=== PATIENT | male | born 1995 | race African-American/Black ===

== ENCOUNTER 2016-11-14 16:36 | Emergency (ER) | payer MEDICAID, OTHER ==
[~2016-11-14] VITALS: Ht 182.9 cm; Wt 129.6 kg
[~2016-11-14 16:36] MED LIST: OLAN5TAB2 PO
[2016-11-14 18:39] VITALS: BP 144/82
== END 2016-11-14 18:55 | disposition other institution (70) ==
LOC: EMS 16:38
DX: S00.33XA Contusion of nose, initial encounter (principal); F20.9 Schizophrenia, unspecified; F12.10 Cannabis abuse, uncomplicated; Z79.899 Other long term (current) drug therapy; X58.XXXA Exposure to other specified factors, initial encounter; Y93.89 Activity, other specified; Y99.8 Other external cause status; Y92.89 Other specified places as the place of occurrence of the external cause
CPT/HCPCS: 99283

== ENCOUNTER 2016-11-29 20:46 | Emergency (ER) | payer OTHER ==
[~2016-11-29] VITALS: Ht 182.9 cm; Wt 109.1 kg
[~2016-11-29 20:46] MED LIST changes: +OLAN10TA3 PO; -OLAN5TAB2 PO
[2016-11-29 21:16] LABS: BASOPHILS # (AUTO) 0.07 K/uL (0.00-0.20); BASOPHILS % (AUTO) 0.7 % (0.0-2.0); EOSINOPHILS # (AUTO) 0.12 K/uL (0.00-0.70); EOSINOPHILS % (AUTO) 1.16 % (1.0-6.0); HEMATOCRIT 41.3 % (41-53); HEMOGLOBIN 13.6 g/dL (13.5-17.5); LYMPHOCYTES % (AUTO) 19.8 % (22.0-44.0); MEAN CORPUSCULAR HEMOGLOBIN 27.5 pg (26.0-34.0); MEAN CORPUSCULAR HGB CONC 32.9 G/dL (31.0-37.0); MEAN CORPUSCULAR VOLUME 84 fL (80-100); MONOCYTES # (AUTO) 0.7 K/uL (0.1-1.0); MONOCYTES % (AUTO) 6.8 % (2.0-9.0); NEUTROPHILS # (AUTO) 7.1 K/uL (1.8-7.7); NEUTROPHILS % (AUTO) 71.6 % (40.0-70.0); PLATELET COUNT (AUTO) 189 K/uL (150-450); RED BLOOD CELL COUNT(AUTO) 4.94 MIL/uL (4.50-5.90); RED CELL DISTRIBUTION WIDTH 12.8 % (11.5-14.5); WHITE BLOOD COUNT (AUTO) 9.9 K/uL (4.5-11.0)
[2016-11-29 21:20] LABS: ANION GAP 12 mmol/L (8-16); CALCIUM, TOTAL 9.1 mg/dL (8.8-10.5); CARBON DIOXIDE 26 mmol/L (22-29); CHLORIDE 98 mmol/L (98-107); CREATININE 1.27 mg/dL (0.60-1.30); GLOMERULAR FILTR. RATE CALC > 60 mL/min (>60); POTASSIUM 3.5 mmol/L (3.5-5.1); SODIUM SERUM 136 mmol/L (136-145); UREA NITROGEN, BLOOD 11 mg/dL (7-18)
[2016-11-29 21:26] LABS: ALANINE AMINOTRANSFERASE 133 U/L (12-78); ALBUMIN 4.3 g/dL (3.4-5.0); ASPARTATE AMINOTRANSFERASE 55 U/L (15-37); BILIRUBIN,TOTAL 0.6 mg/dL (0.1-1.0); TOTAL PROTEIN, SERUM 8.5 g/dL (6.4-8.2)
[2016-11-29] MEDS ORDERED: LORazepam 2 MG TABLET PO ONE (22:30)
[2016-11-29] MEDS ORDERED: DiphenhydrAMINE HCL 25 MG CAPSULE PO ONE (22:30)
[2016-11-29] MEDS ORDERED: OLANZapine 5 MG TABLET PO ONE (22:30)
[2016-11-29] MEDS ORDERED: DiphenhydrAMINE HCL 50 MG/ML VIAL IM ONE (22:45)
[2016-11-29] MEDS ORDERED: HALOPERIDOL LACTATE 5 MG/ML VIAL IM ONE (22:45)
[2016-11-29] MEDS ORDERED: LORazepam 2 MG/ML VIAL IM ONE (22:45)
[2016-11-29 23:47] VITALS: BP 138/80
== END 2016-11-29 23:49 | disposition home or self-care (01) ==
LOC: EEVIPCON 20:57 → EMS 20:57
DX: F25.9 Schizoaffective disorder, unspecified (principal); F12.90 Cannabis use, unspecified, uncomplicated
CPT/HCPCS: 36415; 80053; 85025; 96372; 99285; G0480; J1200; J1630; J2060

== ENCOUNTER 2016-11-30 22:47 | Inpatient (IN) | payer MEDICAID, OTHER ==
[~2016-11-30] VITALS: Ht 182.9 cm; Wt 132.4 kg
[2016-11-30] MEDS ORDERED: HALOPERIDOL 5 MG TABLET PO PRN (23:15)
[2016-11-30 23:44] VITALS: BP 127/76
[2016-12-01 00:01] VITALS: BP 143/83
[2016-12-01 08:10] VITALS: BP 138/85
[2016-12-01] MEDS ORDERED: IBUPROFEN 400 MG TABLET PO PRN (08:15)
[2016-12-01] MEDS ORDERED: ACETAMINOPHEN 325 MG TABLET PO PRN (08:15)
[2016-12-01] MEDS: OLANZapine 10 MG TABLET PO SCH ×2 (10:10→20:38)
[2016-12-01] MEDS: LORazepam 2 MG TABLET PO PRN ×2 (10:10→16:50)
[2016-12-01] MEDS: NICOTINE 14 MG/24 HOUR PATCH TD SCH (11:45)
[2016-12-01 16:00] VITALS: BP 130/77
[2016-12-01] MEDS ORDERED: OLANZapine 10 MG TABLET PO SCH (21:00)
[2016-12-01] MEDS: ZOLPIDEM TARTRATE 10 MG TABLET PO PRN (21:10)
[2016-12-02] MEDS: OLANZapine 10 MG TABLET PO SCH ×2 (09:33→20:17)
[2016-12-02] MEDS: LORazepam 2 MG TABLET PO PRN ×2 (09:33→20:17)
[2016-12-02] MEDS: NICOTINE 14 MG/24 HOUR PATCH TD SCH (09:34)
[2016-12-02 16:50] VITALS: BP 135/78
[2016-12-02] MEDS: ZOLPIDEM TARTRATE 10 MG TABLET PO PRN (20:53)
[2016-12-03 08:30] VITALS: BP 136/82
[2016-12-03] MEDS: OLANZapine 10 MG TABLET PO SCH ×2 (09:18→20:09)
[2016-12-03] MEDS: NICOTINE 14 MG/24 HOUR PATCH TD SCH (09:19)
[2016-12-03 16:45] VITALS: BP 145/92
[2016-12-03] MEDS: LORazepam 2 MG TABLET PO PRN (19:50)
[2016-12-03] MEDS: ZOLPIDEM TARTRATE 10 MG TABLET PO PRN (20:37)
[2016-12-04] MEDS: OLANZapine 10 MG TABLET PO SCH ×2 (09:00→21:29)
[2016-12-04] MEDS: NICOTINE 14 MG/24 HOUR PATCH TD SCH (09:00)
[2016-12-04] MEDS: LORazepam 2 MG TABLET PO PRN (17:32)
[2016-12-04] MEDS: ZOLPIDEM TARTRATE 10 MG TABLET PO PRN (21:29)
[2016-12-05 07:12] VITALS: BP 133/69
[2016-12-05 08:10] LABS: BASOPHILS # (AUTO) 0.03 K/uL (0.00-0.20); BASOPHILS % (AUTO) 0.3 % (0.0-2.0); EOSINOPHILS # (AUTO) 0.24 K/uL (0.00-0.70); EOSINOPHILS % (AUTO) 2.66 % (1.0-6.0); HEMATOCRIT 41.3 % (41-53); HEMOGLOBIN 13.3 g/dL (13.5-17.5); LYMPHOCYTES # (AUTO) 2.3 K/uL (1.0-4.8); MEAN CORPUSCULAR HEMOGLOBIN 27.4 pg (26.0-34.0); MEAN CORPUSCULAR HGB CONC 32.3 G/dL (31.0-37.0); MEAN CORPUSCULAR VOLUME 85 fL (80-100); MONOCYTES # (AUTO) 0.6 K/uL (0.1-1.0); MONOCYTES % (AUTO) 6.2 % (2.0-9.0); NEUTROPHILS # (AUTO) 5.8 K/uL (1.8-7.7); NEUTROPHILS % (AUTO) 64.8 % (40.0-70.0); PLATELET COUNT (AUTO) 169 K/uL (150-450); RED BLOOD CELL COUNT(AUTO) 4.86 MIL/uL (4.50-5.90); RED CELL DISTRIBUTION WIDTH 13.1 % (11.5-14.5); WHITE BLOOD COUNT (AUTO) 8.9 K/uL (4.5-11.0)
[2016-12-05 08:39] LABS: ALANINE AMINOTRANSFERASE 139 U/L (12-78); ALBUMIN 3.4 g/dL (3.4-5.0); ANION GAP 7 mmol/L (8-16); ASPARTATE AMINOTRANSFERASE 41 U/L (15-37); BILIRUBIN,TOTAL 0.3 mg/dL (0.1-1.0); CALCIUM, TOTAL 8.7 mg/dL (8.8-10.5); CARBON DIOXIDE 27 mmol/L (22-29); CHLORIDE 105 mmol/L (98-107); CHOL/HDL RATIO 4.8 (4.2-7.3); CREATININE 1.02 mg/dL (0.60-1.30); GLOMERULAR FILTR. RATE CALC > 60 mL/min (>60); POTASSIUM 3.9 mmol/L (3.5-5.1); SODIUM SERUM 139 mmol/L (136-145); THYROID STIMULATING HORMONE 1.93 uIU/mL (0.36-3.74); TOTAL PROTEIN, SERUM 7.1 g/dL (6.4-8.2); UREA NITROGEN, BLOOD 8 mg/dL (7-18)
[2016-12-05 08:45] LABS: HEMOGLOBIN A1C 4.8 % (4.5-6.2)
[2016-12-05] MEDS: NICOTINE 14 MG/24 HOUR PATCH TD SCH (09:00)
[2016-12-05] MEDS: OLANZapine 10 MG TABLET PO SCH ×2 (09:00→21:32)
[2016-12-05 16:00] VITALS: BP 113/70
[2016-12-06] MEDS: OLANZapine 10 MG TABLET PO SCH ×2 (09:00→20:05)
[2016-12-06] MEDS: NICOTINE 14 MG/24 HOUR PATCH TD SCH (09:17)
[2016-12-06] MEDS ORDERED: LORazepam 2 MG/ML VIAL IM ONE (16:45)
[2016-12-06] MEDS ORDERED: DiphenhydrAMINE HCL 50 MG/ML VIAL IM ONE (16:45)
[2016-12-06] MEDS ORDERED: HALOPERIDOL LACTATE 5 MG/ML VIAL IM ONE (16:45)
[2016-12-06] MEDS: ZOLPIDEM TARTRATE 10 MG TABLET PO PRN (20:24)
[2016-12-06] MEDS: LORazepam 2 MG TABLET PO PRN (20:24)
[2016-12-07 06:10] VITALS: BP 130/75
[2016-12-07] MEDS: NICOTINE 14 MG/24 HOUR PATCH TD SCH (09:00)
[2016-12-07] MEDS: LORazepam 2 MG TABLET PO PRN (20:29)
[2016-12-07] MEDS: OLANZapine 10 MG TABLET PO SCH (20:29)
[2016-12-07] MEDS: ZOLPIDEM TARTRATE 10 MG TABLET PO PRN (20:29)
[2016-12-08 04:36] VITALS: BP 116/64
[2016-12-08] MEDS: NICOTINE 14 MG/24 HOUR PATCH TD SCH (08:55)
[2016-12-08] MEDS: LORazepam 2 MG TABLET PO PRN (12:06)
[2016-12-08] MEDS: OLANZapine 10 MG TABLET PO SCH (20:08)
[2016-12-08] MEDS: ZOLPIDEM TARTRATE 10 MG TABLET PO PRN (20:08)
[2016-12-09] MEDS: NICOTINE 14 MG/24 HOUR PATCH TD SCH (09:00)
[2016-12-09] MEDS: LORazepam 2 MG TABLET PO PRN (16:55)
[2016-12-09] MEDS: OLANZapine 10 MG TABLET PO SCH (21:07)
[2016-12-10 08:43] VITALS: BP 117/85
[2016-12-10] MEDS: NICOTINE 14 MG/24 HOUR PATCH TD SCH (09:00)
[2016-12-10] MEDS: LORazepam 2 MG TABLET PO PRN (17:54)
[2016-12-10] MEDS: OLANZapine 10 MG TABLET PO SCH (20:11)
[2016-12-10] MEDS: ZOLPIDEM TARTRATE 10 MG TABLET PO PRN (20:48)
[2016-12-11 08:28] VITALS: BP 117/81
[2016-12-11] MEDS: NICOTINE 14 MG/24 HOUR PATCH TD SCH (09:00)
[2016-12-11] MEDS: OLANZapine 10 MG TABLET PO SCH (20:36)
[2016-12-12 08:42] VITALS: BP 121/76
[2016-12-12] MEDS: NICOTINE 14 MG/24 HOUR PATCH TD SCH (09:00)
[2016-12-12] MEDS: OLANZapine 10 MG TABLET PO SCH (20:22)
[2016-12-13] MEDS: NICOTINE 14 MG/24 HOUR PATCH TD SCH (08:37)
[2016-12-13] MEDS ORDERED: OLAN10TA3 PO (15:39)
[2016-12-13] MEDS: OLANZapine 10 MG TABLET PO SCH (21:24)
[2016-12-14] MEDS: NICOTINE 14 MG/24 HOUR PATCH TD SCH (08:39)
[2016-12-14 08:47] VITALS: BP 109/62
== END 2016-12-14 14:02 | disposition home or self-care (01) | DRG 750 ==
LOC: B3A 23:13 → EDSTATUS 23:20
DX: F20.0 Paranoid schizophrenia (principal); R45.851 Suicidal ideations; Z91.14 Patient's other noncompliance with medication regimen; F12.90 Cannabis use, unspecified, uncomplicated
CPT/HCPCS: 83036; 84439; 84443; 87081; J1200; J1630; J2060

== ENCOUNTER 2017-07-06 21:19 | Inpatient (IN) | payer MEDICAID ==
[~2017-07-06] VITALS: Ht 182.9 cm; Wt 108.4 kg
[2017-07-06 21:23] VITALS: BP 137/75
[2017-07-06] MEDS ORDERED: HALOPERIDOL 5 MG TABLET PO PRN (21:45)
[2017-07-06] MEDS ORDERED: HALO5 PO (21:58)
[2017-07-06] MEDS ORDERED: INFLUENZA VIRUS VACCINE QVS 2017-18 (3YR+)/PF 60 MCG/0.5 ML SYRINGE IM ONE (23:15)
[2017-07-06 23:42] VITALS: BP 128/74
[2017-07-06] MEDS: LORazepam 2 MG TABLET PO PRN (23:42)
[2017-07-06] MEDS: ZOLPIDEM TARTRATE 10 MG TABLET PO PRN (23:42)
[2017-07-07 05:46] VITALS: BP 125/80
[2017-07-07 08:16] VITALS: BP 116/68
[2017-07-07] MEDS: OLANZapine 10 MG TABLET PO SCH (13:14)
[2017-07-07 16:14] VITALS: BP 123/62
[2017-07-07] MEDS: LORazepam 2 MG TABLET PO PRN (16:40)
[2017-07-07] MEDS ORDERED: ACETAMINOPHEN 325 MG TABLET PO PRN (20:45)
[2017-07-07] MEDS ORDERED: IBUPROFEN 400 MG TABLET PO PRN (20:45)
[2017-07-07] MEDS: ZOLPIDEM TARTRATE 10 MG TABLET PO PRN (20:56)
[2017-07-07] MEDS: TraZODone HCL 50 MG TABLET PO SCH (20:56)
[2017-07-07] MEDS ORDERED: OLANZapine 10 MG TABLET PO SCH (21:00)
[2017-07-08 03:57] VITALS: BP 107/62
[2017-07-08 03:58] LABS: GLUCOMETER DEV NAME(LOC) BV3N5; GLUCOSE,POINT OF CARE 109 MG/DL (70-110)
[2017-07-08 08:30] VITALS: BP 112/78
[2017-07-08 08:47] LABS: BASOPHILS % (AUTO) 0.4 % (0.0-2.0); EOSINOPHILS % (AUTO) 1.3 % (1.0-6.0); HEMATOCRIT 41.4 % (41-53); HEMOGLOBIN 13.5 g/dL (13.5-17.5); LYMPHOCYTES # (AUTO) 1.6 K/uL (1.0-4.8); LYMPHOCYTES % (AUTO) 16.8 % (22.0-44.0); MEAN CORPUSCULAR HEMOGLOBIN 27.2 pg (26.0-34.0); MEAN CORPUSCULAR HGB CONC 32.7 G/dL (31.0-37.0); MEAN CORPUSCULAR VOLUME 83 fL (80-100); MONOCYTES # (AUTO) 0.6 K/uL (0.1-1.0); MONOCYTES % (AUTO) 6.2 % (2.0-9.0); NEUTROPHILS # (AUTO) 7.1 K/uL (1.8-7.7); NEUTROPHILS % (AUTO) 75.3 % (40.0-70.0); PLATELET COUNT (AUTO) 187 K/uL (150-450); RED BLOOD CELL COUNT(AUTO) 4.98 MIL/uL (4.50-5.90); RED CELL DISTRIBUTION WIDTH 13.3 % (11.5-14.5)
[2017-07-08 08:57] LABS: HEMOGLOBIN A1C 4.9 % (4.5-6.2)
[2017-07-08] MEDS: OLANZapine 10 MG TABLET PO SCH ×4 (09:00→20:13)
[2017-07-08 09:22] LABS: ALANINE AMINOTRANSFERASE 50 U/L (12-78); ALBUMIN 3.5 g/dL (3.4-5.0); ALKALINE PHOSPHATASE 76 U/L (46-116); ANION GAP 8 mmol/L (8-16); ASPARTATE AMINOTRANSFERASE 18 U/L (15-37); BILIRUBIN,TOTAL 0.3 mg/dL (0.1-1.0); CALCIUM, TOTAL 9.3 mg/dL (8.8-10.5); CARBON DIOXIDE 28 mmol/L (22-29); CHLORIDE 105 mmol/L (98-107); CHOL/HDL RATIO 5.4 (4.2-7.3); CHOLESTEROL 194 mg/dL (131-200); CREATININE 0.91 mg/dL (0.60-1.30); GLOMERULAR FILTR. RATE CALC > 60 mL/min (>60); GLUCOSE,RANDOM 79 mg/dL (70-110); HDL CHOLESTEROL 36 mg/dL (40-60); LDL CHOL (CALC.) 113 mg/dL (0-130); POTASSIUM 4.1 mmol/L (3.5-5.1); SODIUM SERUM 141 mmol/L (136-145); THYROID STIMULATING HORMONE 1.33 uIU/mL (0.36-3.74); TOTAL PROTEIN, SERUM 7.7 g/dL (6.4-8.2); TRIGLYCERIDES 223 mg/dL (15-150); UREA NITROGEN, BLOOD 13 mg/dL (7-18)
[2017-07-08 16:03] VITALS: BP 106/62
[2017-07-08] MEDS: TraZODone HCL 50 MG TABLET PO SCH (20:12)
[2017-07-08] MEDS: ZOLPIDEM TARTRATE 10 MG TABLET PO PRN (20:13)
[2017-07-09 00:24] VITALS: BP 138/90
[2017-07-09 08:09] VITALS: BP 119/64
[2017-07-09] MEDS: OLANZapine 10 MG TABLET PO SCH ×2 (08:42→20:33)
[2017-07-09 16:01] VITALS: BP 137/73
[2017-07-09] MEDS: LORazepam 2 MG TABLET PO PRN (16:48)
[2017-07-09] MEDS: TraZODone HCL 50 MG TABLET PO SCH (20:33)
[2017-07-09] MEDS: ZOLPIDEM TARTRATE 10 MG TABLET PO PRN (20:33)
[2017-07-10 05:35] VITALS: BP 126/78
[2017-07-10 08:02] VITALS: BP 133/76
[2017-07-10] MEDS: OLANZapine 10 MG TABLET PO SCH ×2 (08:31→20:34)
[2017-07-10] MEDS: LORazepam 2 MG TABLET PO PRN ×2 (12:47→16:57)
[2017-07-10 16:00] VITALS: BP 127/69
[2017-07-10] MEDS: TraZODone HCL 50 MG TABLET PO SCH (20:34)
[2017-07-10] MEDS: ZOLPIDEM TARTRATE 10 MG TABLET PO PRN (20:34)
[2017-07-11 02:26] VITALS: BP 122/81
[2017-07-11 08:25] VITALS: BP 130/61
[2017-07-11] MEDS: OLANZapine 10 MG TABLET PO SCH (08:27)
[2017-07-11 16:00] VITALS: BP 120/71
[2017-07-11] MEDS ORDERED: OLAN10TA3 PO (16:44)
[2017-07-11] MEDS ORDERED: TRAZ-144 PO (16:44)
== END 2017-07-11 17:45 | disposition home or self-care (01) | DRG 750 ==
LOC: B3A 22:12 → EDSTATUS 22:30
PROVIDERS: ADMIT Psychiatry & Neurology Child & Adolescent Psychiatry; ATTEND Psychiatry & Neurology Child & Adolescent Psychiatry
PROC: 3E0234Z Introduction of Serum, Toxoid and Vaccine into Muscle, Percutaneous Approach (ICD-10-PCS; principal; 2017-07-07)
DX: F20.0 Paranoid schizophrenia (principal); E78.5 Hyperlipidemia, unspecified; D64.9 Anemia, unspecified; F41.9 Anxiety disorder, unspecified; F19.10 Other psychoactive substance abuse, uncomplicated; Z23 Encounter for immunization
CPT/HCPCS: 82962; 83036; 84439; 84443; 87081; 90471; 99285

== ENCOUNTER 2017-07-12 15:49 | Inpatient (IN) | payer MEDICAID ==
[~2017-07-12] VITALS: Ht 182.9 cm; Wt 114.9 kg
[~2017-07-12 15:49] MED LIST changes: +TRAZ-144 PO
[2017-07-12] MEDS ORDERED: LORazepam 1 MG TABLET PO ONE (17:30)
[2017-07-12 17:45] LABS: BASOPHILS % (AUTO) 0.6 % (0.0-2.0); HEMATOCRIT 42.1 % (41-53); HEMOGLOBIN 13.9 g/dL (13.5-17.5); LYMPHOCYTES % (AUTO) 18.3 % (22.0-44.0); MEAN CORPUSCULAR HEMOGLOBIN 27.6 pg (26.0-34.0); MEAN CORPUSCULAR VOLUME 84 fL (80-100); MONOCYTES # (AUTO) 0.7 K/uL (0.1-1.0); MONOCYTES % (AUTO) 6.6 % (2.0-9.0); NEUTROPHILS # (AUTO) 8.2 K/uL (1.8-7.7); NEUTROPHILS % (AUTO) 73.5 % (40.0-70.0); PLATELET COUNT (AUTO) 187 K/uL (150-450); RED BLOOD CELL COUNT(AUTO) 5.03 MIL/uL (4.50-5.90); RED CELL DISTRIBUTION WIDTH 13.2 % (11.5-14.5)
[2017-07-12 17:47] LABS: ANION GAP 10 mmol/L (8-16); CALCIUM, TOTAL 9.3 mg/dL (8.8-10.5); CARBON DIOXIDE 29 mmol/L (22-29); CHLORIDE 103 mmol/L (98-107); CREATININE 1.14 mg/dL (0.60-1.30); GLOMERULAR FILTR. RATE CALC > 60 mL/min (>60); GLUCOSE,RANDOM 100 mg/dL (70-110); POTASSIUM 4.6 mmol/L (3.5-5.1); SODIUM SERUM 142 mmol/L (136-145); UREA NITROGEN, BLOOD 12 mg/dL (7-18)
[2017-07-12 17:50] LABS: AMPHET/METH SCREEN,URINE NEGATIVE (NEGATIVE); BARBITURATE SCREEN, URINE NEGATIVE (NEGATIVE); BENZODIAZEPINES SCREEN,URINE NEGATIVE (NEGATIVE); CANNABINOID SCREEN,URINE NEGATIVE (NEGATIVE); COCAINE SCREEN,URINE NEGATIVE (NEGATIVE); METHADONE SCREEN, URINE NEGATIVE (NEGATIVE); OPIATE SCREEN,URINE NEGATIVE (NEGATIVE)
[2017-07-12 17:51] LABS: ALANINE AMINOTRANSFERASE 69 U/L (12-78); ALBUMIN 3.7 g/dL (3.4-5.0); ALKALINE PHOSPHATASE 79 U/L (46-116); ASPARTATE AMINOTRANSFERASE 23 U/L (15-37); BILIRUBIN,TOTAL 0.3 mg/dL (0.1-1.0); TOTAL PROTEIN, SERUM 8.3 g/dL (6.4-8.2)
[2017-07-12 17:58] LABS: PHENCYCLIDINE SCREEN,URINE NEGATIVE (NEGATIVE)
[2017-07-12] MEDS ORDERED: ACETAMINOPHEN 325 MG TABLET PO ONE (18:00)
[2017-07-12] MEDS: HALOPERIDOL 5 MG TABLET PO PRN (18:04)
[2017-07-12 19:13] VITALS: BP 145/83
[2017-07-12] MEDS ORDERED: ACETAMINOPHEN 325 MG TABLET PO PRN (20:30)
[2017-07-12] MEDS ORDERED: IBUPROFEN 400 MG TABLET PO PRN (20:30)
[2017-07-12] MEDS: ZOLPIDEM TARTRATE 10 MG TABLET PO PRN (22:50)
[2017-07-13] MEDS ORDERED: LORazepam 2 MG/ML VIAL ONE (07:42)
[2017-07-13] MEDS ORDERED: DiphenhydrAMINE HCL 50 MG/ML VIAL ONE (07:43)
[2017-07-13] MEDS ORDERED: HALOPERIDOL LACTATE 5 MG/ML VIAL ONE (07:43)
[2017-07-13] MEDS ORDERED: LORazepam 2 MG/ML VIAL IM ONE ×2 (07:45→19:00)
[2017-07-13] MEDS ORDERED: DiphenhydrAMINE HCL 50 MG/ML VIAL IM ONE ×2 (07:45→19:00)
[2017-07-13] MEDS ORDERED: HALOPERIDOL LACTATE 5 MG/ML VIAL IM ONE ×2 (07:45→19:00)
[2017-07-13] MEDS: HALOPERIDOL 5 MG TABLET PO PRN ×2 (07:51→18:46)
[2017-07-13] MEDS: LORazepam 2 MG TABLET PO PRN ×2 (07:51→18:45)
[2017-07-13 09:00] VITALS: BP 119/64
[2017-07-13 17:09] VITALS: BP 145/109
[2017-07-13] MEDS: DIVALPROEX SODIUM 500 MG DR TABLET PO SCH (20:36)
[2017-07-13] MEDS: TraZODone HCL 50 MG TABLET PO SCH (20:37)
[2017-07-13] MEDS: OLANZapine 10 MG TABLET PO SCH (20:37)
[2017-07-14 08:17] VITALS: BP 131/76
[2017-07-14] MEDS: DIVALPROEX SODIUM 500 MG DR TABLET PO SCH ×4 (09:00→21:00)
[2017-07-14] MEDS: OLANZapine 10 MG TABLET PO SCH ×2 (09:58→21:53)
[2017-07-14] MEDS: AmLODIPine BESYLATE 5 MG TABLET PO SCH (09:58)
[2017-07-14] MEDS: HALOPERIDOL 5 MG TABLET PO PRN (12:22)
[2017-07-14] MEDS: LORazepam 2 MG TABLET PO PRN (12:22)
[2017-07-14 16:18] VITALS: BP 146/95
[2017-07-14] MEDS: TraZODone HCL 50 MG TABLET PO SCH (21:53)
[2017-07-15 07:22] LABS: BASOPHILS % (AUTO) 0.5 % (0.0-2.0); EOSINOPHILS % (AUTO) 3.1 % (1.0-6.0); HEMATOCRIT 40.2 % (41-53); HEMOGLOBIN 13.1 g/dL (13.5-17.5); LYMPHOCYTES # (AUTO) 2.1 K/uL (1.0-4.8); MEAN CORPUSCULAR HGB CONC 32.6 G/dL (31.0-37.0); MEAN CORPUSCULAR VOLUME 83 fL (80-100); MONOCYTES # (AUTO) 0.5 K/uL (0.1-1.0); MONOCYTES % (AUTO) 5.6 % (2.0-9.0); NEUTROPHILS # (AUTO) 5.3 K/uL (1.8-7.7); NEUTROPHILS % (AUTO) 64.8 % (40.0-70.0); PLATELET COUNT (AUTO) 161 K/uL (150-450); RED BLOOD CELL COUNT(AUTO) 4.86 MIL/uL (4.50-5.90); RED CELL DISTRIBUTION WIDTH 13.4 % (11.5-14.5)
[2017-07-15] MEDS ORDERED: LORazepam 2 MG/ML VIAL ONE (07:34)
[2017-07-15] MEDS ORDERED: DiphenhydrAMINE HCL 50 MG/ML VIAL ONE (07:34)
[2017-07-15] MEDS ORDERED: HALOPERIDOL LACTATE 5 MG/ML VIAL ONE (07:34)
[2017-07-15] MEDS ORDERED: LORazepam 2 MG/ML VIAL IM ONE (07:40)
[2017-07-15] MEDS ORDERED: DiphenhydrAMINE HCL 50 MG/ML VIAL IM ONE (07:40)
[2017-07-15] MEDS ORDERED: HALOPERIDOL LACTATE 5 MG/ML VIAL IM ONE (07:40)
[2017-07-15 08:32] LABS: ALANINE AMINOTRANSFERASE 59 U/L (12-78); ALBUMIN 3.4 g/dL (3.4-5.0); ALKALINE PHOSPHATASE 68 U/L (46-116); ANION GAP 6 mmol/L (8-16); ASPARTATE AMINOTRANSFERASE 30 U/L (15-37); BILIRUBIN,TOTAL 0.4 mg/dL (0.1-1.0); CALCIUM, TOTAL 9.2 mg/dL (8.8-10.5); CARBON DIOXIDE 31 mmol/L (22-29); CHLORIDE 102 mmol/L (98-107); CREATININE 0.86 mg/dL (0.60-1.30); GLOMERULAR FILTR. RATE CALC > 60 mL/min (>60); GLUCOSE,RANDOM 99 mg/dL (70-110); POTASSIUM 4.2 mmol/L (3.5-5.1); SODIUM SERUM 139 mmol/L (136-145); THYROID STIMULATING HORMONE 1.82 uIU/mL (0.36-3.74); TOTAL PROTEIN, SERUM 7.5 g/dL (6.4-8.2); UREA NITROGEN, BLOOD 10 mg/dL (7-18)
[2017-07-15] MEDS: DIVALPROEX SODIUM 500 MG DR TABLET PO SCH ×2 (09:00→20:09)
[2017-07-15] MEDS: LORazepam 2 MG TABLET PO PRN ×2 (10:12→20:14)
[2017-07-15] MEDS: HALOPERIDOL 5 MG TABLET PO PRN (10:12)
[2017-07-15] MEDS: AmLODIPine BESYLATE 5 MG TABLET PO SCH (10:12)
[2017-07-15] MEDS: OLANZapine 10 MG TABLET PO SCH (10:12)
[2017-07-15] MEDS: OLANZapine 7.5 MG TABLET PO SCH (20:15)
[2017-07-15] MEDS: TraZODone HCL 50 MG TABLET PO SCH (20:16)
[2017-07-16] MEDS: AmLODIPine BESYLATE 5 MG TABLET PO SCH (08:44)
[2017-07-16] MEDS: OLANZapine 7.5 MG TABLET PO SCH ×2 (08:45→21:12)
[2017-07-16] MEDS: LORazepam 2 MG TABLET PO PRN (08:45)
[2017-07-16] MEDS: HALOPERIDOL 5 MG TABLET PO PRN (08:45)
[2017-07-16] MEDS: DIVALPROEX SODIUM 500 MG DR TABLET PO SCH ×2 (08:46→21:00)
[2017-07-16 10:33] VITALS: BP 145/95
[2017-07-16 16:13] VITALS: BP 141/96
[2017-07-16] MEDS: TraZODone HCL 50 MG TABLET PO SCH (21:12)
[2017-07-17] MEDS: DIVALPROEX SODIUM 500 MG DR TABLET PO SCH ×3 (09:00→20:03)
[2017-07-17] MEDS: AmLODIPine BESYLATE 5 MG TABLET PO SCH (09:08)
[2017-07-17] MEDS: OLANZapine 7.5 MG TABLET PO SCH ×2 (09:08→20:02)
[2017-07-17] MEDS: TraZODone HCL 50 MG TABLET PO SCH (20:02)
[2017-07-17] MEDS: ZOLPIDEM TARTRATE 10 MG TABLET PO PRN (20:26)
[2017-07-17 20:40] VITALS: BP 142/98
[2017-07-18] MEDS: DIVALPROEX SODIUM 500 MG DR TABLET PO SCH ×2 (09:00→20:03)
[2017-07-18] MEDS: OLANZapine 7.5 MG TABLET PO SCH ×2 (09:27→20:04)
[2017-07-18] MEDS: AmLODIPine BESYLATE 5 MG TABLET PO SCH (09:27)
[2017-07-18 12:36] VITALS: BP 133/74
[2017-07-18 16:00] VITALS: BP 137/89
[2017-07-18] MEDS: TraZODone HCL 50 MG TABLET PO SCH (20:04)
[2017-07-19] MEDS: ZOLPIDEM TARTRATE 10 MG TABLET PO PRN (02:37)
[2017-07-19] MEDS: HALOPERIDOL 5 MG TABLET PO PRN ×2 (02:37→09:54)
[2017-07-19 02:51] VITALS: BP 131/91
[2017-07-19] MEDS: DIVALPROEX SODIUM 500 MG DR TABLET PO SCH ×2 (09:00→20:34)
[2017-07-19] MEDS: OLANZapine 7.5 MG TABLET PO SCH ×2 (09:54→20:34)
[2017-07-19] MEDS: AmLODIPine BESYLATE 5 MG TABLET PO SCH (09:54)
[2017-07-19] MEDS: LORazepam 2 MG TABLET PO PRN ×2 (09:54→17:44)
[2017-07-19 12:19] VITALS: BP 124/72
[2017-07-19 16:00] VITALS: BP 139/78
[2017-07-19] MEDS: TraZODone HCL 50 MG TABLET PO SCH (20:34)
[2017-07-20] MEDS: DIVALPROEX SODIUM 500 MG DR TABLET PO SCH ×2 (09:00→21:00)
[2017-07-20] MEDS: OLANZapine 7.5 MG TABLET PO SCH ×2 (09:19→21:50)
[2017-07-20] MEDS: AmLODIPine BESYLATE 5 MG TABLET PO SCH (09:19)
[2017-07-20] MEDS: LORazepam 2 MG TABLET PO PRN ×2 (09:19→20:03)
[2017-07-20 12:22] VITALS: BP 130/86
[2017-07-20 16:30] VITALS: BP 138/94
[2017-07-20] MEDS: TraZODone HCL 50 MG TABLET PO SCH (21:50)
[2017-07-21] MEDS: DIVALPROEX SODIUM 500 MG DR TABLET PO SCH ×2 (09:00→20:47)
[2017-07-21] MEDS: OLANZapine 7.5 MG TABLET PO SCH ×2 (09:49→20:46)
[2017-07-21] MEDS: AmLODIPine BESYLATE 5 MG TABLET PO SCH (09:50)
[2017-07-21 20:25] VITALS: BP 108/66
[2017-07-21] MEDS: TraZODone HCL 50 MG TABLET PO SCH (20:46)
[2017-07-21] MEDS: ZOLPIDEM TARTRATE 10 MG TABLET PO PRN (20:46)
[2017-07-22 00:30] VITALS: BP 134/94
[2017-07-22] MEDS: AmLODIPine BESYLATE 5 MG TABLET PO SCH (08:06)
[2017-07-22] MEDS: DIVALPROEX SODIUM 500 MG DR TABLET PO SCH ×2 (08:07→20:39)
[2017-07-22] MEDS: HALOPERIDOL 5 MG TABLET PO PRN (08:07)
[2017-07-22] MEDS: OLANZapine 7.5 MG TABLET PO SCH ×2 (08:07→20:39)
[2017-07-22] MEDS: LORazepam 2 MG TABLET PO PRN ×2 (08:07→16:51)
[2017-07-22 16:30] VITALS: BP 140/96
[2017-07-22] MEDS: TraZODone HCL 50 MG TABLET PO SCH (20:39)
[2017-07-22] MEDS: ZOLPIDEM TARTRATE 10 MG TABLET PO PRN (21:11)
[2017-07-23 08:30] VITALS: BP 123/81
[2017-07-23] MEDS: DIVALPROEX SODIUM 500 MG DR TABLET PO SCH (08:58)
[2017-07-23] MEDS: AmLODIPine BESYLATE 5 MG TABLET PO SCH (08:58)
[2017-07-23] MEDS: OLANZapine 7.5 MG TABLET PO SCH ×2 (08:59→20:15)
[2017-07-23] MEDS ORDERED: OLAN7.5T2 PO (11:22)
[2017-07-23] MEDS ORDERED: AMLO-511 PO (11:24)
[2017-07-23 16:52] VITALS: BP 124/75
[2017-07-23] MEDS: TraZODone HCL 50 MG TABLET PO SCH (20:15)
[2017-07-23] MEDS: ZOLPIDEM TARTRATE 10 MG TABLET PO PRN (20:43)
[2017-07-24] MEDS: OLANZapine 7.5 MG TABLET PO SCH (09:30)
[2017-07-24] MEDS: AmLODIPine BESYLATE 5 MG TABLET PO SCH (09:30)
[2017-07-24] MEDS: LORazepam 2 MG TABLET PO PRN (10:48)
[2017-07-24 11:31] VITALS: BP 127/95
[2017-07-24] MEDS ORDERED: OLANZAPINE PAMOATE 405 MG/2.7 ML VIAL IM SCH (13:00)
[2017-07-24 16:00] VITALS: BP 113/67
[2017-07-24] MEDS: TraZODone HCL 50 MG TABLET PO SCH (21:30)
[2017-07-25] MEDS: OLANZapine 7.5 MG TABLET PO SCH (09:00)
[2017-07-25] MEDS: AmLODIPine BESYLATE 5 MG TABLET PO SCH ×2 (09:00→09:59)
[2017-07-25 09:57] VITALS: BP 154/95
[2017-07-25 17:18] VITALS: BP 134/86
[2017-07-25] MEDS: TraZODone HCL 50 MG TABLET PO SCH (20:50)
[2017-07-26] MEDS: AmLODIPine BESYLATE 5 MG TABLET PO SCH (08:40)
[2017-07-26] MEDS: OLANZapine 7.5 MG TABLET PO SCH (08:40)
[2017-07-26 09:08] VITALS: BP 133/72
[2017-07-26] MEDS ORDERED: OLAN405V IM (09:33)
== END 2017-07-26 10:15 | disposition home or self-care (01) | DRG 750 ==
LOC: EMS 15:51 → 3EC 17:48
PROVIDERS: ADMIT Psychiatry & Neurology Child & Adolescent Psychiatry; ATTEND Psychiatry & Neurology Child & Adolescent Psychiatry
DX: F20.0 Paranoid schizophrenia (principal); F29 Unspecified psychosis not due to a substance or known physiological condition; I10 Essential (primary) hypertension; G47.00 Insomnia, unspecified; D72.829 Elevated white blood cell count, unspecified; Z79.899 Other long term (current) drug therapy
CPT/HCPCS: 84439; 84443; 87081; 99285; G0480; J1200; J1630; J2060; J2358

== ENCOUNTER 2017-07-27 18:00 | Inpatient (IN) | payer MEDICAID ==
[~2017-07-27] VITALS: Ht 182.9 cm; Wt 111.2 kg
[~2017-07-27 18:00] MED LIST changes: +AMLO-511 PO; -OLAN10TA3 PO; +OLAN405V IM; +OLAN7.5T2 PO
[2017-07-27] MEDS ORDERED: ACETAMINOPHEN 325 MG TABLET PO PRN (20:30)
[2017-07-27] MEDS ORDERED: MAGNESIUM HYDROXIDE SUSPENSION 30 ML UDCUP PO PRN (20:30)
[2017-07-27] MEDS ORDERED: HALOPERIDOL 5 MG TABLET PO PRN (20:30)
[2017-07-27] MEDS ORDERED: MAG HYDROX/AL HYDROX/SIMETH ES 30 ML SUSPENSION UDCUP PO PRN (20:30)
[2017-07-27] MEDS ORDERED: ZOLPIDEM TARTRATE 10 MG TABLET PO PRN (20:30)
[2017-07-27] MEDS ORDERED: LORazepam 2 MG/ML VIAL IM ONE (21:45)
[2017-07-27] MEDS ORDERED: HALOPERIDOL LACTATE 5 MG/ML VIAL IM ONE (21:45)
[2017-07-27] MEDS ORDERED: DiphenhydrAMINE HCL 50 MG/ML VIAL IM ONE (21:45)
[2017-07-28 01:18] VITALS: BP 119/80
[2017-07-28] MEDS ORDERED: -PHARMACY VACCINE NOTE- MISC ONE (02:30)
[2017-07-28 08:21] VITALS: BP 124/82
[2017-07-28] MEDS ORDERED: IBUPROFEN 400 MG TABLET PO PRN (14:15)
[2017-07-28] MEDS ORDERED: ACETAMINOPHEN 325 MG TABLET PO PRN (14:15)
[2017-07-28] MEDS ORDERED: DiphenhydrAMINE HCL 50 MG/ML VIAL IM ONE (16:00)
[2017-07-28] MEDS ORDERED: HALOPERIDOL LACTATE 5 MG/ML VIAL IM ONE (16:00)
[2017-07-28] MEDS ORDERED: LORazepam 2 MG/ML VIAL IM ONE (16:00)
[2017-07-29 08:15] VITALS: BP 137/71
[2017-07-29] MEDS: AmLODIPine BESYLATE 5 MG TABLET PO SCH ×2 (08:47→08:52)
[2017-07-29] MEDS: DIVALPROEX SODIUM 500 MG DR TABLET PO SCH (18:15)
[2017-07-29] MEDS: OLANZapine 7.5 MG TABLET PO SCH (18:15)
[2017-07-29] MEDS: TraZODone HCL 50 MG TABLET PO SCH (20:21)
[2017-07-29] MEDS ORDERED: LORazepam 2 MG/ML VIAL ONE (22:02)
[2017-07-29] MEDS ORDERED: HALOPERIDOL LACTATE 5 MG/ML VIAL ONE (22:03)
[2017-07-29] MEDS ORDERED: DiphenhydrAMINE HCL 50 MG/ML VIAL ONE (22:03)
[2017-07-29] MEDS ORDERED: HALOPERIDOL LACTATE 5 MG/ML VIAL IM ONE (22:15)
[2017-07-29] MEDS ORDERED: LORazepam 2 MG/ML VIAL IM ONE (22:15)
[2017-07-29] MEDS ORDERED: DiphenhydrAMINE HCL 50 MG/ML VIAL IM ONE (22:15)
[2017-07-30] MEDS: DIVALPROEX SODIUM 500 MG DR TABLET PO SCH ×2 (08:43→17:00)
[2017-07-30] MEDS: AmLODIPine BESYLATE 5 MG TABLET PO SCH (08:43)
[2017-07-30] MEDS: OLANZapine 7.5 MG TABLET PO SCH ×2 (08:43→17:00)
[2017-07-30] MEDS ORDERED: DiphenhydrAMINE HCL 50 MG/ML VIAL IM ONE ×2 (09:30→17:30)
[2017-07-30] MEDS ORDERED: HALOPERIDOL LACTATE 5 MG/ML VIAL IM ONE ×2 (09:30→17:30)
[2017-07-30] MEDS ORDERED: LORazepam 2 MG/ML VIAL IM ONE ×2 (09:30→17:30)
[2017-07-30] MEDS: TraZODone HCL 50 MG TABLET PO SCH (20:57)
[2017-07-31] MEDS: OLANZapine 7.5 MG TABLET PO SCH ×2 (09:00→16:49)
[2017-07-31] MEDS: DIVALPROEX SODIUM 500 MG DR TABLET PO SCH ×2 (09:00→16:43)
[2017-07-31] MEDS: AmLODIPine BESYLATE 5 MG TABLET PO SCH (09:00)
[2017-07-31] MEDS ORDERED: DiphenhydrAMINE HCL 50 MG/ML VIAL IM ONE ×2 (09:15→17:30)
[2017-07-31] MEDS ORDERED: HALOPERIDOL LACTATE 5 MG/ML VIAL IM ONE (09:15)
[2017-07-31] MEDS ORDERED: LORazepam 2 MG/ML VIAL IM ONE ×2 (09:15→17:30)
[2017-07-31] MEDS ORDERED: HALOPERIDOL LACTATE 5 MG/ML VIAL ONE (09:17)
[2017-07-31] MEDS ORDERED: LORazepam 2 MG/ML VIAL ONE (09:17)
[2017-07-31] MEDS ORDERED: DiphenhydrAMINE HCL 50 MG/ML VIAL ONE (09:17)
[2017-07-31] MEDS: LORazepam 2 MG TABLET PO PRN (16:49)
[2017-07-31] MEDS: TraZODone HCL 50 MG TABLET PO SCH (21:00)
[2017-08-01] MEDS: DIVALPROEX SODIUM 500 MG DR TABLET PO SCH ×3 (08:23→17:00)
[2017-08-01] MEDS: LORazepam 2 MG TABLET PO PRN (08:23)
[2017-08-01] MEDS: AmLODIPine BESYLATE 5 MG TABLET PO SCH ×2 (08:23→09:00)
[2017-08-01] MEDS: OLANZapine 7.5 MG TABLET PO SCH ×3 (08:23→17:00)
[2017-08-01] MEDS: TraZODone HCL 50 MG TABLET PO SCH (20:39)
[2017-08-02] MEDS: OLANZapine 7.5 MG TABLET PO SCH ×2 (09:00→17:00)
[2017-08-02] MEDS: DIVALPROEX SODIUM 500 MG DR TABLET PO SCH ×2 (09:00→17:00)
[2017-08-02] MEDS: AmLODIPine BESYLATE 5 MG TABLET PO SCH (09:00)
[2017-08-02] MEDS: TraZODone HCL 50 MG TABLET PO SCH (21:00)
[2017-08-03] MEDS: DIVALPROEX SODIUM 500 MG DR TABLET PO SCH ×2 (09:00→16:52)
[2017-08-03] MEDS: AmLODIPine BESYLATE 5 MG TABLET PO SCH (09:00)
[2017-08-03] MEDS: OLANZapine 7.5 MG TABLET PO SCH ×2 (09:00→16:52)
[2017-08-03] MEDS: TraZODone HCL 50 MG TABLET PO SCH (20:48)
[2017-08-04] MEDS: DIVALPROEX SODIUM 500 MG DR TABLET PO SCH ×2 (09:00→17:00)
[2017-08-04] MEDS: AmLODIPine BESYLATE 5 MG TABLET PO SCH (09:00)
[2017-08-04] MEDS: OLANZapine 7.5 MG TABLET PO SCH ×2 (09:00→17:00)
[2017-08-04] MEDS: TraZODone HCL 50 MG TABLET PO SCH (21:00)
[2017-08-05] MEDS: OLANZapine 7.5 MG TABLET PO SCH ×2 (09:49→16:44)
[2017-08-05] MEDS: DIVALPROEX SODIUM 500 MG DR TABLET PO SCH ×2 (09:49→16:45)
[2017-08-05] MEDS: AmLODIPine BESYLATE 5 MG TABLET PO SCH (09:49)
[2017-08-05] MEDS: TraZODone HCL 50 MG TABLET PO SCH (21:00)
[2017-08-06] MEDS: OLANZapine 7.5 MG TABLET PO SCH ×2 (09:00→17:00)
[2017-08-06] MEDS: DIVALPROEX SODIUM 500 MG DR TABLET PO SCH ×2 (09:00→17:00)
[2017-08-06] MEDS: AmLODIPine BESYLATE 5 MG TABLET PO SCH (09:00)
[2017-08-06] MEDS: TraZODone HCL 50 MG TABLET PO SCH (20:39)
[2017-08-07] MEDS: OLANZapine 7.5 MG TABLET PO SCH ×2 (08:58→16:49)
[2017-08-07] MEDS: DIVALPROEX SODIUM 500 MG DR TABLET PO SCH ×2 (08:58→16:49)
[2017-08-07] MEDS: AmLODIPine BESYLATE 5 MG TABLET PO SCH (08:58)
[2017-08-07] MEDS: TraZODone HCL 50 MG TABLET PO SCH (20:49)
[2017-08-08] MEDS: OLANZapine 7.5 MG TABLET PO SCH ×2 (08:54→17:00)
[2017-08-08] MEDS: AmLODIPine BESYLATE 5 MG TABLET PO SCH (08:54)
[2017-08-08] MEDS: DIVALPROEX SODIUM 500 MG DR TABLET PO SCH ×2 (08:54→17:00)
[2017-08-08 18:00] VITALS: BP 157/73
[2017-08-08 18:35] VITALS: BP 156/96
[2017-08-08] MEDS: TraZODone HCL 50 MG TABLET PO SCH (21:00)
[2017-08-09 07:16] VITALS: BP 139/89
[2017-08-09 07:37] LABS: GLUCOMETER DEV NAME(LOC) BV3N5; GLUCOSE,POINT OF CARE 90 MG/DL (70-110)
[2017-08-09] MEDS ORDERED: HALO5 PO (08:25)
[2017-08-09] MEDS ORDERED: DIVA500T35 PO (08:25)
== END 2017-08-09 10:49 | disposition short-term general hospital (02) | DRG 750 ==
LOC: EEVIPCON 18:05 → EMS 18:05 → B3A 21:30
PROVIDERS: ADMIT Psychiatry & Neurology Psychiatry; ATTEND Psychiatry & Neurology Child & Adolescent Psychiatry
DX: F20.0 Paranoid schizophrenia (principal); Z78.1 Physical restraint status; I10 Essential (primary) hypertension; E86.0 Dehydration; F12.90 Cannabis use, unspecified, uncomplicated; F19.20 Other psychoactive substance dependence, uncomplicated; Z91.14 Patient's other noncompliance with medication regimen; Z91.19 Patient's noncompliance with other medical treatment and regimen; Z79.899 Other long term (current) drug therapy
CPT/HCPCS: 82962; 87081; 96372; 99285; J1200; J1630; J2060; J3230

== ENCOUNTER 2017-08-08 18:57 | Emergency (ER) | payer MEDICAID ==
[~2017-08-08] VITALS: Ht 188 cm; Wt 100.0 kg
[2017-08-08] MEDS ORDERED: SODIUM CHLORIDE 0.9% 1,000 ML IV ONE (19:15)
[2017-08-08] MEDS ORDERED: DiphenhydrAMINE HCL 50 MG/ML VIAL IVP ONE (19:15)
[2017-08-08] MEDS ORDERED: LORazepam 2 MG/ML VIAL IVP ONE (19:15)
[2017-08-08 19:39] LABS: BASOPHILS % (AUTO) 0.8 % (0.0-2.0); EOSINOPHILS % (AUTO) 1.1 % (1.0-6.0); HEMATOCRIT 47.1 % (41-53); HEMOGLOBIN 15.7 g/dL (13.5-17.5); LYMPHOCYTES # (AUTO) 2.7 K/uL (1.0-4.8); LYMPHOCYTES % (AUTO) 20.6 % (22.0-44.0); MEAN CORPUSCULAR HEMOGLOBIN 27.5 pg (26.0-34.0); MEAN CORPUSCULAR HGB CONC 33.3 G/dL (31.0-37.0); MEAN CORPUSCULAR VOLUME 83 fL (80-100); MONOCYTES % (AUTO) 7.6 % (2.0-9.0); NEUTROPHILS # (AUTO) 9.1 K/uL (1.8-7.7); NEUTROPHILS % (AUTO) 69.9 % (40.0-70.0); PLATELET COUNT (AUTO) 219 K/uL (150-450); RED BLOOD CELL COUNT(AUTO) 5.71 MIL/uL (4.50-5.90); RED CELL DISTRIBUTION WIDTH 13.4 % (11.5-14.5)
[2017-08-08 19:51] LABS: ANION GAP 16 mmol/L (8-16); CARBON DIOXIDE 26 mmol/L (22-29); CHLORIDE 100 mmol/L (98-107); CREATININE 0.93 mg/dL (0.60-1.30); GLOMERULAR FILTR. RATE CALC > 60 mL/min (>60); GLUCOSE,RANDOM 93 mg/dL (70-110); POTASSIUM 4.3 mmol/L (3.5-5.1); SODIUM SERUM 142 mmol/L (136-145); UREA NITROGEN, BLOOD 13 mg/dL (7-18)
[2017-08-08 19:58] LABS: AMMONIA < 10 umol/L (11-32); TROPONIN I < 0.02 ng/mL (0.00-0.05)
[2017-08-08 19:59] LABS: LACTIC ACID 1.4 mmol/L (0.4-2.0)
[2017-08-08 20:01] LABS: INR 1.1 (0.9-1.1); PROTHROMBIN TIME 11.2 SEC (9.4-11.6)
[2017-08-08 20:12] LABS: APPEARANCE,URINE CLEAR (CLEAR); GLUCOSE, URINE (UA) NEGATIVE (NEGATIVE); KETONES,URINE 40 mg/dL (NEGATIVE); LEUKOCYTE ESTERASE ,URINE NEGATIVE (NEGATIVE); NITRATE,URINE NEGATIVE (NEGATIVE); OCCULT BLOOD,URINE TRACE (NEGATIVE); PH,URINE 5.5 (5.0-8.0); PROTEIN,URINE SEE CONFIRM (NEGATIVE)
[2017-08-08 20:12] LABS: ALANINE AMINOTRANSFERASE 37 U/L (12-78); ALBUMIN 4.3 g/dL (3.4-5.0); ALKALINE PHOSPHATASE 75 U/L (46-116); ASPARTATE AMINOTRANSFERASE 33 U/L (15-37); BILIRUBIN,TOTAL 0.7 mg/dL (0.1-1.0); CREATINE KINASE, TOTAL 935 U/L (39-308); TOTAL PROTEIN, SERUM 9.4 g/dL (6.4-8.2)
[2017-08-08 20:17] LABS: BILIRUBIN,URINE PRELIM. POSITIVE (NEGATIVE)
[2017-08-08 20:28] LABS: AMPHET/METH SCREEN,URINE NEGATIVE (NEGATIVE); BARBITURATE SCREEN, URINE NEGATIVE (NEGATIVE); BENZODIAZEPINES SCREEN,URINE NEGATIVE (NEGATIVE); CANNABINOID SCREEN,URINE NEGATIVE (NEGATIVE); COCAINE SCREEN,URINE NEGATIVE (NEGATIVE); METHADONE SCREEN, URINE NEGATIVE (NEGATIVE); OPIATE SCREEN,URINE NEGATIVE (NEGATIVE)
[2017-08-08 20:29] LABS: PHENCYCLIDINE SCREEN,URINE NEGATIVE (NEGATIVE)
[2017-08-08 20:32] LABS: BACTERIA,URINE Rare /HPF (None Seen); SQUAMOUS EPITHELIAL CELL,UR Few /LPF (None Seen); SULFOSALICYLIC ACID,URINE 3+ (Negative)
[2017-08-08 21:46] VITALS: BP 122/79
[2017-08-09] MEDS ORDERED: HALO5 PO (08:25)
[2017-08-09] MEDS ORDERED: DIVA500T35 PO (08:25)
== END 2017-08-08 22:54 | disposition home or self-care (01) ==
LOC: EMS 19:42
DX: E86.0 Dehydration (principal); F20.2 Catatonic schizophrenia; R00.0 Tachycardia, unspecified; Z02.89 Encounter for other administrative examinations; Z91.19 Patient's noncompliance with other medical treatment and regimen
CPT/HCPCS: 36415; 51702; 70450; 71045; 80053; 80307; 81001; 82140; 82550; 82553; 82962; 83605; 84484; 85025; 85610; 85730; 87040; 93005; 96361; 96374; 96375; 99285; J1200; J2060; J7030

== ENCOUNTER 2017-08-09 08:16 | Inpatient (IN) | payer MEDICAID ==
[~2017-08-09] VITALS: Ht 190.5 cm; Wt 104.5 kg
[2017-08-09] MEDS ORDERED: DIVA500T35 PO (08:25)
[2017-08-09] MEDS ORDERED: HALO5 PO (08:25)
[2017-08-09] MEDS ORDERED: HALOPERIDOL LACTATE 5 MG/ML VIAL IM ONE (08:30)
[2017-08-09] MEDS ORDERED: LORazepam 2 MG/ML VIAL IM ONE (08:30)
[2017-08-09] MEDS ORDERED: ONDANSETRON HCL 4 MG/2 ML VIAL IVP PRN ×2 (09:30→10:45)
[2017-08-09] MEDS ORDERED: ACETAMINOPHEN 325 MG TABLET PO PRN ×2 (09:30→10:45)
[2017-08-09] MEDS ORDERED: SODIUM CHLORIDE 0.9% 1,000 ML IV ONE ×2 (09:30→11:00)
[2017-08-09] MEDS ORDERED: ZOLPIDEM TARTRATE 5 MG TABLET PO PRN (10:45)
[2017-08-09] MEDS ORDERED: BISACODYL 10 MG RECTAL RECTAL SUPPOSITORY PR PRN (10:45)
[2017-08-09] MEDS ORDERED: HYDROCODONE/ACETAMINOPHEN 5-325 MG TABLET PO PRN (10:45)
[2017-08-09] MEDS ORDERED: MORPHINE SULFATE 2 MG/ML SYRINGE IVP PRN (10:45)
[2017-08-09] MEDS ORDERED: LORazepam 2 MG/ML VIAL IVP PRN (10:45)
[2017-08-09] MEDS ORDERED: MAGNESIUM HYDROXIDE SUSPENSION 30 ML UDCUP PO PRN (10:45)
[2017-08-09 12:29] VITALS: BP 159/76
[2017-08-09] MEDS ORDERED: -PHARMACY VACCINE NOTE- MISC ONE (14:15)
[2017-08-09] MEDS: HEPARIN SODIUM,PORCINE 5,000 UNITS/ML VIAL SQ SCH (16:29)
[2017-08-09 19:41] VITALS: BP 162/57
[2017-08-09] MEDS: TraZODone HCL 50 MG TABLET PO SCH ×2 (21:00→21:36)
[2017-08-09] MEDS: DIVALPROEX SODIUM 500 MG DR TABLET PO SCH ×2 (21:00→21:36)
[2017-08-09] MEDS: DOCUSATE SODIUM 100 MG CAPSULE PO SCH ×2 (21:00→21:36)
[2017-08-10 00:07] VITALS: BP 142/86
[2017-08-10 05:22] VITALS: BP 147/89
[2017-08-10 06:12] LABS: BASOPHILS % (AUTO) 0.8 % (0.0-2.0); EOSINOPHILS % (AUTO) 1.6 % (1.0-6.0); HEMATOCRIT 43.2 % (41-53); HEMOGLOBIN 14.5 g/dL (13.5-17.5); LYMPHOCYTES # (AUTO) 2.7 K/uL (1.0-4.8); LYMPHOCYTES % (AUTO) 27.1 % (22.0-44.0); MEAN CORPUSCULAR HEMOGLOBIN 27.5 pg (26.0-34.0); MEAN CORPUSCULAR HGB CONC 33.5 G/dL (31.0-37.0); MEAN CORPUSCULAR VOLUME 82 fL (80-100); MONOCYTES # (AUTO) 0.8 K/uL (0.1-1.0); NEUTROPHILS # (AUTO) 6.3 K/uL (1.8-7.7); NEUTROPHILS % (AUTO) 62.5 % (40.0-70.0); PLATELET COUNT (AUTO) 218 K/uL (150-450); RED BLOOD CELL COUNT(AUTO) 5.25 MIL/uL (4.50-5.90); RED CELL DISTRIBUTION WIDTH 13.1 % (11.5-14.5)
[2017-08-10 06:46] LABS: ALANINE AMINOTRANSFERASE 37 U/L (12-78); ALBUMIN 3.9 g/dL (3.4-5.0); ALKALINE PHOSPHATASE 67 U/L (46-116); ANION GAP 11 mmol/L (8-16); ASPARTATE AMINOTRANSFERASE 29 U/L (15-37); BILIRUBIN,TOTAL 0.6 mg/dL (0.1-1.0); CALCIUM, TOTAL 9.6 mg/dL (8.8-10.5); CARBON DIOXIDE 28 mmol/L (22-29); CHLORIDE 104 mmol/L (98-107); GLOMERULAR FILTR. RATE CALC > 60 mL/min (>60); GLUCOSE,RANDOM 95 mg/dL (70-110); POTASSIUM 4.1 mmol/L (3.5-5.1); SODIUM SERUM 143 mmol/L (136-145); TOTAL PROTEIN, SERUM 8.4 g/dL (6.4-8.2); UREA NITROGEN, BLOOD 11 mg/dL (7-18); VALPROIC ACID 4 mcg/mL (50-100)
[2017-08-10 07:23] VITALS: BP 156/92
[2017-08-10] MEDS: HEPARIN SODIUM,PORCINE 5,000 UNITS/ML VIAL SQ SCH ×2 (08:00)
[2017-08-10] MEDS: DOCUSATE SODIUM 100 MG CAPSULE PO SCH (09:00)
[2017-08-10] MEDS ORDERED: HALOPERIDOL 5 MG TABLET PO SCH (09:00)
[2017-08-10] MEDS ORDERED: AmLODIPine BESYLATE 5 MG TABLET PO SCH (09:00)
[2017-08-10] MEDS ORDERED: PANTOPRAZOLE SODIUM 40 MG DR TABLET PO SCH (09:00)
[2017-08-10] MEDS ORDERED: OLANZapine 7.5 MG TABLET PO SCH ×2 (09:00)
[2017-08-10] MEDS: DIVALPROEX SODIUM 500 MG DR TABLET PO SCH (09:00)
[2017-08-10] MEDS ORDERED: LORazepam 2 MG/ML VIAL IM ONE (12:30)
[2017-08-10] MEDS ORDERED: HALOPERIDOL LACTATE 5 MG/ML VIAL IM ONE (12:30)
[2017-08-10] MEDS ORDERED: DiphenhydrAMINE HCL 50 MG/ML VIAL IM ONE (12:30)
[2017-09-06] MEDS ORDERED: OLANZAPINE PAMOATE IM SCH (09:00)
== END 2017-08-10 13:05 | DRG 52 ==
LOC: EMS 08:17 → 5S 11:19
PROVIDERS: ADMIT Internal Medicine; ATTEND Internal Medicine
DX: G93.41 Metabolic encephalopathy (principal); R56.9 Unspecified convulsions; F20.2 Catatonic schizophrenia; I10 Essential (primary) hypertension; F20.0 Paranoid schizophrenia; E86.0 Dehydration; F99 Mental disorder, not otherwise specified; F12.90 Cannabis use, unspecified, uncomplicated; Z79.899 Other long term (current) drug therapy; Z91.19 Patient's noncompliance with other medical treatment and regimen
CPT/HCPCS: 82948; 95816; 96360; 96372; 99285; J1200; J1630; J1644; J2060; J7030

== ENCOUNTER 2017-08-10 13:15 | Inpatient (IN) | payer MEDICAID ==
[~2017-08-10] VITALS: Ht 190.5 cm; Wt 138.3 kg
[~2017-08-10 13:15] MED LIST changes: +DIVA-78 PO; +HALO5TAB2 PO; -TRAZ-144 PO; +TRAZ-219 PO
[2017-08-10] MEDS: OLANZapine 7.5 MG TABLET PO SCH (18:00)
[2017-08-10] MEDS: DIVALPROEX SODIUM 500 MG DR TABLET PO SCH (18:00)
[2017-08-10] MEDS: TraZODone HCL 50 MG TABLET PO SCH (20:35)
[2017-08-11] MEDS ORDERED: -PHARMACY VACCINE NOTE- MISC ONE (07:30)
[2017-08-11] MEDS ORDERED: PNEUMOCOCCAL VACCINE POLYVALENT 0.5 ML VIAL [PPSV23] IM ONE (07:30)
[2017-08-11] MEDS: DIVALPROEX SODIUM 500 MG DR TABLET PO SCH ×3 (09:00→17:00)
[2017-08-11] MEDS: OLANZapine 7.5 MG TABLET PO SCH ×3 (09:00→17:42)
[2017-08-11] MEDS: HALOPERIDOL LACTATE 5 MG/ML VIAL IM PRN (13:56)
[2017-08-11] MEDS ORDERED: HALOPERIDOL LACTATE 5 MG/ML VIAL IM ONE (14:00)
[2017-08-11] MEDS ORDERED: DiphenhydrAMINE HCL 50 MG/ML VIAL IM ONE (14:00)
[2017-08-11] MEDS ORDERED: LORazepam 2 MG/ML VIAL IM ONE (14:00)
[2017-08-11] MEDS: TraZODone HCL 50 MG TABLET PO SCH (20:13)
[2017-08-12] MEDS: DIVALPROEX SODIUM 500 MG DR TABLET PO SCH ×2 (09:00→17:00)
[2017-08-12] MEDS: LORazepam 2 MG TABLET PO PRN (13:25)
[2017-08-12] MEDS: OLANZapine 7.5 MG TABLET PO SCH ×2 (13:25→19:37)
[2017-08-12] MEDS: TraZODone HCL 50 MG TABLET PO SCH (20:17)
[2017-08-13] MEDS: DIVALPROEX SODIUM 500 MG DR TABLET PO SCH ×2 (09:00→19:10)
[2017-08-13] MEDS: OLANZapine 7.5 MG TABLET PO SCH (13:35)
[2017-08-13] MEDS: OLANZapine 5 MG RAPDIS TABLET PO SCH (19:15)
[2017-08-13] MEDS: HALOPERIDOL LACTATE 5 MG/ML VIAL IM PRN (19:27)
[2017-08-13] MEDS: TraZODone HCL 50 MG TABLET PO SCH (20:37)
[2017-08-14] MEDS: OLANZapine 5 MG RAPDIS TABLET PO SCH ×2 (09:00→16:58)
[2017-08-14] MEDS: DIVALPROEX SODIUM 500 MG DR TABLET PO SCH ×2 (09:00→16:58)
[2017-08-14] MEDS: TraZODone HCL 50 MG TABLET PO SCH (20:30)
[2017-08-15] MEDS: DIVALPROEX SODIUM 500 MG DR TABLET PO SCH ×2 (09:00→16:39)
[2017-08-15] MEDS: OLANZapine 5 MG RAPDIS TABLET PO SCH ×2 (09:00→16:42)
[2017-08-15] MEDS: TraZODone HCL 50 MG TABLET PO SCH (20:24)
[2017-08-16] MEDS: OLANZapine 5 MG RAPDIS TABLET PO SCH ×2 (09:00→17:32)
[2017-08-16] MEDS: DIVALPROEX SODIUM 500 MG DR TABLET PO SCH ×2 (09:00→17:00)
[2017-08-16] MEDS: TraZODone HCL 50 MG TABLET PO SCH (21:00)
[2017-08-17] MEDS: DIVALPROEX SODIUM 500 MG DR TABLET PO SCH ×2 (09:00→17:00)
[2017-08-17] MEDS: OLANZapine 5 MG RAPDIS TABLET PO SCH ×2 (09:00→17:00)
[2017-08-17] MEDS: HALOPERIDOL LACTATE 5 MG/ML VIAL IM PRN (10:50)
[2017-08-17] MEDS ORDERED: LORazepam 2 MG/ML VIAL ONE (16:54)
[2017-08-17] MEDS ORDERED: DiphenhydrAMINE HCL 50 MG/ML VIAL ONE (16:55)
[2017-08-17] MEDS ORDERED: HALOPERIDOL LACTATE 5 MG/ML VIAL IM ONE (17:00)
[2017-08-17] MEDS ORDERED: LORazepam 2 MG/ML VIAL IM ONE (17:00)
[2017-08-17] MEDS ORDERED: DiphenhydrAMINE HCL 50 MG/ML VIAL IM ONE (17:00)
[2017-08-17] MEDS: TraZODone HCL 50 MG TABLET PO SCH (21:00)
[2017-08-18] MEDS: DIVALPROEX SODIUM 500 MG DR TABLET PO SCH ×2 (09:00→17:00)
[2017-08-18] MEDS: OLANZapine 5 MG RAPDIS TABLET PO SCH ×2 (10:59→17:00)
[2017-08-18] MEDS: HALOPERIDOL LACTATE 5 MG/ML VIAL IM PRN (18:50)
[2017-08-18] MEDS: TraZODone HCL 50 MG TABLET PO SCH (21:00)
[2017-08-19] MEDS: DIVALPROEX SODIUM 500 MG DR TABLET PO SCH ×2 (09:00→17:00)
[2017-08-19] MEDS: OLANZapine 5 MG RAPDIS TABLET PO SCH ×2 (09:00→17:00)
[2017-08-19] MEDS: HALOPERIDOL LACTATE 5 MG/ML VIAL IM PRN ×2 (13:40→18:24)
[2017-08-19] MEDS: TraZODone HCL 50 MG TABLET PO SCH (21:00)
[2017-08-20] MEDS: OLANZapine 5 MG RAPDIS TABLET PO SCH ×2 (09:00→17:52)
[2017-08-20] MEDS: DIVALPROEX SODIUM 500 MG DR TABLET PO SCH ×2 (09:00→17:00)
[2017-08-20] MEDS: TraZODone HCL 50 MG TABLET PO SCH (21:00)
[2017-08-21] MEDS: DIVALPROEX SODIUM 500 MG DR TABLET PO SCH ×3 (09:00→17:00)
[2017-08-21] MEDS: OLANZapine 5 MG RAPDIS TABLET PO SCH ×2 (09:45→17:04)
[2017-08-21] MEDS: TraZODone HCL 50 MG TABLET PO SCH (20:46)
[2017-08-22] MEDS: OLANZapine 5 MG RAPDIS TABLET PO SCH ×2 (09:06→17:47)
[2017-08-22] MEDS: DIVALPROEX SODIUM 500 MG DR TABLET PO SCH ×2 (09:08→17:47)
[2017-08-22] MEDS: TraZODone HCL 50 MG TABLET PO SCH (20:21)
[2017-08-23] MEDS: DIVALPROEX SODIUM 500 MG DR TABLET PO SCH ×2 (09:00→17:00)
[2017-08-23] MEDS: OLANZapine 5 MG RAPDIS TABLET PO SCH ×2 (12:25→17:33)
[2017-08-23] MEDS: TraZODone HCL 50 MG TABLET PO SCH (20:35)
[2017-08-24] MEDS: LORazepam 2 MG TABLET PO PRN (06:18)
[2017-08-24] MEDS: DIVALPROEX SODIUM 500 MG DR TABLET PO SCH ×2 (09:00→16:19)
[2017-08-24] MEDS: OLANZapine 5 MG RAPDIS TABLET PO SCH ×3 (11:49→18:35)
[2017-08-24] MEDS: HALOPERIDOL LACTATE 5 MG/ML VIAL IM PRN (18:23)
[2017-08-24] MEDS: TraZODone HCL 50 MG TABLET PO SCH (20:18)
[2017-08-25] MEDS: ZOLPIDEM TARTRATE 10 MG TABLET PO PRN (00:13)
[2017-08-25] MEDS: LORazepam 2 MG TABLET PO PRN ×2 (00:13→09:23)
[2017-08-25] MEDS: DIVALPROEX SODIUM 500 MG DR TABLET PO SCH ×2 (09:00→17:00)
[2017-08-25] MEDS: OLANZapine 5 MG RAPDIS TABLET PO SCH ×2 (09:23→17:37)
[2017-08-25] MEDS: HALOPERIDOL 5 MG TABLET PO PRN (09:23)
[2017-08-25 09:37] VITALS: BP 133/88
[2017-08-25] MEDS: TraZODone HCL 50 MG TABLET PO SCH (20:24)
[2017-08-26] MEDS: OLANZapine 5 MG RAPDIS TABLET PO SCH ×2 (08:03→18:04)
[2017-08-26] MEDS: DIVALPROEX SODIUM 500 MG DR TABLET PO SCH ×2 (09:00→17:00)
[2017-08-26] MEDS: TraZODone HCL 50 MG TABLET PO SCH (20:51)
[2017-08-27] MEDS: OLANZapine 5 MG RAPDIS TABLET PO SCH ×2 (08:06→17:00)
[2017-08-27] MEDS: DIVALPROEX SODIUM 500 MG DR TABLET PO SCH ×2 (09:00→17:00)
[2017-08-27] MEDS: TraZODone HCL 50 MG TABLET PO SCH (20:52)
[2017-08-28] MEDS: DIVALPROEX SODIUM 500 MG DR TABLET PO SCH ×2 (09:00→16:10)
[2017-08-28] MEDS: OLANZapine 5 MG RAPDIS TABLET PO SCH ×2 (09:13→16:11)
[2017-08-28] MEDS: TraZODone HCL 50 MG TABLET PO SCH (20:11)
[2017-08-29] MEDS: OLANZapine 5 MG RAPDIS TABLET PO SCH ×2 (08:34→17:44)
[2017-08-29] MEDS: DIVALPROEX SODIUM 500 MG DR TABLET PO SCH ×2 (09:00→17:00)
[2017-08-29] MEDS: TraZODone HCL 50 MG TABLET PO SCH (20:50)
[2017-08-30] MEDS: OLANZapine 5 MG RAPDIS TABLET PO SCH ×2 (08:53→17:34)
[2017-08-30] MEDS: DIVALPROEX SODIUM 500 MG DR TABLET PO SCH ×2 (09:00→17:00)
[2017-08-30] MEDS: TraZODone HCL 50 MG TABLET PO SCH ×2 (21:00→21:37)
[2017-08-31] MEDS: OLANZapine 5 MG RAPDIS TABLET PO SCH ×2 (08:08→18:16)
[2017-08-31] MEDS: DIVALPROEX SODIUM 500 MG DR TABLET PO SCH ×2 (09:00→17:00)
[2017-08-31] MEDS: TraZODone HCL 50 MG TABLET PO SCH (20:38)
[2017-09-01] MEDS: OLANZapine 5 MG RAPDIS TABLET PO SCH ×2 (08:12→17:02)
[2017-09-01] MEDS: DIVALPROEX SODIUM 500 MG DR TABLET PO SCH ×2 (09:00→17:00)
[2017-09-01] MEDS: TraZODone HCL 50 MG TABLET PO SCH (21:11)
[2017-09-02] MEDS: OLANZapine 5 MG RAPDIS TABLET PO SCH ×2 (07:45→16:19)
[2017-09-02] MEDS: DIVALPROEX SODIUM 500 MG DR TABLET PO SCH ×2 (09:00→16:19)
[2017-09-02] MEDS: TraZODone HCL 50 MG TABLET PO SCH (21:29)
[2017-09-03] MEDS: OLANZapine 5 MG RAPDIS TABLET PO SCH ×2 (08:23→17:04)
[2017-09-03] MEDS: DIVALPROEX SODIUM 500 MG DR TABLET PO SCH ×2 (08:23→17:00)
[2017-09-03] MEDS: TraZODone HCL 50 MG TABLET PO SCH (21:00)
[2017-09-04 00:37] VITALS: BP 135/83
[2017-09-04] MEDS: DIVALPROEX SODIUM 500 MG DR TABLET PO SCH ×2 (09:00→17:00)
[2017-09-04] MEDS: OLANZapine 5 MG RAPDIS TABLET PO SCH ×2 (09:17→17:11)
[2017-09-04] MEDS: TraZODone HCL 50 MG TABLET PO SCH (20:37)
[2017-09-05] MEDS: OLANZapine 5 MG RAPDIS TABLET PO SCH ×2 (08:18→17:35)
[2017-09-05 08:35] VITALS: BP 132/91
[2017-09-05] MEDS: DIVALPROEX SODIUM 500 MG DR TABLET PO SCH ×2 (09:00→17:00)
[2017-09-05] MEDS: TraZODone HCL 50 MG TABLET PO SCH (21:00)
[2017-09-06] MEDS: OLANZapine 5 MG RAPDIS TABLET PO SCH ×2 (08:11→18:06)
[2017-09-06] MEDS: DIVALPROEX SODIUM 500 MG DR TABLET PO SCH ×2 (09:00→17:00)
[2017-09-06] MEDS: TraZODone HCL 50 MG TABLET PO SCH (20:09)
[2017-09-07] MEDS: DIVALPROEX SODIUM 500 MG DR TABLET PO SCH ×2 (08:40→17:00)
[2017-09-07] MEDS: OLANZapine 5 MG RAPDIS TABLET PO SCH ×2 (08:40→17:17)
[2017-09-07 18:07] VITALS: BP 147/95
[2017-09-07] MEDS: TraZODone HCL 50 MG TABLET PO SCH ×2 (20:38→21:03)
[2017-09-08] MEDS: DIVALPROEX SODIUM 500 MG DR TABLET PO SCH ×2 (09:00→17:00)
[2017-09-08] MEDS: OLANZapine 5 MG RAPDIS TABLET PO SCH ×2 (09:00→17:37)
[2017-09-08] MEDS: TraZODone HCL 50 MG TABLET PO SCH (21:00)
[2017-09-09 00:05] VITALS: BP 142/91
[2017-09-09] MEDS: LORazepam 2 MG TABLET PO PRN (00:09)
[2017-09-09] MEDS: OLANZapine 5 MG RAPDIS TABLET PO SCH ×2 (08:25→17:25)
[2017-09-09] MEDS: DIVALPROEX SODIUM 500 MG DR TABLET PO SCH ×3 (09:00→17:24)
[2017-09-09 17:47] VITALS: BP 140/95
[2017-09-09] MEDS: TraZODone HCL 50 MG TABLET PO SCH (20:03)
[2017-09-10 02:00] VITALS: BP 108/93
[2017-09-10] MEDS: LORazepam 2 MG TABLET PO PRN (02:00)
[2017-09-10] MEDS: OLANZapine 5 MG RAPDIS TABLET PO SCH ×2 (08:00→16:54)
[2017-09-10 08:39] VITALS: BP 144/86
[2017-09-10] MEDS: DIVALPROEX SODIUM 500 MG DR TABLET PO SCH ×2 (09:00→16:53)
[2017-09-10] MEDS: TraZODone HCL 50 MG TABLET PO SCH ×2 (20:31→22:37)
[2017-09-11] MEDS: OLANZapine 5 MG RAPDIS TABLET PO SCH ×2 (08:57→17:12)
[2017-09-11] MEDS: DIVALPROEX SODIUM 500 MG DR TABLET PO SCH ×2 (08:58→17:00)
[2017-09-11] MEDS: TraZODone HCL 50 MG TABLET PO SCH ×2 (21:00→21:16)
[2017-09-12 08:21] VITALS: BP 126/93
[2017-09-12] MEDS: DIVALPROEX SODIUM 500 MG DR TABLET PO SCH ×2 (08:52→16:15)
[2017-09-12] MEDS: OLANZapine 5 MG RAPDIS TABLET PO SCH ×2 (08:56→16:16)
[2017-09-12] MEDS: TraZODone HCL 50 MG TABLET PO SCH (20:20)
[2017-09-13] MEDS: ZOLPIDEM TARTRATE 10 MG TABLET PO PRN (02:08)
[2017-09-13] MEDS: LORazepam 2 MG TABLET PO PRN (03:11)
[2017-09-13 08:22] VITALS: BP 147/99
[2017-09-13] MEDS: DIVALPROEX SODIUM 500 MG DR TABLET PO SCH ×2 (08:46→17:00)
[2017-09-13] MEDS: OLANZapine 5 MG RAPDIS TABLET PO SCH ×2 (08:47→16:39)
[2017-09-13 10:33] LABS: BASOPHILS % (AUTO) 0.8 % (0.0-2.0); EOSINOPHILS % (AUTO) 2.8 % (1.0-6.0); HEMATOCRIT 42.2 % (41-53); HEMOGLOBIN 14.1 g/dL (13.5-17.5); LYMPHOCYTES % (AUTO) 26.6 % (22.0-44.0); MEAN CORPUSCULAR HEMOGLOBIN 28.1 pg (26.0-34.0); MEAN CORPUSCULAR HGB CONC 33.5 G/dL (31.0-37.0); MEAN CORPUSCULAR VOLUME 84 fL (80-100); MONOCYTES # (AUTO) 0.6 K/uL (0.1-1.0); MONOCYTES % (AUTO) 8.8 % (2.0-9.0); NEUTROPHILS # (AUTO) 4.5 K/uL (1.8-7.7); PLATELET COUNT (AUTO) 189 K/uL (150-450); RED BLOOD CELL COUNT(AUTO) 5.03 MIL/uL (4.50-5.90)
[2017-09-13 10:46] LABS: ALANINE AMINOTRANSFERASE 96 U/L (12-78); ALBUMIN 4.1 g/dL (3.4-5.0); ALKALINE PHOSPHATASE 57 U/L (46-116); ANION GAP 9 mmol/L (8-16); ASPARTATE AMINOTRANSFERASE 31 U/L (15-37); BILIRUBIN,TOTAL 0.4 mg/dL (0.1-1.0); CALCIUM, TOTAL 9.1 mg/dL (8.8-10.5); CARBON DIOXIDE 28 mmol/L (22-29); CHLORIDE 100 mmol/L (98-107); CREATININE 0.97 mg/dL (0.60-1.30); GLOMERULAR FILTR. RATE CALC > 60 mL/min (>60); GLUCOSE,RANDOM 96 mg/dL (70-110); POTASSIUM 3.5 mmol/L (3.5-5.1); SODIUM SERUM 137 mmol/L (136-145); TOTAL PROTEIN, SERUM 8.2 g/dL (6.4-8.2); UREA NITROGEN, BLOOD 12 mg/dL (7-18)
[2017-09-13 11:48] LABS: APPEARANCE,URINE CLEAR (CLEAR); BILIRUBIN,URINE NEGATIVE (NEGATIVE); GLUCOSE, URINE (UA) NEGATIVE (NEGATIVE); KETONES,URINE NEGATIVE (NEGATIVE); LEUKOCYTE ESTERASE ,URINE NEGATIVE (NEGATIVE); NITRATE,URINE NEGATIVE (NEGATIVE); OCCULT BLOOD,URINE NEGATIVE (NEGATIVE); PH,URINE 5.5 (5.0-8.0); PROTEIN,URINE NEGATIVE (NEGATIVE); UROBILINOGEN,URINE 0.2 mg/dL (<=1.0)
[2017-09-13] MEDS: AmLODIPine BESYLATE 5 MG TABLET PO SCH (11:59)
[2017-09-13] MEDS: TraZODone HCL 50 MG TABLET PO SCH (20:25)
[2017-09-14] MEDS: DIVALPROEX SODIUM 500 MG DR TABLET PO SCH ×2 (07:54→17:00)
[2017-09-14] MEDS: OLANZapine 5 MG RAPDIS TABLET PO SCH ×2 (07:54→18:16)
[2017-09-14] MEDS: AmLODIPine BESYLATE 5 MG TABLET PO SCH (07:55)
[2017-09-14] MEDS: LORazepam 2 MG TABLET PO PRN (10:17)
[2017-09-14] MEDS: TraZODone HCL 50 MG TABLET PO SCH (21:07)
[2017-09-15] MEDS: OLANZapine 5 MG RAPDIS TABLET PO SCH ×2 (08:45→17:30)
[2017-09-15 08:56] VITALS: BP 105/59
[2017-09-15] MEDS: DIVALPROEX SODIUM 500 MG DR TABLET PO SCH ×2 (09:00→17:00)
[2017-09-15] MEDS: AmLODIPine BESYLATE 5 MG TABLET PO SCH (09:00)
[2017-09-15 18:00] VITALS: BP 121/74
[2017-09-15] MEDS: TraZODone HCL 50 MG TABLET PO SCH ×2 (21:00→21:39)
[2017-09-16] MEDS: ZOLPIDEM TARTRATE 10 MG TABLET PO PRN (03:04)
[2017-09-16] MEDS: LORazepam 2 MG TABLET PO PRN (03:04)
[2017-09-16] MEDS ORDERED: HALOPERIDOL LACTATE 5 MG/ML VIAL ONE (03:15)
[2017-09-16] MEDS ORDERED: LORazepam 2 MG/ML VIAL ONE (03:16)
[2017-09-16] MEDS ORDERED: DiphenhydrAMINE HCL 50 MG/ML VIAL ONE (03:16)
[2017-09-16] MEDS ORDERED: HALOPERIDOL LACTATE 5 MG/ML VIAL IM ONE (03:30)
[2017-09-16] MEDS ORDERED: DiphenhydrAMINE HCL 50 MG/ML VIAL IM ONE (03:30)
[2017-09-16] MEDS: DIVALPROEX SODIUM 500 MG DR TABLET PO SCH ×2 (09:00→17:00)
[2017-09-16] MEDS: AmLODIPine BESYLATE 5 MG TABLET PO SCH (09:00)
[2017-09-16] MEDS: OLANZapine 5 MG RAPDIS TABLET PO SCH ×2 (11:49→17:42)
[2017-09-16] MEDS: SULFAMETHOX/TRIMETH DS 800-160 MG/TABLET PO SCH (17:42)
[2017-09-16] MEDS: TraZODone HCL 50 MG TABLET PO SCH (21:00)
[2017-09-17] MEDS: AmLODIPine BESYLATE 5 MG TABLET PO SCH (09:00)
[2017-09-17] MEDS: DIVALPROEX SODIUM 500 MG DR TABLET PO SCH ×2 (09:00→17:00)
[2017-09-17] MEDS ORDERED: OLANZapine 5 MG RAPDIS TABLET PO SCH (09:00)
[2017-09-17] MEDS: SULFAMETHOX/TRIMETH DS 800-160 MG/TABLET PO SCH ×2 (10:47→17:51)
[2017-09-17 12:00] VITALS: BP 137/98
[2017-09-17] MEDS: ARIPiprazole 5 MG TABLET PO SCH (17:00)
[2017-09-17] MEDS: RisperiDONE 2 MG TABLET PO SCH (17:00)
[2017-09-17] MEDS: TraZODone HCL 50 MG TABLET PO SCH (21:00)
[2017-09-18] MEDS: ARIPiprazole 5 MG TABLET PO SCH ×2 (09:00→17:00)
[2017-09-18] MEDS: DIVALPROEX SODIUM 500 MG DR TABLET PO SCH ×2 (09:00→17:00)
[2017-09-18] MEDS: SULFAMETHOX/TRIMETH DS 800-160 MG/TABLET PO SCH ×2 (12:54→18:12)
[2017-09-18] MEDS: AmLODIPine BESYLATE 5 MG TABLET PO SCH (12:58)
[2017-09-18] MEDS: RisperiDONE 2 MG TABLET PO SCH ×2 (12:59→18:12)
[2017-09-18 13:28] VITALS: BP 152/94
[2017-09-18] MEDS: TraZODone HCL 50 MG TABLET PO SCH (21:00)
[2017-09-19] MEDS: ARIPiprazole 5 MG TABLET PO SCH ×3 (09:00→19:09)
[2017-09-19] MEDS: RisperiDONE 2 MG TABLET PO SCH ×4 (09:00→20:05)
[2017-09-19] MEDS: AmLODIPine BESYLATE 5 MG TABLET PO SCH (09:00)
[2017-09-19] MEDS: DIVALPROEX SODIUM 500 MG DR TABLET PO SCH ×3 (09:00→19:09)
[2017-09-19] MEDS: SULFAMETHOX/TRIMETH DS 800-160 MG/TABLET PO SCH ×2 (09:11→17:00)
[2017-09-19] MEDS ORDERED: HALOPERIDOL LACTATE 5 MG/ML VIAL ONE (11:19)
[2017-09-19] MEDS ORDERED: DiphenhydrAMINE HCL 50 MG/ML VIAL ONE (11:19)
[2017-09-19] MEDS ORDERED: LORazepam 2 MG/ML VIAL ONE (11:19)
[2017-09-19] MEDS ORDERED: LORazepam 2 MG/ML VIAL IM ONE (11:30)
[2017-09-19] MEDS ORDERED: DiphenhydrAMINE HCL 50 MG/ML VIAL IM ONE (11:30)
[2017-09-19] MEDS ORDERED: HALOPERIDOL LACTATE 5 MG/ML VIAL IM ONE (11:30)
[2017-09-19] MEDS: TraZODone HCL 50 MG TABLET PO SCH (20:02)
[2017-09-20] MEDS: ARIPiprazole 5 MG TABLET PO SCH ×2 (09:00→17:00)
[2017-09-20] MEDS: AmLODIPine BESYLATE 5 MG TABLET PO SCH (09:00)
[2017-09-20] MEDS: SULFAMETHOX/TRIMETH DS 800-160 MG/TABLET PO SCH ×2 (09:00→17:00)
[2017-09-20] MEDS: DIVALPROEX SODIUM 500 MG DR TABLET PO SCH ×2 (09:00→17:00)
[2017-09-20] MEDS: RisperiDONE 2 MG TABLET PO SCH (11:39)
[2017-09-20] MEDS: TraZODone HCL 50 MG TABLET PO SCH (21:00)
[2017-09-21] MEDS: SULFAMETHOX/TRIMETH DS 800-160 MG/TABLET PO SCH ×2 (09:00→17:00)
[2017-09-21] MEDS: RisperiDONE 2 MG TABLET PO SCH ×2 (09:00→17:00)
[2017-09-21] MEDS: ARIPiprazole 5 MG TABLET PO SCH ×2 (09:00→17:00)
[2017-09-21] MEDS: AmLODIPine BESYLATE 5 MG TABLET PO SCH (09:00)
[2017-09-21] MEDS: DIVALPROEX SODIUM 500 MG DR TABLET PO SCH ×2 (09:00→17:00)
[2017-09-21] MEDS ORDERED: LORazepam 2 MG/ML VIAL IM ONE (09:15)
[2017-09-21] MEDS ORDERED: DiphenhydrAMINE HCL 50 MG/ML VIAL IM ONE (09:15)
[2017-09-21] MEDS ORDERED: HALOPERIDOL LACTATE 5 MG/ML VIAL IM ONE (09:15)
[2017-09-21] MEDS: TraZODone HCL 50 MG TABLET PO SCH (21:00)
[2017-09-21] MEDS: MAG HYDROX/AL HYDROX/SIMETH ES 30 ML SUSPENSION UDCUP PO PRN (22:54)
[2017-09-21] MEDS: LORazepam 2 MG TABLET PO PRN (23:52)
[2017-09-21] MEDS: ZOLPIDEM TARTRATE 10 MG TABLET PO PRN (23:52)
[2017-09-22] MEDS: LORazepam 2 MG TABLET PO PRN (07:24)
[2017-09-22] MEDS: SULFAMETHOX/TRIMETH DS 800-160 MG/TABLET PO SCH ×2 (07:24→16:51)
[2017-09-22] MEDS: DIVALPROEX SODIUM 500 MG DR TABLET PO SCH ×2 (09:00→16:50)
[2017-09-22] MEDS: AmLODIPine BESYLATE 5 MG TABLET PO SCH (09:00)
[2017-09-22] MEDS: QUEtiapine FUMARATE 100 MG TABLET PO SCH ×2 (09:00→16:50)
[2017-09-22] MEDS: ARIPiprazole 5 MG TABLET PO SCH ×2 (09:00→16:51)
[2017-09-22] MEDS: RisperiDONE 2 MG TABLET PO SCH ×2 (09:00→16:50)
[2017-09-22] MEDS: TraZODone HCL 50 MG TABLET PO SCH (21:00)
[2017-09-23] MEDS: ARIPiprazole 5 MG TABLET PO SCH ×2 (09:00→17:00)
[2017-09-23] MEDS: SULFAMETHOX/TRIMETH DS 800-160 MG/TABLET PO SCH ×3 (09:00→17:00)
[2017-09-23] MEDS: AmLODIPine BESYLATE 5 MG TABLET PO SCH (09:00)
[2017-09-23] MEDS: DIVALPROEX SODIUM 500 MG DR TABLET PO SCH ×2 (09:00→17:00)
[2017-09-23] MEDS: RisperiDONE 2 MG TABLET PO SCH ×2 (09:00→17:00)
[2017-09-23] MEDS: QUEtiapine FUMARATE 100 MG TABLET PO SCH ×3 (09:00→17:00)
[2017-09-23] MEDS: LORazepam 2 MG TABLET PO PRN (09:21)
[2017-09-23] MEDS ORDERED: LORazepam 2 MG/ML VIAL IM ONE (20:00)
[2017-09-23] MEDS ORDERED: DiphenhydrAMINE HCL 50 MG/ML VIAL IM ONE (20:00)
[2017-09-23] MEDS ORDERED: HALOPERIDOL LACTATE 5 MG/ML VIAL IM ONE (20:00)
[2017-09-23] MEDS: TraZODone HCL 50 MG TABLET PO SCH (20:02)
[2017-09-24] MEDS: SULFAMETHOX/TRIMETH DS 800-160 MG/TABLET PO SCH ×2 (07:46→16:53)
[2017-09-24] MEDS: AmLODIPine BESYLATE 5 MG TABLET PO SCH (09:00)
[2017-09-24] MEDS: DIVALPROEX SODIUM 500 MG DR TABLET PO SCH ×2 (09:00→16:53)
[2017-09-24] MEDS ORDERED: LORazepam 2 MG/ML VIAL ONE (12:41)
[2017-09-24] MEDS ORDERED: DiphenhydrAMINE HCL 50 MG/ML VIAL ONE (12:42)
[2017-09-24] MEDS ORDERED: HALOPERIDOL LACTATE 5 MG/ML VIAL ONE (12:42)
[2017-09-24] MEDS ORDERED: DiphenhydrAMINE HCL 50 MG/ML VIAL IM ONE ×2 (12:45→23:45)
[2017-09-24] MEDS ORDERED: HALOPERIDOL LACTATE 5 MG/ML VIAL IM ONE ×2 (12:45→23:45)
[2017-09-24] MEDS ORDERED: LORazepam 2 MG/ML VIAL IM ONE ×2 (12:45→23:45)
[2017-09-24] MEDS: QUEtiapine FUMARATE 100 MG TABLET PO SCH (16:53)
[2017-09-24] MEDS: ARIPiprazole 10 MG TABLET PO SCH (16:53)
[2017-09-24] MEDS: TraZODone HCL 50 MG TABLET PO SCH (21:00)
[2017-09-25] MEDS: SULFAMETHOX/TRIMETH DS 800-160 MG/TABLET PO SCH ×2 (08:52→18:01)
[2017-09-25] MEDS: ARIPiprazole 10 MG TABLET PO SCH ×2 (09:00→17:00)
[2017-09-25] MEDS: QUEtiapine FUMARATE 100 MG TABLET PO SCH ×2 (09:00→17:00)
[2017-09-25] MEDS: DIVALPROEX SODIUM 500 MG DR TABLET PO SCH ×2 (09:00→17:00)
[2017-09-25] MEDS: AmLODIPine BESYLATE 5 MG TABLET PO SCH (09:00)
[2017-09-25] MEDS: TraZODone HCL 50 MG TABLET PO SCH (20:50)
[2017-09-26] MEDS: DIVALPROEX SODIUM 500 MG DR TABLET PO SCH ×2 (08:19→17:00)
[2017-09-26] MEDS: AmLODIPine BESYLATE 5 MG TABLET PO SCH (08:19)
[2017-09-26] MEDS: ARIPiprazole 10 MG TABLET PO SCH ×2 (08:19→17:00)
[2017-09-26] MEDS: QUEtiapine FUMARATE 100 MG TABLET PO SCH ×2 (08:19→17:00)
[2017-09-26] MEDS: SULFAMETHOX/TRIMETH DS 800-160 MG/TABLET PO SCH ×2 (08:20→14:03)
[2017-09-26] MEDS: TraZODone HCL 50 MG TABLET PO SCH (21:00)
[2017-09-27] MEDS: AmLODIPine BESYLATE 5 MG TABLET PO SCH (08:42)
[2017-09-27] MEDS: ARIPiprazole 10 MG TABLET PO SCH ×2 (08:42→16:38)
[2017-09-27] MEDS: DIVALPROEX SODIUM 500 MG DR TABLET PO SCH ×2 (08:42→16:38)
[2017-09-27] MEDS: QUEtiapine FUMARATE 100 MG TABLET PO SCH ×2 (08:43→16:38)
[2017-09-27] MEDS: LORazepam 2 MG TABLET PO PRN (16:17)
[2017-09-27] MEDS: MAG HYDROX/AL HYDROX/SIMETH ES 30 ML SUSPENSION UDCUP PO PRN (16:33)
[2017-09-27] MEDS: TraZODone HCL 50 MG TABLET PO SCH (20:42)
[2017-09-28] MEDS: ARIPiprazole 10 MG TABLET PO SCH ×2 (08:03→17:25)
[2017-09-28] MEDS: QUEtiapine FUMARATE 100 MG TABLET PO SCH ×2 (08:03→17:25)
[2017-09-28] MEDS: AmLODIPine BESYLATE 5 MG TABLET PO SCH (08:03)
[2017-09-28] MEDS: DIVALPROEX SODIUM 500 MG DR TABLET PO SCH ×2 (09:00→17:00)
[2017-09-28] MEDS ORDERED: LORazepam 2 MG/ML VIAL IM ONE (09:30)
[2017-09-28] MEDS ORDERED: HALOPERIDOL LACTATE 5 MG/ML VIAL IM ONE (09:30)
[2017-09-28] MEDS ORDERED: DiphenhydrAMINE HCL 50 MG/ML VIAL IM ONE (09:30)
[2017-09-28] MEDS: TraZODone HCL 50 MG TABLET PO SCH (21:00)
[2017-09-29] MEDS: AmLODIPine BESYLATE 5 MG TABLET PO SCH (08:06)
[2017-09-29] MEDS: QUEtiapine FUMARATE 100 MG TABLET PO SCH ×2 (08:06→16:08)
[2017-09-29] MEDS: ARIPiprazole 10 MG TABLET PO SCH ×2 (08:06→16:08)
[2017-09-29] MEDS: DIVALPROEX SODIUM 500 MG DR TABLET PO SCH ×2 (09:00→16:08)
[2017-09-29] MEDS ORDERED: LORazepam 2 MG/ML VIAL IM ONE (17:45)
[2017-09-29] MEDS ORDERED: DiphenhydrAMINE HCL 50 MG/ML VIAL IM ONE (17:45)
[2017-09-29] MEDS ORDERED: HALOPERIDOL LACTATE 5 MG/ML VIAL IM ONE (17:45)
[2017-09-29 18:25] VITALS: BP 136/85
[2017-09-29] MEDS: TraZODone HCL 50 MG TABLET PO SCH ×2 (20:26→21:00)
[2017-09-30] MEDS: QUEtiapine FUMARATE 100 MG TABLET PO SCH ×2 (08:18→16:42)
[2017-09-30] MEDS: ARIPiprazole 10 MG TABLET PO SCH ×2 (08:18→16:42)
[2017-09-30] MEDS: DIVALPROEX SODIUM 500 MG DR TABLET PO SCH ×2 (08:19→16:42)
[2017-09-30] MEDS: AmLODIPine BESYLATE 5 MG TABLET PO SCH ×2 (08:19→13:25)
[2017-09-30 18:04] VITALS: BP 144/88
[2017-09-30] MEDS: TraZODone HCL 50 MG TABLET PO SCH (21:00)
[2017-10-01 08:14] VITALS: BP 134/90
[2017-10-01] MEDS: DIVALPROEX SODIUM 500 MG DR TABLET PO SCH ×3 (09:00→16:46)
[2017-10-01] MEDS: AmLODIPine BESYLATE 5 MG TABLET PO SCH (09:25)
[2017-10-01] MEDS: QUEtiapine FUMARATE 100 MG TABLET PO SCH ×2 (09:25→16:46)
[2017-10-01] MEDS: ARIPiprazole 10 MG TABLET PO SCH ×2 (09:26→16:46)
[2017-10-01] MEDS: TraZODone HCL 50 MG TABLET PO SCH (20:35)
[2017-10-02] MEDS: ARIPiprazole 10 MG TABLET PO SCH ×2 (08:39→16:45)
[2017-10-02] MEDS: DIVALPROEX SODIUM 500 MG DR TABLET PO SCH ×2 (08:39→16:46)
[2017-10-02] MEDS: QUEtiapine FUMARATE 100 MG TABLET PO SCH ×2 (08:45→16:46)
[2017-10-02] MEDS: AmLODIPine BESYLATE 5 MG TABLET PO SCH (08:56)
[2017-10-02] MEDS: MAG HYDROX/AL HYDROX/SIMETH ES 30 ML SUSPENSION UDCUP PO PRN (15:15)
[2017-10-02] MEDS: TraZODone HCL 50 MG TABLET PO SCH (20:47)
[2017-10-03] MEDS ORDERED: LORazepam 2 MG/ML VIAL IM ONE (08:00)
[2017-10-03] MEDS ORDERED: DiphenhydrAMINE HCL 50 MG/ML VIAL IM ONE (08:00)
[2017-10-03] MEDS ORDERED: HALOPERIDOL LACTATE 5 MG/ML VIAL IM ONE (08:00)
[2017-10-03] MEDS: AmLODIPine BESYLATE 5 MG TABLET PO SCH (09:00)
[2017-10-03] MEDS: LITHIUM CARBONATE 450 MG ER TABLET PO SCH (09:42)
[2017-10-03] MEDS: QUEtiapine FUMARATE 300 MG TABLET PO SCH ×2 (09:42→17:35)
[2017-10-03] MEDS: ARIPiprazole 15 MG TABLET PO SCH ×2 (09:42→17:36)
[2017-10-03] MEDS: TraZODone HCL 50 MG TABLET PO SCH (20:27)
[2017-10-04] MEDS ORDERED: LORazepam 2 MG/ML VIAL ONE (07:21)
[2017-10-04] MEDS ORDERED: DiphenhydrAMINE HCL 50 MG/ML VIAL ONE (07:22)
[2017-10-04] MEDS ORDERED: DiphenhydrAMINE HCL 50 MG/ML VIAL IM ONE (07:30)
[2017-10-04] MEDS ORDERED: HALOPERIDOL LACTATE 5 MG/ML VIAL IM ONE (07:30)
[2017-10-04] MEDS ORDERED: LORazepam 2 MG/ML VIAL IM ONE (07:30)
[2017-10-04] MEDS: ARIPiprazole 15 MG TABLET PO SCH ×2 (11:31→17:47)
[2017-10-04] MEDS: LITHIUM CARBONATE 450 MG ER TABLET PO SCH (11:33)
[2017-10-04] MEDS: AmLODIPine BESYLATE 5 MG TABLET PO SCH (11:33)
[2017-10-04] MEDS: QUEtiapine FUMARATE 300 MG TABLET PO SCH ×2 (11:33→17:46)
[2017-10-04] MEDS: TraZODone HCL 50 MG TABLET PO SCH (20:58)
[2017-10-05] MEDS: LITHIUM CARBONATE 450 MG ER TABLET PO SCH (07:48)
[2017-10-05] MEDS: AmLODIPine BESYLATE 5 MG TABLET PO SCH (07:48)
[2017-10-05] MEDS: QUEtiapine FUMARATE 300 MG TABLET PO SCH ×2 (07:48→17:45)
[2017-10-05] MEDS: ARIPiprazole 15 MG TABLET PO SCH ×2 (07:48→17:45)
[2017-10-05] MEDS ORDERED: LORazepam 2 MG/ML VIAL ONE (08:13)
[2017-10-05] MEDS ORDERED: DiphenhydrAMINE HCL 50 MG/ML VIAL ONE (08:14)
[2017-10-05] MEDS ORDERED: LORazepam 2 MG/ML VIAL IM ONE (08:15)
[2017-10-05] MEDS ORDERED: DiphenhydrAMINE HCL 50 MG/ML VIAL IM ONE (08:15)
[2017-10-05] MEDS: HALOPERIDOL 5 MG TABLET PO PRN (08:18)
[2017-10-05] MEDS: LORazepam 2 MG TABLET PO PRN (08:18)
[2017-10-05 16:00] VITALS: BP 142/80
[2017-10-05] MEDS: TraZODone HCL 50 MG TABLET PO SCH (20:33)
[2017-10-06] MEDS: LITHIUM CARBONATE 450 MG ER TABLET PO SCH (08:24)
[2017-10-06] MEDS: QUEtiapine FUMARATE 300 MG TABLET PO SCH ×2 (08:24→18:05)
[2017-10-06] MEDS: ARIPiprazole 15 MG TABLET PO SCH ×2 (08:24→18:05)
[2017-10-06] MEDS: AmLODIPine BESYLATE 5 MG TABLET PO SCH (08:24)
[2017-10-06] MEDS: LORazepam 2 MG TABLET PO PRN (08:30)
[2017-10-06] MEDS: HALOPERIDOL 5 MG TABLET PO PRN (08:30)
[2017-10-06] MEDS ORDERED: DiphenhydrAMINE HCL 50 MG/ML VIAL IM ONE (18:45)
[2017-10-06] MEDS ORDERED: LORazepam 2 MG/ML VIAL IM ONE (18:45)
[2017-10-06] MEDS ORDERED: HALOPERIDOL LACTATE 5 MG/ML VIAL IM ONE (18:45)
[2017-10-06] MEDS: TraZODone HCL 50 MG TABLET PO SCH (20:20)
[2017-10-07] MEDS: QUEtiapine FUMARATE 300 MG TABLET PO SCH ×2 (07:25→16:17)
[2017-10-07] MEDS: ARIPiprazole 15 MG TABLET PO SCH ×2 (07:26→16:17)
[2017-10-07] MEDS: AmLODIPine BESYLATE 5 MG TABLET PO SCH ×2 (07:26→09:47)
[2017-10-07] MEDS: LITHIUM CARBONATE 450 MG ER TABLET PO SCH (07:26)
[2017-10-07 09:45] VITALS: BP 144/79
[2017-10-07] MEDS ORDERED: HALOPERIDOL LACTATE 5 MG/ML VIAL IM ONE (13:45)
[2017-10-07] MEDS ORDERED: LORazepam 2 MG/ML VIAL IM ONE (13:45)
[2017-10-07] MEDS ORDERED: DiphenhydrAMINE HCL 50 MG/ML VIAL IM ONE (13:45)
[2017-10-07] MEDS: HALOPERIDOL 5 MG TABLET PO PRN (13:50)
[2017-10-07] MEDS: LORazepam 2 MG TABLET PO PRN (13:50)
[2017-10-07] MEDS: TraZODone HCL 50 MG TABLET PO SCH (21:00)
[2017-10-08] MEDS: LORazepam 2 MG TABLET PO PRN (04:00)
[2017-10-08] MEDS: HALOPERIDOL 5 MG TABLET PO PRN (04:00)
[2017-10-08 08:00] VITALS: BP 142/96
[2017-10-08] MEDS ORDERED: HALOPERIDOL LACTATE 5 MG/ML VIAL IM ONE (08:15)
[2017-10-08] MEDS ORDERED: DiphenhydrAMINE HCL 50 MG/ML VIAL IM ONE (08:15)
[2017-10-08] MEDS ORDERED: LORazepam 2 MG/ML VIAL IM ONE (08:15)
[2017-10-08] MEDS ORDERED: DiphenhydrAMINE HCL 50 MG/ML VIAL ONE (08:21)
[2017-10-08] MEDS ORDERED: LORazepam 2 MG/ML VIAL ONE (08:21)
[2017-10-08 08:31] VITALS: BP 142/96
[2017-10-08] MEDS: ARIPiprazole 15 MG TABLET PO SCH ×2 (08:49→17:59)
[2017-10-08] MEDS: QUEtiapine FUMARATE 300 MG TABLET PO SCH ×2 (08:49→17:59)
[2017-10-08] MEDS: AmLODIPine BESYLATE 5 MG TABLET PO SCH (08:50)
[2017-10-08] MEDS: LITHIUM CARBONATE 450 MG ER TABLET PO SCH (08:50)
[2017-10-08] MEDS: HALOPERIDOL LACTATE 5 MG/ML VIAL IM PRN (18:00)
[2017-10-08] MEDS: TraZODone HCL 50 MG TABLET PO SCH (21:00)
[2017-10-09] MEDS: AmLODIPine BESYLATE 5 MG TABLET PO SCH (09:00)
[2017-10-09] MEDS: LITHIUM CARBONATE 450 MG ER TABLET PO SCH (09:00)
[2017-10-09] MEDS: ARIPiprazole 15 MG TABLET PO SCH ×2 (09:13→17:00)
[2017-10-09] MEDS: QUEtiapine FUMARATE 300 MG TABLET PO SCH ×2 (09:13→17:00)
[2017-10-09] MEDS ORDERED: DiphenhydrAMINE HCL 50 MG/ML VIAL ONE (14:41)
[2017-10-09] MEDS ORDERED: DiphenhydrAMINE HCL 50 MG/ML VIAL IM ONE (14:45)
[2017-10-09] MEDS: HALOPERIDOL LACTATE 5 MG/ML VIAL IM PRN (18:30)
[2017-10-09] MEDS: TraZODone HCL 50 MG TABLET PO SCH (21:00)
[2017-10-10] MEDS: AmLODIPine BESYLATE 5 MG TABLET PO SCH (09:00)
[2017-10-10] MEDS: QUEtiapine FUMARATE 300 MG TABLET PO SCH ×2 (09:00→16:42)
[2017-10-10] MEDS: ARIPiprazole 15 MG TABLET PO SCH ×2 (09:00→16:42)
[2017-10-10] MEDS: LITHIUM CARBONATE 450 MG ER TABLET PO SCH (09:00)
[2017-10-10] MEDS ORDERED: DiphenhydrAMINE HCL 50 MG/ML VIAL ONE (09:27)
[2017-10-10] MEDS ORDERED: DiphenhydrAMINE HCL 50 MG/ML VIAL IM ONE (09:30)
[2017-10-10] MEDS: TraZODone HCL 50 MG TABLET PO SCH (21:00)
[2017-10-11] MEDS: AmLODIPine BESYLATE 5 MG TABLET PO SCH (09:00)
[2017-10-11] MEDS: QUEtiapine FUMARATE 300 MG TABLET PO SCH ×2 (09:00→16:48)
[2017-10-11] MEDS: LITHIUM CARBONATE 450 MG ER TABLET PO SCH (09:00)
[2017-10-11] MEDS: ARIPiprazole 15 MG TABLET PO SCH ×2 (09:00→16:49)
[2017-10-11] MEDS ORDERED: DiphenhydrAMINE HCL 50 MG/ML VIAL ONE (09:28)
[2017-10-11] MEDS ORDERED: DiphenhydrAMINE HCL 50 MG/ML VIAL IM ONE (09:30)
[2017-10-11] MEDS: TraZODone HCL 50 MG TABLET PO SCH (20:33)
[2017-10-12] MEDS: QUEtiapine FUMARATE 300 MG TABLET PO SCH ×2 (09:00→17:30)
[2017-10-12] MEDS: AmLODIPine BESYLATE 5 MG TABLET PO SCH (09:00)
[2017-10-12] MEDS: ARIPiprazole 15 MG TABLET PO SCH ×3 (09:00→17:30)
[2017-10-12] MEDS: LITHIUM CARBONATE 450 MG ER TABLET PO SCH (09:00)
[2017-10-12] MEDS: TraZODone HCL 50 MG TABLET PO SCH (20:17)
[2017-10-13] MEDS: QUEtiapine FUMARATE 300 MG TABLET PO SCH ×2 (09:00→18:00)
[2017-10-13] MEDS: ARIPiprazole 15 MG TABLET PO SCH ×2 (09:00→18:00)
[2017-10-13] MEDS: LITHIUM CARBONATE 450 MG ER TABLET PO SCH (09:00)
[2017-10-13] MEDS: AmLODIPine BESYLATE 5 MG TABLET PO SCH (09:00)
[2017-10-13] MEDS ORDERED: DiphenhydrAMINE HCL 50 MG/ML VIAL IM ONE ×2 (09:15→23:45)
[2017-10-13] MEDS: HALOPERIDOL LACTATE 5 MG/ML VIAL IM PRN (09:39)
[2017-10-13] MEDS: TraZODone HCL 50 MG TABLET PO SCH (21:00)
[2017-10-13] MEDS ORDERED: LORazepam 2 MG/ML VIAL ONE (23:32)
[2017-10-13] MEDS ORDERED: DiphenhydrAMINE HCL 50 MG/ML VIAL ONE (23:33)
[2017-10-13] MEDS ORDERED: HALOPERIDOL LACTATE 5 MG/ML VIAL IM ONE (23:45)
[2017-10-13] MEDS ORDERED: LORazepam 2 MG/ML VIAL IM ONE (23:45)
[2017-10-14] MEDS: AmLODIPine BESYLATE 5 MG TABLET PO SCH (09:00)
[2017-10-14] MEDS: ARIPiprazole 15 MG TABLET PO SCH ×2 (09:00→17:58)
[2017-10-14] MEDS: LITHIUM CARBONATE 450 MG ER TABLET PO SCH (09:00)
[2017-10-14] MEDS: QUEtiapine FUMARATE 300 MG TABLET PO SCH ×2 (09:00→17:58)
[2017-10-14] MEDS ORDERED: DiphenhydrAMINE HCL 50 MG/ML VIAL IM ONE (09:30)
[2017-10-14] MEDS: HALOPERIDOL LACTATE 5 MG/ML VIAL IM PRN (10:00)
[2017-10-14] MEDS: TraZODone HCL 50 MG TABLET PO SCH (20:52)
[2017-10-15] MEDS ORDERED: DiphenhydrAMINE HCL 50 MG/ML VIAL IM ONE (08:20)
[2017-10-15] MEDS: QUEtiapine FUMARATE 300 MG TABLET PO SCH ×2 (09:00→17:00)
[2017-10-15] MEDS: LITHIUM CARBONATE 450 MG ER TABLET PO SCH (09:00)
[2017-10-15] MEDS: ARIPiprazole 15 MG TABLET PO SCH (09:00)
[2017-10-15] MEDS: AmLODIPine BESYLATE 5 MG TABLET PO SCH (09:00)
[2017-10-15] MEDS: OLANZapine 10 MG RAPDIS TABLET PO SCH (17:00)
[2017-10-15] MEDS: HALOPERIDOL LACTATE 5 MG/ML VIAL IM PRN (18:34)
[2017-10-15] MEDS: TraZODone HCL 50 MG TABLET PO SCH (21:00)
[2017-10-16] MEDS: OLANZapine 10 MG RAPDIS TABLET PO SCH ×2 (07:44→16:10)
[2017-10-16] MEDS: QUEtiapine FUMARATE 300 MG TABLET PO SCH ×2 (07:44→16:10)
[2017-10-16] MEDS: LITHIUM CITRATE SOLUTION 8 MEQ/5 ML [8 MEQ = 300 MG] UDCUP PO SCH (07:54)
[2017-10-16] MEDS: AmLODIPine BESYLATE 5 MG TABLET PO SCH (07:54)
[2017-10-16] MEDS ORDERED: HALOPERIDOL LACTATE 5 MG/ML VIAL IM PRN (14:30)
[2017-10-16] MEDS: TraZODone HCL 50 MG TABLET PO SCH (21:00)
[2017-10-17] MEDS: AmLODIPine BESYLATE 5 MG TABLET PO SCH (07:49)
[2017-10-17] MEDS: LITHIUM CITRATE SOLUTION 8 MEQ/5 ML [8 MEQ = 300 MG] UDCUP PO SCH (07:49)
[2017-10-17] MEDS: QUEtiapine FUMARATE 300 MG TABLET PO SCH ×2 (07:50→16:27)
[2017-10-17] MEDS: OLANZapine 10 MG RAPDIS TABLET PO SCH ×2 (07:50→16:27)
[2017-10-17] MEDS: TraZODone HCL 50 MG TABLET PO SCH (20:52)
[2017-10-18] MEDS: OLANZapine 10 MG RAPDIS TABLET PO SCH ×2 (08:14→17:55)
[2017-10-18] MEDS: QUEtiapine FUMARATE 300 MG TABLET PO SCH ×2 (08:14→17:55)
[2017-10-18] MEDS: AmLODIPine BESYLATE 5 MG TABLET PO SCH (08:20)
[2017-10-18] MEDS: LITHIUM CITRATE SOLUTION 8 MEQ/5 ML [8 MEQ = 300 MG] UDCUP PO SCH (08:20)
[2017-10-18] MEDS: TraZODone HCL 50 MG TABLET PO SCH (21:00)
[2017-10-19] MEDS: OLANZapine 10 MG RAPDIS TABLET PO SCH ×2 (07:33→16:16)
[2017-10-19] MEDS: QUEtiapine FUMARATE 300 MG TABLET PO SCH ×2 (07:33→16:16)
[2017-10-19] MEDS: AmLODIPine BESYLATE 5 MG TABLET PO SCH (09:00)
[2017-10-19] MEDS: LITHIUM CITRATE SOLUTION 8 MEQ/5 ML [8 MEQ = 300 MG] UDCUP PO SCH (09:00)
[2017-10-19] MEDS: TraZODone HCL 50 MG TABLET PO SCH (20:57)
[2017-10-20] MEDS: OLANZapine 10 MG RAPDIS TABLET PO SCH ×2 (08:11→17:40)
[2017-10-20] MEDS: QUEtiapine FUMARATE 300 MG TABLET PO SCH ×2 (08:12→17:40)
[2017-10-20] MEDS: LITHIUM CITRATE SOLUTION 8 MEQ/5 ML [8 MEQ = 300 MG] UDCUP PO SCH (08:12)
[2017-10-20] MEDS: AmLODIPine BESYLATE 5 MG TABLET PO SCH (08:12)
[2017-10-20] MEDS: TraZODone HCL 50 MG TABLET PO SCH (20:00)
[2017-10-21] MEDS: LITHIUM CITRATE SOLUTION 8 MEQ/5 ML [8 MEQ = 300 MG] UDCUP PO SCH (08:08)
[2017-10-21] MEDS: OLANZapine 10 MG RAPDIS TABLET PO SCH ×2 (08:08→17:46)
[2017-10-21] MEDS: QUEtiapine FUMARATE 300 MG TABLET PO SCH ×2 (08:08→17:46)
[2017-10-21] MEDS: AmLODIPine BESYLATE 5 MG TABLET PO SCH (08:09)
[2017-10-21] MEDS ORDERED: ChlorproMAZINE HCL 100 MG TABLET PO ONE (15:00)
[2017-10-21] MEDS: TraZODone HCL 50 MG TABLET PO SCH (20:05)
[2017-10-22] MEDS: QUEtiapine FUMARATE 300 MG TABLET PO SCH ×2 (08:09→17:16)
[2017-10-22] MEDS: OLANZapine 10 MG RAPDIS TABLET PO SCH ×2 (08:09→17:16)
[2017-10-22] MEDS: AmLODIPine BESYLATE 5 MG TABLET PO SCH (09:00)
[2017-10-23] MEDS: QUEtiapine FUMARATE 300 MG TABLET PO SCH ×2 (08:14→17:36)
[2017-10-23] MEDS: OLANZapine 10 MG RAPDIS TABLET PO SCH ×2 (08:15→17:37)
[2017-10-23 08:23] VITALS: BP 125/88
[2017-10-23] MEDS: AmLODIPine BESYLATE 5 MG TABLET PO SCH (09:00)
[2017-10-24] MEDS: OLANZapine 10 MG RAPDIS TABLET PO SCH ×2 (08:02→17:55)
[2017-10-24] MEDS: QUEtiapine FUMARATE 300 MG TABLET PO SCH ×2 (08:02→17:55)
[2017-10-24] MEDS: AmLODIPine BESYLATE 5 MG TABLET PO SCH (08:02)
[2017-10-24] MEDS ORDERED: DiphenhydrAMINE HCL 50 MG/ML VIAL ONE (09:43)
[2017-10-24] MEDS ORDERED: LORazepam 2 MG/ML VIAL ONE (09:43)
[2017-10-24] MEDS ORDERED: DiphenhydrAMINE HCL 50 MG/ML VIAL IM ONE (09:45)
[2017-10-24] MEDS ORDERED: HALOPERIDOL LACTATE 5 MG/ML VIAL IM ONE (09:45)
[2017-10-24] MEDS ORDERED: LORazepam 2 MG/ML VIAL IM ONE (09:45)
[2017-10-25] MEDS: QUEtiapine FUMARATE 300 MG TABLET PO SCH ×2 (09:58→17:33)
[2017-10-25] MEDS: OLANZapine 10 MG RAPDIS TABLET PO SCH ×2 (09:58→17:33)
[2017-10-25 10:00] VITALS: BP 141/96
[2017-10-25] MEDS: AmLODIPine BESYLATE 5 MG TABLET PO SCH (10:04)
[2017-10-25] MEDS ORDERED: LORazepam 2 MG/ML VIAL IM ONE (10:15)
[2017-10-25] MEDS ORDERED: HALOPERIDOL LACTATE 5 MG/ML VIAL IM ONE (10:15)
[2017-10-25] MEDS ORDERED: DiphenhydrAMINE HCL 50 MG/ML VIAL IM ONE (10:15)
[2017-10-25 11:42] VITALS: BP 147/86
[2017-10-26] MEDS: OLANZapine 10 MG RAPDIS TABLET PO SCH ×2 (07:53→17:53)
[2017-10-26] MEDS: QUEtiapine FUMARATE 300 MG TABLET PO SCH ×2 (07:54→17:53)
[2017-10-26] MEDS: AmLODIPine BESYLATE 5 MG TABLET PO SCH (07:56)
[2017-10-27] MEDS: AmLODIPine BESYLATE 5 MG TABLET PO SCH (09:00)
[2017-10-27] MEDS: QUEtiapine FUMARATE 300 MG TABLET PO SCH ×2 (11:31→17:35)
[2017-10-27] MEDS: OLANZapine 10 MG RAPDIS TABLET PO SCH ×2 (11:31→17:35)
[2017-10-27] MEDS: MAG HYDROX/AL HYDROX/SIMETH ES 30 ML SUSPENSION UDCUP PO PRN (19:48)
[2017-10-28] MEDS: AmLODIPine BESYLATE 5 MG TABLET PO SCH (09:00)
[2017-10-28] MEDS: QUEtiapine FUMARATE 300 MG TABLET PO SCH ×2 (10:14→17:40)
[2017-10-28] MEDS: OLANZapine 10 MG RAPDIS TABLET PO SCH ×2 (10:15→17:40)
[2017-10-29] MEDS: QUEtiapine FUMARATE 300 MG TABLET PO SCH ×2 (07:37→16:45)
[2017-10-29] MEDS: OLANZapine 10 MG RAPDIS TABLET PO SCH ×2 (07:37→16:45)
[2017-10-29] MEDS: AmLODIPine BESYLATE 5 MG TABLET PO SCH (07:39)
[2017-10-29 08:00] VITALS: BP 135/73
[2017-10-29 16:00] VITALS: BP 134/74
[2017-10-30] MEDS: OLANZapine 10 MG RAPDIS TABLET PO SCH ×2 (07:38→18:32)
[2017-10-30] MEDS: QUEtiapine FUMARATE 300 MG TABLET PO SCH ×2 (07:38→18:32)
[2017-10-30] MEDS: AmLODIPine BESYLATE 5 MG TABLET PO SCH (07:38)
[2017-10-30 08:00] VITALS: BP 120/81
[2017-10-30 11:50] VITALS: BP 126/72
[2017-10-30 16:00] VITALS: BP 147/84
[2017-10-31] MEDS: QUEtiapine FUMARATE 300 MG TABLET PO SCH ×2 (09:23→17:42)
[2017-10-31] MEDS: AmLODIPine BESYLATE 5 MG TABLET PO SCH (09:23)
[2017-10-31 09:24] VITALS: BP 121/83
[2017-10-31] MEDS: OLANZapine 10 MG RAPDIS TABLET PO SCH ×2 (09:24→17:42)
[2017-10-31 19:42] VITALS: BP 124/72
[2017-11-01 08:44] VITALS: BP 128/68
[2017-11-01] MEDS: QUEtiapine FUMARATE 300 MG TABLET PO SCH ×2 (09:07→16:59)
[2017-11-01] MEDS: AmLODIPine BESYLATE 5 MG TABLET PO SCH (09:07)
[2017-11-01] MEDS: OLANZapine 10 MG RAPDIS TABLET PO SCH ×2 (09:08→16:59)
[2017-11-01] MEDS: LORazepam 2 MG TABLET PO PRN (21:26)
[2017-11-01] MEDS: ZOLPIDEM TARTRATE 10 MG TABLET PO PRN (21:26)
[2017-11-01 22:05] VITALS: BP 114/84
[2017-11-02] MEDS: OLANZapine 10 MG RAPDIS TABLET PO SCH ×2 (08:10→16:43)
[2017-11-02] MEDS: QUEtiapine FUMARATE 300 MG TABLET PO SCH ×2 (08:10→16:43)
[2017-11-02] MEDS: AmLODIPine BESYLATE 5 MG TABLET PO SCH (08:10)
[2017-11-02 16:39] VITALS: BP 156/99
[2017-11-03] MEDS: QUEtiapine FUMARATE 300 MG TABLET PO SCH ×2 (07:39→18:00)
[2017-11-03] MEDS: AmLODIPine BESYLATE 5 MG TABLET PO SCH (07:39)
[2017-11-03] MEDS: OLANZapine 10 MG RAPDIS TABLET PO SCH ×2 (07:39→18:00)
[2017-11-04] MEDS: QUEtiapine FUMARATE 300 MG TABLET PO SCH ×2 (08:59→17:59)
[2017-11-04] MEDS: OLANZapine 10 MG RAPDIS TABLET PO SCH ×2 (08:59→17:59)
[2017-11-04] MEDS: AmLODIPine BESYLATE 5 MG TABLET PO SCH (09:00)
[2017-11-05] MEDS: QUEtiapine FUMARATE 300 MG TABLET PO SCH ×2 (08:18→16:19)
[2017-11-05] MEDS: OLANZapine 10 MG RAPDIS TABLET PO SCH ×2 (08:18→16:18)
[2017-11-05] MEDS: AmLODIPine BESYLATE 5 MG TABLET PO SCH (08:18)
[2017-11-05 08:21] VITALS: BP 146/72
[2017-11-05 21:42] VITALS: BP 124/67
[2017-11-06] MEDS: QUEtiapine FUMARATE 300 MG TABLET PO SCH ×2 (08:13→18:02)
[2017-11-06] MEDS: OLANZapine 10 MG RAPDIS TABLET PO SCH ×2 (08:14→18:02)
[2017-11-06] MEDS: AmLODIPine BESYLATE 5 MG TABLET PO SCH (08:14)
[2017-11-07] MEDS: OLANZapine 10 MG RAPDIS TABLET PO SCH ×2 (08:01→17:55)
[2017-11-07] MEDS: AmLODIPine BESYLATE 5 MG TABLET PO SCH (08:02)
[2017-11-07] MEDS: QUEtiapine FUMARATE 300 MG TABLET PO SCH ×2 (08:02→17:54)
[2017-11-08] MEDS: LORazepam 2 MG TABLET PO PRN (05:26)
[2017-11-08] MEDS: QUEtiapine FUMARATE 300 MG TABLET PO SCH ×2 (08:07→16:40)
[2017-11-08] MEDS: AmLODIPine BESYLATE 5 MG TABLET PO SCH (08:07)
[2017-11-08] MEDS: OLANZapine 10 MG RAPDIS TABLET PO SCH ×2 (08:08→16:40)
[2017-11-08] MEDS: ZOLPIDEM TARTRATE 10 MG TABLET PO PRN (21:57)
[2017-11-09] MEDS: QUEtiapine FUMARATE 300 MG TABLET PO SCH ×2 (08:17→19:01)
[2017-11-09] MEDS: OLANZapine 10 MG RAPDIS TABLET PO SCH ×2 (08:17→19:01)
[2017-11-09] MEDS: AmLODIPine BESYLATE 5 MG TABLET PO SCH (08:17)
[2017-11-09 16:00] VITALS: BP 132/96
[2017-11-10] MEDS: AmLODIPine BESYLATE 5 MG TABLET PO SCH (08:17)
[2017-11-10] MEDS: QUEtiapine FUMARATE 300 MG TABLET PO SCH ×2 (08:17→16:19)
[2017-11-10] MEDS: OLANZapine 10 MG RAPDIS TABLET PO SCH ×2 (08:18→16:19)
[2017-11-10] MEDS: MAG HYDROX/AL HYDROX/SIMETH ES 30 ML SUSPENSION UDCUP PO PRN (08:22)
[2017-11-10 21:37] VITALS: BP 136/73
[2017-11-11] MEDS: QUEtiapine FUMARATE 300 MG TABLET PO SCH ×2 (08:12→16:32)
[2017-11-11] MEDS: AmLODIPine BESYLATE 5 MG TABLET PO SCH (08:13)
[2017-11-11] MEDS: OLANZapine 10 MG RAPDIS TABLET PO SCH ×2 (08:14→16:32)
[2017-11-11 18:30] VITALS: BP 140/86
[2017-11-12 08:52] VITALS: BP 159/84
[2017-11-12] MEDS: QUEtiapine FUMARATE 300 MG TABLET PO SCH ×2 (08:55→17:47)
[2017-11-12] MEDS: OLANZapine 10 MG RAPDIS TABLET PO SCH ×2 (08:55→17:47)
[2017-11-12] MEDS: AmLODIPine BESYLATE 5 MG TABLET PO SCH (08:59)
[2017-11-12 16:19] VITALS: BP 148/97
[2017-11-13 09:15] VITALS: BP 164/86
[2017-11-13] MEDS: OLANZapine 10 MG RAPDIS TABLET PO SCH ×2 (09:20→18:04)
[2017-11-13] MEDS: AmLODIPine BESYLATE 5 MG TABLET PO SCH (09:20)
[2017-11-13] MEDS: QUEtiapine FUMARATE 300 MG TABLET PO SCH ×2 (09:20→18:04)
[2017-11-13 10:30] VITALS: BP 144/78
[2017-11-13] MEDS: ZOLPIDEM TARTRATE 10 MG TABLET PO PRN (21:35)
[2017-11-14] MEDS: OLANZapine 10 MG RAPDIS TABLET PO SCH ×2 (09:14→18:16)
[2017-11-14] MEDS: AmLODIPine BESYLATE 5 MG TABLET PO SCH (09:14)
[2017-11-14] MEDS: QUEtiapine FUMARATE 300 MG TABLET PO SCH ×2 (09:14→18:16)
[2017-11-14 11:22] VITALS: BP 132/77
[2017-11-15] MEDS: OLANZapine 10 MG RAPDIS TABLET PO SCH ×2 (08:02→16:24)
[2017-11-15] MEDS: QUEtiapine FUMARATE 300 MG TABLET PO SCH ×2 (08:02→16:25)
[2017-11-15] MEDS: AmLODIPine BESYLATE 5 MG TABLET PO SCH (08:02)
[2017-11-15 08:05] VITALS: BP 118/80
[2017-11-16] MEDS: MAG HYDROX/AL HYDROX/SIMETH ES 30 ML SUSPENSION UDCUP PO PRN ×2 (07:09→21:44)
[2017-11-16] MEDS: AmLODIPine BESYLATE 5 MG TABLET PO SCH (08:22)
[2017-11-16] MEDS: OLANZapine 10 MG RAPDIS TABLET PO SCH ×2 (08:23→16:00)
[2017-11-16] MEDS: QUEtiapine FUMARATE 300 MG TABLET PO SCH ×2 (08:23→15:59)
[2017-11-16] MEDS: ZOLPIDEM TARTRATE 10 MG TABLET PO PRN (20:03)
[2017-11-16] MEDS: LORazepam 2 MG TABLET PO PRN (21:28)
[2017-11-17] MEDS: TraZODone HCL 50 MG TABLET PO PRN (00:36)
[2017-11-17] MEDS: AmLODIPine BESYLATE 5 MG TABLET PO SCH (08:52)
[2017-11-17] MEDS: QUEtiapine FUMARATE 300 MG TABLET PO SCH ×2 (08:52→17:15)
[2017-11-17] MEDS: OLANZapine 10 MG RAPDIS TABLET PO SCH ×2 (08:52→17:15)
[2017-11-18 09:00] VITALS: BP 122/68
[2017-11-18] MEDS: AmLODIPine BESYLATE 5 MG TABLET PO SCH (09:05)
[2017-11-18] MEDS: OLANZapine 10 MG RAPDIS TABLET PO SCH ×2 (09:05→16:54)
[2017-11-18] MEDS: QUEtiapine FUMARATE 300 MG TABLET PO SCH ×2 (09:05→16:54)
[2017-11-18 16:00] VITALS: BP 153/87
[2017-11-19 08:00] VITALS: BP 134/93
[2017-11-19] MEDS: QUEtiapine FUMARATE 300 MG TABLET PO SCH ×2 (08:06→17:10)
[2017-11-19] MEDS: OLANZapine 10 MG RAPDIS TABLET PO SCH ×2 (08:06→17:10)
[2017-11-19] MEDS: AmLODIPine BESYLATE 5 MG TABLET PO SCH (08:06)
[2017-11-20] MEDS: AmLODIPine BESYLATE 5 MG TABLET PO SCH (10:53)
[2017-11-20] MEDS: OLANZapine 10 MG RAPDIS TABLET PO SCH ×2 (10:53→18:10)
[2017-11-20] MEDS: QUEtiapine FUMARATE 300 MG TABLET PO SCH ×2 (10:53→18:10)
[2017-11-21] MEDS: QUEtiapine FUMARATE 300 MG TABLET PO SCH ×2 (08:14→17:22)
[2017-11-21] MEDS: OLANZapine 10 MG RAPDIS TABLET PO SCH ×2 (08:14→17:22)
[2017-11-21] MEDS: AmLODIPine BESYLATE 5 MG TABLET PO SCH (08:14)
[2017-11-21] MEDS: ZOLPIDEM TARTRATE 10 MG TABLET PO PRN (21:15)
[2017-11-22] MEDS: OLANZapine 10 MG RAPDIS TABLET PO SCH ×2 (08:16→17:44)
[2017-11-22] MEDS: AmLODIPine BESYLATE 5 MG TABLET PO SCH (08:16)
[2017-11-22] MEDS: QUEtiapine FUMARATE 300 MG TABLET PO SCH ×2 (08:16→17:44)
[2017-11-22 08:30] VITALS: BP 145/79
[2017-11-22 16:18] VITALS: BP 142/88
[2017-11-23] MEDS: QUEtiapine FUMARATE 300 MG TABLET PO SCH ×2 (11:22→17:37)
[2017-11-23] MEDS: OLANZapine 10 MG RAPDIS TABLET PO SCH ×2 (11:22→17:37)
[2017-11-23] MEDS: AmLODIPine BESYLATE 5 MG TABLET PO SCH (11:22)
[2017-11-23] MEDS: ZOLPIDEM TARTRATE 10 MG TABLET PO PRN (20:25)
[2017-11-23] MEDS: LORazepam 2 MG TABLET PO PRN (23:28)
[2017-11-24] MEDS: OLANZapine 10 MG RAPDIS TABLET PO SCH ×2 (09:13→16:34)
[2017-11-24] MEDS: AmLODIPine BESYLATE 5 MG TABLET PO SCH (09:13)
[2017-11-24] MEDS: QUEtiapine FUMARATE 300 MG TABLET PO SCH ×2 (09:13→16:34)
[2017-11-24] MEDS: SULFAMETHOX/TRIMETH DS 800-160 MG/TABLET PO SCH ×2 (09:13→16:34)
[2017-11-24] MEDS: CEPHALEXIN MONOHYDRATE 500 MG CAPSULE PO SCH ×4 (09:14→20:34)
[2017-11-25 08:00] VITALS: BP 152/93
[2017-11-25] MEDS: SULFAMETHOX/TRIMETH DS 800-160 MG/TABLET PO SCH ×2 (08:05→17:55)
[2017-11-25] MEDS: OLANZapine 10 MG RAPDIS TABLET PO SCH ×2 (08:05→17:55)
[2017-11-25] MEDS: CEPHALEXIN MONOHYDRATE 500 MG CAPSULE PO SCH ×4 (08:05→20:29)
[2017-11-25] MEDS: AmLODIPine BESYLATE 5 MG TABLET PO SCH (08:06)
[2017-11-25] MEDS: QUEtiapine FUMARATE 300 MG TABLET PO SCH ×2 (08:07→17:56)
[2017-11-25 10:00] LABS: BASOPHILS % (AUTO) 0.5 % (0.0-2.0); EOSINOPHILS % (AUTO) 3.1 % (1.0-6.0); HEMATOCRIT 40.5 % (41-53); HEMOGLOBIN 13.5 g/dL (13.5-17.5); LYMPHOCYTES # (AUTO) 1.2 K/uL (1.0-4.8); LYMPHOCYTES % (AUTO) 29.4 % (22.0-44.0); MEAN CORPUSCULAR HEMOGLOBIN 27.9 pg (26.0-34.0); MEAN CORPUSCULAR HGB CONC 33.5 G/dL (31.0-37.0); MEAN CORPUSCULAR VOLUME 84 fL (80-100); MONOCYTES # (AUTO) 0.3 K/uL (0.1-1.0); NEUTROPHILS # (AUTO) 2.5 K/uL (1.8-7.7); PLATELET COUNT (AUTO) 178 K/uL (150-450); RED BLOOD CELL COUNT(AUTO) 4.85 MIL/uL (4.50-5.90)
[2017-11-25 10:15] LABS: ALANINE AMINOTRANSFERASE 57 U/L (12-78); ALBUMIN 3.6 g/dL (3.4-5.0); ALKALINE PHOSPHATASE 62 U/L (46-116); ANION GAP 4 mmol/L (8-16); ASPARTATE AMINOTRANSFERASE 28 U/L (15-37); BILIRUBIN,TOTAL 0.3 mg/dL (0.1-1.0); CALCIUM, TOTAL 8.7 mg/dL (8.8-10.5); CARBON DIOXIDE 30 mmol/L (22-29); CHLORIDE 102 mmol/L (98-107); CREATININE 1.16 mg/dL (0.60-1.30); GLOMERULAR FILTR. RATE CALC > 60 mL/min (>60); GLUCOSE,RANDOM 81 mg/dL (70-110); POTASSIUM 3.8 mmol/L (3.5-5.1); SODIUM SERUM 136 mmol/L (136-145); TOTAL PROTEIN, SERUM 7.7 g/dL (6.4-8.2); UREA NITROGEN, BLOOD 12 mg/dL (7-18)
[2017-11-25] MEDS: LORazepam 2 MG TABLET PO PRN ×2 (15:53→20:06)
[2017-11-25 17:06] VITALS: BP 154/87
[2017-11-25] MEDS: MAG HYDROX/AL HYDROX/SIMETH ES 30 ML SUSPENSION UDCUP PO PRN (18:20)
[2017-11-25] MEDS: ZOLPIDEM TARTRATE 10 MG TABLET PO PRN (20:29)
[2017-11-26] MEDS: OLANZapine 10 MG RAPDIS TABLET PO SCH ×2 (08:45→17:53)
[2017-11-26] MEDS: CEPHALEXIN MONOHYDRATE 500 MG CAPSULE PO SCH ×4 (08:45→20:24)
[2017-11-26] MEDS: SULFAMETHOX/TRIMETH DS 800-160 MG/TABLET PO SCH ×2 (08:45→17:51)
[2017-11-26] MEDS: AmLODIPine BESYLATE 5 MG TABLET PO SCH (08:45)
[2017-11-26] MEDS: QUEtiapine FUMARATE 300 MG TABLET PO SCH ×2 (08:45→17:51)
[2017-11-26 09:00] VITALS: BP 138/85
[2017-11-27] MEDS: CEPHALEXIN MONOHYDRATE 500 MG CAPSULE PO SCH ×4 (11:05→21:19)
[2017-11-27] MEDS: AmLODIPine BESYLATE 5 MG TABLET PO SCH (11:05)
[2017-11-27] MEDS: QUEtiapine FUMARATE 300 MG TABLET PO SCH ×2 (11:06→18:06)
[2017-11-27] MEDS: OLANZapine 10 MG RAPDIS TABLET PO SCH ×2 (11:06→18:07)
[2017-11-27] MEDS: SULFAMETHOX/TRIMETH DS 800-160 MG/TABLET PO SCH ×2 (11:07→18:06)
[2017-11-27] MEDS: LORazepam 2 MG TABLET PO PRN (21:26)
[2017-11-27] MEDS: ZOLPIDEM TARTRATE 10 MG TABLET PO PRN (21:26)
[2017-11-28] MEDS: AmLODIPine BESYLATE 5 MG TABLET PO SCH (09:35)
[2017-11-28] MEDS: CEPHALEXIN MONOHYDRATE 500 MG CAPSULE PO SCH ×5 (09:35→20:52)
[2017-11-28] MEDS: OLANZapine 10 MG RAPDIS TABLET PO SCH ×2 (09:35→17:52)
[2017-11-28] MEDS: QUEtiapine FUMARATE 300 MG TABLET PO SCH ×2 (09:35→17:51)
[2017-11-28] MEDS: SULFAMETHOX/TRIMETH DS 800-160 MG/TABLET PO SCH ×2 (09:35→17:51)
[2017-11-28 17:54] VITALS: BP 138/96
[2017-11-28] MEDS: ZOLPIDEM TARTRATE 10 MG TABLET PO PRN (20:52)
[2017-11-28] MEDS: LORazepam 2 MG TABLET PO PRN (20:52)
[2017-11-28] MEDS: MAG HYDROX/AL HYDROX/SIMETH ES 30 ML SUSPENSION UDCUP PO PRN (22:55)
[2017-11-29 09:00] VITALS: BP 112/70
[2017-11-29] MEDS: QUEtiapine FUMARATE 300 MG TABLET PO SCH ×2 (09:19→16:05)
[2017-11-29] MEDS: AmLODIPine BESYLATE 5 MG TABLET PO SCH (09:19)
[2017-11-29] MEDS: OLANZapine 10 MG RAPDIS TABLET PO SCH ×2 (09:19→16:06)
[2017-11-29] MEDS: SULFAMETHOX/TRIMETH DS 800-160 MG/TABLET PO SCH ×2 (09:19→16:05)
[2017-11-29] MEDS: CEPHALEXIN MONOHYDRATE 500 MG CAPSULE PO SCH ×4 (09:19→20:08)
[2017-11-30] MEDS: SULFAMETHOX/TRIMETH DS 800-160 MG/TABLET PO SCH ×2 (09:02→17:16)
[2017-11-30] MEDS: AmLODIPine BESYLATE 5 MG TABLET PO SCH (09:02)
[2017-11-30] MEDS: CEPHALEXIN MONOHYDRATE 500 MG CAPSULE PO SCH ×4 (09:02→21:27)
[2017-11-30] MEDS: QUEtiapine FUMARATE 300 MG TABLET PO SCH ×2 (09:02→17:15)
[2017-11-30] MEDS: OLANZapine 10 MG RAPDIS TABLET PO SCH ×2 (09:03→17:17)
[2017-11-30] MEDS: ZOLPIDEM TARTRATE 10 MG TABLET PO PRN (21:28)
[2017-11-30] MEDS: LORazepam 2 MG TABLET PO PRN (22:21)
[2017-12-01] MEDS: CEPHALEXIN MONOHYDRATE 500 MG CAPSULE PO SCH ×4 (08:38→21:36)
[2017-12-01] MEDS: OLANZapine 10 MG RAPDIS TABLET PO SCH ×2 (08:38→17:28)
[2017-12-01] MEDS: SULFAMETHOX/TRIMETH DS 800-160 MG/TABLET PO SCH ×2 (08:38→17:28)
[2017-12-01] MEDS: AmLODIPine BESYLATE 5 MG TABLET PO SCH (08:38)
[2017-12-01] MEDS: QUEtiapine FUMARATE 300 MG TABLET PO SCH ×2 (08:38→17:28)
[2017-12-01] MEDS: LORazepam 2 MG TABLET PO PRN (22:37)
[2017-12-02] MEDS: OLANZapine 10 MG RAPDIS TABLET PO SCH ×2 (08:06→17:43)
[2017-12-02] MEDS: AmLODIPine BESYLATE 5 MG TABLET PO SCH (08:06)
[2017-12-02] MEDS: CEPHALEXIN MONOHYDRATE 500 MG CAPSULE PO SCH ×4 (08:06→21:47)
[2017-12-02] MEDS: QUEtiapine FUMARATE 300 MG TABLET PO SCH ×2 (08:06→17:43)
[2017-12-02] MEDS: SULFAMETHOX/TRIMETH DS 800-160 MG/TABLET PO SCH ×2 (08:06→17:45)
[2017-12-02] MEDS: LORazepam 2 MG TABLET PO PRN ×3 (08:20→22:33)
[2017-12-02] MEDS: ZOLPIDEM TARTRATE 10 MG TABLET PO PRN (22:33)
[2017-12-03] MEDS: CEPHALEXIN MONOHYDRATE 500 MG CAPSULE PO SCH ×4 (08:21→20:53)
[2017-12-03] MEDS: SULFAMETHOX/TRIMETH DS 800-160 MG/TABLET PO SCH ×2 (08:21→16:03)
[2017-12-03] MEDS: OLANZapine 10 MG RAPDIS TABLET PO SCH ×2 (08:22→16:03)
[2017-12-03] MEDS: AmLODIPine BESYLATE 5 MG TABLET PO SCH (08:22)
[2017-12-03] MEDS: QUEtiapine FUMARATE 300 MG TABLET PO SCH ×2 (08:22→16:03)
[2017-12-03 10:00] VITALS: BP 145/89
[2017-12-03] MEDS ORDERED: RINGERS SOLUTION,LACTATED 1,000 ML IV ONE ×2 (11:00→12:56)
[2017-12-03 11:39] LABS: GLUCOMETER DEV NAME(LOC) SDS 5; GLUCOSE,POINT OF CARE 96 MG/DL (70-110)
[2017-12-03] MEDS ORDERED: LIDOCAINE 1% 20 ML VIAL *UNAVILABLE INJ ONE (12:20)
[2017-12-03] MEDS ORDERED: BUPIVACAINE HCL/PF 0.5% 10 ML VIAL INJ ONE (12:20)
[2017-12-03] MEDS: LORazepam 2 MG TABLET PO PRN ×2 (13:53→18:43)
[2017-12-03] MEDS: ACETAMINOPHEN/CODEINE 300-30 MG TABLET PO PRN ×2 (14:17→18:43)
[2017-12-03 18:43] VITALS: BP 141/77
[2017-12-03] MEDS: ZOLPIDEM TARTRATE 10 MG TABLET PO PRN (20:53)
[2017-12-04] MEDS ORDERED: FentaNYL CITRATE-PF 100 MCG/2 ML VIAL IVP ONE (05:18)
[2017-12-04] MEDS ORDERED: MIDAZOLAM HCL 2 MG/2 ML VIAL IVP ONE (05:18)
[2017-12-04] MEDS: OLANZapine 10 MG RAPDIS TABLET PO SCH ×2 (08:32→17:31)
[2017-12-04] MEDS: AmLODIPine BESYLATE 5 MG TABLET PO SCH (08:32)
[2017-12-04] MEDS: ACETAMINOPHEN/CODEINE 300-30 MG TABLET PO PRN (08:32)
[2017-12-04] MEDS: CEPHALEXIN MONOHYDRATE 500 MG CAPSULE PO SCH ×4 (08:33→20:50)
[2017-12-04] MEDS: SULFAMETHOX/TRIMETH DS 800-160 MG/TABLET PO SCH ×2 (08:33→17:31)
[2017-12-04] MEDS: QUEtiapine FUMARATE 300 MG TABLET PO SCH ×2 (08:33→17:31)
[2017-12-05] MEDS: SULFAMETHOX/TRIMETH DS 800-160 MG/TABLET PO SCH ×2 (07:46→16:58)
[2017-12-05] MEDS: QUEtiapine FUMARATE 300 MG TABLET PO SCH ×2 (07:46→16:58)
[2017-12-05] MEDS: CEPHALEXIN MONOHYDRATE 500 MG CAPSULE PO SCH ×4 (07:46→20:18)
[2017-12-05] MEDS: AmLODIPine BESYLATE 5 MG TABLET PO SCH (07:46)
[2017-12-05] MEDS: ACETAMINOPHEN/CODEINE 300-30 MG TABLET PO PRN ×2 (07:46→21:13)
[2017-12-05] MEDS: OLANZapine 10 MG RAPDIS TABLET PO SCH ×2 (07:46→16:58)
[2017-12-05 13:44] VITALS: BP 139/74
[2017-12-05 17:06] VITALS: BP 143/89
[2017-12-05 21:14] VITALS: BP 99/78
[2017-12-05] MEDS: ZOLPIDEM TARTRATE 10 MG TABLET PO PRN (22:39)
[2017-12-06] MEDS: ACETAMINOPHEN/CODEINE 300-30 MG TABLET PO PRN (08:12)
[2017-12-06] MEDS: SULFAMETHOX/TRIMETH DS 800-160 MG/TABLET PO SCH ×2 (08:13→17:55)
[2017-12-06] MEDS: QUEtiapine FUMARATE 300 MG TABLET PO SCH ×2 (08:13→17:55)
[2017-12-06] MEDS: AmLODIPine BESYLATE 5 MG TABLET PO SCH (08:13)
[2017-12-06] MEDS: CEPHALEXIN MONOHYDRATE 500 MG CAPSULE PO SCH ×4 (08:13→21:46)
[2017-12-06] MEDS: OLANZapine 10 MG RAPDIS TABLET PO SCH ×2 (08:13→17:55)
[2017-12-06 08:30] VITALS: BP 142/84
[2017-12-06] MEDS: ZOLPIDEM TARTRATE 10 MG TABLET PO PRN (21:46)
[2017-12-06] MEDS: LORazepam 2 MG TABLET PO PRN (21:46)
[2017-12-06] MEDS: TraZODone HCL 50 MG TABLET PO PRN (22:35)
[2017-12-07] MEDS: OLANZapine 10 MG RAPDIS TABLET PO SCH ×2 (10:17→17:00)
[2017-12-07] MEDS: QUEtiapine FUMARATE 300 MG TABLET PO SCH ×2 (10:17→17:00)
[2017-12-07] MEDS: CEPHALEXIN MONOHYDRATE 500 MG CAPSULE PO SCH ×4 (10:17→21:05)
[2017-12-07] MEDS: AmLODIPine BESYLATE 5 MG TABLET PO SCH (10:17)
[2017-12-07] MEDS: SULFAMETHOX/TRIMETH DS 800-160 MG/TABLET PO SCH ×2 (10:17→17:00)
[2017-12-07 19:21] VITALS: BP 138/88
[2017-12-07] MEDS: LORazepam 2 MG TABLET PO PRN ×2 (19:27→23:42)
[2017-12-07] MEDS: ACETAMINOPHEN/CODEINE 300-30 MG TABLET PO PRN (19:27)
[2017-12-07] MEDS: ZOLPIDEM TARTRATE 10 MG TABLET PO PRN (22:03)
[2017-12-07] MEDS: MAG HYDROX/AL HYDROX/SIMETH ES 30 ML SUSPENSION UDCUP PO PRN (23:33)
[2017-12-07] MEDS: TraZODone HCL 50 MG TABLET PO PRN (23:42)
[2017-12-08 02:12] VITALS: BP 117/74
[2017-12-08] MEDS: AmLODIPine BESYLATE 5 MG TABLET PO SCH (11:35)
[2017-12-08] MEDS: QUEtiapine FUMARATE 300 MG TABLET PO SCH ×2 (11:35→17:29)
[2017-12-08] MEDS: SULFAMETHOX/TRIMETH DS 800-160 MG/TABLET PO SCH ×2 (11:35→17:29)
[2017-12-08] MEDS: CEPHALEXIN MONOHYDRATE 500 MG CAPSULE PO SCH ×4 (11:35→20:16)
[2017-12-08] MEDS: OLANZapine 10 MG RAPDIS TABLET PO SCH ×2 (11:35→17:29)
[2017-12-08] MEDS: LORazepam 2 MG TABLET PO PRN (17:49)
[2017-12-08] MEDS: ZOLPIDEM TARTRATE 10 MG TABLET PO PRN (20:16)
[2017-12-08] MEDS: TraZODone HCL 50 MG TABLET PO PRN (21:02)
[2017-12-09] MEDS: AmLODIPine BESYLATE 5 MG TABLET PO SCH (08:02)
[2017-12-09] MEDS: QUEtiapine FUMARATE 300 MG TABLET PO SCH ×2 (08:02→16:12)
[2017-12-09] MEDS: SULFAMETHOX/TRIMETH DS 800-160 MG/TABLET PO SCH ×2 (08:02→16:12)
[2017-12-09] MEDS: CEPHALEXIN MONOHYDRATE 500 MG CAPSULE PO SCH ×4 (08:02→20:03)
[2017-12-09] MEDS: OLANZapine 10 MG RAPDIS TABLET PO SCH ×2 (08:03→16:13)
[2017-12-09 09:13] VITALS: BP 102/60
[2017-12-09] MEDS: ZOLPIDEM TARTRATE 10 MG TABLET PO PRN (21:33)
[2017-12-09] MEDS: LORazepam 2 MG TABLET PO PRN (21:33)
[2017-12-09] MEDS: TraZODone HCL 50 MG TABLET PO PRN (23:36)
[2017-12-10] MEDS: CEPHALEXIN MONOHYDRATE 500 MG CAPSULE PO SCH ×4 (07:31→20:18)
[2017-12-10] MEDS: OLANZapine 10 MG RAPDIS TABLET PO SCH ×2 (07:32→17:32)
[2017-12-10] MEDS: SULFAMETHOX/TRIMETH DS 800-160 MG/TABLET PO SCH ×2 (07:34→17:32)
[2017-12-10] MEDS: AmLODIPine BESYLATE 5 MG TABLET PO SCH (07:34)
[2017-12-10] MEDS: QUEtiapine FUMARATE 300 MG TABLET PO SCH ×2 (07:34→17:32)
[2017-12-10 09:51] VITALS: BP 110/70
[2017-12-10] MEDS: LORazepam 2 MG TABLET PO PRN ×2 (12:15→19:57)
[2017-12-10 19:55] VITALS: BP 148/81
[2017-12-10] MEDS: ZOLPIDEM TARTRATE 10 MG TABLET PO PRN (20:26)
[2017-12-11] MEDS: OLANZapine 10 MG RAPDIS TABLET PO SCH ×2 (07:13→16:39)
[2017-12-11] MEDS: AmLODIPine BESYLATE 5 MG TABLET PO SCH (07:14)
[2017-12-11] MEDS: CEPHALEXIN MONOHYDRATE 500 MG CAPSULE PO SCH (07:14)
[2017-12-11] MEDS: SULFAMETHOX/TRIMETH DS 800-160 MG/TABLET PO SCH (07:14)
[2017-12-11] MEDS: QUEtiapine FUMARATE 300 MG TABLET PO SCH ×2 (07:14→16:39)
[2017-12-11] MEDS: LORazepam 2 MG TABLET PO PRN ×2 (16:40→22:05)
[2017-12-11] MEDS: ZOLPIDEM TARTRATE 10 MG TABLET PO PRN (22:05)
[2017-12-11] MEDS: TraZODone HCL 50 MG TABLET PO PRN (23:15)
[2017-12-12] MEDS: OLANZapine 10 MG RAPDIS TABLET PO SCH ×2 (07:54→16:34)
[2017-12-12] MEDS: LORazepam 2 MG TABLET PO PRN ×2 (07:54→20:45)
[2017-12-12] MEDS: AmLODIPine BESYLATE 5 MG TABLET PO SCH (07:55)
[2017-12-12] MEDS: QUEtiapine FUMARATE 300 MG TABLET PO SCH ×2 (07:55→16:34)
[2017-12-12 09:17] VITALS: BP 110/79
[2017-12-12 18:30] VITALS: BP 134/99
[2017-12-12] MEDS: ZOLPIDEM TARTRATE 10 MG TABLET PO PRN (20:45)
[2017-12-12] MEDS: TraZODone HCL 50 MG TABLET PO PRN (22:23)
[2017-12-13] MEDS: LORazepam 2 MG TABLET PO PRN (01:13)
[2017-12-13] MEDS: QUEtiapine FUMARATE 300 MG TABLET PO SCH ×2 (09:42→17:02)
[2017-12-13] MEDS: AmLODIPine BESYLATE 5 MG TABLET PO SCH (09:42)
[2017-12-13] MEDS: OLANZapine 10 MG RAPDIS TABLET PO SCH ×2 (09:42→17:02)
[2017-12-13 20:03] VITALS: BP 148/86
[2017-12-14] MEDS: OLANZapine 10 MG RAPDIS TABLET PO SCH ×2 (08:56→17:10)
[2017-12-14] MEDS: QUEtiapine FUMARATE 300 MG TABLET PO SCH ×2 (08:56→17:10)
[2017-12-14] MEDS: AmLODIPine BESYLATE 5 MG TABLET PO SCH (08:56)
[2017-12-14 10:23] VITALS: BP 142/87
[2017-12-14 16:30] VITALS: BP 132/65
[2017-12-14] MEDS: LORazepam 2 MG TABLET PO PRN (21:33)
[2017-12-14] MEDS: ZOLPIDEM TARTRATE 10 MG TABLET PO PRN (21:33)
[2017-12-15 08:30] VITALS: BP 125/61
[2017-12-15] MEDS: QUEtiapine FUMARATE 300 MG TABLET PO SCH ×2 (09:01→16:33)
[2017-12-15] MEDS: OLANZapine 10 MG RAPDIS TABLET PO SCH ×2 (09:02→16:33)
[2017-12-15] MEDS: AmLODIPine BESYLATE 5 MG TABLET PO SCH (09:02)
[2017-12-15 16:00] VITALS: BP 128/68
[2017-12-15] MEDS: LORazepam 2 MG TABLET PO PRN (20:12)
[2017-12-15] MEDS: ZOLPIDEM TARTRATE 10 MG TABLET PO PRN (22:30)
[2017-12-16] MEDS: OLANZapine 10 MG RAPDIS TABLET PO SCH ×2 (09:11→16:37)
[2017-12-16] MEDS: QUEtiapine FUMARATE 300 MG TABLET PO SCH ×2 (09:11→16:37)
[2017-12-16] MEDS: AmLODIPine BESYLATE 5 MG TABLET PO SCH (09:11)
[2017-12-16 09:36] VITALS: BP 144/78
[2017-12-16 21:04] VITALS: BP 159/100
[2017-12-17] MEDS: OLANZapine 10 MG RAPDIS TABLET PO SCH ×2 (08:22→17:47)
[2017-12-17] MEDS: QUEtiapine FUMARATE 300 MG TABLET PO SCH ×2 (08:23→17:47)
[2017-12-17] MEDS: AmLODIPine BESYLATE 5 MG TABLET PO SCH (08:23)
[2017-12-17 13:09] VITALS: BP 112/67
[2017-12-17] MEDS: ZOLPIDEM TARTRATE 10 MG TABLET PO PRN (20:13)
[2017-12-17] MEDS: LORazepam 2 MG TABLET PO PRN (20:13)
[2017-12-17 21:15] VITALS: BP 151/91
[2017-12-18] MEDS: QUEtiapine FUMARATE 300 MG TABLET PO SCH ×2 (08:00→16:18)
[2017-12-18] MEDS: AmLODIPine BESYLATE 5 MG TABLET PO SCH (08:00)
[2017-12-18] MEDS: OLANZapine 10 MG RAPDIS TABLET PO SCH ×2 (08:00→16:18)
[2017-12-18 13:49] VITALS: BP 151/99
[2017-12-18] MEDS: LORazepam 2 MG TABLET PO PRN (19:55)
[2017-12-18] MEDS: ZOLPIDEM TARTRATE 10 MG TABLET PO PRN (20:26)
[2017-12-19] MEDS: QUEtiapine FUMARATE 300 MG TABLET PO SCH ×2 (08:08→16:35)
[2017-12-19] MEDS: AmLODIPine BESYLATE 5 MG TABLET PO SCH (08:08)
[2017-12-19] MEDS: OLANZapine 10 MG RAPDIS TABLET PO SCH ×2 (08:08→16:35)
[2017-12-19 10:27] VITALS: BP 156/78
[2017-12-19 17:46] VITALS: BP 161/92
[2017-12-19] MEDS: LORazepam 2 MG TABLET PO PRN (20:33)
[2017-12-19] MEDS: ZOLPIDEM TARTRATE 10 MG TABLET PO PRN (20:33)
[2017-12-20 04:45] VITALS: BP 154/76
[2017-12-20] MEDS: LORazepam 2 MG TABLET PO PRN ×3 (04:53→20:11)
[2017-12-20] MEDS: AmLODIPine BESYLATE 5 MG TABLET PO SCH (07:44)
[2017-12-20] MEDS: OLANZapine 10 MG RAPDIS TABLET PO SCH ×2 (07:45→17:20)
[2017-12-20] MEDS: QUEtiapine FUMARATE 300 MG TABLET PO SCH ×2 (07:45→17:20)
[2017-12-20 10:56] VITALS: BP 152/99
[2017-12-20] MEDS: ZOLPIDEM TARTRATE 10 MG TABLET PO PRN (20:11)
[2017-12-21] MEDS: QUEtiapine FUMARATE 300 MG TABLET PO SCH ×2 (09:04→16:10)
[2017-12-21] MEDS: AmLODIPine BESYLATE 5 MG TABLET PO SCH (09:04)
[2017-12-21] MEDS: OLANZapine 10 MG RAPDIS TABLET PO SCH ×2 (09:04→16:10)
[2017-12-21 16:29] VITALS: BP 150/86
[2017-12-22] MEDS: QUEtiapine FUMARATE 300 MG TABLET PO SCH ×2 (08:15→18:18)
[2017-12-22] MEDS: AmLODIPine BESYLATE 5 MG TABLET PO SCH (08:16)
[2017-12-22] MEDS: OLANZapine 10 MG RAPDIS TABLET PO SCH ×2 (08:17→18:16)
[2017-12-22 09:25] VITALS: BP 141/74
[2017-12-22 17:00] VITALS: BP 136/72
[2017-12-22] MEDS: LORazepam 2 MG TABLET PO PRN (20:04)
[2017-12-22] MEDS: ZOLPIDEM TARTRATE 10 MG TABLET PO PRN (20:04)
[2017-12-23] MEDS: OLANZapine 10 MG RAPDIS TABLET PO SCH ×2 (08:10→16:49)
[2017-12-23] MEDS: QUEtiapine FUMARATE 300 MG TABLET PO SCH ×2 (08:10→16:49)
[2017-12-23] MEDS: AmLODIPine BESYLATE 5 MG TABLET PO SCH (08:10)
[2017-12-23 08:53] VITALS: BP 137/97
[2017-12-23] MEDS: LORazepam 2 MG TABLET PO PRN ×2 (15:17→20:05)
[2017-12-23] MEDS: ZOLPIDEM TARTRATE 10 MG TABLET PO PRN (20:06)
[2017-12-23 21:53] VITALS: BP 126/81
[2017-12-24 02:00] VITALS: BP 136/83
[2017-12-24] MEDS: LORazepam 2 MG TABLET PO PRN (02:09)
[2017-12-24 03:30] VITALS: BP 150/102
[2017-12-24] MEDS: TraZODone HCL 50 MG TABLET PO PRN (03:39)
[2017-12-24 09:11] VITALS: BP 145/67
[2017-12-24] MEDS: AmLODIPine BESYLATE 5 MG TABLET PO SCH (09:13)
[2017-12-24] MEDS: QUEtiapine FUMARATE 300 MG TABLET PO SCH ×2 (09:13→16:30)
[2017-12-24] MEDS: OLANZapine 10 MG RAPDIS TABLET PO SCH ×2 (09:13→16:30)
[2017-12-24 22:00] VITALS: BP 136/78
[2017-12-25 08:05] VITALS: BP 121/73
[2017-12-25] MEDS: OLANZapine 10 MG RAPDIS TABLET PO SCH ×2 (09:50→17:20)
[2017-12-25] MEDS: AmLODIPine BESYLATE 5 MG TABLET PO SCH (09:50)
[2017-12-25] MEDS: QUEtiapine FUMARATE 300 MG TABLET PO SCH ×2 (09:50→17:20)
[2017-12-25] MEDS: LORazepam 2 MG TABLET PO PRN ×2 (18:05→22:07)
[2017-12-25] MEDS: ZOLPIDEM TARTRATE 10 MG TABLET PO PRN (22:06)
[2017-12-26 08:30] VITALS: BP 154/93
[2017-12-26] MEDS: QUEtiapine FUMARATE 300 MG TABLET PO SCH ×2 (08:35→17:30)
[2017-12-26] MEDS: AmLODIPine BESYLATE 5 MG TABLET PO SCH (08:35)
[2017-12-26] MEDS: OLANZapine 10 MG RAPDIS TABLET PO SCH ×2 (08:35→17:30)
[2017-12-26] MEDS: LORazepam 2 MG TABLET PO PRN (17:51)
[2017-12-27] MEDS: ZOLPIDEM TARTRATE 10 MG TABLET PO PRN (01:00)
[2017-12-27] MEDS: LORazepam 2 MG TABLET PO PRN ×3 (01:02→15:29)
[2017-12-27] MEDS: OLANZapine 10 MG RAPDIS TABLET PO SCH ×2 (08:01→16:13)
[2017-12-27] MEDS: QUEtiapine FUMARATE 300 MG TABLET PO SCH ×2 (08:01→16:13)
[2017-12-27] MEDS: AmLODIPine BESYLATE 5 MG TABLET PO SCH (08:01)
[2017-12-27 11:35] VITALS: BP 145/93
[2017-12-27 17:23] VITALS: BP 127/78
[2017-12-28 08:30] VITALS: BP 127/76
[2017-12-28] MEDS: QUEtiapine FUMARATE 300 MG TABLET PO SCH ×2 (10:11→16:34)
[2017-12-28] MEDS: AmLODIPine BESYLATE 5 MG TABLET PO SCH (10:11)
[2017-12-28] MEDS: OLANZapine 10 MG RAPDIS TABLET PO SCH ×2 (10:12→16:35)
[2017-12-28 16:00] VITALS: BP 159/97
[2017-12-28] MEDS: LORazepam 2 MG TABLET PO PRN ×2 (16:39→23:46)
[2017-12-28 23:46] VITALS: BP 142/87
[2017-12-28] MEDS: ZOLPIDEM TARTRATE 10 MG TABLET PO PRN (23:46)
[2017-12-29 08:30] VITALS: BP 150/96
[2017-12-29] MEDS: AmLODIPine BESYLATE 5 MG TABLET PO SCH (09:11)
[2017-12-29] MEDS: QUEtiapine FUMARATE 300 MG TABLET PO SCH ×2 (09:12→16:26)
[2017-12-29] MEDS: OLANZapine 10 MG RAPDIS TABLET PO SCH ×2 (09:13→16:26)
[2017-12-29] MEDS: LORazepam 2 MG TABLET PO PRN ×2 (12:11→21:49)
[2017-12-30] MEDS: QUEtiapine FUMARATE 300 MG TABLET PO SCH ×2 (08:47→16:28)
[2017-12-30] MEDS: AmLODIPine BESYLATE 5 MG TABLET PO SCH (08:47)
[2017-12-30] MEDS: OLANZapine 10 MG RAPDIS TABLET PO SCH ×2 (08:47→16:28)
[2017-12-30 14:04] VITALS: BP 134/84
[2017-12-30 16:30] VITALS: BP 136/92
[2017-12-30] MEDS: LORazepam 2 MG TABLET PO PRN (20:08)
[2017-12-30] MEDS: ZOLPIDEM TARTRATE 10 MG TABLET PO PRN (20:08)
[2017-12-31] MEDS: AmLODIPine BESYLATE 5 MG TABLET PO SCH (09:33)
[2017-12-31] MEDS: QUEtiapine FUMARATE 300 MG TABLET PO SCH ×2 (09:33→16:43)
[2017-12-31] MEDS: OLANZapine 10 MG RAPDIS TABLET PO SCH ×2 (09:33→16:43)
[2017-12-31] MEDS: LORazepam 2 MG TABLET PO PRN (20:19)
[2017-12-31] MEDS: ZOLPIDEM TARTRATE 10 MG TABLET PO PRN (20:19)
[2017-12-31 21:58] VITALS: BP 129/97
[2018-01-01] MEDS: QUEtiapine FUMARATE 300 MG TABLET PO SCH ×2 (08:52→16:37)
[2018-01-01] MEDS: OLANZapine 10 MG RAPDIS TABLET PO SCH ×2 (08:54→16:37)
[2018-01-01] MEDS: AmLODIPine BESYLATE 5 MG TABLET PO SCH (08:55)
[2018-01-01 09:05] VITALS: BP 135/78
[2018-01-01] MEDS: LORazepam 2 MG TABLET PO PRN (18:57)
[2018-01-01 19:34] VITALS: BP 109/53
[2018-01-02] MEDS: ZOLPIDEM TARTRATE 10 MG TABLET PO PRN ×2 (00:31→20:02)
[2018-01-02 00:32] VITALS: BP 145/84
[2018-01-02 09:08] VITALS: BP 149/84
[2018-01-02] MEDS: AmLODIPine BESYLATE 5 MG TABLET PO SCH (09:08)
[2018-01-02] MEDS: QUEtiapine FUMARATE 300 MG TABLET PO SCH ×2 (09:08→16:32)
[2018-01-02] MEDS: OLANZapine 10 MG RAPDIS TABLET PO SCH ×2 (09:08→16:34)
[2018-01-02 16:00] VITALS: BP 152/73
[2018-01-02] MEDS: LORazepam 2 MG TABLET PO PRN (18:08)
[2018-01-03] MEDS: QUEtiapine FUMARATE 300 MG TABLET PO SCH ×2 (08:44→16:20)
[2018-01-03] MEDS: OLANZapine 10 MG RAPDIS TABLET PO SCH ×2 (08:44→16:20)
[2018-01-03] MEDS: AmLODIPine BESYLATE 5 MG TABLET PO SCH (08:44)
[2018-01-03 09:08] VITALS: BP 147/91
[2018-01-03] MEDS: LORazepam 2 MG TABLET PO PRN ×2 (16:20→21:00)
[2018-01-03 18:53] VITALS: BP 137/85
[2018-01-03] MEDS: ZOLPIDEM TARTRATE 10 MG TABLET PO PRN (21:01)
[2018-01-04] MEDS: AmLODIPine BESYLATE 5 MG TABLET PO SCH (09:14)
[2018-01-04] MEDS: OLANZapine 10 MG RAPDIS TABLET PO SCH ×2 (09:14→17:33)
[2018-01-04] MEDS: QUEtiapine FUMARATE 300 MG TABLET PO SCH ×2 (09:14→17:32)
[2018-01-04 10:28] VITALS: BP 143/90
[2018-01-05] MEDS: OLANZapine 10 MG RAPDIS TABLET PO SCH ×2 (08:03→16:57)
[2018-01-05] MEDS: AmLODIPine BESYLATE 5 MG TABLET PO SCH (08:03)
[2018-01-05] MEDS: QUEtiapine FUMARATE 300 MG TABLET PO SCH ×2 (08:04→16:57)
[2018-01-05 09:25] VITALS: BP 138/74
[2018-01-05 19:46] VITALS: BP 124/74
[2018-01-05] MEDS: LORazepam 2 MG TABLET PO PRN (19:57)
[2018-01-05] MEDS: ZOLPIDEM TARTRATE 10 MG TABLET PO PRN (19:57)
[2018-01-06] MEDS: LORazepam 2 MG TABLET PO PRN ×4 (00:36→17:41)
[2018-01-06 00:37] VITALS: BP 121/80
[2018-01-06 08:05] VITALS: BP 149/71
[2018-01-06] MEDS: QUEtiapine FUMARATE 300 MG TABLET PO SCH ×2 (08:05→17:17)
[2018-01-06] MEDS: OLANZapine 10 MG RAPDIS TABLET PO SCH ×2 (08:06→17:17)
[2018-01-06] MEDS: AmLODIPine BESYLATE 5 MG TABLET PO SCH (08:06)
[2018-01-06 18:49] VITALS: BP 135/88
[2018-01-07] MEDS: OLANZapine 10 MG RAPDIS TABLET PO SCH ×2 (09:05→16:12)
[2018-01-07] MEDS: QUEtiapine FUMARATE 300 MG TABLET PO SCH ×2 (09:05→16:12)
[2018-01-07] MEDS: AmLODIPine BESYLATE 5 MG TABLET PO SCH (09:11)
[2018-01-07 09:47] VITALS: BP 134/78
[2018-01-07 19:41] VITALS: BP 154/88
[2018-01-07] MEDS: ZOLPIDEM TARTRATE 10 MG TABLET PO PRN (20:13)
[2018-01-07] MEDS: LORazepam 2 MG TABLET PO PRN (20:13)
[2018-01-08 08:49] VITALS: BP 136/81
[2018-01-08] MEDS: LORazepam 2 MG TABLET PO PRN ×2 (09:12→16:34)
[2018-01-08] MEDS: QUEtiapine FUMARATE 300 MG TABLET PO SCH ×2 (09:14→16:33)
[2018-01-08] MEDS: OLANZapine 10 MG RAPDIS TABLET PO SCH ×2 (09:14→16:33)
[2018-01-08] MEDS: AmLODIPine BESYLATE 5 MG TABLET PO SCH (09:15)
[2018-01-08 17:07] VITALS: BP 148/70
[2018-01-09] MEDS: ZOLPIDEM TARTRATE 10 MG TABLET PO PRN ×2 (00:11→21:16)
[2018-01-09] MEDS: LORazepam 2 MG TABLET PO PRN ×3 (06:54→21:16)
[2018-01-09 06:55] VITALS: BP 157/91
[2018-01-09 08:00] VITALS: BP 156/92
[2018-01-09] MEDS: QUEtiapine FUMARATE 300 MG TABLET PO SCH ×2 (08:00→16:10)
[2018-01-09] MEDS: AmLODIPine BESYLATE 5 MG TABLET PO SCH (08:00)
[2018-01-09] MEDS: OLANZapine 10 MG RAPDIS TABLET PO SCH ×2 (08:00→16:10)
[2018-01-09 16:30] VITALS: BP 142/88
[2018-01-10 08:00] VITALS: BP 130/78
[2018-01-10] MEDS: AmLODIPine BESYLATE 5 MG TABLET PO SCH (08:22)
[2018-01-10] MEDS: LORazepam 2 MG TABLET PO PRN (08:23)
[2018-01-10] MEDS: OLANZapine 10 MG RAPDIS TABLET PO SCH ×2 (08:23→16:48)
[2018-01-10] MEDS: QUEtiapine FUMARATE 300 MG TABLET PO SCH ×2 (08:23→16:48)
[2018-01-10 16:00] VITALS: BP 120/55
[2018-01-11] MEDS: ZOLPIDEM TARTRATE 10 MG TABLET PO PRN ×2 (01:45→20:31)
[2018-01-11] MEDS: MAG HYDROX/AL HYDROX/SIMETH ES 30 ML SUSPENSION UDCUP PO PRN (01:46)
[2018-01-11] MEDS: LORazepam 2 MG TABLET PO PRN ×2 (01:46→17:49)
[2018-01-11 01:52] VITALS: BP 126/77
[2018-01-11 08:05] VITALS: BP 153/92
[2018-01-11] MEDS: AmLODIPine BESYLATE 5 MG TABLET PO SCH (08:46)
[2018-01-11] MEDS: OLANZapine 10 MG RAPDIS TABLET PO SCH ×2 (08:46→16:27)
[2018-01-11] MEDS: QUEtiapine FUMARATE 300 MG TABLET PO SCH ×2 (08:46→16:26)
[2018-01-11 18:06] VITALS: BP 137/76
[2018-01-12] MEDS: AmLODIPine BESYLATE 5 MG TABLET PO SCH (09:00)
[2018-01-12] MEDS: OLANZapine 10 MG RAPDIS TABLET PO SCH ×2 (09:00→16:39)
[2018-01-12] MEDS: QUEtiapine FUMARATE 300 MG TABLET PO SCH ×2 (09:00→16:37)
[2018-01-12 09:55] VITALS: BP 141/79
[2018-01-12 19:38] VITALS: BP 119/72
[2018-01-12] MEDS: ZOLPIDEM TARTRATE 10 MG TABLET PO PRN (19:57)
[2018-01-12] MEDS: LORazepam 2 MG TABLET PO PRN (19:57)
[2018-01-13] MEDS: LORazepam 2 MG TABLET PO PRN ×3 (00:52→22:45)
[2018-01-13 01:00] VITALS: BP 121/68
[2018-01-13] MEDS: OLANZapine 10 MG RAPDIS TABLET PO SCH ×2 (08:31→17:09)
[2018-01-13] MEDS: AmLODIPine BESYLATE 5 MG TABLET PO SCH (08:31)
[2018-01-13] MEDS: QUEtiapine FUMARATE 300 MG TABLET PO SCH ×2 (08:31→17:09)
[2018-01-13] MEDS: MAG HYDROX/AL HYDROX/SIMETH ES 30 ML SUSPENSION UDCUP PO PRN (08:33)
[2018-01-13 10:05] VITALS: BP 121/76
[2018-01-13 18:34] VITALS: BP 120/70
[2018-01-14] MEDS: QUEtiapine FUMARATE 300 MG TABLET PO SCH ×2 (08:52→16:00)
[2018-01-14] MEDS: OLANZapine 10 MG RAPDIS TABLET PO SCH ×2 (08:52→16:00)
[2018-01-14] MEDS: AmLODIPine BESYLATE 5 MG TABLET PO SCH (08:52)
[2018-01-14 09:49] VITALS: BP 120/73
[2018-01-14] MEDS: LORazepam 2 MG TABLET PO PRN ×2 (15:58→20:42)
[2018-01-14 18:36] VITALS: BP 122/74
[2018-01-14] MEDS: ZOLPIDEM TARTRATE 10 MG TABLET PO PRN (20:43)
[2018-01-15] MEDS: LORazepam 2 MG TABLET PO PRN ×4 (00:45→20:46)
[2018-01-15 01:46] VITALS: BP 118/92
[2018-01-15 08:31] VITALS: BP 146/72
[2018-01-15] MEDS: OLANZapine 10 MG RAPDIS TABLET PO SCH ×2 (08:55→16:05)
[2018-01-15] MEDS: QUEtiapine FUMARATE 300 MG TABLET PO SCH ×2 (08:55→16:05)
[2018-01-15] MEDS: AmLODIPine BESYLATE 5 MG TABLET PO SCH (08:55)
[2018-01-15 19:25] VITALS: BP 132/82
[2018-01-15] MEDS: ZOLPIDEM TARTRATE 10 MG TABLET PO PRN (20:46)
[2018-01-15] MEDS: MAG HYDROX/AL HYDROX/SIMETH ES 30 ML SUSPENSION UDCUP PO PRN (21:11)
[2018-01-16] MEDS: AmLODIPine BESYLATE 5 MG TABLET PO SCH (08:56)
[2018-01-16] MEDS: OLANZapine 10 MG RAPDIS TABLET PO SCH ×2 (08:57→16:20)
[2018-01-16] MEDS: QUEtiapine FUMARATE 300 MG TABLET PO SCH ×2 (08:57→16:20)
[2018-01-16] MEDS: LORazepam 2 MG TABLET PO PRN ×2 (09:34→16:21)
[2018-01-16 09:37] VITALS: BP 139/84
[2018-01-17] MEDS: LORazepam 2 MG TABLET PO PRN ×3 (02:29→19:34)
[2018-01-17 02:30] VITALS: BP 117/86
[2018-01-17] MEDS: OLANZapine 10 MG RAPDIS TABLET PO SCH ×2 (08:12→16:19)
[2018-01-17] MEDS: AmLODIPine BESYLATE 5 MG TABLET PO SCH (08:12)
[2018-01-17] MEDS: QUEtiapine FUMARATE 300 MG TABLET PO SCH ×2 (08:12→16:19)
[2018-01-17 08:19] VITALS: BP 148/93
[2018-01-17 20:54] VITALS: BP 138/98
[2018-01-18 04:45] VITALS: BP 123/64
[2018-01-18] MEDS: LORazepam 2 MG TABLET PO PRN ×3 (04:45→23:40)
[2018-01-18 08:11] VITALS: BP 131/77
[2018-01-18] MEDS: AmLODIPine BESYLATE 5 MG TABLET PO SCH (09:39)
[2018-01-18] MEDS: QUEtiapine FUMARATE 300 MG TABLET PO SCH ×2 (09:39→16:51)
[2018-01-18] MEDS: OLANZapine 10 MG RAPDIS TABLET PO SCH ×2 (09:40→16:51)
[2018-01-18 23:40] VITALS: BP 125/86
[2018-01-18] MEDS: ZOLPIDEM TARTRATE 10 MG TABLET PO PRN (23:40)
[2018-01-19 08:19] VITALS: BP 136/78
[2018-01-19] MEDS: OLANZapine 10 MG RAPDIS TABLET PO SCH ×2 (10:23→17:00)
[2018-01-19] MEDS: AmLODIPine BESYLATE 5 MG TABLET PO SCH (10:23)
[2018-01-19] MEDS: QUEtiapine FUMARATE 300 MG TABLET PO SCH ×2 (10:24→17:00)
[2018-01-19] MEDS: LORazepam 2 MG TABLET PO PRN ×2 (17:03→23:50)
[2018-01-19 19:35] VITALS: BP 135/82
[2018-01-19] MEDS: ZOLPIDEM TARTRATE 10 MG TABLET PO PRN (20:07)
[2018-01-19] MEDS: TraZODone HCL 50 MG TABLET PO PRN (23:50)
[2018-01-20] MEDS: QUEtiapine FUMARATE 300 MG TABLET PO SCH ×2 (09:38→16:33)
[2018-01-20] MEDS: OLANZapine 10 MG RAPDIS TABLET PO SCH ×2 (09:38→16:32)
[2018-01-20] MEDS: AmLODIPine BESYLATE 5 MG TABLET PO SCH (09:38)
[2018-01-20 09:39] VITALS: BP 130/72
[2018-01-20 17:39] VITALS: BP 120/70
[2018-01-20] MEDS: LORazepam 2 MG TABLET PO PRN (17:47)
[2018-01-20] MEDS: ZOLPIDEM TARTRATE 10 MG TABLET PO PRN (21:17)
[2018-01-21 01:45] VITALS: BP 122/76
[2018-01-21] MEDS: TraZODone HCL 50 MG TABLET PO PRN (01:49)
[2018-01-21] MEDS: QUEtiapine FUMARATE 300 MG TABLET PO SCH ×2 (09:22→17:05)
[2018-01-21] MEDS: OLANZapine 10 MG RAPDIS TABLET PO SCH ×2 (09:22→17:05)
[2018-01-21] MEDS: AmLODIPine BESYLATE 5 MG TABLET PO SCH (09:22)
[2018-01-21 10:10] VITALS: BP 130/74
[2018-01-21] MEDS: MAG HYDROX/AL HYDROX/SIMETH ES 30 ML SUSPENSION UDCUP PO PRN (17:07)
[2018-01-21] MEDS: LORazepam 2 MG TABLET PO PRN (20:03)
[2018-01-21] MEDS: ZOLPIDEM TARTRATE 10 MG TABLET PO PRN (20:03)
[2018-01-21 20:55] VITALS: BP 112/59
[2018-01-22 02:13] VITALS: BP 116/73
[2018-01-22] MEDS: TraZODone HCL 50 MG TABLET PO PRN (02:13)
[2018-01-22 08:15] VITALS: BP 137/80
[2018-01-22] MEDS: QUEtiapine FUMARATE 300 MG TABLET PO SCH ×2 (08:22→17:03)
[2018-01-22] MEDS: OLANZapine 10 MG RAPDIS TABLET PO SCH ×2 (08:23→17:03)
[2018-01-22] MEDS: AmLODIPine BESYLATE 5 MG TABLET PO SCH (08:24)
[2018-01-22 17:17] VITALS: BP 151/84
[2018-01-22] MEDS: ZOLPIDEM TARTRATE 10 MG TABLET PO PRN (20:56)
[2018-01-22] MEDS: LORazepam 2 MG TABLET PO PRN (20:56)
[2018-01-23 00:10] VITALS: BP 143/80
[2018-01-23] MEDS: TraZODone HCL 50 MG TABLET PO PRN (00:11)
[2018-01-23 08:15] VITALS: BP 146/92
[2018-01-23] MEDS: OLANZapine 10 MG RAPDIS TABLET PO SCH ×2 (08:53→16:08)
[2018-01-23] MEDS: QUEtiapine FUMARATE 300 MG TABLET PO SCH ×2 (08:54→16:08)
[2018-01-23] MEDS: AmLODIPine BESYLATE 5 MG TABLET PO SCH (08:54)
[2018-01-23 16:30] VITALS: BP 138/86
[2018-01-23] MEDS: LORazepam 2 MG TABLET PO PRN (18:30)
[2018-01-23] MEDS: ZOLPIDEM TARTRATE 10 MG TABLET PO PRN (21:59)
[2018-01-24] MEDS: LORazepam 2 MG TABLET PO PRN ×3 (02:24→19:35)
[2018-01-24] MEDS: TraZODone HCL 50 MG TABLET PO PRN (02:24)
[2018-01-24 02:25] VITALS: BP 118/71
[2018-01-24 08:00] VITALS: BP 129/70
[2018-01-24] MEDS: QUEtiapine FUMARATE 300 MG TABLET PO SCH ×2 (09:11→16:25)
[2018-01-24] MEDS: AmLODIPine BESYLATE 5 MG TABLET PO SCH (09:11)
[2018-01-24] MEDS: OLANZapine 10 MG RAPDIS TABLET PO SCH ×2 (09:11→16:25)
[2018-01-24 17:12] VITALS: BP 144/87
[2018-01-24] MEDS: ZOLPIDEM TARTRATE 10 MG TABLET PO PRN (20:50)
[2018-01-25] MEDS: LORazepam 2 MG TABLET PO PRN ×3 (02:37→18:26)
[2018-01-25] MEDS: TraZODone HCL 50 MG TABLET PO PRN (02:37)
[2018-01-25 02:38] VITALS: BP 132/74
[2018-01-25] MEDS: MAG HYDROX/AL HYDROX/SIMETH ES 30 ML SUSPENSION UDCUP PO PRN ×2 (03:07→17:10)
[2018-01-25 08:00] VITALS: BP 130/79
[2018-01-25] MEDS: QUEtiapine FUMARATE 300 MG TABLET PO SCH ×2 (08:48→16:28)
[2018-01-25] MEDS: AmLODIPine BESYLATE 5 MG TABLET PO SCH (08:48)
[2018-01-25] MEDS: OLANZapine 10 MG RAPDIS TABLET PO SCH ×2 (08:48→16:29)
[2018-01-25 18:29] VITALS: BP 130/74
[2018-01-25 19:43] VITALS: BP 149/93
[2018-01-25] MEDS: ZOLPIDEM TARTRATE 10 MG TABLET PO PRN (19:43)
[2018-01-25] MEDS: ACETAMINOPHEN 325 MG TABLET PO PRN (19:43)
[2018-01-26 00:09] VITALS: BP 136/73
[2018-01-26] MEDS: TraZODone HCL 50 MG TABLET PO PRN (00:11)
[2018-01-26] MEDS: LORazepam 2 MG TABLET PO PRN ×2 (00:12→16:59)
[2018-01-26 08:00] VITALS: BP 138/92
[2018-01-26] MEDS: QUEtiapine FUMARATE 300 MG TABLET PO SCH ×2 (08:42→16:59)
[2018-01-26] MEDS: OLANZapine 10 MG RAPDIS TABLET PO SCH ×2 (08:46→16:59)
[2018-01-26] MEDS: AmLODIPine BESYLATE 5 MG TABLET PO SCH (08:46)
[2018-01-26 18:27] VITALS: BP 135/84
[2018-01-26] MEDS: ZOLPIDEM TARTRATE 10 MG TABLET PO PRN (21:02)
[2018-01-27] MEDS: TraZODone HCL 50 MG TABLET PO PRN (03:06)
[2018-01-27 03:10] VITALS: BP 147/80
[2018-01-27] MEDS: LORazepam 2 MG TABLET PO PRN ×2 (04:40→16:08)
[2018-01-27 05:50] VITALS: BP 145/87
[2018-01-27] MEDS: ACETAMINOPHEN 325 MG TABLET PO PRN (05:51)
[2018-01-27] MEDS: AmLODIPine BESYLATE 5 MG TABLET PO SCH (08:38)
[2018-01-27] MEDS: QUEtiapine FUMARATE 300 MG TABLET PO SCH ×2 (08:38→16:08)
[2018-01-27] MEDS: OLANZapine 10 MG RAPDIS TABLET PO SCH ×2 (08:38→16:08)
[2018-01-27 10:59] VITALS: BP 128/65
[2018-01-27 19:36] VITALS: BP 132/70
[2018-01-28 03:20] VITALS: BP 129/90
[2018-01-28] MEDS: TraZODone HCL 50 MG TABLET PO PRN (03:29)
[2018-01-28] MEDS: LORazepam 2 MG TABLET PO PRN ×2 (03:29→17:00)
[2018-01-28] MEDS: QUEtiapine FUMARATE 300 MG TABLET PO SCH ×2 (08:26→17:00)
[2018-01-28] MEDS: AmLODIPine BESYLATE 5 MG TABLET PO SCH (08:27)
[2018-01-28] MEDS: OLANZapine 10 MG RAPDIS TABLET PO SCH ×2 (08:27→17:01)
[2018-01-28 10:34] VITALS: BP 131/82
[2018-01-28 16:30] VITALS: BP 135/82
[2018-01-28] MEDS: ZOLPIDEM TARTRATE 10 MG TABLET PO PRN (21:04)
[2018-01-29 09:17] VITALS: BP 134/77
[2018-01-29] MEDS: QUEtiapine FUMARATE 300 MG TABLET PO SCH ×2 (09:57→16:12)
[2018-01-29] MEDS: AmLODIPine BESYLATE 5 MG TABLET PO SCH (09:57)
[2018-01-29] MEDS: OLANZapine 10 MG RAPDIS TABLET PO SCH ×2 (09:58→16:12)
[2018-01-29] MEDS: LORazepam 2 MG TABLET PO PRN ×2 (16:12→20:09)
[2018-01-29 17:14] VITALS: BP 132/78
[2018-01-29] MEDS: ZOLPIDEM TARTRATE 10 MG TABLET PO PRN (20:25)
[2018-01-30 02:00] VITALS: BP 135/75
[2018-01-30] MEDS: ACETAMINOPHEN 325 MG TABLET PO PRN ×2 (02:00→19:08)
[2018-01-30] MEDS: LORazepam 2 MG TABLET PO PRN ×2 (02:13→16:23)
[2018-01-30] MEDS: QUEtiapine FUMARATE 300 MG TABLET PO SCH ×2 (07:49→16:23)
[2018-01-30] MEDS: AmLODIPine BESYLATE 5 MG TABLET PO SCH (07:49)
[2018-01-30] MEDS: OLANZapine 10 MG RAPDIS TABLET PO SCH ×2 (07:49→16:25)
[2018-01-30 08:00] VITALS: BP 154/108
[2018-01-30 18:51] VITALS: BP 128/59
[2018-01-30 19:08] VITALS: BP 124/73
[2018-01-30] MEDS: ZOLPIDEM TARTRATE 10 MG TABLET PO PRN (20:03)
[2018-01-31 00:30] VITALS: BP 142/82
[2018-01-31] MEDS: ACETAMINOPHEN 325 MG TABLET PO PRN (00:49)
[2018-01-31 00:50] VITALS: BP 142/82
[2018-01-31] MEDS: LORazepam 2 MG TABLET PO PRN ×4 (00:51→21:22)
[2018-01-31] MEDS: AmLODIPine BESYLATE 5 MG TABLET PO SCH (08:16)
[2018-01-31] MEDS: QUEtiapine FUMARATE 300 MG TABLET PO SCH ×2 (08:16→16:31)
[2018-01-31] MEDS: OLANZapine 10 MG RAPDIS TABLET PO SCH ×2 (08:18→16:31)
[2018-01-31 10:25] VITALS: BP 142/74
[2018-01-31 17:09] VITALS: BP 139/84
[2018-01-31] MEDS: ZOLPIDEM TARTRATE 10 MG TABLET PO PRN (19:56)
[2018-02-01 08:05] VITALS: BP 138/76
[2018-02-01] MEDS: OLANZapine 10 MG RAPDIS TABLET PO SCH ×2 (08:51→17:14)
[2018-02-01] MEDS: AmLODIPine BESYLATE 5 MG TABLET PO SCH (08:51)
[2018-02-01] MEDS: QUEtiapine FUMARATE 300 MG TABLET PO SCH ×2 (08:52→17:12)
[2018-02-01] MEDS: LORazepam 2 MG TABLET PO PRN (09:24)
[2018-02-01 11:12] LABS: HEMOGLOBIN A1C 4.9 % (4.5-6.2)
[2018-02-01 11:18] LABS: ALANINE AMINOTRANSFERASE 108 U/L (12-78); ALBUMIN 3.9 g/dL (3.4-5.0); ALKALINE PHOSPHATASE 62 U/L (46-116); ANION GAP 11 mmol/L (8-16); ASPARTATE AMINOTRANSFERASE 57 U/L (15-37); BILIRUBIN,TOTAL 0.4 mg/dL (0.1-1.0); CALCIUM, TOTAL 9.1 mg/dL (8.8-10.5); CARBON DIOXIDE 25 mmol/L (22-29); CHLORIDE 101 mmol/L (98-107); CHOL/HDL RATIO 6.3 (4.2-7.3); CHOLESTEROL 209 mg/dL (131-200); CREATININE 0.92 mg/dL (0.60-1.30); GLOMERULAR FILTR. RATE CALC > 60 mL/min (>60); GLUCOSE,RANDOM 128 mg/dL (70-110); HDL CHOLESTEROL 33 mg/dL (40-60); POTASSIUM 3.9 mmol/L (3.5-5.1); SODIUM SERUM 137 mmol/L (136-145); TOTAL PROTEIN, SERUM 8.2 g/dL (6.4-8.2); TRIGLYCERIDES 536 mg/dL (15-150); UREA NITROGEN, BLOOD 10 mg/dL (7-18)
[2018-02-01] MEDS: ZOLPIDEM TARTRATE 10 MG TABLET PO PRN (20:41)
[2018-02-01 20:45] VITALS: BP 125/74
[2018-02-02 08:57] VITALS: BP 128/70
[2018-02-02] MEDS: AmLODIPine BESYLATE 5 MG TABLET PO SCH (09:21)
[2018-02-02] MEDS: OLANZapine 10 MG RAPDIS TABLET PO SCH ×2 (09:21→16:29)
[2018-02-02] MEDS: QUEtiapine FUMARATE 300 MG TABLET PO SCH ×2 (09:22→16:30)
[2018-02-02 19:21] VITALS: BP 122/74
[2018-02-02] MEDS: ZOLPIDEM TARTRATE 10 MG TABLET PO PRN (20:54)
[2018-02-03 03:17] VITALS: BP 125/73
[2018-02-03] MEDS: TraZODone HCL 50 MG TABLET PO PRN (03:18)
[2018-02-03 08:33] VITALS: BP 117/74
[2018-02-03] MEDS: QUEtiapine FUMARATE 300 MG TABLET PO SCH ×2 (08:38→16:30)
[2018-02-03] MEDS: OLANZapine 10 MG RAPDIS TABLET PO SCH ×2 (08:38→16:30)
[2018-02-03] MEDS: AmLODIPine BESYLATE 5 MG TABLET PO SCH (08:39)
[2018-02-03 17:05] VITALS: BP 123/68
[2018-02-03] MEDS: LORazepam 2 MG TABLET PO PRN (20:03)
[2018-02-03] MEDS: ZOLPIDEM TARTRATE 10 MG TABLET PO PRN (20:03)
[2018-02-04] MEDS: QUEtiapine FUMARATE 300 MG TABLET PO SCH ×2 (08:46→16:31)
[2018-02-04] MEDS: AmLODIPine BESYLATE 5 MG TABLET PO SCH (08:46)
[2018-02-04] MEDS: OLANZapine 10 MG RAPDIS TABLET PO SCH ×2 (08:46→16:32)
[2018-02-04 10:01] VITALS: BP 125/69
[2018-02-04] MEDS: LORazepam 2 MG TABLET PO PRN (13:43)
[2018-02-04 21:55] VITALS: BP 148/82
[2018-02-05 01:45] VITALS: BP 141/81
[2018-02-05] MEDS ORDERED: ZOLPIDEM TARTRATE 5 MG TABLET PO PRN (01:45)
[2018-02-05] MEDS: LORazepam 2 MG TABLET PO PRN ×3 (01:47→20:33)
[2018-02-05 08:12] VITALS: BP 149/84
[2018-02-05] MEDS: AmLODIPine BESYLATE 5 MG TABLET PO SCH (08:24)
[2018-02-05] MEDS: QUEtiapine FUMARATE 300 MG TABLET PO SCH ×2 (08:24→16:25)
[2018-02-05] MEDS: OLANZapine 10 MG RAPDIS TABLET PO SCH ×2 (08:24→16:25)
[2018-02-05 17:17] VITALS: BP 121/75
[2018-02-05] MEDS: ZOLPIDEM TARTRATE 10 MG TABLET PO PRN (20:33)
[2018-02-06 02:57] VITALS: BP 132/76
[2018-02-06] MEDS: LORazepam 2 MG TABLET PO PRN ×4 (02:57→21:17)
[2018-02-06] MEDS: OLANZapine 10 MG RAPDIS TABLET PO SCH ×2 (09:37→16:57)
[2018-02-06] MEDS: QUEtiapine FUMARATE 300 MG TABLET PO SCH ×2 (09:38→16:57)
[2018-02-06] MEDS: AmLODIPine BESYLATE 5 MG TABLET PO SCH (09:39)
[2018-02-06] MEDS: ZOLPIDEM TARTRATE 10 MG TABLET PO PRN (20:26)
[2018-02-06 20:50] VITALS: BP 146/79
[2018-02-07 04:08] VITALS: BP 152/87
[2018-02-07] MEDS: LORazepam 2 MG TABLET PO PRN ×3 (04:11→18:09)
[2018-02-07] MEDS: QUEtiapine FUMARATE 300 MG TABLET PO SCH ×2 (08:56→16:30)
[2018-02-07] MEDS: OLANZapine 10 MG RAPDIS TABLET PO SCH ×2 (08:56→16:30)
[2018-02-07] MEDS: AmLODIPine BESYLATE 5 MG TABLET PO SCH (08:56)
[2018-02-07 20:15] VITALS: BP 131/81
[2018-02-07] MEDS: ZOLPIDEM TARTRATE 10 MG TABLET PO PRN (20:23)
[2018-02-08] MEDS: QUEtiapine FUMARATE 300 MG TABLET PO SCH ×2 (08:29→17:03)
[2018-02-08] MEDS: AmLODIPine BESYLATE 5 MG TABLET PO SCH (08:31)
[2018-02-08] MEDS: OLANZapine 10 MG RAPDIS TABLET PO SCH ×2 (08:31→17:03)
[2018-02-08] MEDS: LORazepam 2 MG TABLET PO PRN ×2 (08:55→21:24)
[2018-02-08 11:18] VITALS: BP 145/78
[2018-02-08 16:30] VITALS: BP 136/78
[2018-02-08] MEDS: ZOLPIDEM TARTRATE 10 MG TABLET PO PRN (21:24)
[2018-02-09] MEDS: MAG HYDROX/AL HYDROX/SIMETH ES 30 ML SUSPENSION UDCUP PO PRN (00:55)
[2018-02-09 01:14] VITALS: BP 151/78
[2018-02-09] MEDS: TraZODone HCL 50 MG TABLET PO PRN (01:15)
[2018-02-09 08:00] VITALS: BP 162/92
[2018-02-09] MEDS: AmLODIPine BESYLATE 5 MG TABLET PO SCH (09:01)
[2018-02-09] MEDS: LORazepam 2 MG TABLET PO PRN ×2 (09:02→19:23)
[2018-02-09] MEDS: QUEtiapine FUMARATE 300 MG TABLET PO SCH ×2 (09:02→16:16)
[2018-02-09] MEDS: OLANZapine 10 MG RAPDIS TABLET PO SCH ×2 (09:02→16:17)
[2018-02-09 20:45] VITALS: BP 150/71
[2018-02-10 02:45] VITALS: BP 144/85
[2018-02-10] MEDS: ZOLPIDEM TARTRATE 10 MG TABLET PO PRN ×2 (02:50→20:21)
[2018-02-10] MEDS: LORazepam 2 MG TABLET PO PRN ×3 (03:10→18:15)
[2018-02-10] MEDS: QUEtiapine FUMARATE 300 MG TABLET PO SCH ×2 (08:25→16:39)
[2018-02-10] MEDS: OLANZapine 10 MG RAPDIS TABLET PO SCH ×2 (08:25→16:39)
[2018-02-10] MEDS: AmLODIPine BESYLATE 5 MG TABLET PO SCH (08:25)
[2018-02-10] MEDS: TraZODone HCL 50 MG TABLET PO PRN (20:21)
[2018-02-10 21:33] VITALS: BP 137/79
[2018-02-11] MEDS: LORazepam 2 MG TABLET PO PRN ×2 (02:03→08:48)
[2018-02-11 02:28] VITALS: BP 131/84
[2018-02-11 08:20] VITALS: BP 162/114
[2018-02-11] MEDS: AmLODIPine BESYLATE 5 MG TABLET PO SCH (08:24)
[2018-02-11] MEDS: OLANZapine 10 MG RAPDIS TABLET PO SCH ×2 (08:24→17:10)
[2018-02-11] MEDS: QUEtiapine FUMARATE 300 MG TABLET PO SCH ×2 (08:25→17:10)
[2018-02-11 19:12] VITALS: BP 133/84
[2018-02-12] MEDS: ZOLPIDEM TARTRATE 10 MG TABLET PO PRN ×2 (03:00→20:10)
[2018-02-12 03:17] VITALS: BP 121/68
[2018-02-12 08:15] VITALS: BP 105/62
[2018-02-12] MEDS: OLANZapine 10 MG RAPDIS TABLET PO SCH ×2 (10:58→17:11)
[2018-02-12] MEDS: AmLODIPine BESYLATE 5 MG TABLET PO SCH (10:59)
[2018-02-12] MEDS: QUEtiapine FUMARATE 300 MG TABLET PO SCH ×2 (10:59→17:11)
[2018-02-12 17:07] VITALS: BP 112/74
[2018-02-12] MEDS: LORazepam 2 MG TABLET PO PRN (20:10)
[2018-02-13] MEDS: QUEtiapine FUMARATE 300 MG TABLET PO SCH ×2 (08:47→16:12)
[2018-02-13] MEDS: OLANZapine 10 MG RAPDIS TABLET PO SCH ×2 (08:47→16:12)
[2018-02-13] MEDS: AmLODIPine BESYLATE 5 MG TABLET PO SCH (08:47)
[2018-02-13 09:37] VITALS: BP 140/77
[2018-02-13] MEDS: LORazepam 2 MG TABLET PO PRN (16:11)
[2018-02-13 19:20] VITALS: BP 134/84
[2018-02-13] MEDS: ZOLPIDEM TARTRATE 10 MG TABLET PO PRN (20:01)
[2018-02-14] MEDS: LORazepam 2 MG TABLET PO PRN (01:58)
[2018-02-14 02:53] VITALS: BP 139/59
[2018-02-14 04:50] VITALS: BP 138/87
[2018-02-14] MEDS: TraZODone HCL 50 MG TABLET PO PRN (04:50)
[2018-02-14] MEDS: AmLODIPine BESYLATE 5 MG TABLET PO SCH (08:28)
[2018-02-14] MEDS: QUEtiapine FUMARATE 300 MG TABLET PO SCH (08:28)
[2018-02-14] MEDS: OLANZapine 10 MG RAPDIS TABLET PO SCH (08:29)
[2018-02-14] MEDS ORDERED: QUET300T2 PO (08:42)
[2018-02-14] MEDS ORDERED: OLAN5TAB40 PO (08:42)
== END 2018-02-14 10:00 | DRG 750 ==
LOC: 3EC 13:15 → 3EI 12-12 11:10
PROVIDERS: ADMIT Psychiatry & Neurology Child & Adolescent Psychiatry; ATTEND Psychiatry & Neurology Child & Adolescent Psychiatry
PROC: 0HBRXZZ Excision of Toe Nail, External Approach (ICD-10-PCS; principal; 2017-12-03 12:21)
DX: F25.0 Schizoaffective disorder, bipolar type (principal); G93.40 Encephalopathy, unspecified; Z91.19 Patient's noncompliance with other medical treatment and regimen; E86.0 Dehydration; F41.9 Anxiety disorder, unspecified; F10.10 Alcohol abuse, uncomplicated; F94.0 Selective mutism; I10 Essential (primary) hypertension; L60.0 Ingrowing nail; Z79.899 Other long term (current) drug therapy; R45.86 Emotional lability
CPT/HCPCS: 83036; 87070; 87081; 87205; 88305; 88312; 88341; 88342; J1200; J1630; J2060; J2250; J3010; J3230; J3490; J7120

== ENCOUNTER 2018-02-27 21:03 | Inpatient (IN) | payer MEDICAID, OTHER ==
[~2018-02-27] VITALS: Ht 185.4 cm; Wt 150.3 kg
[~2018-02-27 21:03] MED LIST changes: -AMLO-511 PO; +AMLO5TAB9 PO; -DIVA-78 PO; -HALO5TAB2 PO; -OLAN405V IM; +OLAN5TAB40 PO; -OLAN7.5T2 PO; +QUET300T2 PO; -TRAZ-219 PO
[2018-02-27 23:39] LABS: EOSINOPHILS % (AUTO) 2.2 % (1.0-6.0); HEMATOCRIT 45.3 % (41-53); HEMOGLOBIN 14.9 g/dL (13.5-17.5); LYMPHOCYTES # (AUTO) 2.3 K/uL (1.0-4.8); LYMPHOCYTES % (AUTO) 30.6 % (22.0-44.0); MEAN CORPUSCULAR HGB CONC 32.9 G/dL (31.0-37.0); MEAN CORPUSCULAR VOLUME 85 fL (80-100); MONOCYTES # (AUTO) 0.5 K/uL (0.1-1.0); MONOCYTES % (AUTO) 6.7 % (2.0-9.0); NEUTROPHILS # (AUTO) 4.5 K/uL (1.8-7.7); NEUTROPHILS % (AUTO) 59.5 % (40.0-70.0); PLATELET COUNT (AUTO) 205 K/uL (150-450); RED BLOOD CELL COUNT(AUTO) 5.33 MIL/uL (4.50-5.90); RED CELL DISTRIBUTION WIDTH 12.7 % (11.5-14.5)
[2018-02-27 23:48] LABS: ANION GAP 13 mmol/L (8-16); CALCIUM, TOTAL 9.8 mg/dL (8.8-10.5); CARBON DIOXIDE 25 mmol/L (22-29); CHLORIDE 104 mmol/L (98-107); CREATININE 1.34 mg/dL (0.60-1.30); GLOMERULAR FILTR. RATE CALC > 60 mL/min (>60); GLUCOSE,RANDOM 120 mg/dL (70-110); POTASSIUM 4.3 mmol/L (3.5-5.1); SODIUM SERUM 142 mmol/L (136-145); UREA NITROGEN, BLOOD 12 mg/dL (7-18)
[2018-02-27 23:54] LABS: ALANINE AMINOTRANSFERASE 136 U/L (12-78); ALBUMIN 4.6 g/dL (3.4-5.0); ALKALINE PHOSPHATASE 77 U/L (46-116); ASPARTATE AMINOTRANSFERASE 47 U/L (15-37); BILIRUBIN,TOTAL 0.5 mg/dL (0.1-1.0); TOTAL PROTEIN, SERUM 8.8 g/dL (6.4-8.2)
[2018-02-28] MEDS: LORazepam 2 MG TABLET PO ONE ×2 (00:30→00:34)
[2018-02-28] MEDS ORDERED: DiphenhydrAMINE HCL 50 MG/ML VIAL IM ONE (02:45)
[2018-02-28] MEDS ORDERED: HALOPERIDOL LACTATE 5 MG/ML VIAL IM ONE (02:45)
[2018-02-28] MEDS ORDERED: LORazepam 2 MG/ML VIAL IM ONE (03:00)
[2018-02-28] MEDS ORDERED: HALOPERIDOL 5 MG TABLET PO PRN (03:30)
[2018-02-28 11:22] VITALS: BP 142/82
[2018-02-28] MEDS: QUEtiapine FUMARATE 300 MG TABLET PO SCH ×2 (12:14→16:05)
[2018-02-28] MEDS: OLANZapine 5 MG RAPDIS TABLET PO SCH ×2 (12:14→16:05)
[2018-02-28] MEDS ORDERED: CloNIDine HCL 0.1 MG TABLET PO PRN (14:30)
[2018-02-28] MEDS ORDERED: ALBUTEROL SULFATE HFA 90 MCG/PUFF 8 GM INHALER IH PRN (14:30)
[2018-02-28] MEDS ORDERED: LOPERAMIDE HCL 2 MG CAPSULE PO PRN (14:30)
[2018-02-28] MEDS ORDERED: ONDANSETRON HCL 4 MG TABLET PO PRN (14:30)
[2018-02-28] MEDS ORDERED: PETROLATUM,WHITE 28 GM JELLY TP PRN (14:30)
[2018-03-01] MEDS ORDERED: PNEUMOCOCCAL VACCINE POLYVALENT 0.5 ML VIAL [PPSV23] IM ONE (03:30)
[2018-03-01 07:02] LABS: BASOPHILS % (AUTO) 0.6 % (0.0-2.0); EOSINOPHILS % (AUTO) 3.2 % (1.0-6.0); HEMATOCRIT 43.6 % (41-53); HEMOGLOBIN 14.4 g/dL (13.5-17.5); LYMPHOCYTES # (AUTO) 2.2 K/uL (1.0-4.8); LYMPHOCYTES % (AUTO) 36.2 % (22.0-44.0); MEAN CORPUSCULAR HEMOGLOBIN 28.3 pg (26.0-34.0); MEAN CORPUSCULAR VOLUME 86 fL (80-100); MONOCYTES # (AUTO) 0.5 K/uL (0.1-1.0); MONOCYTES % (AUTO) 8.2 % (2.0-9.0); NEUTROPHILS # (AUTO) 3.1 K/uL (1.8-7.7); NEUTROPHILS % (AUTO) 51.8 % (40.0-70.0); PLATELET COUNT (AUTO) 173 K/uL (150-450); RED BLOOD CELL COUNT(AUTO) 5.08 MIL/uL (4.50-5.90); RED CELL DISTRIBUTION WIDTH 12.7 % (11.5-14.5)
[2018-03-01 07:28] LABS: ALANINE AMINOTRANSFERASE 124 U/L (12-78); ALKALINE PHOSPHATASE 67 U/L (46-116); ANION GAP 8 mmol/L (8-16); ASPARTATE AMINOTRANSFERASE 45 U/L (15-37); BILIRUBIN,TOTAL 0.5 mg/dL (0.1-1.0); CALCIUM, TOTAL 8.9 mg/dL (8.8-10.5); CARBON DIOXIDE 29 mmol/L (22-29); CHLORIDE 104 mmol/L (98-107); CHOL/HDL RATIO 6.2 (4.2-7.3); CHOLESTEROL 187 mg/dL (131-200); CREATININE 1.33 mg/dL (0.60-1.30); GLOMERULAR FILTR. RATE CALC > 60 mL/min (>60); GLUCOSE,RANDOM 104 mg/dL (70-110); HDL CHOLESTEROL 30 mg/dL (40-60); LDL CHOL (CALC.) 126 mg/dL (0-130); POTASSIUM 3.6 mmol/L (3.5-5.1); SODIUM SERUM 141 mmol/L (136-145); THYROID STIMULATING HORMONE 2.04 uIU/mL (0.36-3.74); TRIGLYCERIDES 153 mg/dL (15-150); UREA NITROGEN, BLOOD 10 mg/dL (7-18)
[2018-03-01] MEDS: QUEtiapine FUMARATE 300 MG TABLET PO SCH ×2 (07:49→16:27)
[2018-03-01] MEDS: OLANZapine 5 MG RAPDIS TABLET PO SCH ×2 (07:49→16:27)
[2018-03-01 07:59] LABS: HEMOGLOBIN A1C 4.9 % (4.5-6.2)
[2018-03-01 08:00] VITALS: BP 120/90
[2018-03-02] MEDS: AmLODIPine BESYLATE 5 MG TABLET PO SCH (07:59)
[2018-03-02] MEDS: QUEtiapine FUMARATE 300 MG TABLET PO SCH ×2 (08:00→17:32)
[2018-03-02] MEDS: OLANZapine 5 MG RAPDIS TABLET PO SCH ×2 (08:00→17:32)
[2018-03-02 08:05] VITALS: BP 125/72
[2018-03-03] MEDS: QUEtiapine FUMARATE 300 MG TABLET PO SCH ×2 (08:40→16:39)
[2018-03-03] MEDS: OLANZapine 5 MG RAPDIS TABLET PO SCH ×2 (08:41→16:39)
[2018-03-03 08:46] VITALS: BP 147/95
[2018-03-03] MEDS: AmLODIPine BESYLATE 5 MG TABLET PO SCH (08:46)
[2018-03-04] MEDS: AmLODIPine BESYLATE 5 MG TABLET PO SCH (08:23)
[2018-03-04] MEDS: OLANZapine 5 MG RAPDIS TABLET PO SCH ×2 (08:24→16:21)
[2018-03-04] MEDS: QUEtiapine FUMARATE 300 MG TABLET PO SCH ×2 (08:24→16:21)
[2018-03-04 08:35] VITALS: BP 125/83
[2018-03-04] MEDS: LORazepam 1 MG TABLET PO SCH (16:21)
[2018-03-05] MEDS: LORazepam 2 MG TABLET PO PRN ×3 (07:53→17:48)
[2018-03-05 08:26] VITALS: BP 138/92
[2018-03-05] MEDS: QUEtiapine FUMARATE 300 MG TABLET PO SCH ×2 (09:45→17:20)
[2018-03-05] MEDS: AmLODIPine BESYLATE 5 MG TABLET PO SCH (09:45)
[2018-03-05] MEDS: OLANZapine 5 MG RAPDIS TABLET PO SCH ×2 (09:45→17:20)
[2018-03-05] MEDS: LORazepam 1 MG TABLET PO SCH ×2 (09:45→17:20)
[2018-03-05] MEDS: ZOLPIDEM TARTRATE 10 MG TABLET PO PRN (20:15)
[2018-03-06] MEDS: LORazepam 2 MG TABLET PO PRN ×3 (04:58→18:34)
[2018-03-06 08:50] VITALS: BP 127/80
[2018-03-06] MEDS: AmLODIPine BESYLATE 5 MG TABLET PO SCH (08:54)
[2018-03-06] MEDS: LORazepam 1 MG TABLET PO SCH ×2 (08:54→16:55)
[2018-03-06] MEDS: QUEtiapine FUMARATE 300 MG TABLET PO SCH ×2 (08:54→16:55)
[2018-03-06] MEDS: OLANZapine 5 MG RAPDIS TABLET PO SCH ×2 (08:55→16:55)
[2018-03-06 17:40] VITALS: BP 136/86
[2018-03-06] MEDS: ZOLPIDEM TARTRATE 10 MG TABLET PO PRN (20:16)
[2018-03-07] MEDS: LORazepam 2 MG TABLET PO PRN ×2 (08:00→20:43)
[2018-03-07] MEDS: OLANZapine 5 MG RAPDIS TABLET PO SCH ×2 (09:01→17:24)
[2018-03-07] MEDS: AmLODIPine BESYLATE 5 MG TABLET PO SCH (09:01)
[2018-03-07] MEDS: LORazepam 1 MG TABLET PO SCH ×2 (09:01→17:24)
[2018-03-07] MEDS: QUEtiapine FUMARATE 300 MG TABLET PO SCH ×2 (09:01→17:24)
[2018-03-07 09:12] VITALS: BP 128/78
[2018-03-07 16:41] VITALS: BP 128/80
[2018-03-07] MEDS: ZOLPIDEM TARTRATE 10 MG TABLET PO PRN (20:43)
[2018-03-08] MEDS: LORazepam 2 MG TABLET PO PRN ×2 (07:55→21:01)
[2018-03-08] MEDS: MAG HYDROX/AL HYDROX/SIMETH ES 30 ML SUSPENSION UDCUP PO PRN (08:09)
[2018-03-08] MEDS: MAGNESIUM HYDROXIDE SUSPENSION 30 ML UDCUP PO PRN (08:09)
[2018-03-08 08:16] VITALS: BP 107/55
[2018-03-08] MEDS: LORazepam 1 MG TABLET PO SCH ×2 (09:14→17:46)
[2018-03-08] MEDS: AmLODIPine BESYLATE 5 MG TABLET PO SCH (09:14)
[2018-03-08] MEDS: QUEtiapine FUMARATE 300 MG TABLET PO SCH ×2 (09:15→17:46)
[2018-03-08] MEDS: OLANZapine 5 MG RAPDIS TABLET PO SCH ×2 (09:15→17:49)
[2018-03-08 17:49] VITALS: BP 135/84
[2018-03-08] MEDS: ZOLPIDEM TARTRATE 10 MG TABLET PO PRN (21:01)
[2018-03-09] MEDS: QUEtiapine FUMARATE 300 MG TABLET PO SCH ×2 (09:29→17:13)
[2018-03-09] MEDS: AmLODIPine BESYLATE 5 MG TABLET PO SCH (09:29)
[2018-03-09] MEDS: OLANZapine 5 MG RAPDIS TABLET PO SCH ×2 (09:29→17:12)
[2018-03-09] MEDS: LORazepam 1 MG TABLET PO SCH ×2 (09:32→17:13)
[2018-03-09] MEDS: LORazepam 2 MG TABLET PO PRN ×2 (16:00→20:25)
[2018-03-09 16:40] VITALS: BP 135/81
[2018-03-09] MEDS: ZOLPIDEM TARTRATE 10 MG TABLET PO PRN (20:25)
[2018-03-10 08:00] VITALS: BP 137/87
[2018-03-10] MEDS: AmLODIPine BESYLATE 5 MG TABLET PO SCH (08:18)
[2018-03-10] MEDS: LORazepam 1 MG TABLET PO SCH ×2 (08:18→18:00)
[2018-03-10] MEDS: QUEtiapine FUMARATE 300 MG TABLET PO SCH ×2 (08:18→18:00)
[2018-03-10] MEDS: OLANZapine 5 MG RAPDIS TABLET PO SCH ×2 (08:18→18:00)
[2018-03-10] MEDS: LORazepam 2 MG TABLET PO PRN ×2 (08:46→21:31)
[2018-03-10 16:00] VITALS: BP 140/89
[2018-03-10] MEDS: ZOLPIDEM TARTRATE 10 MG TABLET PO PRN (21:30)
[2018-03-11] MEDS: OLANZapine 5 MG RAPDIS TABLET PO SCH ×2 (08:20→16:06)
[2018-03-11] MEDS: QUEtiapine FUMARATE 300 MG TABLET PO SCH ×2 (08:21→16:06)
[2018-03-11] MEDS: LORazepam 1 MG TABLET PO SCH ×2 (08:21→16:06)
[2018-03-11] MEDS: AmLODIPine BESYLATE 5 MG TABLET PO SCH (08:21)
[2018-03-11] MEDS: LORazepam 2 MG TABLET PO PRN ×2 (08:22→19:24)
[2018-03-11 08:48] VITALS: BP 133/89
[2018-03-11 17:22] VITALS: BP 136/98
[2018-03-11] MEDS: ZOLPIDEM TARTRATE 10 MG TABLET PO PRN (20:03)
[2018-03-12] MEDS: LORazepam 2 MG TABLET PO PRN ×3 (04:14→17:49)
[2018-03-12] MEDS: AmLODIPine BESYLATE 5 MG TABLET PO SCH (09:22)
[2018-03-12] MEDS: LORazepam 1 MG TABLET PO SCH ×2 (09:22→17:08)
[2018-03-12] MEDS: QUEtiapine FUMARATE 300 MG TABLET PO SCH ×2 (09:22→17:08)
[2018-03-12] MEDS: OLANZapine 5 MG RAPDIS TABLET PO SCH ×2 (09:22→17:08)
[2018-03-12 09:25] VITALS: BP 154/77
[2018-03-12] MEDS: ZOLPIDEM TARTRATE 10 MG TABLET PO PRN (20:38)
[2018-03-13] MEDS: LORazepam 2 MG TABLET PO PRN ×2 (06:21→19:17)
[2018-03-13] MEDS: AmLODIPine BESYLATE 5 MG TABLET PO SCH (10:38)
[2018-03-13] MEDS: OLANZapine 5 MG RAPDIS TABLET PO SCH ×2 (10:38→16:32)
[2018-03-13] MEDS: QUEtiapine FUMARATE 300 MG TABLET PO SCH ×2 (10:38→16:32)
[2018-03-13] MEDS: LORazepam 1 MG TABLET PO SCH ×2 (10:38→16:32)
[2018-03-13 11:19] VITALS: BP 153/101
[2018-03-13] MEDS: ZOLPIDEM TARTRATE 10 MG TABLET PO PRN (22:55)
[2018-03-14] MEDS: OLANZapine 5 MG RAPDIS TABLET PO SCH ×2 (08:23→17:38)
[2018-03-14] MEDS: LORazepam 1 MG TABLET PO SCH ×2 (08:23→17:38)
[2018-03-14] MEDS: QUEtiapine FUMARATE 300 MG TABLET PO SCH ×2 (08:23→17:38)
[2018-03-14] MEDS: AmLODIPine BESYLATE 5 MG TABLET PO SCH (08:23)
[2018-03-14] MEDS: LORazepam 2 MG TABLET PO PRN ×2 (10:03→19:15)
[2018-03-14] MEDS: ZOLPIDEM TARTRATE 10 MG TABLET PO PRN (20:23)
[2018-03-15 08:00] VITALS: BP 124/93
[2018-03-15] MEDS: LORazepam 2 MG TABLET PO PRN ×2 (08:14→20:10)
[2018-03-15] MEDS: AmLODIPine BESYLATE 5 MG TABLET PO SCH (08:14)
[2018-03-15] MEDS: QUEtiapine FUMARATE 300 MG TABLET PO SCH ×2 (08:14→16:30)
[2018-03-15] MEDS: OLANZapine 5 MG RAPDIS TABLET PO SCH ×2 (08:14→16:30)
[2018-03-15] MEDS: LORazepam 1 MG TABLET PO SCH ×2 (09:29→16:30)
[2018-03-15 16:57] VITALS: BP 126/79
[2018-03-15] MEDS: ZOLPIDEM TARTRATE 10 MG TABLET PO PRN (20:58)
[2018-03-16] MEDS: OLANZapine 5 MG RAPDIS TABLET PO SCH ×2 (08:57→16:13)
[2018-03-16] MEDS: QUEtiapine FUMARATE 300 MG TABLET PO SCH ×2 (08:57→16:13)
[2018-03-16] MEDS: LORazepam 1 MG TABLET PO SCH ×2 (08:57→16:14)
[2018-03-16] MEDS: AmLODIPine BESYLATE 5 MG TABLET PO SCH (08:58)
[2018-03-16] MEDS: MAG HYDROX/AL HYDROX/SIMETH ES 30 ML SUSPENSION UDCUP PO PRN (08:58)
[2018-03-16 09:01] VITALS: BP 134/80
[2018-03-16 16:31] VITALS: BP 123/79
[2018-03-16] MEDS: LORazepam 2 MG TABLET PO PRN (20:16)
[2018-03-16] MEDS: ZOLPIDEM TARTRATE 10 MG TABLET PO PRN (20:16)
[2018-03-17] MEDS: LORazepam 1 MG TABLET PO SCH ×2 (08:42→17:30)
[2018-03-17] MEDS: QUEtiapine FUMARATE 300 MG TABLET PO SCH ×2 (08:43→17:30)
[2018-03-17] MEDS: AmLODIPine BESYLATE 5 MG TABLET PO SCH (08:43)
[2018-03-17] MEDS: OLANZapine 5 MG RAPDIS TABLET PO SCH ×2 (08:43→17:30)
[2018-03-17 16:46] VITALS: BP 131/79
[2018-03-18] MEDS: ZOLPIDEM TARTRATE 10 MG TABLET PO PRN ×2 (02:25→21:40)
[2018-03-18] MEDS: QUEtiapine FUMARATE 300 MG TABLET PO SCH ×2 (08:19→16:03)
[2018-03-18] MEDS: LORazepam 1 MG TABLET PO SCH ×2 (08:19→16:02)
[2018-03-18] MEDS: AmLODIPine BESYLATE 5 MG TABLET PO SCH (08:19)
[2018-03-18] MEDS: OLANZapine 5 MG RAPDIS TABLET PO SCH ×2 (08:21→16:03)
[2018-03-18] MEDS: LORazepam 2 MG TABLET PO PRN ×2 (13:26→21:40)
[2018-03-18 16:34] VITALS: BP 134/66
[2018-03-19] MEDS: LORazepam 2 MG TABLET PO PRN ×2 (04:00→20:03)
[2018-03-19] MEDS: AmLODIPine BESYLATE 5 MG TABLET PO SCH (08:51)
[2018-03-19] MEDS: LORazepam 1 MG TABLET PO SCH ×2 (08:51→16:50)
[2018-03-19] MEDS: QUEtiapine FUMARATE 300 MG TABLET PO SCH ×2 (08:51→16:50)
[2018-03-19] MEDS: OLANZapine 5 MG RAPDIS TABLET PO SCH ×2 (08:55→16:50)
[2018-03-19] MEDS: ZOLPIDEM TARTRATE 10 MG TABLET PO PRN (20:03)
[2018-03-20] MEDS: LORazepam 2 MG TABLET PO PRN ×3 (05:07→19:38)
[2018-03-20 08:26] VITALS: BP 142/88
[2018-03-20] MEDS: LORazepam 1 MG TABLET PO SCH ×2 (10:00→17:31)
[2018-03-20] MEDS: OLANZapine 5 MG RAPDIS TABLET PO SCH ×2 (10:01→17:31)
[2018-03-20] MEDS: QUEtiapine FUMARATE 300 MG TABLET PO SCH ×2 (10:01→17:31)
[2018-03-20] MEDS: AmLODIPine BESYLATE 5 MG TABLET PO SCH (10:01)
[2018-03-20 16:30] VITALS: BP 132/84
[2018-03-20] MEDS: ZOLPIDEM TARTRATE 10 MG TABLET PO PRN (19:38)
[2018-03-21] MEDS: LORazepam 2 MG TABLET PO PRN ×2 (06:07→20:55)
[2018-03-21 08:14] VITALS: BP 154/79
[2018-03-21] MEDS: LORazepam 1 MG TABLET PO SCH ×2 (08:41→16:27)
[2018-03-21] MEDS: AmLODIPine BESYLATE 5 MG TABLET PO SCH (08:41)
[2018-03-21] MEDS: QUEtiapine FUMARATE 300 MG TABLET PO SCH ×2 (08:41→16:27)
[2018-03-21] MEDS: OLANZapine 5 MG RAPDIS TABLET PO SCH ×2 (08:43→16:27)
[2018-03-21 18:13] VITALS: BP 133/79
[2018-03-21] MEDS: ZOLPIDEM TARTRATE 10 MG TABLET PO PRN (20:55)
[2018-03-22 08:15] VITALS: BP 137/83
[2018-03-22] MEDS: QUEtiapine FUMARATE 300 MG TABLET PO SCH ×2 (08:24→17:29)
[2018-03-22] MEDS: LORazepam 1 MG TABLET PO SCH ×2 (08:24→17:29)
[2018-03-22] MEDS: OLANZapine 5 MG RAPDIS TABLET PO SCH ×2 (08:25→17:29)
[2018-03-22] MEDS: AmLODIPine BESYLATE 5 MG TABLET PO SCH (08:26)
[2018-03-22 18:14] VITALS: BP 140/80
[2018-03-22] MEDS: LORazepam 2 MG TABLET PO PRN (20:42)
[2018-03-22] MEDS: ZOLPIDEM TARTRATE 10 MG TABLET PO PRN (20:42)
[2018-03-23] MEDS: LORazepam 2 MG TABLET PO PRN ×2 (03:23→21:12)
[2018-03-23] MEDS: ACETAMINOPHEN 325 MG TABLET PO PRN (03:37)
[2018-03-23 03:44] VITALS: BP 138/75
[2018-03-23 08:15] VITALS: BP 129/88
[2018-03-23] MEDS: AmLODIPine BESYLATE 5 MG TABLET PO SCH (09:07)
[2018-03-23] MEDS: QUEtiapine FUMARATE 300 MG TABLET PO SCH ×2 (09:07→17:09)
[2018-03-23] MEDS: OLANZapine 5 MG RAPDIS TABLET PO SCH ×2 (09:07→17:08)
[2018-03-23] MEDS: LORazepam 1 MG TABLET PO SCH ×2 (09:09→17:08)
[2018-03-23] MEDS: NICOTINE 14 MG/24 HOUR PATCH TD PRN (09:15)
[2018-03-23 16:41] VITALS: BP 151/91
[2018-03-23] MEDS: ZOLPIDEM TARTRATE 10 MG TABLET PO PRN (21:12)
[2018-03-24] MEDS: LORazepam 2 MG TABLET PO PRN ×2 (01:21→19:47)
[2018-03-24 01:23] VITALS: BP 134/84
[2018-03-24 08:30] VITALS: BP 140/87
[2018-03-24] MEDS: LORazepam 1 MG TABLET PO SCH ×2 (09:03→17:45)
[2018-03-24] MEDS: AmLODIPine BESYLATE 5 MG TABLET PO SCH (09:04)
[2018-03-24] MEDS: QUEtiapine FUMARATE 300 MG TABLET PO SCH ×2 (09:04→17:45)
[2018-03-24] MEDS: OLANZapine 5 MG RAPDIS TABLET PO SCH ×2 (09:05→17:45)
[2018-03-24] MEDS: NICOTINE 14 MG/24 HOUR PATCH TD PRN (09:09)
[2018-03-24 18:30] VITALS: BP 121/79
[2018-03-25 08:00] VITALS: BP 150/93
[2018-03-25] MEDS: AmLODIPine BESYLATE 5 MG TABLET PO SCH (09:00)
[2018-03-25] MEDS: QUEtiapine FUMARATE 300 MG TABLET PO SCH ×2 (09:00→16:37)
[2018-03-25] MEDS: OLANZapine 5 MG RAPDIS TABLET PO SCH ×2 (09:00→16:36)
[2018-03-25] MEDS: LORazepam 1 MG TABLET PO SCH ×2 (11:07→16:36)
[2018-03-25] MEDS: ZOLPIDEM TARTRATE 10 MG TABLET PO PRN (23:11)
[2018-03-25] MEDS: LORazepam 2 MG TABLET PO PRN (23:11)
[2018-03-26] MEDS: QUEtiapine FUMARATE 300 MG TABLET PO SCH ×2 (08:44→16:45)
[2018-03-26] MEDS: AmLODIPine BESYLATE 5 MG TABLET PO SCH (08:45)
[2018-03-26] MEDS: LORazepam 1 MG TABLET PO SCH ×2 (08:45→16:45)
[2018-03-26] MEDS: OLANZapine 5 MG RAPDIS TABLET PO SCH ×2 (08:45→16:45)
[2018-03-26] MEDS: LORazepam 2 MG TABLET PO PRN (20:10)
[2018-03-26] MEDS: ZOLPIDEM TARTRATE 10 MG TABLET PO PRN (20:10)
[2018-03-27] MEDS: LORazepam 1 MG TABLET PO SCH ×3 (09:00→17:17)
[2018-03-27] MEDS: OLANZapine 5 MG RAPDIS TABLET PO SCH ×2 (10:16→17:17)
[2018-03-27] MEDS: QUEtiapine FUMARATE 300 MG TABLET PO SCH ×2 (10:16→17:17)
[2018-03-27] MEDS: AmLODIPine BESYLATE 5 MG TABLET PO SCH (10:16)
[2018-03-27] MEDS: NICOTINE 14 MG/24 HOUR PATCH TD PRN (11:14)
[2018-03-28 08:00] VITALS: BP 144/86
[2018-03-28] MEDS: QUEtiapine FUMARATE 300 MG TABLET PO SCH ×2 (08:55→17:09)
[2018-03-28] MEDS: OLANZapine 5 MG RAPDIS TABLET PO SCH ×2 (08:56→17:09)
[2018-03-28] MEDS: LORazepam 1 MG TABLET PO SCH ×2 (08:58→17:09)
[2018-03-28] MEDS: AmLODIPine BESYLATE 5 MG TABLET PO SCH (08:59)
[2018-03-28] MEDS: ZOLPIDEM TARTRATE 10 MG TABLET PO PRN (20:32)
[2018-03-29] MEDS: QUEtiapine FUMARATE 300 MG TABLET PO SCH ×2 (08:56→17:53)
[2018-03-29] MEDS: OLANZapine 5 MG RAPDIS TABLET PO SCH ×2 (08:56→17:53)
[2018-03-29] MEDS: LORazepam 1 MG TABLET PO SCH (08:56)
[2018-03-29] MEDS: AmLODIPine BESYLATE 5 MG TABLET PO SCH (08:59)
[2018-03-30] MEDS: LORazepam 2 MG TABLET PO PRN (00:32)
[2018-03-30] MEDS: ZOLPIDEM TARTRATE 10 MG TABLET PO PRN (00:32)
[2018-03-30 01:39] VITALS: BP 146/86
[2018-03-30] MEDS: NICOTINE 14 MG/24 HOUR PATCH TD PRN (09:29)
[2018-03-30] MEDS: QUEtiapine FUMARATE 300 MG TABLET PO SCH ×2 (09:29→16:51)
[2018-03-30] MEDS: OLANZapine 5 MG RAPDIS TABLET PO SCH ×2 (09:29→16:52)
[2018-03-30] MEDS: AmLODIPine BESYLATE 5 MG TABLET PO SCH (09:31)
[2018-03-31] MEDS: OLANZapine 5 MG RAPDIS TABLET PO SCH ×2 (08:38→17:49)
[2018-03-31] MEDS: QUEtiapine FUMARATE 300 MG TABLET PO SCH ×2 (08:38→17:49)
[2018-03-31] MEDS: AmLODIPine BESYLATE 5 MG TABLET PO SCH (08:39)
[2018-04-01] MEDS: OLANZapine 5 MG RAPDIS TABLET PO SCH ×2 (08:37→16:45)
[2018-04-01] MEDS: QUEtiapine FUMARATE 300 MG TABLET PO SCH ×2 (08:37→16:45)
[2018-04-01] MEDS: AmLODIPine BESYLATE 5 MG TABLET PO SCH (08:37)
[2018-04-01 10:19] VITALS: BP 120/73
[2018-04-02 08:15] VITALS: BP 126/99
[2018-04-02] MEDS: OLANZapine 5 MG RAPDIS TABLET PO SCH ×2 (09:11→17:17)
[2018-04-02] MEDS: AmLODIPine BESYLATE 5 MG TABLET PO SCH (09:12)
[2018-04-02] MEDS: QUEtiapine FUMARATE 300 MG TABLET PO SCH ×2 (09:12→17:17)
[2018-04-02] MEDS ORDERED: LORazepam 2 MG/ML VIAL ONE (10:49)
[2018-04-02] MEDS ORDERED: DiphenhydrAMINE HCL 50 MG/ML VIAL ONE (10:49)
[2018-04-02] MEDS ORDERED: HALOPERIDOL LACTATE 5 MG/ML VIAL ONE (10:49)
[2018-04-02] MEDS ORDERED: DiphenhydrAMINE HCL 50 MG/ML VIAL IM ONE (11:00)
[2018-04-02] MEDS ORDERED: LORazepam 2 MG/ML VIAL IM ONE (11:00)
[2018-04-02] MEDS ORDERED: HALOPERIDOL LACTATE 5 MG/ML VIAL IM ONE (11:00)
[2018-04-03] MEDS: QUEtiapine FUMARATE 200 MG TABLET PO SCH ×3 (08:45→16:57)
[2018-04-03] MEDS: AmLODIPine BESYLATE 5 MG TABLET PO SCH (09:15)
[2018-04-03] MEDS: OLANZapine 5 MG RAPDIS TABLET PO SCH ×2 (09:16→16:58)
[2018-04-03 16:00] VITALS: BP 132/82
[2018-04-04] MEDS ORDERED: LORazepam 2 MG/ML VIAL ONE (07:35)
[2018-04-04] MEDS ORDERED: HALOPERIDOL LACTATE 5 MG/ML VIAL ONE (07:35)
[2018-04-04] MEDS ORDERED: DiphenhydrAMINE HCL 50 MG/ML VIAL ONE (07:35)
[2018-04-04] MEDS ORDERED: HALOPERIDOL LACTATE 5 MG/ML VIAL IM ONE (07:45)
[2018-04-04] MEDS ORDERED: LORazepam 2 MG/ML VIAL IM ONE (07:45)
[2018-04-04] MEDS ORDERED: DiphenhydrAMINE HCL 50 MG/ML VIAL IM ONE (07:45)
[2018-04-04] MEDS: ClonazePAM 1 MG TABLET PO SCH ×3 (10:00→16:34)
[2018-04-04] MEDS: OLANZapine 5 MG RAPDIS TABLET PO SCH ×2 (12:02→16:21)
[2018-04-04] MEDS: QUEtiapine FUMARATE 200 MG TABLET PO SCH ×2 (12:03→16:21)
[2018-04-04] MEDS: AmLODIPine BESYLATE 5 MG TABLET PO SCH (12:03)
[2018-04-05] MEDS: OLANZapine 5 MG RAPDIS TABLET PO SCH ×3 (09:00→17:00)
[2018-04-05] MEDS: AmLODIPine BESYLATE 5 MG TABLET PO SCH ×2 (09:00→09:43)
[2018-04-05] MEDS: ClonazePAM 1 MG TABLET PO SCH ×3 (09:00→17:00)
[2018-04-05] MEDS: QUEtiapine FUMARATE 200 MG TABLET PO SCH ×3 (09:00→17:00)
[2018-04-05] MEDS: ZIPRASIDONE MESYLATE 20 MG/VIAL IM PRN ×2 (12:37→20:50)
[2018-04-05] MEDS: ZOLPIDEM TARTRATE 10 MG TABLET PO PRN (23:47)
[2018-04-06] MEDS: QUEtiapine FUMARATE 200 MG TABLET PO SCH ×2 (09:00→17:00)
[2018-04-06] MEDS: OLANZapine 5 MG RAPDIS TABLET PO SCH ×2 (09:00→17:00)
[2018-04-06] MEDS: ClonazePAM 1 MG TABLET PO SCH ×2 (09:00→17:00)
[2018-04-06] MEDS: AmLODIPine BESYLATE 5 MG TABLET PO SCH (09:00)
[2018-04-06] MEDS: ZIPRASIDONE MESYLATE 20 MG/VIAL IM PRN ×2 (10:37→18:08)
[2018-04-07] MEDS: LORazepam 1 MG TABLET PO SCH ×3 (09:00→17:00)
[2018-04-07] MEDS: OLANZapine 5 MG RAPDIS TABLET PO SCH ×2 (09:00→17:00)
[2018-04-07] MEDS: AmLODIPine BESYLATE 5 MG TABLET PO SCH (09:00)
[2018-04-07] MEDS: QUEtiapine FUMARATE 200 MG TABLET PO SCH ×2 (09:00→17:00)
[2018-04-07] MEDS: ZIPRASIDONE MESYLATE 20 MG/VIAL IM PRN ×2 (10:01→17:40)
[2018-04-08] MEDS: AmLODIPine BESYLATE 5 MG TABLET PO SCH (09:00)
[2018-04-08] MEDS: QUEtiapine FUMARATE 200 MG TABLET PO SCH ×2 (09:00→17:00)
[2018-04-08] MEDS: LORazepam 1 MG TABLET PO SCH ×3 (09:00→17:00)
[2018-04-08] MEDS: OLANZapine 5 MG RAPDIS TABLET PO SCH ×2 (09:00→17:00)
[2018-04-08] MEDS: ZIPRASIDONE MESYLATE 20 MG/VIAL IM PRN (09:37)
[2018-04-08] MEDS ORDERED: LORazepam 2 MG/ML VIAL IM ONE (18:00)
[2018-04-08] MEDS ORDERED: HALOPERIDOL LACTATE 5 MG/ML VIAL IM ONE (18:00)
[2018-04-08] MEDS ORDERED: DiphenhydrAMINE HCL 50 MG/ML VIAL IM ONE (18:00)
[2018-04-09] MEDS: ZIPRASIDONE MESYLATE 20 MG/VIAL IM PRN ×2 (08:03→17:29)
[2018-04-09] MEDS: OLANZapine 5 MG RAPDIS TABLET PO SCH ×2 (09:00→17:00)
[2018-04-09] MEDS: AmLODIPine BESYLATE 5 MG TABLET PO SCH (09:00)
[2018-04-09] MEDS: QUEtiapine FUMARATE 200 MG TABLET PO SCH ×2 (09:00→17:00)
[2018-04-09] MEDS: LORazepam 1 MG TABLET PO SCH ×3 (09:00→17:00)
[2018-04-10] MEDS ORDERED: LORazepam 2 MG/ML VIAL ONE (08:55)
[2018-04-10] MEDS ORDERED: DiphenhydrAMINE HCL 50 MG/ML VIAL ONE (08:56)
[2018-04-10] MEDS: AmLODIPine BESYLATE 5 MG TABLET PO SCH (09:00)
[2018-04-10] MEDS ORDERED: DiphenhydrAMINE HCL 50 MG/ML VIAL IM ONE (09:00)
[2018-04-10] MEDS: QUEtiapine FUMARATE 200 MG TABLET PO SCH ×2 (09:00→17:00)
[2018-04-10] MEDS: LORazepam 1 MG TABLET PO SCH ×3 (09:00→17:00)
[2018-04-10] MEDS ORDERED: LORazepam 2 MG/ML VIAL IM ONE (09:00)
[2018-04-10] MEDS: OLANZapine 5 MG RAPDIS TABLET PO SCH ×2 (09:00→17:00)
[2018-04-10] MEDS: ZIPRASIDONE MESYLATE 20 MG/VIAL IM PRN (17:46)
[2018-04-11] MEDS ORDERED: LORazepam 2 MG/ML VIAL ONE (01:21)
[2018-04-11] MEDS ORDERED: DiphenhydrAMINE HCL 50 MG/ML VIAL ONE (01:21)
[2018-04-11] MEDS ORDERED: LORazepam 2 MG/ML VIAL IM ONE ×2 (01:30→10:00)
[2018-04-11] MEDS ORDERED: DiphenhydrAMINE HCL 50 MG/ML VIAL IM ONE ×2 (01:30→10:00)
[2018-04-11] MEDS: QUEtiapine FUMARATE 200 MG TABLET PO SCH ×3 (09:00→18:45)
[2018-04-11] MEDS: AmLODIPine BESYLATE 5 MG TABLET PO SCH (09:00)
[2018-04-11] MEDS: LORazepam 1 MG TABLET PO SCH ×3 (09:00→17:00)
[2018-04-11] MEDS: OLANZapine 5 MG RAPDIS TABLET PO SCH (09:00)
[2018-04-11] MEDS: ZIPRASIDONE MESYLATE 20 MG/VIAL IM PRN ×3 (09:57→20:20)
[2018-04-11] MEDS: OLANZapine 10 MG RAPDIS TABLET PO SCH ×2 (13:00→17:00)
[2018-04-12] MEDS ORDERED: DiphenhydrAMINE HCL 50 MG/ML VIAL ONE (05:57)
[2018-04-12] MEDS ORDERED: LORazepam 2 MG/ML VIAL ONE (05:57)
[2018-04-12] MEDS ORDERED: LORazepam 2 MG/ML VIAL IM ONE (06:00)
[2018-04-12] MEDS ORDERED: DiphenhydrAMINE HCL 50 MG/ML VIAL IM ONE (06:00)
[2018-04-12] MEDS: AmLODIPine BESYLATE 5 MG TABLET PO SCH (08:40)
[2018-04-12] MEDS: QUEtiapine FUMARATE 200 MG TABLET PO SCH ×2 (08:40→17:00)
[2018-04-12] MEDS: LORazepam 1 MG TABLET PO SCH ×3 (08:40→17:00)
[2018-04-12] MEDS: OLANZapine 10 MG RAPDIS TABLET PO SCH ×3 (08:40→17:00)
[2018-04-12] MEDS: ZIPRASIDONE MESYLATE 20 MG/VIAL IM PRN ×3 (08:41→18:15)
[2018-04-13] MEDS ORDERED: LORazepam 2 MG/ML VIAL ONE (05:44)
[2018-04-13] MEDS ORDERED: DiphenhydrAMINE HCL 50 MG/ML VIAL ONE (05:44)
[2018-04-13] MEDS ORDERED: FluPHENAZine HCL 2.5 MG/ML INJ IM ONE (05:45)
[2018-04-13] MEDS ORDERED: DiphenhydrAMINE HCL 50 MG/ML VIAL IM ONE (05:45)
[2018-04-13] MEDS ORDERED: LORazepam 2 MG/ML VIAL IM ONE (05:45)
[2018-04-13] MEDS: QUEtiapine FUMARATE 200 MG TABLET PO SCH ×2 (08:54→17:00)
[2018-04-13] MEDS: AmLODIPine BESYLATE 5 MG TABLET PO SCH (08:54)
[2018-04-13] MEDS: LORazepam 1 MG TABLET PO SCH ×3 (08:54→17:00)
[2018-04-13] MEDS: ZIPRASIDONE MESYLATE 20 MG/VIAL IM PRN ×3 (08:55→17:17)
[2018-04-13] MEDS: OLANZapine 10 MG RAPDIS TABLET PO SCH ×3 (08:55→17:00)
[2018-04-14] MEDS ORDERED: LORazepam 2 MG/ML VIAL ONE (00:22)
[2018-04-14] MEDS ORDERED: DiphenhydrAMINE HCL 50 MG/ML VIAL ONE (00:22)
[2018-04-14] MEDS ORDERED: FluPHENAZine HCL 2.5 MG/ML INJ IM ONE ×2 (00:23→00:30)
[2018-04-14] MEDS ORDERED: LORazepam 2 MG/ML VIAL IM ONE (00:30)
[2018-04-14] MEDS ORDERED: DiphenhydrAMINE HCL 50 MG/ML VIAL IM ONE (00:30)
[2018-04-14] MEDS: AmLODIPine BESYLATE 5 MG TABLET PO SCH (09:00)
[2018-04-14] MEDS: OLANZapine 10 MG RAPDIS TABLET PO SCH ×3 (09:00→17:00)
[2018-04-14] MEDS: QUEtiapine FUMARATE 200 MG TABLET PO SCH ×2 (09:00→17:00)
[2018-04-14] MEDS: LORazepam 1 MG TABLET PO SCH ×3 (09:00→17:00)
[2018-04-14] MEDS: ZIPRASIDONE MESYLATE 20 MG/VIAL IM PRN (09:19)
[2018-04-14] MEDS: FluPHENAZine HCL 2.5 MG/ML INJ IM PRN ×2 (13:37→18:09)
[2018-04-15] MEDS: OLANZapine 10 MG RAPDIS TABLET PO SCH ×3 (09:00→21:20)
[2018-04-15] MEDS: AmLODIPine BESYLATE 5 MG TABLET PO SCH (09:00)
[2018-04-15] MEDS: QUEtiapine FUMARATE 200 MG TABLET PO SCH ×2 (09:00→21:20)
[2018-04-15] MEDS: LORazepam 1 MG TABLET PO SCH ×3 (09:00→21:21)
[2018-04-15] MEDS: FluPHENAZine HCL 2.5 MG/ML INJ IM PRN ×3 (09:30→21:37)
[2018-04-16] MEDS: OLANZapine 10 MG RAPDIS TABLET PO SCH ×3 (09:00→17:00)
[2018-04-16] MEDS: LORazepam 1 MG TABLET PO SCH ×3 (09:00→17:00)
[2018-04-16] MEDS: AmLODIPine BESYLATE 5 MG TABLET PO SCH (09:00)
[2018-04-16] MEDS: QUEtiapine FUMARATE 200 MG TABLET PO SCH ×2 (09:00→17:00)
[2018-04-16] MEDS: FluPHENAZine HCL 2.5 MG/ML INJ IM PRN ×2 (09:35→17:33)
[2018-04-16] MEDS ORDERED: ZIPRASIDONE MESYLATE 20 MG/VIAL IM ONE ×2 (14:05→14:15)
[2018-04-16] MEDS ORDERED: DiphenhydrAMINE HCL 50 MG/ML VIAL IM ONE ×2 (14:15→18:45)
[2018-04-16] MEDS ORDERED: LORazepam 2 MG/ML VIAL IM ONE ×2 (14:15→18:45)
[2018-04-16] MEDS: LORazepam 2 MG/ML VIAL IM PRN (17:33)
[2018-04-16] MEDS ORDERED: HALOPERIDOL LACTATE 5 MG/ML VIAL ONE (17:57)
[2018-04-16] MEDS ORDERED: HALOPERIDOL LACTATE 5 MG/ML VIAL IM ONE (18:45)
[2018-04-17] MEDS: AmLODIPine BESYLATE 5 MG TABLET PO SCH (09:00)
[2018-04-17] MEDS: OLANZapine 10 MG RAPDIS TABLET PO SCH ×3 (09:00→16:24)
[2018-04-17] MEDS: LORazepam 1 MG TABLET PO SCH ×3 (09:00→16:24)
[2018-04-17] MEDS: QUEtiapine FUMARATE 200 MG TABLET PO SCH ×2 (09:00→16:24)
[2018-04-17] MEDS: LORazepam 2 MG/ML VIAL IM PRN ×3 (09:09→16:23)
[2018-04-17] MEDS: FluPHENAZine HCL 2.5 MG/ML INJ IM PRN ×3 (09:09→16:22)
[2018-04-18] MEDS: OLANZapine 10 MG RAPDIS TABLET PO SCH ×3 (09:00→17:00)
[2018-04-18] MEDS: QUEtiapine FUMARATE 200 MG TABLET PO SCH ×2 (09:00→17:00)
[2018-04-18] MEDS: AmLODIPine BESYLATE 5 MG TABLET PO SCH (09:00)
[2018-04-18] MEDS: LORazepam 1 MG TABLET PO SCH ×4 (09:00→17:00)
[2018-04-18] MEDS: FluPHENAZine HCL 2.5 MG/ML INJ IM PRN ×3 (09:35→18:13)
[2018-04-18] MEDS: LORazepam 2 MG/ML VIAL IM PRN ×3 (09:36→18:14)
[2018-04-19] MEDS: LORazepam 2 MG/ML VIAL IM PRN ×3 (08:16→17:08)
[2018-04-19] MEDS: FluPHENAZine HCL 2.5 MG/ML INJ IM PRN ×3 (08:16→17:09)
[2018-04-19] MEDS: LORazepam 1 MG TABLET PO SCH ×3 (08:17→17:00)
[2018-04-19] MEDS: OLANZapine 10 MG RAPDIS TABLET PO SCH ×3 (08:17→17:00)
[2018-04-19] MEDS: QUEtiapine FUMARATE 200 MG TABLET PO SCH ×2 (08:17→17:00)
[2018-04-19] MEDS: AmLODIPine BESYLATE 5 MG TABLET PO SCH (08:17)
[2018-04-20] MEDS: AmLODIPine BESYLATE 5 MG TABLET PO SCH (09:00)
[2018-04-20] MEDS: OLANZapine 10 MG RAPDIS TABLET PO SCH ×3 (09:00→17:00)
[2018-04-20] MEDS: QUEtiapine FUMARATE 200 MG TABLET PO SCH ×2 (09:00→17:00)
[2018-04-20] MEDS: LORazepam 1 MG TABLET PO SCH ×3 (09:00→17:00)
[2018-04-20] MEDS: FluPHENAZine HCL 2.5 MG/ML INJ IM PRN ×3 (09:15→17:07)
[2018-04-20] MEDS: LORazepam 2 MG/ML VIAL IM PRN ×3 (09:15→17:06)
[2018-04-21] MEDS: LORazepam 1 MG TABLET PO SCH ×3 (09:00→17:10)
[2018-04-21] MEDS: QUEtiapine FUMARATE 200 MG TABLET PO SCH ×2 (09:00→17:11)
[2018-04-21] MEDS: OLANZapine 10 MG RAPDIS TABLET PO SCH ×3 (09:00→17:10)
[2018-04-21] MEDS: AmLODIPine BESYLATE 5 MG TABLET PO SCH (09:00)
[2018-04-21] MEDS: FluPHENAZine HCL 2.5 MG/ML INJ IM PRN ×2 (09:08→13:45)
[2018-04-21] MEDS: LORazepam 2 MG/ML VIAL IM PRN ×2 (09:08→13:46)
[2018-04-21] MEDS: LORazepam 2 MG TABLET PO PRN (14:39)
[2018-04-22] MEDS: QUEtiapine FUMARATE 200 MG TABLET PO SCH ×2 (07:39→16:37)
[2018-04-22] MEDS: LORazepam 1 MG TABLET PO SCH ×3 (07:39→16:37)
[2018-04-22] MEDS: OLANZapine 10 MG RAPDIS TABLET PO SCH ×3 (07:39→16:37)
[2018-04-22] MEDS: MAGNESIUM HYDROXIDE SUSPENSION 30 ML UDCUP PO PRN (07:42)
[2018-04-22] MEDS: AmLODIPine BESYLATE 5 MG TABLET PO SCH (09:00)
[2018-04-23] MEDS: LORazepam 1 MG TABLET PO SCH ×3 (07:57→16:19)
[2018-04-23] MEDS: AmLODIPine BESYLATE 5 MG TABLET PO SCH (07:57)
[2018-04-23] MEDS: QUEtiapine FUMARATE 200 MG TABLET PO SCH ×2 (07:57→16:19)
[2018-04-23] MEDS: DOCUSATE SODIUM 100 MG CAPSULE PO PRN ×2 (07:57→16:25)
[2018-04-23] MEDS: OLANZapine 10 MG RAPDIS TABLET PO SCH ×3 (07:57→16:19)
[2018-04-24] MEDS: QUEtiapine FUMARATE 200 MG TABLET PO SCH ×2 (08:51→16:25)
[2018-04-24] MEDS: LORazepam 1 MG TABLET PO SCH ×3 (08:51→16:25)
[2018-04-24] MEDS: DOCUSATE SODIUM 100 MG CAPSULE PO PRN (08:51)
[2018-04-24] MEDS: AmLODIPine BESYLATE 5 MG TABLET PO SCH (09:00)
[2018-04-24] MEDS: OLANZapine 10 MG RAPDIS TABLET PO SCH ×3 (09:02→16:25)
[2018-04-25] MEDS: AmLODIPine BESYLATE 5 MG TABLET PO SCH (09:00)
[2018-04-25] MEDS: LORazepam 1 MG TABLET PO SCH ×3 (09:05→16:08)
[2018-04-25] MEDS: OLANZapine 10 MG RAPDIS TABLET PO SCH ×3 (09:05→16:08)
[2018-04-25] MEDS: QUEtiapine FUMARATE 200 MG TABLET PO SCH ×2 (09:05→16:08)
[2018-04-25] MEDS: LORazepam 2 MG TABLET PO PRN ×2 (09:17→19:50)
[2018-04-25] MEDS: ZOLPIDEM TARTRATE 10 MG TABLET PO PRN (20:10)
[2018-04-26] MEDS: QUEtiapine FUMARATE 200 MG TABLET PO SCH ×2 (07:51→16:57)
[2018-04-26] MEDS: OLANZapine 10 MG RAPDIS TABLET PO SCH ×3 (07:52→16:57)
[2018-04-26] MEDS: LORazepam 1 MG TABLET PO SCH ×3 (07:52→16:57)
[2018-04-26] MEDS: AmLODIPine BESYLATE 5 MG TABLET PO SCH (07:52)
[2018-04-27] MEDS: QUEtiapine FUMARATE 200 MG TABLET PO SCH ×2 (08:19→17:52)
[2018-04-27] MEDS: OLANZapine 10 MG RAPDIS TABLET PO SCH ×3 (08:19→17:56)
[2018-04-27] MEDS: LORazepam 1 MG TABLET PO SCH ×3 (08:19→18:00)
[2018-04-27] MEDS: AmLODIPine BESYLATE 5 MG TABLET PO SCH (08:27)
[2018-04-28] MEDS: QUEtiapine FUMARATE 200 MG TABLET PO SCH ×2 (08:50→17:37)
[2018-04-28] MEDS: OLANZapine 10 MG RAPDIS TABLET PO SCH ×3 (08:50→17:38)
[2018-04-28] MEDS: LORazepam 1 MG TABLET PO SCH ×3 (08:50→17:36)
[2018-04-28] MEDS: AmLODIPine BESYLATE 5 MG TABLET PO SCH (09:00)
[2018-04-28] MEDS: MAGNESIUM HYDROXIDE SUSPENSION 30 ML UDCUP PO PRN (15:36)
[2018-04-28 16:30] VITALS: BP 119/70
[2018-04-28] MEDS: DOCUSATE SODIUM 100 MG CAPSULE PO PRN (16:49)
[2018-04-29] MEDS: LORazepam 1 MG TABLET PO SCH ×3 (08:12→16:31)
[2018-04-29] MEDS: QUEtiapine FUMARATE 200 MG TABLET PO SCH ×2 (08:12→16:31)
[2018-04-29] MEDS: OLANZapine 10 MG RAPDIS TABLET PO SCH ×3 (08:12→16:31)
[2018-04-29] MEDS: AmLODIPine BESYLATE 5 MG TABLET PO SCH (09:00)
[2018-04-29 18:10] VITALS: BP 127/75
[2018-04-29] MEDS: LORazepam 2 MG TABLET PO PRN (21:40)
[2018-04-29] MEDS: ZOLPIDEM TARTRATE 10 MG TABLET PO PRN (21:40)
[2018-04-30] MEDS: QUEtiapine FUMARATE 200 MG TABLET PO SCH ×2 (07:52→16:46)
[2018-04-30] MEDS: LORazepam 1 MG TABLET PO SCH ×3 (07:52→16:46)
[2018-04-30] MEDS: AmLODIPine BESYLATE 5 MG TABLET PO SCH (07:52)
[2018-04-30] MEDS: OLANZapine 10 MG RAPDIS TABLET PO SCH ×3 (07:53→16:46)
[2018-04-30 08:00] VITALS: BP 135/91
[2018-05-01] MEDS: AmLODIPine BESYLATE 5 MG TABLET PO SCH (09:00)
[2018-05-01] MEDS: OLANZapine 10 MG RAPDIS TABLET PO SCH ×3 (09:05→17:12)
[2018-05-01] MEDS: QUEtiapine FUMARATE 200 MG TABLET PO SCH ×2 (09:05→17:12)
[2018-05-01] MEDS: LORazepam 1 MG TABLET PO SCH ×3 (09:06→17:12)
[2018-05-01] MEDS: LORazepam 2 MG TABLET PO PRN ×2 (10:14→21:13)
[2018-05-01 17:05] VITALS: BP 132/78
[2018-05-01] MEDS: ZOLPIDEM TARTRATE 10 MG TABLET PO PRN (20:05)
[2018-05-02] MEDS: QUEtiapine FUMARATE 200 MG TABLET PO SCH ×2 (08:55→17:17)
[2018-05-02] MEDS: OLANZapine 10 MG RAPDIS TABLET PO SCH ×3 (08:56→17:17)
[2018-05-02] MEDS: LORazepam 1 MG TABLET PO SCH ×3 (08:56→17:17)
[2018-05-02] MEDS: AmLODIPine BESYLATE 5 MG TABLET PO SCH (09:00)
[2018-05-02] MEDS: DOCUSATE SODIUM 100 MG CAPSULE PO PRN (09:24)
[2018-05-02] MEDS: MAGNESIUM HYDROXIDE SUSPENSION 30 ML UDCUP PO PRN (09:24)
[2018-05-02 16:30] VITALS: BP 127/82
[2018-05-03] MEDS: QUEtiapine FUMARATE 200 MG TABLET PO SCH ×2 (07:49→16:12)
[2018-05-03] MEDS: OLANZapine 10 MG RAPDIS TABLET PO SCH ×3 (07:49→16:13)
[2018-05-03] MEDS: LORazepam 1 MG TABLET PO SCH ×3 (07:49→16:12)
[2018-05-03] MEDS: AmLODIPine BESYLATE 5 MG TABLET PO SCH (07:52)
[2018-05-03 09:34] VITALS: BP 127/87
[2018-05-03] MEDS: LORazepam 2 MG TABLET PO PRN (20:55)
[2018-05-03] MEDS: ZOLPIDEM TARTRATE 10 MG TABLET PO PRN (20:55)
[2018-05-04] MEDS: AmLODIPine BESYLATE 5 MG TABLET PO SCH (09:00)
[2018-05-04] MEDS: OLANZapine 10 MG RAPDIS TABLET PO SCH ×3 (10:10→17:44)
[2018-05-04] MEDS: LORazepam 1 MG TABLET PO SCH ×3 (10:12→17:44)
[2018-05-04] MEDS: QUEtiapine FUMARATE 200 MG TABLET PO SCH ×2 (10:12→17:44)
[2018-05-04] MEDS: ZOLPIDEM TARTRATE 10 MG TABLET PO PRN (20:07)
[2018-05-04] MEDS: LORazepam 2 MG TABLET PO PRN (20:07)
[2018-05-04] MEDS: MAGNESIUM HYDROXIDE SUSPENSION 30 ML UDCUP PO PRN (21:37)
[2018-05-04] MEDS: DOCUSATE SODIUM 100 MG CAPSULE PO PRN (21:37)
[2018-05-05] MEDS: LORazepam 2 MG TABLET PO PRN ×3 (04:43→20:29)
[2018-05-05 08:47] VITALS: BP 124/83
[2018-05-05] MEDS: AmLODIPine BESYLATE 5 MG TABLET PO SCH (09:00)
[2018-05-05] MEDS: OLANZapine 10 MG RAPDIS TABLET PO SCH ×3 (10:11→17:04)
[2018-05-05] MEDS: LORazepam 1 MG TABLET PO SCH ×3 (10:11→17:04)
[2018-05-05] MEDS: QUEtiapine FUMARATE 200 MG TABLET PO SCH ×2 (10:11→17:04)
[2018-05-05] MEDS: MAGNESIUM HYDROXIDE SUSPENSION 30 ML UDCUP PO PRN ×2 (10:40→21:25)
[2018-05-05] MEDS: DOCUSATE SODIUM 100 MG CAPSULE PO PRN (10:41)
[2018-05-05] MEDS: ZOLPIDEM TARTRATE 10 MG TABLET PO PRN (20:29)
[2018-05-06] MEDS: AmLODIPine BESYLATE 5 MG TABLET PO SCH (09:00)
[2018-05-06] MEDS: OLANZapine 10 MG RAPDIS TABLET PO SCH ×3 (09:07→17:33)
[2018-05-06] MEDS: QUEtiapine FUMARATE 200 MG TABLET PO SCH ×2 (09:07→17:29)
[2018-05-06] MEDS: LORazepam 1 MG TABLET PO SCH ×3 (09:07→17:29)
[2018-05-06 16:36] VITALS: BP 132/77
[2018-05-06] MEDS: MAGNESIUM HYDROXIDE SUSPENSION 30 ML UDCUP PO PRN (20:05)
[2018-05-06] MEDS: LORazepam 2 MG TABLET PO PRN (20:37)
[2018-05-06] MEDS: ZOLPIDEM TARTRATE 10 MG TABLET PO PRN (20:37)
[2018-05-07] MEDS: MAGNESIUM HYDROXIDE SUSPENSION 30 ML UDCUP PO PRN (05:54)
[2018-05-07] MEDS: AmLODIPine BESYLATE 5 MG TABLET PO SCH (09:00)
[2018-05-07] MEDS: LORazepam 1 MG TABLET PO SCH ×3 (09:29→16:04)
[2018-05-07] MEDS: QUEtiapine FUMARATE 200 MG TABLET PO SCH ×2 (09:30→16:04)
[2018-05-07] MEDS: OLANZapine 10 MG RAPDIS TABLET PO SCH ×3 (09:30→16:04)
[2018-05-07] MEDS: LORazepam 2 MG TABLET PO PRN (21:55)
[2018-05-07] MEDS: MAG HYDROX/AL HYDROX/SIMETH ES 30 ML SUSPENSION UDCUP PO PRN (21:55)
[2018-05-07] MEDS: ZOLPIDEM TARTRATE 10 MG TABLET PO PRN (21:55)
[2018-05-08] MEDS: OLANZapine 10 MG RAPDIS TABLET PO SCH ×3 (08:00→16:59)
[2018-05-08] MEDS: QUEtiapine FUMARATE 200 MG TABLET PO SCH ×2 (08:00→16:59)
[2018-05-08] MEDS: LORazepam 1 MG TABLET PO SCH ×3 (08:00→16:59)
[2018-05-08 08:49] VITALS: BP 119/94
[2018-05-08] MEDS: AmLODIPine BESYLATE 5 MG TABLET PO SCH (09:00)
[2018-05-08] MEDS: MAG HYDROX/AL HYDROX/SIMETH ES 30 ML SUSPENSION UDCUP PO PRN (10:56)
[2018-05-08] MEDS: LORazepam 2 MG TABLET PO PRN (20:02)
[2018-05-09] MEDS: AmLODIPine BESYLATE 5 MG TABLET PO SCH (08:45)
[2018-05-09] MEDS: OLANZapine 10 MG RAPDIS TABLET PO SCH ×3 (08:48→17:33)
[2018-05-09] MEDS: QUEtiapine FUMARATE 200 MG TABLET PO SCH ×2 (08:48→17:32)
[2018-05-09] MEDS: LORazepam 1 MG TABLET PO SCH ×3 (08:48→17:32)
[2018-05-09] MEDS: MAG HYDROX/AL HYDROX/SIMETH ES 30 ML SUSPENSION UDCUP PO PRN (10:34)
[2018-05-09 16:26] VITALS: BP 117/90
[2018-05-09] MEDS: LORazepam 2 MG TABLET PO PRN (20:40)
[2018-05-09] MEDS: ZOLPIDEM TARTRATE 10 MG TABLET PO PRN (20:40)
[2018-05-10] MEDS: LORazepam 1 MG TABLET PO SCH ×3 (08:56→16:29)
[2018-05-10] MEDS: QUEtiapine FUMARATE 200 MG TABLET PO SCH ×2 (08:56→16:29)
[2018-05-10] MEDS: OLANZapine 10 MG RAPDIS TABLET PO SCH ×3 (08:56→16:29)
[2018-05-10] MEDS: AmLODIPine BESYLATE 5 MG TABLET PO SCH (09:00)
[2018-05-10] MEDS: MAG HYDROX/AL HYDROX/SIMETH ES 30 ML SUSPENSION UDCUP PO PRN ×2 (12:33→23:49)
[2018-05-10] MEDS: LORazepam 2 MG TABLET PO PRN (21:28)
[2018-05-10] MEDS: ZOLPIDEM TARTRATE 10 MG TABLET PO PRN (21:28)
[2018-05-11 08:57] VITALS: BP 126/77
[2018-05-11] MEDS: AmLODIPine BESYLATE 5 MG TABLET PO SCH (09:00)
[2018-05-11] MEDS: LORazepam 1 MG TABLET PO SCH ×3 (09:55→16:23)
[2018-05-11] MEDS: QUEtiapine FUMARATE 200 MG TABLET PO SCH ×2 (09:55→16:23)
[2018-05-11] MEDS: OLANZapine 10 MG RAPDIS TABLET PO SCH ×3 (09:56→16:23)
[2018-05-11] MEDS: MAG HYDROX/AL HYDROX/SIMETH ES 30 ML SUSPENSION UDCUP PO PRN ×2 (12:30→20:56)
[2018-05-11 16:06] VITALS: BP 123/73
[2018-05-11] MEDS: ZOLPIDEM TARTRATE 10 MG TABLET PO PRN (21:11)
[2018-05-11] MEDS: LORazepam 2 MG TABLET PO PRN (21:11)
[2018-05-12] MEDS: AmLODIPine BESYLATE 5 MG TABLET PO SCH (09:00)
[2018-05-12] MEDS: LORazepam 1 MG TABLET PO SCH ×3 (09:37→16:05)
[2018-05-12] MEDS: OLANZapine 10 MG RAPDIS TABLET PO SCH ×3 (09:37→16:05)
[2018-05-12] MEDS: QUEtiapine FUMARATE 200 MG TABLET PO SCH ×2 (09:38→16:05)
[2018-05-13] MEDS: LORazepam 1 MG TABLET PO SCH ×3 (09:00→17:05)
[2018-05-13] MEDS: AmLODIPine BESYLATE 5 MG TABLET PO SCH (09:00)
[2018-05-13] MEDS: QUEtiapine FUMARATE 200 MG TABLET PO SCH ×2 (09:00→17:05)
[2018-05-13] MEDS: OLANZapine 10 MG RAPDIS TABLET PO SCH ×3 (09:01→17:05)
[2018-05-13 16:45] VITALS: BP 142/88
[2018-05-13] MEDS: LORazepam 2 MG TABLET PO PRN (21:00)
[2018-05-13] MEDS: ZOLPIDEM TARTRATE 10 MG TABLET PO PRN (21:00)
[2018-05-14] MEDS: AmLODIPine BESYLATE 5 MG TABLET PO SCH (09:00)
[2018-05-14] MEDS: QUEtiapine FUMARATE 200 MG TABLET PO SCH ×2 (09:27→16:54)
[2018-05-14] MEDS: OLANZapine 10 MG RAPDIS TABLET PO SCH ×3 (09:28→16:54)
[2018-05-14] MEDS: LORazepam 1 MG TABLET PO SCH ×3 (09:30→16:54)
[2018-05-14] MEDS: LORazepam 2 MG TABLET PO PRN ×2 (20:03→21:00)
[2018-05-14] MEDS: ZOLPIDEM TARTRATE 10 MG TABLET PO PRN ×2 (20:03→21:00)
[2018-05-14] MEDS: MAG HYDROX/AL HYDROX/SIMETH ES 30 ML SUSPENSION UDCUP PO PRN (20:04)
[2018-05-15] MEDS: AmLODIPine BESYLATE 5 MG TABLET PO SCH (09:00)
[2018-05-15] MEDS: QUEtiapine FUMARATE 200 MG TABLET PO SCH ×2 (09:24→16:17)
[2018-05-15] MEDS: OLANZapine 10 MG RAPDIS TABLET PO SCH ×3 (09:24→16:17)
[2018-05-15] MEDS: LORazepam 1 MG TABLET PO SCH ×3 (09:26→16:17)
[2018-05-16] MEDS: LORazepam 2 MG TABLET PO PRN ×2 (05:24→20:16)
[2018-05-16] MEDS: MAG HYDROX/AL HYDROX/SIMETH ES 30 ML SUSPENSION UDCUP PO PRN ×2 (05:34→19:13)
[2018-05-16] MEDS: AmLODIPine BESYLATE 5 MG TABLET PO SCH (09:00)
[2018-05-16] MEDS: OLANZapine 10 MG RAPDIS TABLET PO SCH ×3 (09:34→17:36)
[2018-05-16] MEDS: QUEtiapine FUMARATE 200 MG TABLET PO SCH ×2 (09:34→17:35)
[2018-05-16] MEDS: LORazepam 1 MG TABLET PO SCH ×3 (09:34→17:35)
[2018-05-16 16:24] VITALS: BP 139/81
[2018-05-16] MEDS: ZOLPIDEM TARTRATE 10 MG TABLET PO PRN (20:16)
[2018-05-17] MEDS: QUEtiapine FUMARATE 200 MG TABLET PO SCH ×2 (09:13→16:31)
[2018-05-17] MEDS: AmLODIPine BESYLATE 5 MG TABLET PO SCH (09:13)
[2018-05-17] MEDS: OLANZapine 10 MG RAPDIS TABLET PO SCH ×3 (09:14→16:31)
[2018-05-17] MEDS: LORazepam 1 MG TABLET PO SCH ×3 (09:14→16:31)
[2018-05-17 17:00] VITALS: BP 126/75
[2018-05-17] MEDS: MAG HYDROX/AL HYDROX/SIMETH ES 30 ML SUSPENSION UDCUP PO PRN (20:53)
[2018-05-17] MEDS: LORazepam 2 MG TABLET PO PRN (20:53)
[2018-05-17] MEDS: ZOLPIDEM TARTRATE 10 MG TABLET PO PRN (20:53)
[2018-05-18] MEDS: AmLODIPine BESYLATE 5 MG TABLET PO SCH (09:00)
[2018-05-18] MEDS: LORazepam 1 MG TABLET PO SCH ×3 (09:31→17:35)
[2018-05-18] MEDS: QUEtiapine FUMARATE 200 MG TABLET PO SCH ×2 (09:31→17:35)
[2018-05-18] MEDS: OLANZapine 10 MG RAPDIS TABLET PO SCH ×3 (09:31→17:35)
[2018-05-18 10:10] VITALS: BP 120/74
[2018-05-18] MEDS: LORazepam 2 MG TABLET PO PRN (20:52)
[2018-05-18] MEDS: ZOLPIDEM TARTRATE 10 MG TABLET PO PRN (20:52)
[2018-05-18] MEDS: MAG HYDROX/AL HYDROX/SIMETH ES 30 ML SUSPENSION UDCUP PO PRN (20:53)
[2018-05-19] MEDS: OLANZapine 10 MG RAPDIS TABLET PO SCH ×3 (09:27→17:44)
[2018-05-19] MEDS: QUEtiapine FUMARATE 200 MG TABLET PO SCH ×2 (09:27→17:44)
[2018-05-19] MEDS: LORazepam 1 MG TABLET PO SCH ×3 (09:27→17:44)
[2018-05-19] MEDS: AmLODIPine BESYLATE 5 MG TABLET PO SCH (09:29)
[2018-05-19 16:16] VITALS: BP 108/64
[2018-05-19] MEDS: DOCUSATE SODIUM 100 MG CAPSULE PO PRN (18:36)
[2018-05-19] MEDS: MAG HYDROX/AL HYDROX/SIMETH ES 30 ML SUSPENSION UDCUP PO PRN (18:36)
[2018-05-19] MEDS: ZOLPIDEM TARTRATE 10 MG TABLET PO PRN (21:20)
[2018-05-19] MEDS: LORazepam 2 MG TABLET PO PRN (21:21)
[2018-05-20] MEDS: OLANZapine 10 MG RAPDIS TABLET PO SCH ×3 (08:06→16:28)
[2018-05-20] MEDS: QUEtiapine FUMARATE 200 MG TABLET PO SCH ×2 (08:06→16:27)
[2018-05-20] MEDS: LORazepam 1 MG TABLET PO SCH ×3 (08:07→16:27)
[2018-05-20] MEDS: AmLODIPine BESYLATE 5 MG TABLET PO SCH (09:00)
[2018-05-20 16:30] VITALS: BP 150/84
[2018-05-20] MEDS: LORazepam 2 MG TABLET PO PRN (21:09)
[2018-05-20] MEDS: ZOLPIDEM TARTRATE 10 MG TABLET PO PRN (21:09)
[2018-05-21] MEDS: LORazepam 1 MG TABLET PO SCH ×3 (08:29→16:24)
[2018-05-21] MEDS: OLANZapine 10 MG RAPDIS TABLET PO SCH ×3 (08:29→16:24)
[2018-05-21] MEDS: DOCUSATE SODIUM 100 MG CAPSULE PO PRN (08:29)
[2018-05-21] MEDS: AmLODIPine BESYLATE 5 MG TABLET PO SCH (08:29)
[2018-05-21] MEDS: QUEtiapine FUMARATE 200 MG TABLET PO SCH ×2 (08:29→16:24)
[2018-05-21 16:30] VITALS: BP 141/79
[2018-05-21] MEDS: MAG HYDROX/AL HYDROX/SIMETH ES 30 ML SUSPENSION UDCUP PO PRN (16:31)
[2018-05-21] MEDS: LORazepam 2 MG TABLET PO PRN (21:05)
[2018-05-21] MEDS: ZOLPIDEM TARTRATE 10 MG TABLET PO PRN (21:05)
[2018-05-22] MEDS: AmLODIPine BESYLATE 5 MG TABLET PO SCH (09:00)
[2018-05-22] MEDS: LORazepam 1 MG TABLET PO SCH ×3 (09:00→17:43)
[2018-05-22] MEDS: OLANZapine 10 MG RAPDIS TABLET PO SCH ×3 (09:01→17:45)
[2018-05-22] MEDS: QUEtiapine FUMARATE 200 MG TABLET PO SCH ×2 (09:01→17:43)
[2018-05-22 09:27] VITALS: BP 136/88
[2018-05-22 16:16] VITALS: BP 124/76
[2018-05-22] MEDS: LORazepam 2 MG TABLET PO PRN (20:23)
[2018-05-22] MEDS: ZOLPIDEM TARTRATE 10 MG TABLET PO PRN (20:23)
[2018-05-22] MEDS: MAG HYDROX/AL HYDROX/SIMETH ES 30 ML SUSPENSION UDCUP PO PRN (21:15)
[2018-05-23] MEDS: DOCUSATE SODIUM 100 MG CAPSULE PO PRN (06:34)
[2018-05-23] MEDS: QUEtiapine FUMARATE 200 MG TABLET PO SCH ×2 (08:48→16:46)
[2018-05-23] MEDS: AmLODIPine BESYLATE 5 MG TABLET PO SCH (08:48)
[2018-05-23] MEDS: LORazepam 1 MG TABLET PO SCH ×2 (08:48→12:52)
[2018-05-23] MEDS: OLANZapine 10 MG RAPDIS TABLET PO SCH ×3 (08:48→16:46)
[2018-05-23 09:07] VITALS: BP 140/72
[2018-05-24] MEDS: MAG HYDROX/AL HYDROX/SIMETH ES 30 ML SUSPENSION UDCUP PO PRN (01:05)
[2018-05-24] MEDS: AmLODIPine BESYLATE 5 MG TABLET PO SCH (08:27)
[2018-05-24] MEDS: QUEtiapine FUMARATE 200 MG TABLET PO SCH ×2 (08:28→17:27)
[2018-05-24] MEDS: OLANZapine 10 MG RAPDIS TABLET PO SCH ×3 (08:28→17:27)
[2018-05-24] MEDS: LORazepam 2 MG TABLET PO PRN ×2 (09:45→20:05)
[2018-05-24] MEDS ORDERED: LORazepam 1 MG TABLET PO PRN (10:15)
[2018-05-24] MEDS: LORazepam 1 MG TABLET PO SCH ×2 (12:45→17:28)
[2018-05-24 16:34] VITALS: BP 132/82
[2018-05-24] MEDS: ZOLPIDEM TARTRATE 10 MG TABLET PO SCH (20:04)
[2018-05-25] MEDS: OLANZapine 10 MG RAPDIS TABLET PO SCH ×3 (09:19→17:16)
[2018-05-25] MEDS: LORazepam 1 MG TABLET PO SCH ×3 (09:19→17:16)
[2018-05-25] MEDS: AmLODIPine BESYLATE 5 MG TABLET PO SCH (09:19)
[2018-05-25] MEDS: QUEtiapine FUMARATE 200 MG TABLET PO SCH ×2 (09:20→17:16)
[2018-05-25] MEDS: LORazepam 2 MG TABLET PO PRN (20:40)
[2018-05-25] MEDS: ZOLPIDEM TARTRATE 10 MG TABLET PO SCH (20:41)
[2018-05-26] MEDS: OLANZapine 10 MG RAPDIS TABLET PO SCH ×3 (08:19→17:16)
[2018-05-26] MEDS: AmLODIPine BESYLATE 5 MG TABLET PO SCH (08:20)
[2018-05-26] MEDS: QUEtiapine FUMARATE 200 MG TABLET PO SCH ×2 (08:20→17:16)
[2018-05-26] MEDS: LORazepam 1 MG TABLET PO SCH ×3 (08:21→17:16)
[2018-05-26 08:34] VITALS: BP 132/78
[2018-05-26] MEDS: ZOLPIDEM TARTRATE 10 MG TABLET PO SCH (20:42)
[2018-05-27 08:49] VITALS: BP 126/78
[2018-05-27] MEDS: LORazepam 1 MG TABLET PO SCH ×3 (09:22→17:09)
[2018-05-27] MEDS: OLANZapine 10 MG RAPDIS TABLET PO SCH ×3 (09:22→17:09)
[2018-05-27] MEDS: QUEtiapine FUMARATE 200 MG TABLET PO SCH ×2 (09:24→17:09)
[2018-05-27] MEDS: AmLODIPine BESYLATE 5 MG TABLET PO SCH (09:24)
[2018-05-27] MEDS: ZOLPIDEM TARTRATE 10 MG TABLET PO SCH (20:38)
[2018-05-27] MEDS: LORazepam 2 MG TABLET PO PRN (21:22)
[2018-05-28 08:07] VITALS: BP 127/78
[2018-05-28] MEDS: QUEtiapine FUMARATE 200 MG TABLET PO SCH ×2 (08:18→16:57)
[2018-05-28] MEDS: OLANZapine 10 MG RAPDIS TABLET PO SCH ×3 (08:18→16:57)
[2018-05-28] MEDS: AmLODIPine BESYLATE 5 MG TABLET PO SCH (08:18)
[2018-05-28] MEDS: LORazepam 1 MG TABLET PO SCH ×3 (08:18→16:55)
[2018-05-28 16:47] VITALS: BP 139/78
[2018-05-28] MEDS: LORazepam 2 MG TABLET PO PRN (21:40)
[2018-05-28] MEDS: ZOLPIDEM TARTRATE 10 MG TABLET PO SCH (21:40)
[2018-05-29] MEDS: OLANZapine 10 MG RAPDIS TABLET PO SCH ×3 (09:40→16:16)
[2018-05-29] MEDS: QUEtiapine FUMARATE 200 MG TABLET PO SCH ×2 (09:41→16:16)
[2018-05-29] MEDS: AmLODIPine BESYLATE 5 MG TABLET PO SCH (09:41)
[2018-05-29] MEDS: LORazepam 1 MG TABLET PO SCH ×3 (09:41→16:16)
[2018-05-29 11:11] VITALS: BP 126/77
[2018-05-29 16:50] VITALS: BP 133/73
[2018-05-29] MEDS: LORazepam 2 MG TABLET PO PRN (21:00)
[2018-05-29] MEDS: ZOLPIDEM TARTRATE 10 MG TABLET PO SCH (21:00)
[2018-05-30] MEDS: AmLODIPine BESYLATE 5 MG TABLET PO SCH (08:45)
[2018-05-30] MEDS: QUEtiapine FUMARATE 200 MG TABLET PO SCH ×2 (08:45→16:30)
[2018-05-30] MEDS: LORazepam 1 MG TABLET PO SCH ×3 (08:45→16:30)
[2018-05-30] MEDS: OLANZapine 10 MG RAPDIS TABLET PO SCH ×3 (08:45→16:30)
[2018-05-30 09:59] VITALS: BP 117/95
[2018-05-30] MEDS: ZOLPIDEM TARTRATE 10 MG TABLET PO SCH (20:43)
[2018-05-30] MEDS: LORazepam 2 MG TABLET PO PRN (20:43)
[2018-05-31] MEDS: OLANZapine 10 MG RAPDIS TABLET PO SCH ×3 (08:10→16:35)
[2018-05-31] MEDS: LORazepam 1 MG TABLET PO SCH ×3 (08:10→16:35)
[2018-05-31] MEDS: QUEtiapine FUMARATE 200 MG TABLET PO SCH ×2 (08:10→16:35)
[2018-05-31] MEDS: AmLODIPine BESYLATE 5 MG TABLET PO SCH (08:11)
[2018-05-31 12:23] VITALS: BP 115/86
[2018-05-31 16:30] VITALS: BP 121/84
[2018-05-31] MEDS: LORazepam 2 MG TABLET PO PRN (20:35)
[2018-05-31] MEDS: ZOLPIDEM TARTRATE 10 MG TABLET PO SCH (20:35)
[2018-06-01] MEDS: AmLODIPine BESYLATE 5 MG TABLET PO SCH (08:51)
[2018-06-01] MEDS: OLANZapine 10 MG RAPDIS TABLET PO SCH ×3 (08:52→16:12)
[2018-06-01] MEDS: QUEtiapine FUMARATE 200 MG TABLET PO SCH ×2 (08:52→16:12)
[2018-06-01] MEDS: LORazepam 1 MG TABLET PO SCH ×3 (08:52→16:12)
[2018-06-01 16:00] VITALS: BP 137/79
[2018-06-01] MEDS: LORazepam 2 MG TABLET PO PRN (21:28)
[2018-06-01] MEDS: ZOLPIDEM TARTRATE 10 MG TABLET PO SCH (21:28)
[2018-06-02] MEDS: OLANZapine 10 MG RAPDIS TABLET PO SCH ×3 (07:46→17:13)
[2018-06-02] MEDS: AmLODIPine BESYLATE 5 MG TABLET PO SCH (07:46)
[2018-06-02] MEDS: DOCUSATE SODIUM 100 MG CAPSULE PO PRN (07:46)
[2018-06-02] MEDS: LORazepam 1 MG TABLET PO SCH ×3 (07:46→17:13)
[2018-06-02] MEDS: QUEtiapine FUMARATE 200 MG TABLET PO SCH ×2 (07:46→17:13)
[2018-06-02 08:11] VITALS: BP 140/87
[2018-06-02 16:00] VITALS: BP 132/72
[2018-06-02] MEDS: ZOLPIDEM TARTRATE 10 MG TABLET PO SCH (20:07)
[2018-06-02] MEDS: LORazepam 2 MG TABLET PO PRN (20:29)
[2018-06-03] MEDS: LORazepam 1 MG TABLET PO SCH ×3 (08:19→16:46)
[2018-06-03] MEDS: QUEtiapine FUMARATE 200 MG TABLET PO SCH ×2 (08:19→16:46)
[2018-06-03] MEDS: AmLODIPine BESYLATE 5 MG TABLET PO SCH (08:20)
[2018-06-03] MEDS: OLANZapine 10 MG RAPDIS TABLET PO SCH ×3 (08:20→16:45)
[2018-06-03 16:10] VITALS: BP 149/75
[2018-06-03] MEDS: ZOLPIDEM TARTRATE 10 MG TABLET PO SCH (21:00)
[2018-06-04] MEDS: LORazepam 1 MG TABLET PO SCH ×3 (08:00→17:15)
[2018-06-04] MEDS: QUEtiapine FUMARATE 200 MG TABLET PO SCH ×2 (08:00→17:16)
[2018-06-04] MEDS: AmLODIPine BESYLATE 5 MG TABLET PO SCH (08:00)
[2018-06-04] MEDS: OLANZapine 10 MG RAPDIS TABLET PO SCH ×3 (08:01→17:16)
[2018-06-04 08:05] VITALS: BP 126/74
[2018-06-04] MEDS: MAG HYDROX/AL HYDROX/SIMETH ES 30 ML SUSPENSION UDCUP PO PRN (12:31)
[2018-06-04 16:33] VITALS: BP 139/78
[2018-06-04] MEDS: ZOLPIDEM TARTRATE 10 MG TABLET PO SCH (20:02)
[2018-06-04] MEDS: LORazepam 2 MG TABLET PO PRN (20:02)
[2018-06-05] MEDS: LORazepam 2 MG TABLET PO PRN ×2 (03:25→20:16)
[2018-06-05 08:06] VITALS: BP 132/78
[2018-06-05] MEDS: QUEtiapine FUMARATE 200 MG TABLET PO SCH ×2 (09:08→16:43)
[2018-06-05] MEDS: LORazepam 1 MG TABLET PO SCH ×3 (09:08→16:43)
[2018-06-05] MEDS: AmLODIPine BESYLATE 5 MG TABLET PO SCH (09:08)
[2018-06-05] MEDS: OLANZapine 10 MG RAPDIS TABLET PO SCH ×3 (09:08→16:43)
[2018-06-05 16:43] VITALS: BP 134/77
[2018-06-05] MEDS: ZOLPIDEM TARTRATE 10 MG TABLET PO SCH (20:15)
[2018-06-06] MEDS: AmLODIPine BESYLATE 5 MG TABLET PO SCH (08:56)
[2018-06-06] MEDS: OLANZapine 10 MG RAPDIS TABLET PO SCH ×3 (08:56→16:52)
[2018-06-06] MEDS: QUEtiapine FUMARATE 200 MG TABLET PO SCH ×2 (08:57→16:52)
[2018-06-06] MEDS: LORazepam 1 MG TABLET PO SCH ×3 (08:57→16:52)
[2018-06-06 09:54] VITALS: BP 127/74
[2018-06-06 18:30] VITALS: BP 118/87
[2018-06-06] MEDS: ZOLPIDEM TARTRATE 10 MG TABLET PO SCH (20:22)
[2018-06-06] MEDS: LORazepam 2 MG TABLET PO PRN (20:22)
[2018-06-07] MEDS: LORazepam 2 MG TABLET PO PRN ×2 (00:44→20:10)
[2018-06-07] MEDS: AmLODIPine BESYLATE 5 MG TABLET PO SCH (09:07)
[2018-06-07] MEDS: QUEtiapine FUMARATE 200 MG TABLET PO SCH ×2 (09:07→16:40)
[2018-06-07] MEDS: LORazepam 1 MG TABLET PO SCH ×3 (09:07→16:40)
[2018-06-07] MEDS: OLANZapine 10 MG RAPDIS TABLET PO SCH ×3 (09:07→16:40)
[2018-06-07 12:41] VITALS: BP 127/72
[2018-06-07] MEDS: ZOLPIDEM TARTRATE 10 MG TABLET PO SCH (20:09)
[2018-06-08] MEDS: LORazepam 2 MG TABLET PO PRN (01:56)
[2018-06-08] MEDS: MAG HYDROX/AL HYDROX/SIMETH ES 30 ML SUSPENSION UDCUP PO PRN (01:56)
[2018-06-08] MEDS: MAGNESIUM HYDROXIDE SUSPENSION 30 ML UDCUP PO PRN (06:53)
[2018-06-08] MEDS: DOCUSATE SODIUM 100 MG CAPSULE PO PRN (06:55)
[2018-06-08] MEDS: QUEtiapine FUMARATE 200 MG TABLET PO SCH ×2 (08:11→17:19)
[2018-06-08] MEDS: OLANZapine 10 MG RAPDIS TABLET PO SCH ×3 (08:11→17:20)
[2018-06-08] MEDS: AmLODIPine BESYLATE 5 MG TABLET PO SCH (08:12)
[2018-06-08 09:00] VITALS: BP 115/67
[2018-06-08 16:43] VITALS: BP 125/95
[2018-06-08] MEDS: LORazepam 1 MG TABLET PO SCH (17:20)
[2018-06-08] MEDS: ZOLPIDEM TARTRATE 10 MG TABLET PO SCH (22:49)
[2018-06-09 08:00] VITALS: BP 130/80
[2018-06-09] MEDS: AmLODIPine BESYLATE 5 MG TABLET PO SCH (09:02)
[2018-06-09] MEDS: OLANZapine 10 MG RAPDIS TABLET PO SCH ×3 (09:02→17:25)
[2018-06-09] MEDS: LORazepam 1 MG TABLET PO SCH ×3 (09:02→17:24)
[2018-06-09] MEDS: QUEtiapine FUMARATE 200 MG TABLET PO SCH ×2 (09:03→17:24)
[2018-06-09 16:40] VITALS: BP 126/79
[2018-06-09] MEDS: LORazepam 2 MG TABLET PO PRN (19:50)
[2018-06-09] MEDS: ZOLPIDEM TARTRATE 10 MG TABLET PO SCH (20:28)
[2018-06-10] MEDS: LORazepam 1 MG TABLET PO SCH ×3 (08:03→16:32)
[2018-06-10] MEDS: OLANZapine 10 MG RAPDIS TABLET PO SCH ×3 (08:04→16:32)
[2018-06-10] MEDS: AmLODIPine BESYLATE 5 MG TABLET PO SCH (08:04)
[2018-06-10] MEDS: QUEtiapine FUMARATE 200 MG TABLET PO SCH ×2 (08:04→16:32)
[2018-06-10 08:46] VITALS: BP 126/62
[2018-06-10] MEDS: ZOLPIDEM TARTRATE 10 MG TABLET PO SCH (20:23)
[2018-06-11] MEDS: LORazepam 2 MG TABLET PO PRN (03:28)
[2018-06-11] MEDS: LORazepam 1 MG TABLET PO SCH ×3 (09:09→17:06)
[2018-06-11] MEDS: QUEtiapine FUMARATE 200 MG TABLET PO SCH ×2 (09:10→17:07)
[2018-06-11] MEDS: AmLODIPine BESYLATE 5 MG TABLET PO SCH (09:10)
[2018-06-11] MEDS: OLANZapine 10 MG RAPDIS TABLET PO SCH ×3 (09:10→17:06)
[2018-06-11 17:20] VITALS: BP 131/85
[2018-06-11] MEDS: ZOLPIDEM TARTRATE 10 MG TABLET PO SCH (20:09)
[2018-06-12] MEDS: LORazepam 2 MG TABLET PO PRN (04:47)
[2018-06-12 08:05] VITALS: BP 130/88
[2018-06-12] MEDS: AmLODIPine BESYLATE 5 MG TABLET PO SCH (08:17)
[2018-06-12] MEDS: OLANZapine 10 MG RAPDIS TABLET PO SCH ×3 (08:18→17:02)
[2018-06-12] MEDS: QUEtiapine FUMARATE 200 MG TABLET PO SCH ×2 (08:18→17:02)
[2018-06-12] MEDS: LORazepam 1 MG TABLET PO SCH ×3 (08:18→17:02)
[2018-06-12] MEDS: ZOLPIDEM TARTRATE 10 MG TABLET PO SCH (21:20)
[2018-06-13] MEDS: QUEtiapine FUMARATE 200 MG TABLET PO SCH ×2 (08:45→16:10)
[2018-06-13] MEDS: AmLODIPine BESYLATE 5 MG TABLET PO SCH (08:45)
[2018-06-13] MEDS: OLANZapine 10 MG RAPDIS TABLET PO SCH ×3 (09:13→16:10)
[2018-06-13] MEDS: LORazepam 1 MG TABLET PO SCH ×3 (09:13→16:09)
[2018-06-13 17:09] VITALS: BP 118/68
[2018-06-13] MEDS: ZOLPIDEM TARTRATE 10 MG TABLET PO PRN (22:52)
[2018-06-14] MEDS: LORazepam 1 MG TABLET PO SCH ×3 (08:54→16:45)
[2018-06-14] MEDS: QUEtiapine FUMARATE 200 MG TABLET PO SCH ×2 (08:54→16:46)
[2018-06-14] MEDS: AmLODIPine BESYLATE 5 MG TABLET PO SCH (08:54)
[2018-06-14] MEDS: OLANZapine 10 MG RAPDIS TABLET PO SCH ×3 (08:54→16:45)
[2018-06-14] MEDS: LORazepam 2 MG TABLET PO PRN (16:44)
[2018-06-14] MEDS: MAG HYDROX/AL HYDROX/SIMETH ES 30 ML SUSPENSION UDCUP PO PRN (19:57)
[2018-06-15] MEDS: LORazepam 1 MG TABLET PO SCH ×3 (08:59→16:29)
[2018-06-15] MEDS: QUEtiapine FUMARATE 200 MG TABLET PO SCH ×2 (08:59→16:29)
[2018-06-15] MEDS: AmLODIPine BESYLATE 5 MG TABLET PO SCH (08:59)
[2018-06-15] MEDS: OLANZapine 10 MG RAPDIS TABLET PO SCH ×3 (09:00→16:30)
[2018-06-15] MEDS: MAG HYDROX/AL HYDROX/SIMETH ES 30 ML SUSPENSION UDCUP PO PRN (18:36)
[2018-06-16 03:00] VITALS: BP 134/76
[2018-06-16] MEDS: LORazepam 2 MG TABLET PO PRN ×2 (03:00→20:14)
[2018-06-16] MEDS: ZOLPIDEM TARTRATE 10 MG TABLET PO PRN ×2 (03:00→20:14)
[2018-06-16] MEDS: LORazepam 1 MG TABLET PO SCH ×3 (07:51→16:45)
[2018-06-16] MEDS: QUEtiapine FUMARATE 200 MG TABLET PO SCH ×2 (07:51→16:45)
[2018-06-16] MEDS: AmLODIPine BESYLATE 5 MG TABLET PO SCH (07:51)
[2018-06-16] MEDS: OLANZapine 10 MG RAPDIS TABLET PO SCH ×3 (07:51→16:45)
[2018-06-16 08:44] VITALS: BP 129/65
[2018-06-17 08:00] VITALS: BP 135/75
[2018-06-17] MEDS: OLANZapine 10 MG RAPDIS TABLET PO SCH ×3 (08:50→16:21)
[2018-06-17] MEDS: LORazepam 1 MG TABLET PO SCH ×3 (08:51→16:21)
[2018-06-17] MEDS: QUEtiapine FUMARATE 200 MG TABLET PO SCH ×2 (08:51→16:20)
[2018-06-17] MEDS: AmLODIPine BESYLATE 5 MG TABLET PO SCH (08:52)
[2018-06-17 17:18] VITALS: BP 124/66
[2018-06-17] MEDS: ZOLPIDEM TARTRATE 10 MG TABLET PO PRN (20:47)
[2018-06-17] MEDS: LORazepam 2 MG TABLET PO PRN (20:47)
[2018-06-18 09:00] VITALS: BP 123/83
[2018-06-18] MEDS: AmLODIPine BESYLATE 5 MG TABLET PO SCH (12:02)
[2018-06-18] MEDS: LORazepam 1 MG TABLET PO SCH ×3 (12:02→16:54)
[2018-06-18] MEDS: QUEtiapine FUMARATE 200 MG TABLET PO SCH ×2 (12:03→16:54)
[2018-06-18] MEDS: OLANZapine 10 MG RAPDIS TABLET PO SCH ×3 (12:03→16:54)
[2018-06-18 16:00] VITALS: BP 141/96
[2018-06-18] MEDS: ZOLPIDEM TARTRATE 10 MG TABLET PO PRN (20:23)
[2018-06-18] MEDS: LORazepam 2 MG TABLET PO PRN (20:23)
[2018-06-19] MEDS: LORazepam 2 MG TABLET PO PRN (04:50)
[2018-06-19] MEDS: QUEtiapine FUMARATE 200 MG TABLET PO SCH ×2 (09:29→16:34)
[2018-06-19] MEDS: LORazepam 1 MG TABLET PO SCH ×3 (09:30→16:34)
[2018-06-19] MEDS: AmLODIPine BESYLATE 5 MG TABLET PO SCH (09:31)
[2018-06-19] MEDS: OLANZapine 10 MG RAPDIS TABLET PO SCH ×3 (09:31→16:34)
[2018-06-19 16:00] VITALS: BP 141/93
[2018-06-19] MEDS: MAGNESIUM HYDROXIDE SUSPENSION 30 ML UDCUP PO PRN (17:56)
[2018-06-19] MEDS: MAG HYDROX/AL HYDROX/SIMETH ES 30 ML SUSPENSION UDCUP PO PRN (18:03)
[2018-06-20] MEDS: QUEtiapine FUMARATE 200 MG TABLET PO SCH ×2 (08:20→17:37)
[2018-06-20] MEDS: LORazepam 1 MG TABLET PO SCH ×3 (08:20→17:37)
[2018-06-20] MEDS: OLANZapine 10 MG RAPDIS TABLET PO SCH ×3 (08:20→17:37)
[2018-06-20] MEDS: AmLODIPine BESYLATE 5 MG TABLET PO SCH (08:24)
[2018-06-21] MEDS: QUEtiapine FUMARATE 200 MG TABLET PO SCH ×2 (08:22→16:26)
[2018-06-21] MEDS: AmLODIPine BESYLATE 5 MG TABLET PO SCH (08:22)
[2018-06-21] MEDS: LORazepam 1 MG TABLET PO SCH ×3 (08:22→16:26)
[2018-06-21] MEDS: OLANZapine 10 MG RAPDIS TABLET PO SCH ×3 (08:22→16:26)
[2018-06-21 09:00] VITALS: BP 141/75
[2018-06-21 16:00] VITALS: BP 147/71
[2018-06-21] MEDS: LORazepam 2 MG TABLET PO PRN (21:05)
[2018-06-21] MEDS: ZOLPIDEM TARTRATE 10 MG TABLET PO PRN (21:05)
[2018-06-22 08:20] VITALS: BP 144/86
[2018-06-22] MEDS: QUEtiapine FUMARATE 200 MG TABLET PO SCH ×2 (08:34→17:12)
[2018-06-22] MEDS: OLANZapine 10 MG RAPDIS TABLET PO SCH ×3 (08:34→17:12)
[2018-06-22] MEDS: LORazepam 1 MG TABLET PO SCH ×3 (08:34→17:12)
[2018-06-22] MEDS: AmLODIPine BESYLATE 5 MG TABLET PO SCH (08:37)
[2018-06-22 16:22] VITALS: BP 144/9
[2018-06-23] MEDS: OLANZapine 10 MG RAPDIS TABLET PO SCH ×3 (09:48→16:25)
[2018-06-23] MEDS: LORazepam 1 MG TABLET PO SCH ×3 (09:48→16:25)
[2018-06-23] MEDS: QUEtiapine FUMARATE 200 MG TABLET PO SCH ×2 (09:48→16:25)
[2018-06-23] MEDS: AmLODIPine BESYLATE 5 MG TABLET PO SCH (09:48)
[2018-06-23 20:00] VITALS: BP 126/88
[2018-06-24] MEDS: ZOLPIDEM TARTRATE 10 MG TABLET PO PRN ×2 (00:29→23:03)
[2018-06-24] MEDS: LORazepam 2 MG TABLET PO PRN ×3 (00:29→23:03)
[2018-06-24] MEDS: QUEtiapine FUMARATE 200 MG TABLET PO SCH ×2 (07:51→16:58)
[2018-06-24] MEDS: AmLODIPine BESYLATE 5 MG TABLET PO SCH (07:51)
[2018-06-24] MEDS: LORazepam 1 MG TABLET PO SCH ×3 (07:51→16:58)
[2018-06-24] MEDS: OLANZapine 10 MG RAPDIS TABLET PO SCH ×3 (07:52→16:57)
[2018-06-24 09:15] VITALS: BP 142/72
[2018-06-24 16:00] VITALS: BP 126/88
[2018-06-25] MEDS: QUEtiapine FUMARATE 200 MG TABLET PO SCH ×2 (07:37→17:26)
[2018-06-25] MEDS: OLANZapine 10 MG RAPDIS TABLET PO SCH ×3 (07:38→17:21)
[2018-06-25] MEDS: AmLODIPine BESYLATE 5 MG TABLET PO SCH (07:38)
[2018-06-25] MEDS: LORazepam 1 MG TABLET PO SCH ×3 (07:38→17:26)
[2018-06-25 08:22] VITALS: BP 132/79
[2018-06-25] MEDS: LORazepam 2 MG TABLET PO PRN ×2 (11:23→20:37)
[2018-06-25 16:00] VITALS: BP 114/88
[2018-06-25] MEDS: ZOLPIDEM TARTRATE 10 MG TABLET PO PRN (20:37)
[2018-06-26] MEDS: AmLODIPine BESYLATE 5 MG TABLET PO SCH (09:04)
[2018-06-26] MEDS: LORazepam 1 MG TABLET PO SCH ×3 (09:05→16:39)
[2018-06-26] MEDS: QUEtiapine FUMARATE 200 MG TABLET PO SCH ×2 (09:05→16:40)
[2018-06-26] MEDS: OLANZapine 10 MG RAPDIS TABLET PO SCH ×3 (09:05→16:39)
[2018-06-26 16:00] VITALS: BP 122/80
[2018-06-26] MEDS: MAG HYDROX/AL HYDROX/SIMETH ES 30 ML SUSPENSION UDCUP PO PRN (17:53)
[2018-06-27 08:05] VITALS: BP 144/88
[2018-06-27] MEDS: LORazepam 1 MG TABLET PO SCH ×3 (08:45→16:32)
[2018-06-27] MEDS: AmLODIPine BESYLATE 5 MG TABLET PO SCH (08:45)
[2018-06-27] MEDS: QUEtiapine FUMARATE 200 MG TABLET PO SCH ×2 (08:46→16:32)
[2018-06-27] MEDS: OLANZapine 10 MG RAPDIS TABLET PO SCH ×3 (08:46→16:32)
[2018-06-27] MEDS: ZOLPIDEM TARTRATE 10 MG TABLET PO PRN (20:14)
[2018-06-28 08:05] VITALS: BP 142/83
[2018-06-28] MEDS: QUEtiapine FUMARATE 200 MG TABLET PO SCH ×2 (08:47→17:07)
[2018-06-28] MEDS: LORazepam 1 MG TABLET PO SCH ×3 (08:47→17:07)
[2018-06-28] MEDS: AmLODIPine BESYLATE 5 MG TABLET PO SCH (08:47)
[2018-06-28] MEDS: OLANZapine 10 MG RAPDIS TABLET PO SCH ×4 (08:48→17:08)
[2018-06-28] MEDS: ZOLPIDEM TARTRATE 10 MG TABLET PO PRN (21:17)
[2018-06-28] MEDS: LORazepam 2 MG TABLET PO PRN (21:17)
[2018-06-29] MEDS: AmLODIPine BESYLATE 5 MG TABLET PO SCH (08:44)
[2018-06-29] MEDS: QUEtiapine FUMARATE 200 MG TABLET PO SCH ×2 (08:44→16:18)
[2018-06-29] MEDS: OLANZapine 10 MG RAPDIS TABLET PO SCH ×3 (08:45→16:19)
[2018-06-29] MEDS: LORazepam 1 MG TABLET PO SCH ×3 (08:45→16:19)
[2018-06-30] MEDS: LORazepam 2 MG TABLET PO PRN ×2 (04:52→19:44)
[2018-06-30] MEDS: OLANZapine 10 MG RAPDIS TABLET PO SCH ×3 (10:17→17:29)
[2018-06-30] MEDS: AmLODIPine BESYLATE 5 MG TABLET PO SCH (10:17)
[2018-06-30] MEDS: QUEtiapine FUMARATE 200 MG TABLET PO SCH ×2 (10:17→17:29)
[2018-06-30] MEDS: LORazepam 1 MG TABLET PO SCH ×3 (10:18→17:29)
[2018-06-30] MEDS: DOCUSATE SODIUM 100 MG CAPSULE PO PRN (15:50)
[2018-06-30 19:20] VITALS: BP 138/84
[2018-06-30] MEDS: ZOLPIDEM TARTRATE 10 MG TABLET PO PRN (19:44)
[2018-07-01] MEDS: MAGNESIUM HYDROXIDE SUSPENSION 30 ML UDCUP PO PRN (02:22)
[2018-07-01] MEDS: LORazepam 2 MG TABLET PO PRN ×2 (02:22→20:38)
[2018-07-01] MEDS: AmLODIPine BESYLATE 5 MG TABLET PO SCH (08:03)
[2018-07-01] MEDS: LORazepam 1 MG TABLET PO SCH ×3 (08:03→17:44)
[2018-07-01] MEDS: QUEtiapine FUMARATE 200 MG TABLET PO SCH ×2 (08:04→17:44)
[2018-07-01] MEDS: OLANZapine 10 MG RAPDIS TABLET PO SCH ×3 (08:04→17:44)
[2018-07-01 08:58] VITALS: BP 131/76
[2018-07-01] MEDS: ZOLPIDEM TARTRATE 10 MG TABLET PO PRN (20:38)
[2018-07-02] MEDS: LORazepam 1 MG TABLET PO SCH ×2 (08:50→16:57)
[2018-07-02] MEDS: AmLODIPine BESYLATE 5 MG TABLET PO SCH (08:51)
[2018-07-02] MEDS: QUEtiapine FUMARATE 200 MG TABLET PO SCH ×2 (08:51→16:57)
[2018-07-02 08:52] VITALS: BP 125/93
[2018-07-02] MEDS: OLANZapine 10 MG RAPDIS TABLET PO SCH ×3 (08:52→16:57)
[2018-07-03 08:54] VITALS: BP 159/95
[2018-07-03] MEDS: QUEtiapine FUMARATE 200 MG TABLET PO SCH ×2 (08:56→16:14)
[2018-07-03] MEDS: AmLODIPine BESYLATE 5 MG TABLET PO SCH (08:56)
[2018-07-03] MEDS: LORazepam 1 MG TABLET PO SCH ×2 (08:56→16:14)
[2018-07-03] MEDS: OLANZapine 10 MG RAPDIS TABLET PO SCH ×3 (08:56→16:14)
[2018-07-03 17:18] VITALS: BP 130/84
[2018-07-03] MEDS: LORazepam 2 MG TABLET PO PRN (20:20)
[2018-07-03] MEDS: ZOLPIDEM TARTRATE 10 MG TABLET PO PRN (20:20)
[2018-07-04] MEDS: OLANZapine 10 MG RAPDIS TABLET PO SCH ×3 (07:55→16:25)
[2018-07-04] MEDS: QUEtiapine FUMARATE 200 MG TABLET PO SCH ×2 (07:55→16:25)
[2018-07-04] MEDS: AmLODIPine BESYLATE 5 MG TABLET PO SCH (07:55)
[2018-07-04] MEDS: LORazepam 1 MG TABLET PO SCH ×2 (07:55→16:25)
[2018-07-04 08:00] VITALS: BP 138/90
[2018-07-05] MEDS: ZOLPIDEM TARTRATE 10 MG TABLET PO PRN ×2 (00:45→21:24)
[2018-07-05] MEDS: LORazepam 2 MG TABLET PO PRN ×2 (00:45→21:24)
[2018-07-05] MEDS: MAG HYDROX/AL HYDROX/SIMETH ES 30 ML SUSPENSION UDCUP PO PRN ×2 (01:16→18:41)
[2018-07-05] MEDS: OLANZapine 10 MG RAPDIS TABLET PO SCH ×3 (09:03→16:16)
[2018-07-05] MEDS: AmLODIPine BESYLATE 5 MG TABLET PO SCH (09:03)
[2018-07-05] MEDS: QUEtiapine FUMARATE 200 MG TABLET PO SCH ×2 (09:03→16:17)
[2018-07-05] MEDS: LORazepam 1 MG TABLET PO SCH ×2 (09:03→16:17)
[2018-07-05 10:16] VITALS: BP 124/84
[2018-07-05 16:00] VITALS: BP 147/89
[2018-07-06] MEDS: LORazepam 1 MG TABLET PO SCH ×2 (08:14→16:53)
[2018-07-06] MEDS: AmLODIPine BESYLATE 5 MG TABLET PO SCH (08:14)
[2018-07-06] MEDS: QUEtiapine FUMARATE 200 MG TABLET PO SCH ×2 (08:14→16:53)
[2018-07-06] MEDS: OLANZapine 10 MG RAPDIS TABLET PO SCH ×3 (08:14→16:54)
[2018-07-06] MEDS: ZOLPIDEM TARTRATE 10 MG TABLET PO PRN (20:38)
[2018-07-06] MEDS: LORazepam 2 MG TABLET PO PRN (20:38)
[2018-07-07] MEDS: CEPHALEXIN MONOHYDRATE 500 MG CAPSULE PO SCH ×3 (08:05→16:39)
[2018-07-07] MEDS: LORazepam 1 MG TABLET PO SCH ×2 (08:05→16:38)
[2018-07-07] MEDS: QUEtiapine FUMARATE 200 MG TABLET PO SCH ×2 (08:05→16:38)
[2018-07-07] MEDS: SULFAMETHOX/TRIMETH DS 800-160 MG/TABLET PO SCH ×2 (08:05→16:39)
[2018-07-07] MEDS: AmLODIPine BESYLATE 5 MG TABLET PO SCH (08:06)
[2018-07-07] MEDS: OLANZapine 10 MG RAPDIS TABLET PO SCH ×3 (08:06→16:39)
[2018-07-07 09:08] VITALS: BP 149/97
[2018-07-07] MEDS: MAG HYDROX/AL HYDROX/SIMETH ES 30 ML SUSPENSION UDCUP PO PRN (21:43)
[2018-07-08] MEDS: SULFAMETHOX/TRIMETH DS 800-160 MG/TABLET PO SCH ×2 (09:06→16:00)
[2018-07-08] MEDS: LORazepam 1 MG TABLET PO SCH ×2 (09:06→16:00)
[2018-07-08] MEDS: AmLODIPine BESYLATE 5 MG TABLET PO SCH (09:06)
[2018-07-08] MEDS: OLANZapine 10 MG RAPDIS TABLET PO SCH ×3 (09:06→16:00)
[2018-07-08] MEDS: CEPHALEXIN MONOHYDRATE 500 MG CAPSULE PO SCH ×3 (09:06→16:00)
[2018-07-08] MEDS: QUEtiapine FUMARATE 200 MG TABLET PO SCH ×2 (09:06→16:00)
[2018-07-08] MEDS: LORazepam 1 MG TABLET PO PRN (14:47)
[2018-07-09] MEDS: LORazepam 2 MG TABLET PO PRN (06:59)
[2018-07-09] MEDS: LORazepam 1 MG TABLET PO SCH ×2 (07:37→16:04)
[2018-07-09] MEDS: SULFAMETHOX/TRIMETH DS 800-160 MG/TABLET PO SCH ×2 (07:37→16:04)
[2018-07-09] MEDS: AmLODIPine BESYLATE 5 MG TABLET PO SCH (07:37)
[2018-07-09] MEDS: CEPHALEXIN MONOHYDRATE 500 MG CAPSULE PO SCH ×3 (07:37→16:05)
[2018-07-09] MEDS: QUEtiapine FUMARATE 200 MG TABLET PO SCH ×2 (07:38→16:04)
[2018-07-09] MEDS: OLANZapine 10 MG RAPDIS TABLET PO SCH ×3 (07:38→16:05)
[2018-07-10 08:17] VITALS: BP 153/99
[2018-07-10] MEDS: OLANZapine 10 MG RAPDIS TABLET PO SCH ×3 (09:10→17:26)
[2018-07-10] MEDS: LORazepam 1 MG TABLET PO SCH ×2 (09:10→17:26)
[2018-07-10] MEDS: QUEtiapine FUMARATE 200 MG TABLET PO SCH ×2 (09:10→17:26)
[2018-07-10] MEDS: AmLODIPine BESYLATE 5 MG TABLET PO SCH (09:10)
[2018-07-10] MEDS: SULFAMETHOX/TRIMETH DS 800-160 MG/TABLET PO SCH ×2 (09:10→17:26)
[2018-07-10] MEDS: CEPHALEXIN MONOHYDRATE 500 MG CAPSULE PO SCH ×3 (09:10→17:26)
[2018-07-10] MEDS: ZOLPIDEM TARTRATE 10 MG TABLET PO PRN (20:10)
[2018-07-10] MEDS: MAG HYDROX/AL HYDROX/SIMETH ES 30 ML SUSPENSION UDCUP PO PRN (20:28)
[2018-07-10] MEDS: LORazepam 2 MG TABLET PO PRN (23:31)
[2018-07-11] MEDS: CEPHALEXIN MONOHYDRATE 500 MG CAPSULE PO SCH ×3 (08:35→16:37)
[2018-07-11] MEDS: LORazepam 1 MG TABLET PO SCH ×2 (08:35→16:37)
[2018-07-11] MEDS: AmLODIPine BESYLATE 5 MG TABLET PO SCH (08:36)
[2018-07-11] MEDS: SULFAMETHOX/TRIMETH DS 800-160 MG/TABLET PO SCH ×2 (08:36→16:37)
[2018-07-11] MEDS: QUEtiapine FUMARATE 200 MG TABLET PO SCH ×2 (08:37→16:37)
[2018-07-11] MEDS: OLANZapine 10 MG RAPDIS TABLET PO SCH ×3 (08:38→16:37)
[2018-07-11] MEDS ORDERED: ZIPRASIDONE MESYLATE 20 MG/VIAL IM ONE ×2 (10:30→10:31)
[2018-07-11] MEDS ORDERED: LORazepam 2 MG/ML VIAL IM ONE (10:30)
[2018-07-11] MEDS ORDERED: LORazepam 2 MG/ML VIAL ONE (10:31)
[2018-07-11] MEDS: ZIPRASIDONE HCL 40 MG CAPSULE PO SCH (16:37)
[2018-07-12] MEDS: ZOLPIDEM TARTRATE 10 MG TABLET PO PRN (03:10)
[2018-07-12] MEDS: ZIPRASIDONE HCL 40 MG CAPSULE PO SCH ×2 (06:39→16:35)
[2018-07-12] MEDS: LORazepam 1 MG TABLET PO SCH ×2 (08:30→16:35)
[2018-07-12] MEDS: CEPHALEXIN MONOHYDRATE 500 MG CAPSULE PO SCH ×3 (08:30→16:35)
[2018-07-12] MEDS: AmLODIPine BESYLATE 5 MG TABLET PO SCH (08:30)
[2018-07-12] MEDS: OLANZapine 10 MG RAPDIS TABLET PO SCH ×3 (08:30→16:35)
[2018-07-12] MEDS: QUEtiapine FUMARATE 200 MG TABLET PO SCH ×2 (08:31→16:35)
[2018-07-12] MEDS: SULFAMETHOX/TRIMETH DS 800-160 MG/TABLET PO SCH ×2 (08:33→16:35)
[2018-07-12] MEDS ORDERED: LORazepam 2 MG/ML VIAL IM ONE (13:15)
[2018-07-12] MEDS ORDERED: DiphenhydrAMINE HCL 50 MG/ML VIAL IM ONE (13:15)
[2018-07-12] MEDS ORDERED: FluPHENAZine HCL 2.5 MG/ML INJ IM ONE (13:15)
[2018-07-12] MEDS: LORazepam 2 MG TABLET PO PRN (14:39)
[2018-07-13] MEDS: ZIPRASIDONE HCL 40 MG CAPSULE PO SCH ×2 (07:22→16:14)
[2018-07-13] MEDS: SULFAMETHOX/TRIMETH DS 800-160 MG/TABLET PO SCH ×2 (07:56→16:14)
[2018-07-13] MEDS: QUEtiapine FUMARATE 200 MG TABLET PO SCH ×2 (07:56→16:14)
[2018-07-13] MEDS: LORazepam 1 MG TABLET PO SCH ×2 (07:56→16:14)
[2018-07-13] MEDS: CEPHALEXIN MONOHYDRATE 500 MG CAPSULE PO SCH ×3 (07:56→16:14)
[2018-07-13] MEDS: AmLODIPine BESYLATE 5 MG TABLET PO SCH (07:56)
[2018-07-13] MEDS: OLANZapine 10 MG RAPDIS TABLET PO SCH ×3 (09:48→16:14)
[2018-07-14] MEDS: ZIPRASIDONE HCL 40 MG CAPSULE PO SCH ×2 (07:20→17:38)
[2018-07-14 08:06] VITALS: BP 160/79
[2018-07-14] MEDS: OLANZapine 10 MG RAPDIS TABLET PO SCH ×3 (08:07→17:38)
[2018-07-14] MEDS: LORazepam 1 MG TABLET PO SCH ×2 (08:07→17:38)
[2018-07-14] MEDS: QUEtiapine FUMARATE 200 MG TABLET PO SCH ×2 (08:07→17:38)
[2018-07-14] MEDS: CEPHALEXIN MONOHYDRATE 500 MG CAPSULE PO SCH ×3 (08:08→17:37)
[2018-07-14] MEDS: SULFAMETHOX/TRIMETH DS 800-160 MG/TABLET PO SCH ×2 (08:08→17:37)
[2018-07-14] MEDS: AmLODIPine BESYLATE 5 MG TABLET PO SCH (08:08)
[2018-07-15] MEDS: ZIPRASIDONE HCL 40 MG CAPSULE PO SCH ×2 (07:04→18:00)
[2018-07-15] MEDS: SULFAMETHOX/TRIMETH DS 800-160 MG/TABLET PO SCH ×2 (07:41→18:00)
[2018-07-15] MEDS: CEPHALEXIN MONOHYDRATE 500 MG CAPSULE PO SCH ×3 (07:41→18:00)
[2018-07-15] MEDS: LORazepam 1 MG TABLET PO SCH ×2 (07:41→18:00)
[2018-07-15] MEDS: QUEtiapine FUMARATE 200 MG TABLET PO SCH ×2 (07:41→18:00)
[2018-07-15] MEDS: AmLODIPine BESYLATE 5 MG TABLET PO SCH (07:42)
[2018-07-15] MEDS: OLANZapine 10 MG RAPDIS TABLET PO SCH ×3 (07:42→18:00)
[2018-07-15 09:16] VITALS: BP 127/93
[2018-07-16] MEDS: AmLODIPine BESYLATE 5 MG TABLET PO SCH (08:33)
[2018-07-16] MEDS: CEPHALEXIN MONOHYDRATE 500 MG CAPSULE PO SCH ×3 (08:34→16:08)
[2018-07-16] MEDS: SULFAMETHOX/TRIMETH DS 800-160 MG/TABLET PO SCH ×2 (08:34→16:09)
[2018-07-16] MEDS: QUEtiapine FUMARATE 200 MG TABLET PO SCH ×2 (08:34→16:08)
[2018-07-16] MEDS: LORazepam 1 MG TABLET PO SCH ×2 (08:35→16:08)
[2018-07-16] MEDS: OLANZapine 10 MG RAPDIS TABLET PO SCH ×3 (08:35→16:08)
[2018-07-16] MEDS ORDERED: ZIPRASIDONE MESYLATE 20 MG/VIAL IM PRN (12:30)
[2018-07-17] MEDS: ZIPRASIDONE HCL 80 MG CAPSULE PO SCH (07:16)
[2018-07-17] MEDS: OLANZapine 10 MG RAPDIS TABLET PO SCH ×3 (07:27→16:17)
[2018-07-17] MEDS: QUEtiapine FUMARATE 200 MG TABLET PO SCH ×2 (07:27→16:17)
[2018-07-17] MEDS: LORazepam 1 MG TABLET PO SCH ×2 (07:28→16:17)
[2018-07-17] MEDS: AmLODIPine BESYLATE 5 MG TABLET PO SCH (07:28)
[2018-07-17 09:27] VITALS: BP 145/98
[2018-07-18] MEDS: ZIPRASIDONE HCL 80 MG CAPSULE PO SCH (07:13)
[2018-07-18] MEDS: LORazepam 1 MG TABLET PO SCH ×2 (07:45→17:16)
[2018-07-18] MEDS: QUEtiapine FUMARATE 200 MG TABLET PO SCH ×2 (07:45→17:16)
[2018-07-18] MEDS: AmLODIPine BESYLATE 5 MG TABLET PO SCH (07:45)
[2018-07-18] MEDS: OLANZapine 10 MG RAPDIS TABLET PO SCH ×3 (07:46→17:16)
[2018-07-18 09:00] VITALS: BP 134/76
[2018-07-18 20:01] VITALS: BP 127/78
[2018-07-19] MEDS: QUEtiapine FUMARATE 200 MG TABLET PO SCH ×2 (07:54→17:21)
[2018-07-19] MEDS: ZIPRASIDONE HCL 80 MG CAPSULE PO SCH (07:54)
[2018-07-19] MEDS: AmLODIPine BESYLATE 5 MG TABLET PO SCH (07:55)
[2018-07-19] MEDS: OLANZapine 10 MG RAPDIS TABLET PO SCH ×3 (07:55→17:21)
[2018-07-19] MEDS: LORazepam 1 MG TABLET PO SCH ×2 (07:55→17:23)
[2018-07-19 08:33] VITALS: BP 158/94
[2018-07-20] MEDS: AmLODIPine BESYLATE 5 MG TABLET PO SCH (08:28)
[2018-07-20] MEDS: LORazepam 1 MG TABLET PO SCH ×2 (08:29→16:21)
[2018-07-20] MEDS: OLANZapine 10 MG RAPDIS TABLET PO SCH ×3 (08:29→16:20)
[2018-07-20] MEDS: QUEtiapine FUMARATE 200 MG TABLET PO SCH ×2 (08:29→16:20)
[2018-07-20] MEDS: ZIPRASIDONE HCL 80 MG CAPSULE PO SCH (08:30)
[2018-07-20 12:03] VITALS: BP 147/79
[2018-07-20 16:35] VITALS: BP 136/87
[2018-07-21] MEDS: ZIPRASIDONE HCL 60 MG CAPSULE PO SCH (07:45)
[2018-07-21] MEDS: LORazepam 1 MG TABLET PO SCH ×2 (07:45→16:40)
[2018-07-21] MEDS: AmLODIPine BESYLATE 5 MG TABLET PO SCH (07:46)
[2018-07-21] MEDS: OLANZapine 10 MG RAPDIS TABLET PO SCH ×3 (07:46→16:40)
[2018-07-21] MEDS: QUEtiapine FUMARATE 200 MG TABLET PO SCH ×2 (07:46→16:40)
[2018-07-21 08:05] VITALS: BP 142/88
[2018-07-21 17:47] VITALS: BP 141/85
[2018-07-22] MEDS: ZIPRASIDONE HCL 60 MG CAPSULE PO SCH (07:45)
[2018-07-22] MEDS: AmLODIPine BESYLATE 5 MG TABLET PO SCH (07:46)
[2018-07-22] MEDS: LORazepam 1 MG TABLET PO SCH ×2 (07:46→16:26)
[2018-07-22] MEDS: QUEtiapine FUMARATE 200 MG TABLET PO SCH ×2 (07:46→16:26)
[2018-07-22] MEDS: OLANZapine 10 MG RAPDIS TABLET PO SCH ×3 (07:47→16:26)
[2018-07-22 08:53] VITALS: BP 119/93
[2018-07-22 16:39] VITALS: BP 138/96
[2018-07-23 08:00] VITALS: BP 133/88
[2018-07-23] MEDS: AmLODIPine BESYLATE 5 MG TABLET PO SCH (08:03)
[2018-07-23] MEDS: QUEtiapine FUMARATE 200 MG TABLET PO SCH ×2 (08:03→16:11)
[2018-07-23] MEDS: ZIPRASIDONE HCL 60 MG CAPSULE PO SCH (08:03)
[2018-07-23] MEDS: LORazepam 1 MG TABLET PO SCH ×2 (08:03→16:11)
[2018-07-23] MEDS: OLANZapine 10 MG RAPDIS TABLET PO SCH ×3 (08:03→16:11)
[2018-07-24] MEDS: QUEtiapine FUMARATE 200 MG TABLET PO SCH ×2 (07:52→16:40)
[2018-07-24] MEDS: LORazepam 1 MG TABLET PO SCH ×2 (07:52→16:40)
[2018-07-24] MEDS: ZIPRASIDONE HCL 60 MG CAPSULE PO SCH (07:52)
[2018-07-24] MEDS: AmLODIPine BESYLATE 5 MG TABLET PO SCH (07:52)
[2018-07-24] MEDS: OLANZapine 10 MG RAPDIS TABLET PO SCH ×3 (07:52→16:40)
[2018-07-24 08:00] VITALS: BP 144/91
[2018-07-24 19:15] VITALS: BP 143/73
[2018-07-25 08:05] VITALS: BP 147/93
[2018-07-25] MEDS: AmLODIPine BESYLATE 5 MG TABLET PO SCH (08:18)
[2018-07-25] MEDS: LORazepam 1 MG TABLET PO SCH ×2 (08:18→16:09)
[2018-07-25] MEDS: ZIPRASIDONE HCL 60 MG CAPSULE PO SCH (08:19)
[2018-07-25] MEDS: QUEtiapine FUMARATE 200 MG TABLET PO SCH ×2 (08:19→16:09)
[2018-07-25] MEDS: OLANZapine 10 MG RAPDIS TABLET PO SCH ×3 (08:19→16:09)
[2018-07-26] MEDS: ZIPRASIDONE HCL 60 MG CAPSULE PO SCH (07:55)
[2018-07-26] MEDS: QUEtiapine FUMARATE 200 MG TABLET PO SCH ×2 (08:05→16:07)
[2018-07-26] MEDS: LORazepam 1 MG TABLET PO SCH ×2 (08:05→13:27)
[2018-07-26] MEDS: AmLODIPine BESYLATE 5 MG TABLET PO SCH (08:06)
[2018-07-26] MEDS: OLANZapine 10 MG RAPDIS TABLET PO SCH ×3 (08:06→16:07)
[2018-07-26 10:14] VITALS: BP 132/76
[2018-07-26] MEDS: MAG HYDROX/AL HYDROX/SIMETH ES 30 ML SUSPENSION UDCUP PO PRN (21:24)
[2018-07-26] MEDS: LORazepam 2 MG TABLET PO PRN (23:31)
[2018-07-26] MEDS: ZOLPIDEM TARTRATE 10 MG TABLET PO PRN (23:32)
[2018-07-27 00:06] VITALS: BP 131/91
[2018-07-27] MEDS: AmLODIPine BESYLATE 5 MG TABLET PO SCH (08:46)
[2018-07-27] MEDS: OLANZapine 10 MG RAPDIS TABLET PO SCH ×3 (08:46→16:14)
[2018-07-27] MEDS: LORazepam 1 MG TABLET PO SCH ×2 (08:46→16:14)
[2018-07-27] MEDS: ZIPRASIDONE HCL 60 MG CAPSULE PO SCH (08:46)
[2018-07-27] MEDS: QUEtiapine FUMARATE 200 MG TABLET PO SCH ×2 (08:46→16:14)
[2018-07-27 17:46] VITALS: BP 139/77
[2018-07-27] MEDS: ZOLPIDEM TARTRATE 10 MG TABLET PO PRN (21:41)
[2018-07-27] MEDS: LORazepam 1 MG TABLET PO PRN (21:41)
[2018-07-28 01:30] VITALS: BP 146/87
[2018-07-28] MEDS: LORazepam 2 MG TABLET PO PRN ×2 (01:36→21:21)
[2018-07-28] MEDS: ZIPRASIDONE HCL 60 MG CAPSULE PO SCH (07:21)
[2018-07-28] MEDS: QUEtiapine FUMARATE 200 MG TABLET PO SCH ×2 (07:38→17:02)
[2018-07-28] MEDS: LORazepam 1 MG TABLET PO SCH ×2 (07:38→17:01)
[2018-07-28] MEDS: AmLODIPine BESYLATE 5 MG TABLET PO SCH (07:38)
[2018-07-28] MEDS: OLANZapine 10 MG RAPDIS TABLET PO SCH ×3 (07:38→17:02)
[2018-07-28 08:59] VITALS: BP 137/72
[2018-07-28] MEDS: ZOLPIDEM TARTRATE 10 MG TABLET PO PRN (21:21)
[2018-07-29] MEDS: LORazepam 2 MG TABLET PO PRN (03:50)
[2018-07-29] MEDS: AmLODIPine BESYLATE 5 MG TABLET PO SCH (08:18)
[2018-07-29] MEDS: OLANZapine 10 MG RAPDIS TABLET PO SCH ×3 (08:18→17:04)
[2018-07-29] MEDS: QUEtiapine FUMARATE 200 MG TABLET PO SCH ×2 (08:19→17:04)
[2018-07-29] MEDS: LORazepam 1 MG TABLET PO SCH ×2 (08:20→17:04)
[2018-07-29] MEDS: ZIPRASIDONE HCL 60 MG CAPSULE PO SCH (08:20)
[2018-07-29 08:49] VITALS: BP 149/87
[2018-07-30] MEDS: LORazepam 1 MG TABLET PO SCH ×2 (08:25→16:28)
[2018-07-30] MEDS: AmLODIPine BESYLATE 5 MG TABLET PO SCH (08:26)
[2018-07-30] MEDS: QUEtiapine FUMARATE 200 MG TABLET PO SCH ×2 (08:26→16:28)
[2018-07-30] MEDS: OLANZapine 10 MG RAPDIS TABLET PO SCH ×3 (08:27→16:28)
[2018-07-30] MEDS: ZIPRASIDONE HCL 60 MG CAPSULE PO SCH (08:27)
[2018-07-30] MEDS ORDERED: ZIPRASIDONE MESYLATE 20 MG/VIAL IM PRN (10:45)
[2018-07-30 11:19] VITALS: BP 135/88
[2018-07-30] MEDS: LORazepam 2 MG TABLET PO PRN (23:10)
[2018-07-30] MEDS: ZOLPIDEM TARTRATE 10 MG TABLET PO PRN (23:10)
[2018-07-31 08:20] VITALS: BP 131/109
[2018-07-31] MEDS: OLANZapine 10 MG RAPDIS TABLET PO SCH ×3 (08:42→17:02)
[2018-07-31] MEDS: AmLODIPine BESYLATE 5 MG TABLET PO SCH (08:42)
[2018-07-31] MEDS: QUEtiapine FUMARATE 200 MG TABLET PO SCH ×2 (08:43→17:02)
[2018-07-31] MEDS: LORazepam 1 MG TABLET PO SCH ×2 (08:43→17:02)
[2018-07-31] MEDS: ZIPRASIDONE HCL 60 MG CAPSULE PO SCH (19:17)
[2018-07-31] MEDS: LORazepam 2 MG TABLET PO PRN (20:15)
[2018-07-31] MEDS: ZOLPIDEM TARTRATE 10 MG TABLET PO PRN (20:15)
[2018-08-01] MEDS: OLANZapine 10 MG RAPDIS TABLET PO SCH ×3 (07:25→16:23)
[2018-08-01] MEDS: LORazepam 1 MG TABLET PO SCH ×2 (07:25→16:22)
[2018-08-01] MEDS: QUEtiapine FUMARATE 200 MG TABLET PO SCH ×2 (07:25→16:22)
[2018-08-01] MEDS: AmLODIPine BESYLATE 5 MG TABLET PO SCH (07:26)
[2018-08-01 10:20] VITALS: BP 127/97
[2018-08-01] MEDS: ZIPRASIDONE HCL 60 MG CAPSULE PO SCH (16:23)
[2018-08-01] MEDS: NICOTINE 14 MG/24 HOUR PATCH TD PRN (16:54)
[2018-08-01 16:55] VITALS: BP 145/95
[2018-08-01] MEDS: LORazepam 2 MG TABLET PO PRN (21:14)
[2018-08-01] MEDS: ZOLPIDEM TARTRATE 10 MG TABLET PO PRN (21:14)
[2018-08-02] MEDS: LORazepam 2 MG TABLET PO PRN (01:15)
[2018-08-02] MEDS: AmLODIPine BESYLATE 5 MG TABLET PO SCH (07:58)
[2018-08-02] MEDS: LORazepam 1 MG TABLET PO SCH ×2 (07:58→16:02)
[2018-08-02] MEDS: QUEtiapine FUMARATE 200 MG TABLET PO SCH ×2 (07:58→16:02)
[2018-08-02] MEDS: OLANZapine 10 MG RAPDIS TABLET PO SCH ×3 (07:58→16:02)
[2018-08-02 16:00] VITALS: BP 146/86
[2018-08-02] MEDS: ZIPRASIDONE HCL 60 MG CAPSULE PO SCH (16:02)
[2018-08-03] MEDS: LORazepam 1 MG TABLET PO SCH ×2 (09:03→17:20)
[2018-08-03] MEDS: QUEtiapine FUMARATE 200 MG TABLET PO SCH ×2 (09:03→17:20)
[2018-08-03] MEDS: OLANZapine 10 MG RAPDIS TABLET PO SCH ×3 (09:03→17:20)
[2018-08-03] MEDS: AmLODIPine BESYLATE 5 MG TABLET PO SCH (09:03)
[2018-08-03 09:45] VITALS: BP 130/67
[2018-08-03] MEDS: ZIPRASIDONE HCL 60 MG CAPSULE PO SCH (17:20)
[2018-08-03] MEDS: LORazepam 2 MG TABLET PO PRN (21:07)
[2018-08-03] MEDS: ZOLPIDEM TARTRATE 10 MG TABLET PO PRN (21:07)
[2018-08-04] MEDS: OLANZapine 10 MG RAPDIS TABLET PO SCH ×3 (07:59→16:14)
[2018-08-04] MEDS: QUEtiapine FUMARATE 200 MG TABLET PO SCH ×2 (07:59→16:14)
[2018-08-04] MEDS: LORazepam 1 MG TABLET PO SCH ×2 (07:59→16:14)
[2018-08-04] MEDS: AmLODIPine BESYLATE 5 MG TABLET PO SCH (08:00)
[2018-08-04] MEDS: NICOTINE 14 MG/24 HOUR PATCH TD PRN (10:32)
[2018-08-04] MEDS: ZIPRASIDONE HCL 60 MG CAPSULE PO SCH (16:39)
[2018-08-04] MEDS: ZOLPIDEM TARTRATE 10 MG TABLET PO PRN (23:49)
[2018-08-04] MEDS: LORazepam 2 MG TABLET PO PRN (23:50)
[2018-08-05] MEDS: LORazepam 1 MG TABLET PO SCH ×2 (08:17→16:34)
[2018-08-05] MEDS: AmLODIPine BESYLATE 5 MG TABLET PO SCH (08:18)
[2018-08-05] MEDS: QUEtiapine FUMARATE 200 MG TABLET PO SCH ×2 (08:18→16:34)
[2018-08-05] MEDS: OLANZapine 10 MG RAPDIS TABLET PO SCH ×3 (08:18→16:33)
[2018-08-05] MEDS: NICOTINE 14 MG/24 HOUR PATCH TD PRN (08:22)
[2018-08-05 09:10] VITALS: BP 139/100
[2018-08-05 16:00] VITALS: BP 148/93
[2018-08-05] MEDS: ZIPRASIDONE HCL 60 MG CAPSULE PO SCH (16:34)
[2018-08-06] MEDS: DOCUSATE SODIUM 100 MG CAPSULE PO PRN (01:02)
[2018-08-06] MEDS: MAGNESIUM HYDROXIDE SUSPENSION 30 ML UDCUP PO PRN (01:02)
[2018-08-06] MEDS: LORazepam 2 MG TABLET PO PRN ×2 (01:02→21:20)
[2018-08-06] MEDS: ZOLPIDEM TARTRATE 10 MG TABLET PO PRN ×2 (01:03→20:49)
[2018-08-06] MEDS: LORazepam 1 MG TABLET PO SCH ×2 (08:30→16:08)
[2018-08-06] MEDS: OLANZapine 10 MG RAPDIS TABLET PO SCH ×3 (08:30→16:08)
[2018-08-06] MEDS: AmLODIPine BESYLATE 5 MG TABLET PO SCH (08:30)
[2018-08-06] MEDS: QUEtiapine FUMARATE 200 MG TABLET PO SCH ×2 (08:30→16:08)
[2018-08-06 10:50] VITALS: BP 139/99
[2018-08-06] MEDS: ZIPRASIDONE HCL 60 MG CAPSULE PO SCH (16:31)
[2018-08-07] MEDS: LORazepam 1 MG TABLET PO SCH ×2 (08:27→16:40)
[2018-08-07] MEDS: QUEtiapine FUMARATE 200 MG TABLET PO SCH ×2 (08:27→16:40)
[2018-08-07] MEDS: OLANZapine 10 MG RAPDIS TABLET PO SCH ×3 (08:28→16:40)
[2018-08-07] MEDS: AmLODIPine BESYLATE 5 MG TABLET PO SCH (08:28)
[2018-08-07] MEDS: LORazepam 2 MG TABLET PO PRN ×2 (09:25→23:53)
[2018-08-07 10:40] VITALS: BP 129/99
[2018-08-07] MEDS: ZIPRASIDONE HCL 60 MG CAPSULE PO SCH (16:40)
[2018-08-07 16:51] VITALS: BP 153/90
[2018-08-07] MEDS: ZOLPIDEM TARTRATE 10 MG TABLET PO PRN (23:53)
[2018-08-08] MEDS: LORazepam 1 MG TABLET PO SCH ×2 (08:32→16:17)
[2018-08-08] MEDS: QUEtiapine FUMARATE 200 MG TABLET PO SCH ×2 (08:32→16:17)
[2018-08-08] MEDS: OLANZapine 10 MG RAPDIS TABLET PO SCH ×3 (08:32→16:17)
[2018-08-08] MEDS: AmLODIPine BESYLATE 5 MG TABLET PO SCH (08:32)
[2018-08-08 10:17] VITALS: BP 147/100
[2018-08-08] MEDS: ZIPRASIDONE HCL 60 MG CAPSULE PO SCH (16:17)
[2018-08-09] MEDS: QUEtiapine FUMARATE 200 MG TABLET PO SCH ×2 (07:54→17:18)
[2018-08-09] MEDS: LORazepam 1 MG TABLET PO SCH ×2 (07:54→17:18)
[2018-08-09] MEDS: OLANZapine 10 MG RAPDIS TABLET PO SCH ×3 (07:55→17:18)
[2018-08-09] MEDS: AmLODIPine BESYLATE 5 MG TABLET PO SCH (07:56)
[2018-08-09 08:41] VITALS: BP 160/79
[2018-08-09] MEDS: ZIPRASIDONE HCL 60 MG CAPSULE PO SCH (17:18)
[2018-08-10] MEDS: LORazepam 1 MG TABLET PO SCH ×2 (08:09→16:18)
[2018-08-10] MEDS: AmLODIPine BESYLATE 5 MG TABLET PO SCH (08:09)
[2018-08-10] MEDS: QUEtiapine FUMARATE 200 MG TABLET PO SCH ×2 (08:10→16:18)
[2018-08-10] MEDS: OLANZapine 10 MG RAPDIS TABLET PO SCH ×3 (08:10→16:19)
[2018-08-10 09:26] VITALS: BP 141/87
[2018-08-10] MEDS: ZIPRASIDONE HCL 60 MG CAPSULE PO SCH (16:19)
[2018-08-11] MEDS: QUEtiapine FUMARATE 200 MG TABLET PO SCH ×2 (08:35→16:43)
[2018-08-11] MEDS: OLANZapine 10 MG RAPDIS TABLET PO SCH ×3 (08:35→16:43)
[2018-08-11] MEDS: LORazepam 1 MG TABLET PO SCH ×2 (08:35→16:43)
[2018-08-11] MEDS: AmLODIPine BESYLATE 5 MG TABLET PO SCH (08:36)
[2018-08-11 09:13] VITALS: BP 143/65
[2018-08-11] MEDS: ZIPRASIDONE HCL 60 MG CAPSULE PO SCH (16:43)
[2018-08-12] MEDS: LORazepam 2 MG TABLET PO PRN ×2 (00:29→23:41)
[2018-08-12] MEDS: ZOLPIDEM TARTRATE 10 MG TABLET PO PRN ×2 (00:29→23:41)
[2018-08-12] MEDS: LORazepam 1 MG TABLET PO SCH ×2 (08:14→16:03)
[2018-08-12] MEDS: QUEtiapine FUMARATE 200 MG TABLET PO SCH ×2 (08:14→16:03)
[2018-08-12] MEDS: AmLODIPine BESYLATE 5 MG TABLET PO SCH (08:15)
[2018-08-12] MEDS: OLANZapine 10 MG RAPDIS TABLET PO SCH ×3 (08:15→16:03)
[2018-08-12 08:27] VITALS: BP 130/68
[2018-08-12] MEDS: ZIPRASIDONE HCL 60 MG CAPSULE PO SCH (16:33)
[2018-08-13] VITALS: BP 136/84
[2018-08-13] MEDS: OLANZapine 10 MG RAPDIS TABLET PO SCH ×3 (07:56→19:25)
[2018-08-13] MEDS: QUEtiapine FUMARATE 200 MG TABLET PO SCH ×2 (07:56→19:25)
[2018-08-13] MEDS: LORazepam 1 MG TABLET PO SCH ×2 (07:56→19:25)
[2018-08-13 08:00] VITALS: BP 159/96
[2018-08-13] MEDS: AmLODIPine BESYLATE 5 MG TABLET PO SCH (09:00)
[2018-08-13] MEDS: NICOTINE 14 MG/24 HOUR PATCH TD PRN (14:29)
[2018-08-13] MEDS: ZIPRASIDONE HCL 60 MG CAPSULE PO SCH (19:25)
[2018-08-13] MEDS: ZOLPIDEM TARTRATE 10 MG TABLET PO PRN (20:52)
[2018-08-13] MEDS: LORazepam 2 MG TABLET PO PRN (20:52)
[2018-08-13] MEDS: DOCUSATE SODIUM 100 MG CAPSULE PO PRN (21:29)
[2018-08-14] MEDS: QUEtiapine FUMARATE 200 MG TABLET PO SCH ×2 (07:38→19:24)
[2018-08-14] MEDS: AmLODIPine BESYLATE 5 MG TABLET PO SCH (07:39)
[2018-08-14] MEDS: LORazepam 1 MG TABLET PO SCH ×2 (07:39→19:23)
[2018-08-14] MEDS: OLANZapine 10 MG RAPDIS TABLET PO SCH ×3 (07:39→19:23)
[2018-08-14 08:33] VITALS: BP 154/100
[2018-08-14] MEDS: ZIPRASIDONE HCL 60 MG CAPSULE PO SCH (19:23)
[2018-08-14] MEDS: NICOTINE 14 MG/24 HOUR PATCH TD PRN (19:27)
[2018-08-15] MEDS: LORazepam 2 MG TABLET PO PRN ×2 (05:28→05:32)
[2018-08-15] MEDS: QUEtiapine FUMARATE 200 MG TABLET PO SCH ×2 (09:26→16:56)
[2018-08-15] MEDS: OLANZapine 10 MG RAPDIS TABLET PO SCH ×3 (09:26→16:56)
[2018-08-15] MEDS: LORazepam 1 MG TABLET PO SCH ×2 (09:26→16:56)
[2018-08-15] MEDS: AmLODIPine BESYLATE 5 MG TABLET PO SCH (09:26)
[2018-08-15] MEDS ORDERED: LORazepam 2 MG/ML VIAL IM ONE (14:15)
[2018-08-15] MEDS ORDERED: DiphenhydrAMINE HCL 50 MG/ML VIAL IM ONE (14:15)
[2018-08-15] MEDS ORDERED: FluPHENAZine HCL 2.5 MG/ML INJ IM ONE (14:15)
[2018-08-15] MEDS: MAGNESIUM HYDROXIDE SUSPENSION 30 ML UDCUP PO PRN (16:31)
[2018-08-15] MEDS: ZIPRASIDONE HCL 60 MG CAPSULE PO SCH (17:20)
[2018-08-15] MEDS: ZOLPIDEM TARTRATE 10 MG TABLET PO PRN (20:16)
[2018-08-16] MEDS: AmLODIPine BESYLATE 5 MG TABLET PO SCH (09:00)
[2018-08-16] MEDS: QUEtiapine FUMARATE 200 MG TABLET PO SCH ×2 (09:48→18:11)
[2018-08-16] MEDS: OLANZapine 10 MG RAPDIS TABLET PO SCH ×3 (09:48→18:11)
[2018-08-16] MEDS: LORazepam 1 MG TABLET PO SCH ×2 (09:48→18:11)
[2018-08-16] MEDS: ZIPRASIDONE HCL 60 MG CAPSULE PO SCH (18:11)
[2018-08-17] MEDS: LORazepam 2 MG TABLET PO PRN (07:06)
[2018-08-17] MEDS: LORazepam 1 MG TABLET PO SCH ×2 (08:51→16:19)
[2018-08-17] MEDS: OLANZapine 10 MG RAPDIS TABLET PO SCH ×3 (08:51→16:18)
[2018-08-17] MEDS: AmLODIPine BESYLATE 5 MG TABLET PO SCH ×2 (08:51→09:12)
[2018-08-17] MEDS: QUEtiapine FUMARATE 200 MG TABLET PO SCH ×2 (08:51→16:18)
[2018-08-17] MEDS: ZIPRASIDONE HCL 60 MG CAPSULE PO SCH (16:19)
[2018-08-18] MEDS: QUEtiapine FUMARATE 200 MG TABLET PO SCH ×2 (10:31→16:14)
[2018-08-18] MEDS: OLANZapine 10 MG RAPDIS TABLET PO SCH ×3 (10:31→16:15)
[2018-08-18] MEDS: LORazepam 1 MG TABLET PO SCH ×2 (10:31→16:14)
[2018-08-18] MEDS: ZIPRASIDONE HCL 60 MG CAPSULE PO SCH (16:14)
[2018-08-19] MEDS ORDERED: LORazepam 2 MG/ML VIAL IM ONE (03:30)
[2018-08-19] MEDS ORDERED: DiphenhydrAMINE HCL 50 MG/ML VIAL IM ONE (03:30)
[2018-08-19] MEDS ORDERED: FluPHENAZine HCL 2.5 MG/ML INJ IM ONE (03:30)
[2018-08-19 08:00] VITALS: BP 145/95
[2018-08-19] MEDS: LORazepam 1 MG TABLET PO SCH ×2 (09:07→16:33)
[2018-08-19] MEDS: OLANZapine 10 MG RAPDIS TABLET PO SCH ×3 (09:07→16:33)
[2018-08-19] MEDS: AmLODIPine BESYLATE 5 MG TABLET PO SCH (09:07)
[2018-08-19] MEDS: QUEtiapine FUMARATE 200 MG TABLET PO SCH ×2 (09:07→16:33)
[2018-08-19] MEDS: ZIPRASIDONE HCL 60 MG CAPSULE PO SCH (16:36)
[2018-08-19] MEDS: NICOTINE 14 MG/24 HOUR PATCH TD PRN (18:03)
[2018-08-20] MEDS: AmLODIPine BESYLATE 5 MG TABLET PO SCH (10:17)
[2018-08-20] MEDS: LORazepam 1 MG TABLET PO SCH ×2 (10:17→16:57)
[2018-08-20] MEDS: QUEtiapine FUMARATE 200 MG TABLET PO SCH ×2 (10:18→16:57)
[2018-08-20] MEDS: OLANZapine 10 MG RAPDIS TABLET PO SCH ×3 (10:18→16:57)
[2018-08-20] MEDS: ZIPRASIDONE HCL 60 MG CAPSULE PO SCH (16:57)
[2018-08-21 08:00] VITALS: BP 167/91
[2018-08-21] MEDS: QUEtiapine FUMARATE 200 MG TABLET PO SCH ×2 (08:50→18:01)
[2018-08-21] MEDS: AmLODIPine BESYLATE 5 MG TABLET PO SCH (08:50)
[2018-08-21] MEDS: OLANZapine 10 MG RAPDIS TABLET PO SCH ×3 (08:50→18:01)
[2018-08-21] MEDS: LORazepam 1 MG TABLET PO SCH ×2 (08:51→18:01)
[2018-08-21] MEDS: NICOTINE 14 MG/24 HOUR PATCH TD PRN (09:06)
[2018-08-21] MEDS: ZIPRASIDONE HCL 60 MG CAPSULE PO SCH (18:01)
[2018-08-22] MEDS: LORazepam 1 MG TABLET PO SCH ×2 (08:43→18:00)
[2018-08-22] MEDS: QUEtiapine FUMARATE 200 MG TABLET PO SCH ×2 (08:43→18:00)
[2018-08-22] MEDS: OLANZapine 10 MG RAPDIS TABLET PO SCH ×3 (08:43→18:00)
[2018-08-22] MEDS: AmLODIPine BESYLATE 5 MG TABLET PO SCH (08:47)
[2018-08-22] MEDS: ZIPRASIDONE HCL 60 MG CAPSULE PO SCH (18:00)
[2018-08-23] MEDS: AmLODIPine BESYLATE 5 MG TABLET PO SCH (09:00)
[2018-08-23] MEDS: QUEtiapine FUMARATE 200 MG TABLET PO SCH ×2 (10:55→16:50)
[2018-08-23] MEDS: OLANZapine 10 MG RAPDIS TABLET PO SCH ×3 (10:55→16:50)
[2018-08-23] MEDS: LORazepam 1 MG TABLET PO SCH ×2 (10:56→16:50)
[2018-08-23] MEDS: ZIPRASIDONE HCL 60 MG CAPSULE PO SCH (16:50)
[2018-08-24] MEDS: AmLODIPine BESYLATE 5 MG TABLET PO SCH (09:00)
[2018-08-24] MEDS: OLANZapine 10 MG RAPDIS TABLET PO SCH ×3 (09:02→16:51)
[2018-08-24] MEDS: QUEtiapine FUMARATE 200 MG TABLET PO SCH ×2 (09:02→16:51)
[2018-08-24] MEDS: LORazepam 1 MG TABLET PO SCH ×2 (09:03→16:51)
[2018-08-24] MEDS: ZIPRASIDONE HCL 60 MG CAPSULE PO SCH (16:51)
[2018-08-24 16:55] VITALS: BP 142/81
[2018-08-25] MEDS: QUEtiapine FUMARATE 200 MG TABLET PO SCH ×2 (08:35→16:27)
[2018-08-25] MEDS: OLANZapine 10 MG RAPDIS TABLET PO SCH ×3 (08:36→16:27)
[2018-08-25] MEDS: LORazepam 1 MG TABLET PO SCH ×2 (08:36→16:27)
[2018-08-25] MEDS: AmLODIPine BESYLATE 5 MG TABLET PO SCH (08:36)
[2018-08-25] MEDS: ZIPRASIDONE HCL 60 MG CAPSULE PO SCH (16:27)
[2018-08-26 08:00] VITALS: BP 145/94
[2018-08-26] MEDS: LORazepam 1 MG TABLET PO SCH ×2 (08:02→16:33)
[2018-08-26] MEDS: QUEtiapine FUMARATE 200 MG TABLET PO SCH ×2 (08:02→16:33)
[2018-08-26] MEDS: OLANZapine 10 MG RAPDIS TABLET PO SCH ×3 (08:02→16:33)
[2018-08-26] MEDS: AmLODIPine BESYLATE 5 MG TABLET PO SCH (09:00)
[2018-08-26] MEDS: LORazepam 2 MG TABLET PO PRN (12:40)
[2018-08-26] MEDS: ZIPRASIDONE HCL 60 MG CAPSULE PO SCH (16:33)
[2018-08-26 16:45] VITALS: BP 119/81
[2018-08-27] MEDS: LORazepam 1 MG TABLET PO SCH ×2 (08:53→16:08)
[2018-08-27] MEDS: QUEtiapine FUMARATE 200 MG TABLET PO SCH ×2 (08:53→16:08)
[2018-08-27] MEDS: OLANZapine 10 MG RAPDIS TABLET PO SCH ×3 (08:53→16:08)
[2018-08-27] MEDS: AmLODIPine BESYLATE 5 MG TABLET PO SCH (09:00)
[2018-08-27 09:39] VITALS: BP 145/74
[2018-08-27] MEDS: IBUPROFEN 400 MG TABLET PO PRN (09:43)
[2018-08-27] MEDS: ZIPRASIDONE HCL 60 MG CAPSULE PO SCH (16:08)
[2018-08-28 08:57] VITALS: BP 143/89
[2018-08-28] MEDS: OLANZapine 10 MG RAPDIS TABLET PO SCH ×3 (09:00→16:02)
[2018-08-28] MEDS: AmLODIPine BESYLATE 5 MG TABLET PO SCH (09:00)
[2018-08-28] MEDS: LORazepam 1 MG TABLET PO SCH ×2 (09:00→16:02)
[2018-08-28] MEDS: QUEtiapine FUMARATE 200 MG TABLET PO SCH ×2 (09:01→16:02)
[2018-08-28] MEDS: ZIPRASIDONE HCL 60 MG CAPSULE PO SCH (16:02)
[2018-08-29 08:00] VITALS: BP 147/90
[2018-08-29] MEDS: LORazepam 1 MG TABLET PO SCH ×2 (08:11→16:38)
[2018-08-29] MEDS: OLANZapine 10 MG RAPDIS TABLET PO SCH ×3 (08:11→16:38)
[2018-08-29] MEDS: QUEtiapine FUMARATE 200 MG TABLET PO SCH ×2 (08:11→16:38)
[2018-08-29] MEDS: AmLODIPine BESYLATE 5 MG TABLET PO SCH (09:00)
[2018-08-29] MEDS: ZIPRASIDONE HCL 60 MG CAPSULE PO SCH (16:38)
[2018-08-29 16:48] VITALS: BP 148/96
[2018-08-30 08:50] VITALS: BP 159/97
[2018-08-30] MEDS: OLANZapine 10 MG RAPDIS TABLET PO SCH ×3 (08:51→16:18)
[2018-08-30] MEDS: QUEtiapine FUMARATE 200 MG TABLET PO SCH ×2 (08:51→16:19)
[2018-08-30] MEDS: LORazepam 1 MG TABLET PO SCH ×2 (08:52→16:18)
[2018-08-30] MEDS: AmLODIPine BESYLATE 5 MG TABLET PO SCH (09:00)
[2018-08-30] MEDS: ZIPRASIDONE HCL 60 MG CAPSULE PO SCH (16:18)
[2018-08-30 18:00] VITALS: BP 121/80
[2018-08-30 19:50] VITALS: BP 132/82
[2018-08-30] MEDS: ZOLPIDEM TARTRATE 10 MG TABLET PO PRN (21:50)
[2018-08-30] MEDS: LORazepam 2 MG TABLET PO PRN (21:50)
[2018-08-31] MEDS: AmLODIPine BESYLATE 5 MG TABLET PO SCH (08:11)
[2018-08-31] MEDS: OLANZapine 10 MG RAPDIS TABLET PO SCH ×3 (08:11→17:12)
[2018-08-31] MEDS: LORazepam 1 MG TABLET PO SCH ×2 (08:11→17:12)
[2018-08-31] MEDS: QUEtiapine FUMARATE 200 MG TABLET PO SCH ×2 (08:11→17:12)
[2018-08-31 09:09] VITALS: BP 121/66
[2018-08-31] MEDS: ZIPRASIDONE HCL 60 MG CAPSULE PO SCH (17:12)
[2018-08-31 17:49] VITALS: BP 132/76
[2018-08-31] MEDS: ZOLPIDEM TARTRATE 10 MG TABLET PO PRN (23:57)
[2018-08-31] MEDS: LORazepam 2 MG TABLET PO PRN (23:57)
[2018-09-01 05:38] VITALS: BP 139/85
[2018-09-01] MEDS: LORazepam 2 MG TABLET PO PRN (05:38)
[2018-09-01] MEDS: AmLODIPine BESYLATE 5 MG TABLET PO SCH (08:19)
[2018-09-01] MEDS: OLANZapine 10 MG RAPDIS TABLET PO SCH ×3 (08:21→17:33)
[2018-09-01] MEDS: LORazepam 1 MG TABLET PO SCH ×2 (08:21→17:33)
[2018-09-01] MEDS: QUEtiapine FUMARATE 200 MG TABLET PO SCH ×2 (08:21→17:33)
[2018-09-01 08:26] VITALS: BP 136/88
[2018-09-01] MEDS: ZIPRASIDONE HCL 60 MG CAPSULE PO SCH (17:33)
[2018-09-01 18:12] VITALS: BP 107/73
[2018-09-02] MEDS: LORazepam 2 MG TABLET PO PRN ×3 (02:07→20:50)
[2018-09-02] MEDS: ZOLPIDEM TARTRATE 10 MG TABLET PO PRN ×2 (02:07→20:50)
[2018-09-02 02:15] VITALS: BP 111/77
[2018-09-02] MEDS: QUEtiapine FUMARATE 200 MG TABLET PO SCH ×2 (08:54→16:54)
[2018-09-02 08:56] VITALS: BP 143/75
[2018-09-02] MEDS: NICOTINE 14 MG/24 HOUR PATCH TD PRN (09:22)
[2018-09-02] MEDS: LORazepam 1 MG TABLET PO SCH ×2 (09:24→16:54)
[2018-09-02] MEDS: AmLODIPine BESYLATE 5 MG TABLET PO SCH (09:24)
[2018-09-02] MEDS: OLANZapine 10 MG RAPDIS TABLET PO SCH ×3 (09:25→16:54)
[2018-09-02 16:00] VITALS: BP 134/83
[2018-09-02] MEDS: ZIPRASIDONE HCL 60 MG CAPSULE PO SCH (16:54)
[2018-09-03 00:15] VITALS: BP 143/96
[2018-09-03] MEDS: LORazepam 2 MG TABLET PO PRN (00:35)
[2018-09-03] MEDS: QUEtiapine FUMARATE 200 MG TABLET PO SCH ×2 (09:00→16:47)
[2018-09-03] MEDS: LORazepam 1 MG TABLET PO SCH ×2 (09:01→16:47)
[2018-09-03] MEDS: AmLODIPine BESYLATE 5 MG TABLET PO SCH (09:01)
[2018-09-03] MEDS: OLANZapine 10 MG RAPDIS TABLET PO SCH ×3 (09:01→16:47)
[2018-09-03] MEDS: ZIPRASIDONE HCL 60 MG CAPSULE PO SCH (16:47)
[2018-09-04] MEDS: QUEtiapine FUMARATE 200 MG TABLET PO SCH ×2 (08:15→16:55)
[2018-09-04] MEDS: LORazepam 1 MG TABLET PO SCH ×2 (08:16→16:55)
[2018-09-04] MEDS: OLANZapine 10 MG RAPDIS TABLET PO SCH ×3 (08:16→16:55)
[2018-09-04] MEDS: AmLODIPine BESYLATE 5 MG TABLET PO SCH (08:20)
[2018-09-04 08:26] VITALS: BP 102/64
[2018-09-04 16:03] VITALS: BP 123/69
[2018-09-04] MEDS: ZIPRASIDONE HCL 60 MG CAPSULE PO SCH (16:55)
[2018-09-04] MEDS: ZOLPIDEM TARTRATE 10 MG TABLET PO PRN (20:45)
[2018-09-04] MEDS: LORazepam 2 MG TABLET PO PRN (20:45)
[2018-09-05 06:53] VITALS: BP 132/74
[2018-09-05] MEDS: QUEtiapine FUMARATE 200 MG TABLET PO SCH ×2 (08:13→16:46)
[2018-09-05] MEDS: OLANZapine 10 MG RAPDIS TABLET PO SCH ×3 (08:13→16:46)
[2018-09-05] MEDS: LORazepam 1 MG TABLET PO SCH ×2 (08:13→16:46)
[2018-09-05] MEDS: AmLODIPine BESYLATE 5 MG TABLET PO SCH (08:19)
[2018-09-05 09:04] VITALS: BP 151/94
[2018-09-05] MEDS: ZIPRASIDONE HCL 60 MG CAPSULE PO SCH (16:46)
[2018-09-05] MEDS: MAGNESIUM SULFATE 454 GM BOX TP SCH (16:46)
[2018-09-05] MEDS: ZOLPIDEM TARTRATE 10 MG TABLET PO PRN (21:42)
[2018-09-05] MEDS: LORazepam 2 MG TABLET PO PRN (21:42)
[2018-09-06] MEDS: LORazepam 1 MG TABLET PO SCH ×2 (08:00→16:31)
[2018-09-06] MEDS: AmLODIPine BESYLATE 5 MG TABLET PO SCH (08:00)
[2018-09-06] MEDS: QUEtiapine FUMARATE 200 MG TABLET PO SCH ×2 (08:00→16:30)
[2018-09-06] MEDS: OLANZapine 10 MG RAPDIS TABLET PO SCH ×3 (08:00→16:30)
[2018-09-06] MEDS: MAGNESIUM SULFATE 454 GM BOX TP SCH (08:00)
[2018-09-06 15:54] VITALS: BP 135/87
[2018-09-06] MEDS: ZIPRASIDONE HCL 60 MG CAPSULE PO SCH (16:30)
[2018-09-06 16:31] VITALS: BP 135/87
[2018-09-06] MEDS: MAG HYDROX/AL HYDROX/SIMETH ES 30 ML SUSPENSION UDCUP PO PRN (17:41)
[2018-09-06] MEDS: ZOLPIDEM TARTRATE 10 MG TABLET PO PRN (20:28)
[2018-09-06] MEDS: LORazepam 2 MG TABLET PO PRN (20:28)
[2018-09-07] MEDS: OLANZapine 10 MG RAPDIS TABLET PO SCH ×3 (08:13→17:08)
[2018-09-07] MEDS: QUEtiapine FUMARATE 200 MG TABLET PO SCH ×2 (08:13→17:07)
[2018-09-07] MEDS: LORazepam 1 MG TABLET PO SCH ×2 (08:13→17:07)
[2018-09-07] MEDS: AmLODIPine BESYLATE 5 MG TABLET PO SCH (09:00)
[2018-09-07 09:32] VITALS: BP 139/70
[2018-09-07] MEDS: MAGNESIUM SULFATE 454 GM BOX TP SCH (09:45)
[2018-09-07] MEDS: ZIPRASIDONE HCL 60 MG CAPSULE PO SCH (17:07)
[2018-09-07] MEDS: ZOLPIDEM TARTRATE 10 MG TABLET PO PRN (21:03)
[2018-09-07] MEDS: LORazepam 2 MG TABLET PO PRN (21:03)
[2018-09-08] MEDS: OLANZapine 10 MG RAPDIS TABLET PO SCH ×3 (08:23→16:57)
[2018-09-08] MEDS: QUEtiapine FUMARATE 200 MG TABLET PO SCH ×2 (08:26→16:56)
[2018-09-08] MEDS: LORazepam 1 MG TABLET PO SCH ×2 (08:27→16:57)
[2018-09-08] MEDS: AmLODIPine BESYLATE 5 MG TABLET PO SCH (09:00)
[2018-09-08] MEDS: MAGNESIUM SULFATE 454 GM BOX TP SCH (09:00)
[2018-09-08] MEDS: ZIPRASIDONE HCL 60 MG CAPSULE PO SCH (16:57)
[2018-09-08 18:13] VITALS: BP 132/73
[2018-09-08] MEDS: ZOLPIDEM TARTRATE 10 MG TABLET PO PRN (20:44)
[2018-09-08] MEDS: LORazepam 2 MG TABLET PO PRN (20:44)
[2018-09-09 08:27] VITALS: BP 129/77
[2018-09-09] MEDS: QUEtiapine FUMARATE 200 MG TABLET PO SCH ×2 (08:52→17:04)
[2018-09-09] MEDS: LORazepam 1 MG TABLET PO SCH ×2 (08:52→17:04)
[2018-09-09] MEDS: OLANZapine 10 MG RAPDIS TABLET PO SCH ×3 (08:52→17:04)
[2018-09-09] MEDS: AmLODIPine BESYLATE 5 MG TABLET PO SCH (08:53)
[2018-09-09] MEDS: MAGNESIUM SULFATE 454 GM BOX TP SCH (11:17)
[2018-09-09 16:00] VITALS: BP 138/73
[2018-09-09] MEDS: ZIPRASIDONE HCL 60 MG CAPSULE PO SCH (17:04)
[2018-09-09] MEDS: ZOLPIDEM TARTRATE 10 MG TABLET PO PRN (20:11)
[2018-09-09] MEDS: LORazepam 2 MG TABLET PO PRN (20:11)
[2018-09-10] MEDS: MAGNESIUM SULFATE 454 GM BOX TP SCH (08:18)
[2018-09-10] MEDS: LORazepam 1 MG TABLET PO SCH ×2 (08:18→16:50)
[2018-09-10] MEDS: QUEtiapine FUMARATE 200 MG TABLET PO SCH ×2 (08:18→16:50)
[2018-09-10] MEDS: OLANZapine 10 MG RAPDIS TABLET PO SCH ×3 (08:18→16:50)
[2018-09-10] MEDS: AmLODIPine BESYLATE 5 MG TABLET PO SCH (08:19)
[2018-09-10 11:35] VITALS: BP 138/77
[2018-09-10] MEDS: ZIPRASIDONE HCL 60 MG CAPSULE PO SCH (16:50)
[2018-09-10 20:30] VITALS: BP 133/72
[2018-09-10] MEDS: ZOLPIDEM TARTRATE 10 MG TABLET PO PRN (20:34)
[2018-09-10] MEDS: LORazepam 2 MG TABLET PO PRN (20:34)
[2018-09-11] MEDS: QUEtiapine FUMARATE 200 MG TABLET PO SCH ×2 (08:22→16:32)
[2018-09-11] MEDS: LORazepam 1 MG TABLET PO SCH ×2 (08:22→16:33)
[2018-09-11] MEDS: OLANZapine 10 MG RAPDIS TABLET PO SCH ×3 (08:22→16:33)
[2018-09-11] MEDS: AmLODIPine BESYLATE 5 MG TABLET PO SCH (08:22)
[2018-09-11] MEDS: MAGNESIUM SULFATE 454 GM BOX TP SCH (08:23)
[2018-09-11] MEDS: ZIPRASIDONE HCL 60 MG CAPSULE PO SCH (16:32)
[2018-09-11 16:46] VITALS: BP 132/96
[2018-09-11] MEDS: LORazepam 2 MG TABLET PO PRN (20:08)
[2018-09-11] MEDS: ZOLPIDEM TARTRATE 10 MG TABLET PO PRN (20:08)
[2018-09-12] MEDS: LORazepam 2 MG TABLET PO PRN ×2 (01:58→20:29)
[2018-09-12 02:13] VITALS: BP 114/79
[2018-09-12] MEDS: OLANZapine 10 MG RAPDIS TABLET PO SCH ×3 (08:17→17:03)
[2018-09-12] MEDS: QUEtiapine FUMARATE 200 MG TABLET PO SCH ×2 (08:17→17:03)
[2018-09-12] MEDS: LORazepam 1 MG TABLET PO SCH ×2 (08:17→17:03)
[2018-09-12] MEDS: AmLODIPine BESYLATE 5 MG TABLET PO SCH (08:21)
[2018-09-12] MEDS: MAGNESIUM SULFATE 454 GM BOX TP SCH (08:22)
[2018-09-12 16:40] VITALS: BP 117/85
[2018-09-12] MEDS: ZIPRASIDONE HCL 60 MG CAPSULE PO SCH (17:03)
[2018-09-12] MEDS: ZOLPIDEM TARTRATE 10 MG TABLET PO PRN (20:29)
[2018-09-13] MEDS: LORazepam 2 MG TABLET PO PRN ×2 (03:26→20:44)
[2018-09-13 03:30] VITALS: BP 147/79
[2018-09-13 03:45] VITALS: BP 141/75
[2018-09-13 08:08] VITALS: BP 108/75
[2018-09-13] MEDS: QUEtiapine FUMARATE 200 MG TABLET PO SCH ×2 (08:11→17:07)
[2018-09-13] MEDS: OLANZapine 10 MG RAPDIS TABLET PO SCH ×3 (08:11→17:07)
[2018-09-13] MEDS: AmLODIPine BESYLATE 5 MG TABLET PO SCH ×2 (08:12→08:16)
[2018-09-13] MEDS: MAGNESIUM SULFATE 454 GM BOX TP SCH (08:12)
[2018-09-13] MEDS: LORazepam 1 MG TABLET PO SCH ×2 (08:12→17:07)
[2018-09-13] MEDS: ZIPRASIDONE HCL 60 MG CAPSULE PO SCH (17:07)
[2018-09-13] MEDS: ZOLPIDEM TARTRATE 10 MG TABLET PO PRN (20:44)
[2018-09-14] MEDS: OLANZapine 10 MG RAPDIS TABLET PO SCH ×3 (08:00→16:29)
[2018-09-14] MEDS: QUEtiapine FUMARATE 200 MG TABLET PO SCH ×2 (08:00→16:29)
[2018-09-14] MEDS: LORazepam 1 MG TABLET PO SCH ×2 (08:01→16:29)
[2018-09-14] MEDS: AmLODIPine BESYLATE 5 MG TABLET PO SCH (09:00)
[2018-09-14] MEDS: MAGNESIUM SULFATE 454 GM BOX TP SCH (09:11)
[2018-09-14] MEDS: ZIPRASIDONE HCL 60 MG CAPSULE PO SCH (16:29)
[2018-09-14] MEDS: LORazepam 2 MG TABLET PO PRN (20:49)
[2018-09-14] MEDS: ZOLPIDEM TARTRATE 10 MG TABLET PO PRN (20:49)
[2018-09-15] MEDS: LORazepam 1 MG TABLET PO SCH ×2 (08:50→17:17)
[2018-09-15] MEDS: OLANZapine 10 MG RAPDIS TABLET PO SCH ×3 (08:50→17:17)
[2018-09-15] MEDS: QUEtiapine FUMARATE 200 MG TABLET PO SCH ×2 (08:50→17:17)
[2018-09-15] MEDS: AmLODIPine BESYLATE 5 MG TABLET PO SCH (08:50)
[2018-09-15] MEDS: MAGNESIUM SULFATE 454 GM BOX TP SCH (08:53)
[2018-09-15] MEDS: ZIPRASIDONE HCL 60 MG CAPSULE PO SCH (17:17)
[2018-09-15] MEDS: MAG HYDROX/AL HYDROX/SIMETH ES 30 ML SUSPENSION UDCUP PO PRN (17:53)
[2018-09-16 00:31] VITALS: BP 145/94
[2018-09-16] MEDS: LORazepam 2 MG TABLET PO PRN ×2 (00:37→21:43)
[2018-09-16] MEDS: ZOLPIDEM TARTRATE 10 MG TABLET PO PRN ×2 (00:37→21:43)
[2018-09-16] MEDS: OLANZapine 10 MG RAPDIS TABLET PO SCH ×3 (08:15→17:28)
[2018-09-16] MEDS: LORazepam 1 MG TABLET PO SCH ×2 (08:16→17:28)
[2018-09-16] MEDS: QUEtiapine FUMARATE 200 MG TABLET PO SCH ×2 (08:16→17:28)
[2018-09-16] MEDS: AmLODIPine BESYLATE 5 MG TABLET PO SCH (08:18)
[2018-09-16] MEDS: MAGNESIUM SULFATE 454 GM BOX TP SCH (08:18)
[2018-09-16] MEDS: ZIPRASIDONE HCL 60 MG CAPSULE PO SCH (17:28)
[2018-09-17 02:44] VITALS: BP 115/73
[2018-09-17] MEDS: OLANZapine 10 MG RAPDIS TABLET PO SCH ×3 (08:38→17:01)
[2018-09-17] MEDS: LORazepam 1 MG TABLET PO SCH ×2 (08:38→17:01)
[2018-09-17] MEDS: QUEtiapine FUMARATE 200 MG TABLET PO SCH ×2 (08:38→17:00)
[2018-09-17] MEDS: AmLODIPine BESYLATE 5 MG TABLET PO SCH (08:43)
[2018-09-17] MEDS: MAGNESIUM SULFATE 454 GM BOX TP SCH (09:00)
[2018-09-17 11:33] VITALS: BP 153/89
[2018-09-17] MEDS: ZIPRASIDONE HCL 60 MG CAPSULE PO SCH (17:01)
[2018-09-18] MEDS: LORazepam 2 MG TABLET PO PRN ×2 (07:26→21:16)
[2018-09-18] MEDS: LORazepam 1 MG TABLET PO SCH ×2 (08:56→17:04)
[2018-09-18] MEDS: QUEtiapine FUMARATE 200 MG TABLET PO SCH ×2 (08:57→17:04)
[2018-09-18] MEDS: OLANZapine 10 MG RAPDIS TABLET PO SCH ×3 (08:57→17:04)
[2018-09-18] MEDS: AmLODIPine BESYLATE 5 MG TABLET PO SCH (09:00)
[2018-09-18] MEDS: MAGNESIUM SULFATE 454 GM BOX TP SCH (09:21)
[2018-09-18 16:33] VITALS: BP 113/64
[2018-09-18] MEDS: ZIPRASIDONE HCL 60 MG CAPSULE PO SCH (17:04)
[2018-09-18] MEDS: ZOLPIDEM TARTRATE 10 MG TABLET PO PRN (21:16)
[2018-09-19] MEDS: OLANZapine 10 MG RAPDIS TABLET PO SCH ×3 (08:52→18:05)
[2018-09-19] MEDS: MAGNESIUM SULFATE 454 GM BOX TP SCH (08:52)
[2018-09-19] MEDS: LORazepam 1 MG TABLET PO SCH ×2 (08:52→18:05)
[2018-09-19] MEDS: QUEtiapine FUMARATE 200 MG TABLET PO SCH ×2 (08:52→18:05)
[2018-09-19] MEDS: AmLODIPine BESYLATE 5 MG TABLET PO SCH (08:52)
[2018-09-19] MEDS: ZIPRASIDONE HCL 60 MG CAPSULE PO SCH (18:05)
[2018-09-20] MEDS: QUEtiapine FUMARATE 200 MG TABLET PO SCH ×2 (07:45→16:16)
[2018-09-20] MEDS: OLANZapine 10 MG RAPDIS TABLET PO SCH ×3 (07:46→16:16)
[2018-09-20] MEDS: LORazepam 2 MG TABLET PO PRN (07:49)
[2018-09-20] MEDS: MAGNESIUM SULFATE 454 GM BOX TP SCH (07:52)
[2018-09-20] MEDS: LORazepam 1 MG TABLET PO SCH ×2 (07:52→16:16)
[2018-09-20] MEDS: AmLODIPine BESYLATE 5 MG TABLET PO SCH (07:52)
[2018-09-20] MEDS: ZIPRASIDONE HCL 60 MG CAPSULE PO SCH (16:16)
[2018-09-20] MEDS: MAG HYDROX/AL HYDROX/SIMETH ES 30 ML SUSPENSION UDCUP PO PRN (18:41)
[2018-09-21] MEDS: AmLODIPine BESYLATE 5 MG TABLET PO SCH (09:00)
[2018-09-21] MEDS: MAGNESIUM SULFATE 454 GM BOX TP SCH (09:00)
[2018-09-21] MEDS: LORazepam 1 MG TABLET PO SCH ×2 (10:33→16:44)
[2018-09-21] MEDS: OLANZapine 10 MG RAPDIS TABLET PO SCH ×3 (10:33→16:44)
[2018-09-21] MEDS: QUEtiapine FUMARATE 200 MG TABLET PO SCH ×2 (10:33→16:44)
[2018-09-21] MEDS: ZIPRASIDONE HCL 60 MG CAPSULE PO SCH (16:44)
[2018-09-21] MEDS ORDERED: HALOPERIDOL LACTATE 5 MG/ML VIAL IM ONE (17:15)
[2018-09-21] MEDS ORDERED: LORazepam 2 MG/ML VIAL IM ONE (17:15)
[2018-09-22] MEDS: AmLODIPine BESYLATE 5 MG TABLET PO SCH (07:57)
[2018-09-22] MEDS: LORazepam 1 MG TABLET PO SCH ×2 (07:57→16:01)
[2018-09-22] MEDS: LORazepam 2 MG TABLET PO PRN (07:57)
[2018-09-22] MEDS: MAGNESIUM SULFATE 454 GM BOX TP SCH (07:57)
[2018-09-22] MEDS: QUEtiapine FUMARATE 200 MG TABLET PO SCH ×2 (07:57→16:01)
[2018-09-22] MEDS: OLANZapine 10 MG RAPDIS TABLET PO SCH ×3 (07:57→16:01)
[2018-09-22] MEDS: MAG HYDROX/AL HYDROX/SIMETH ES 30 ML SUSPENSION UDCUP PO PRN (08:11)
[2018-09-22] MEDS ORDERED: LORazepam 2 MG/ML VIAL ONE (16:04)
[2018-09-22] MEDS ORDERED: HALOPERIDOL LACTATE 5 MG/ML VIAL ONE (16:05)
[2018-09-22] MEDS ORDERED: DiphenhydrAMINE HCL 50 MG/ML VIAL ONE (16:05)
[2018-09-22] MEDS ORDERED: HALOPERIDOL LACTATE 5 MG/ML VIAL IM ONE (16:15)
[2018-09-22] MEDS ORDERED: LORazepam 2 MG/ML VIAL IM ONE (16:15)
[2018-09-22] MEDS ORDERED: DiphenhydrAMINE HCL 50 MG/ML VIAL IM ONE (16:15)
[2018-09-22] MEDS: ZIPRASIDONE HCL 60 MG CAPSULE PO SCH (16:30)
[2018-09-23] MEDS: ZOLPIDEM TARTRATE 10 MG TABLET PO PRN (01:01)
[2018-09-23] MEDS: LORazepam 2 MG TABLET PO PRN (01:01)
[2018-09-23] MEDS ORDERED: BACITRACIN 0.9 GM PACKET OINTMENT TP ONE (03:18)
[2018-09-23 08:00] VITALS: BP 132/88
[2018-09-23] MEDS: LORazepam 1 MG TABLET PO SCH ×2 (08:31→17:29)
[2018-09-23] MEDS: OLANZapine 10 MG RAPDIS TABLET PO SCH ×3 (08:32→17:29)
[2018-09-23] MEDS: QUEtiapine FUMARATE 200 MG TABLET PO SCH ×2 (08:32→17:29)
[2018-09-23] MEDS: AmLODIPine BESYLATE 5 MG TABLET PO SCH (08:33)
[2018-09-23] MEDS: MAGNESIUM SULFATE 454 GM BOX TP SCH (09:00)
[2018-09-23] MEDS ORDERED: DiphenhydrAMINE HCL 50 MG/ML VIAL IM ONE (14:30)
[2018-09-23] MEDS ORDERED: LORazepam 2 MG/ML VIAL IM ONE (14:30)
[2018-09-23] MEDS: ZIPRASIDONE HCL 60 MG CAPSULE PO SCH (17:29)
[2018-09-24] MEDS: LORazepam 1 MG TABLET PO SCH ×2 (08:14→16:53)
[2018-09-24] MEDS: MAGNESIUM SULFATE 454 GM BOX TP SCH (08:14)
[2018-09-24] MEDS: QUEtiapine FUMARATE 200 MG TABLET PO SCH ×2 (08:14→16:53)
[2018-09-24] MEDS: OLANZapine 10 MG RAPDIS TABLET PO SCH ×3 (08:14→16:53)
[2018-09-24] MEDS: AmLODIPine BESYLATE 5 MG TABLET PO SCH (08:14)
[2018-09-24] MEDS: ZIPRASIDONE HCL 60 MG CAPSULE PO SCH (16:53)
[2018-09-24] MEDS: LORazepam 2 MG TABLET PO PRN (20:17)
[2018-09-24] MEDS: ZOLPIDEM TARTRATE 10 MG TABLET PO PRN (20:17)
[2018-09-25] MEDS: LORazepam 1 MG TABLET PO SCH ×2 (07:49→16:46)
[2018-09-25] MEDS: QUEtiapine FUMARATE 200 MG TABLET PO SCH ×2 (07:49→16:46)
[2018-09-25] MEDS: OLANZapine 10 MG RAPDIS TABLET PO SCH ×3 (07:49→16:46)
[2018-09-25] MEDS: AmLODIPine BESYLATE 5 MG TABLET PO SCH (07:50)
[2018-09-25] MEDS: MAGNESIUM SULFATE 454 GM BOX TP SCH (07:51)
[2018-09-25 08:23] VITALS: BP 127/88
[2018-09-25 16:18] VITALS: BP 131/65
[2018-09-25] MEDS: ZIPRASIDONE HCL 60 MG CAPSULE PO SCH (16:46)
[2018-09-25] MEDS: LORazepam 2 MG TABLET PO PRN (17:46)
[2018-09-25] MEDS: NICOTINE 14 MG/24 HOUR PATCH TD PRN (19:19)
[2018-09-26] MEDS: MAG HYDROX/AL HYDROX/SIMETH ES 30 ML SUSPENSION UDCUP PO PRN (03:07)
[2018-09-26] MEDS: QUEtiapine FUMARATE 200 MG TABLET PO SCH ×2 (07:44→16:14)
[2018-09-26] MEDS: LORazepam 2 MG TABLET PO PRN (07:44)
[2018-09-26] MEDS: OLANZapine 10 MG RAPDIS TABLET PO SCH ×3 (07:44→16:15)
[2018-09-26] MEDS: LORazepam 1 MG TABLET PO SCH ×2 (07:45→16:14)
[2018-09-26] MEDS: AmLODIPine BESYLATE 5 MG TABLET PO SCH (07:45)
[2018-09-26] MEDS: MAGNESIUM SULFATE 454 GM BOX TP SCH (07:45)
[2018-09-26] MEDS: NICOTINE 14 MG/24 HOUR PATCH TD PRN (07:47)
[2018-09-26] MEDS ORDERED: LIDOCAINE 1% 10 ML VIAL INJ ONE (09:30)
[2018-09-26 10:44] VITALS: BP 120/67
[2018-09-26 12:16] LABS: BASOPHILS % (AUTO) 1.1 % (0.0-2.0); EOSINOPHILS % (AUTO) 1.9 % (1.0-6.0); HEMATOCRIT 41.8 % (41-53); HEMOGLOBIN 13.6 g/dL (13.5-17.5); LYMPHOCYTES # (AUTO) 1.9 K/uL (1.0-4.8); LYMPHOCYTES % (AUTO) 21.1 % (22.0-44.0); MEAN CORPUSCULAR HEMOGLOBIN 27.3 pg (26.0-34.0); MEAN CORPUSCULAR HGB CONC 32.5 G/dL (31.0-37.0); MEAN CORPUSCULAR VOLUME 84 fL (80-100); MONOCYTES # (AUTO) 0.7 K/uL (0.1-1.0); MONOCYTES % (AUTO) 7.4 % (2.0-9.0); NEUTROPHILS # (AUTO) 6.1 K/uL (1.8-7.7); NEUTROPHILS % (AUTO) 68.5 % (40.0-70.0); PLATELET COUNT (AUTO) 183 K/uL (150-450); RED BLOOD CELL COUNT(AUTO) 4.99 MIL/uL (4.50-5.90); RED CELL DISTRIBUTION WIDTH 13.1 % (11.5-14.5)
[2018-09-26 12:33] LABS: CALCIUM, TOTAL 9.1 mg/dL (8.8-10.5); CHLORIDE 103 mmol/L (98-107); CREATININE 1.07 mg/dL (0.60-1.30); GLOMERULAR FILTR. RATE CALC > 60 mL/min (>60); GLUCOSE,RANDOM 140 mg/dL (70-110); POTASSIUM 4.2 mmol/L (3.5-5.1); SODIUM SERUM 139 mmol/L (136-145); UREA NITROGEN, BLOOD 10 mg/dL (7-18)
[2018-09-26 12:37] LABS: ANION GAP 12 mmol/L (8-16); CARBON DIOXIDE 24 mmol/L (22-29)
[2018-09-26] MEDS: AMOXICILLIN TRIHYDRATE 500 MG CAPSULE PO SCH (16:15)
[2018-09-26] MEDS: ZIPRASIDONE HCL 60 MG CAPSULE PO SCH (16:15)
[2018-09-27] MEDS ORDERED: NEOMYCIN/BACITRACIN/POLYMYXIN B OINTMENT PACKET TP ONE ×2 (06:15→08:00)
[2018-09-27] MEDS: LORazepam 2 MG TABLET PO PRN (07:38)
[2018-09-27] MEDS: OLANZapine 10 MG RAPDIS TABLET PO SCH ×3 (07:38→16:25)
[2018-09-27] MEDS: MAG HYDROX/AL HYDROX/SIMETH ES 30 ML SUSPENSION UDCUP PO PRN (07:38)
[2018-09-27] MEDS: LORazepam 1 MG TABLET PO SCH ×2 (07:38→16:25)
[2018-09-27] MEDS: AMOXICILLIN TRIHYDRATE 500 MG CAPSULE PO SCH ×2 (07:38→16:25)
[2018-09-27] MEDS: QUEtiapine FUMARATE 200 MG TABLET PO SCH ×2 (07:39→16:25)
[2018-09-27] MEDS: MAGNESIUM SULFATE 454 GM BOX TP SCH (07:39)
[2018-09-27] MEDS: AmLODIPine BESYLATE 5 MG TABLET PO SCH (07:39)
[2018-09-27] MEDS: NICOTINE 14 MG/24 HOUR PATCH TD PRN (14:35)
[2018-09-27] MEDS: ZIPRASIDONE HCL 60 MG CAPSULE PO SCH (16:25)
[2018-09-28] MEDS: AmLODIPine BESYLATE 5 MG TABLET PO SCH (08:32)
[2018-09-28] MEDS: QUEtiapine FUMARATE 200 MG TABLET PO SCH ×2 (08:32→16:03)
[2018-09-28] MEDS: OLANZapine 10 MG RAPDIS TABLET PO SCH ×3 (08:32→16:03)
[2018-09-28] MEDS: LORazepam 1 MG TABLET PO SCH ×2 (08:32→16:02)
[2018-09-28] MEDS: AMOXICILLIN TRIHYDRATE 500 MG CAPSULE PO SCH ×2 (08:33→16:03)
[2018-09-28] MEDS: MAGNESIUM SULFATE 454 GM BOX TP SCH ×2 (08:33→12:57)
[2018-09-28] MEDS: NICOTINE 14 MG/24 HOUR PATCH TD PRN (08:55)
[2018-09-28] MEDS: MAG HYDROX/AL HYDROX/SIMETH ES 30 ML SUSPENSION UDCUP PO PRN (11:09)
[2018-09-28 13:55] VITALS: BP 138/99
[2018-09-28] MEDS: ZIPRASIDONE HCL 60 MG CAPSULE PO SCH (16:02)
[2018-09-29] MEDS: MAGNESIUM SULFATE 454 GM BOX TP SCH (09:00)
[2018-09-29] MEDS: AmLODIPine BESYLATE 5 MG TABLET PO SCH (09:00)
[2018-09-29 09:06] VITALS: BP 119/73
[2018-09-29] MEDS: AMOXICILLIN TRIHYDRATE 500 MG CAPSULE PO SCH ×2 (09:10→16:01)
[2018-09-29] MEDS: OLANZapine 10 MG RAPDIS TABLET PO SCH ×3 (09:10→16:02)
[2018-09-29] MEDS: LORazepam 1 MG TABLET PO SCH ×2 (09:11→16:01)
[2018-09-29] MEDS: QUEtiapine FUMARATE 200 MG TABLET PO SCH ×2 (09:11→16:01)
[2018-09-29] MEDS: ZIPRASIDONE HCL 60 MG CAPSULE PO SCH (16:32)
[2018-09-30 08:00] VITALS: BP 117/71
[2018-09-30] MEDS: AmLODIPine BESYLATE 5 MG TABLET PO SCH (09:00)
[2018-09-30] MEDS: MAGNESIUM SULFATE 454 GM BOX TP SCH (09:00)
[2018-09-30] MEDS: QUEtiapine FUMARATE 200 MG TABLET PO SCH ×2 (10:18→16:08)
[2018-09-30] MEDS: OLANZapine 10 MG RAPDIS TABLET PO SCH ×3 (10:18→16:08)
[2018-09-30] MEDS: AMOXICILLIN TRIHYDRATE 500 MG CAPSULE PO SCH ×2 (10:19→16:08)
[2018-09-30] MEDS: LORazepam 1 MG TABLET PO SCH ×2 (10:19→16:08)
[2018-09-30] MEDS: NICOTINE 14 MG/24 HOUR PATCH TD PRN (10:50)
[2018-09-30] MEDS: MAG HYDROX/AL HYDROX/SIMETH ES 30 ML SUSPENSION UDCUP PO PRN (16:11)
[2018-09-30] MEDS: ZIPRASIDONE HCL 60 MG CAPSULE PO SCH (16:31)
[2018-10-01] MEDS: AmLODIPine BESYLATE 5 MG TABLET PO SCH (09:00)
[2018-10-01] MEDS: MAGNESIUM SULFATE 454 GM BOX TP SCH (09:00)
[2018-10-01] MEDS: AMOXICILLIN TRIHYDRATE 500 MG CAPSULE PO SCH ×2 (09:15→17:22)
[2018-10-01] MEDS: LORazepam 1 MG TABLET PO SCH ×2 (09:15→17:22)
[2018-10-01] MEDS: LORazepam 2 MG TABLET PO PRN ×2 (09:15→20:26)
[2018-10-01] MEDS: OLANZapine 10 MG RAPDIS TABLET PO SCH ×3 (09:15→17:24)
[2018-10-01] MEDS: QUEtiapine FUMARATE 200 MG TABLET PO SCH ×2 (09:16→17:24)
[2018-10-01 16:20] VITALS: BP 116/93
[2018-10-01] MEDS: ZIPRASIDONE HCL 60 MG CAPSULE PO SCH (17:22)
[2018-10-01] MEDS: ZOLPIDEM TARTRATE 10 MG TABLET PO PRN (20:26)
[2018-10-02] MEDS: AmLODIPine BESYLATE 5 MG TABLET PO SCH (09:00)
[2018-10-02] MEDS: MAGNESIUM SULFATE 454 GM BOX TP SCH (09:00)
[2018-10-02] MEDS: LORazepam 1 MG TABLET PO SCH ×2 (09:20→16:10)
[2018-10-02] MEDS: OLANZapine 10 MG RAPDIS TABLET PO SCH ×3 (09:20→16:10)
[2018-10-02] MEDS: AMOXICILLIN TRIHYDRATE 500 MG CAPSULE PO SCH ×2 (09:21→16:10)
[2018-10-02] MEDS: QUEtiapine FUMARATE 200 MG TABLET PO SCH ×2 (09:21→16:10)
[2018-10-02] MEDS: ZIPRASIDONE HCL 60 MG CAPSULE PO SCH (16:10)
[2018-10-02 18:47] VITALS: BP 122/84
[2018-10-03] MEDS: OLANZapine 10 MG RAPDIS TABLET PO SCH ×3 (07:45→16:58)
[2018-10-03] MEDS: QUEtiapine FUMARATE 200 MG TABLET PO SCH ×2 (07:45→16:58)
[2018-10-03] MEDS: LORazepam 1 MG TABLET PO SCH ×2 (07:45→16:59)
[2018-10-03] MEDS: AMOXICILLIN TRIHYDRATE 500 MG CAPSULE PO SCH ×2 (07:47→16:58)
[2018-10-03] MEDS: MAGNESIUM SULFATE 454 GM BOX TP SCH (09:00)
[2018-10-03] MEDS: AmLODIPine BESYLATE 5 MG TABLET PO SCH (09:00)
[2018-10-03 13:32] VITALS: BP 132/76
[2018-10-03] MEDS: ZIPRASIDONE HCL 60 MG CAPSULE PO SCH (16:58)
[2018-10-04] MEDS: OLANZapine 10 MG RAPDIS TABLET PO SCH ×3 (08:34→17:05)
[2018-10-04] MEDS: AMOXICILLIN TRIHYDRATE 500 MG CAPSULE PO SCH ×2 (08:34→17:05)
[2018-10-04] MEDS: LORazepam 1 MG TABLET PO SCH ×2 (08:34→17:05)
[2018-10-04] MEDS: QUEtiapine FUMARATE 200 MG TABLET PO SCH ×2 (08:34→17:05)
[2018-10-04] MEDS: MAGNESIUM SULFATE 454 GM BOX TP SCH (09:00)
[2018-10-04] MEDS: AmLODIPine BESYLATE 5 MG TABLET PO SCH (09:00)
[2018-10-04] MEDS: ZIPRASIDONE HCL 60 MG CAPSULE PO SCH (17:06)
[2018-10-04] MEDS: NICOTINE 14 MG/24 HOUR PATCH TD PRN (19:39)
[2018-10-04] MEDS: LORazepam 2 MG TABLET PO PRN (20:11)
[2018-10-04] MEDS: ZOLPIDEM TARTRATE 10 MG TABLET PO PRN (20:30)
[2018-10-05] MEDS: MAGNESIUM SULFATE 454 GM BOX TP SCH (08:37)
[2018-10-05] MEDS: AMOXICILLIN TRIHYDRATE 500 MG CAPSULE PO SCH ×2 (08:37→16:27)
[2018-10-05] MEDS: LORazepam 2 MG TABLET PO PRN (08:37)
[2018-10-05] MEDS: LORazepam 1 MG TABLET PO SCH ×2 (08:37→16:27)
[2018-10-05] MEDS: AmLODIPine BESYLATE 5 MG TABLET PO SCH (08:37)
[2018-10-05] MEDS: OLANZapine 10 MG RAPDIS TABLET PO SCH ×3 (08:37→16:27)
[2018-10-05] MEDS: QUEtiapine FUMARATE 200 MG TABLET PO SCH ×2 (08:37→16:27)
[2018-10-05] MEDS: ZIPRASIDONE HCL 60 MG CAPSULE PO SCH (16:30)
[2018-10-05 19:14] VITALS: BP 115/84
[2018-10-05] MEDS: IBUPROFEN 400 MG TABLET PO PRN (19:14)
[2018-10-06] MEDS: OLANZapine 10 MG RAPDIS TABLET PO SCH ×3 (07:50→16:23)
[2018-10-06] MEDS: QUEtiapine FUMARATE 200 MG TABLET PO SCH ×2 (07:50→16:23)
[2018-10-06] MEDS: LORazepam 1 MG TABLET PO SCH ×2 (07:50→16:23)
[2018-10-06] MEDS: AMOXICILLIN TRIHYDRATE 500 MG CAPSULE PO SCH (07:50)
[2018-10-06] MEDS: AmLODIPine BESYLATE 5 MG TABLET PO SCH (07:52)
[2018-10-06 09:10] VITALS: BP 124/85
[2018-10-06] MEDS: MAGNESIUM SULFATE 454 GM BOX TP SCH (13:08)
[2018-10-06 16:23] VITALS: BP 120/83
[2018-10-06] MEDS: ZIPRASIDONE HCL 60 MG CAPSULE PO SCH (16:34)
[2018-10-07] MEDS: ZOLPIDEM TARTRATE 10 MG TABLET PO PRN ×2 (01:22→20:00)
[2018-10-07] MEDS: LORazepam 2 MG TABLET PO PRN ×2 (01:22→20:00)
[2018-10-07] MEDS: MAG HYDROX/AL HYDROX/SIMETH ES 30 ML SUSPENSION UDCUP PO PRN (02:12)
[2018-10-07 08:00] VITALS: BP 135/101
[2018-10-07] MEDS: OLANZapine 10 MG RAPDIS TABLET PO SCH ×3 (08:09→16:26)
[2018-10-07] MEDS: QUEtiapine FUMARATE 200 MG TABLET PO SCH ×2 (08:10→16:26)
[2018-10-07] MEDS: LORazepam 1 MG TABLET PO SCH ×2 (08:10→16:26)
[2018-10-07] MEDS: AmLODIPine BESYLATE 5 MG TABLET PO SCH (09:00)
[2018-10-07] MEDS: MAGNESIUM SULFATE 454 GM BOX TP SCH (09:00)
[2018-10-07 09:21] VITALS: BP 135/101
[2018-10-07] MEDS: ZIPRASIDONE HCL 60 MG CAPSULE PO SCH (16:26)
[2018-10-07 18:00] VITALS: BP 128/94
[2018-10-08] MEDS: LORazepam 1 MG TABLET PO SCH ×2 (08:17→16:46)
[2018-10-08] MEDS: OLANZapine 10 MG RAPDIS TABLET PO SCH ×3 (08:17→16:46)
[2018-10-08] MEDS: QUEtiapine FUMARATE 200 MG TABLET PO SCH ×2 (08:17→16:46)
[2018-10-08] MEDS: MAGNESIUM SULFATE 454 GM BOX TP SCH (09:00)
[2018-10-08] MEDS: AmLODIPine BESYLATE 5 MG TABLET PO SCH (09:00)
[2018-10-08] MEDS: NICOTINE 14 MG/24 HOUR PATCH TD PRN (09:27)
[2018-10-08 16:45] VITALS: BP 118/77
[2018-10-08] MEDS: ZIPRASIDONE HCL 60 MG CAPSULE PO SCH (16:46)
[2018-10-08] MEDS: LORazepam 2 MG TABLET PO PRN (21:25)
[2018-10-08] MEDS: ZOLPIDEM TARTRATE 10 MG TABLET PO PRN (21:25)
[2018-10-09] MEDS: AmLODIPine BESYLATE 5 MG TABLET PO SCH (08:06)
[2018-10-09] MEDS: LORazepam 1 MG TABLET PO SCH ×2 (08:07→16:10)
[2018-10-09] MEDS: QUEtiapine FUMARATE 200 MG TABLET PO SCH ×2 (08:07→16:10)
[2018-10-09] MEDS: MAGNESIUM SULFATE 454 GM BOX TP SCH (08:08)
[2018-10-09] MEDS: OLANZapine 10 MG RAPDIS TABLET PO SCH ×3 (08:08→16:11)
[2018-10-09] MEDS: NICOTINE 14 MG/24 HOUR PATCH TD PRN (09:35)
[2018-10-09] MEDS: GuaiFENesin/D-METHORPHAN [SUGAR-FREE] 200-20MG/10 ML SYRUP UDCUP PO PRN (12:29)
[2018-10-09] MEDS: ZIPRASIDONE HCL 60 MG CAPSULE PO SCH (16:10)
[2018-10-09 16:30] VITALS: BP 124/78
[2018-10-09] MEDS: LORazepam 2 MG TABLET PO PRN (20:32)
[2018-10-09] MEDS: ZOLPIDEM TARTRATE 10 MG TABLET PO PRN (20:32)
[2018-10-10] MEDS: QUEtiapine FUMARATE 200 MG TABLET PO SCH ×2 (08:20→17:04)
[2018-10-10] MEDS: AmLODIPine BESYLATE 5 MG TABLET PO SCH (08:20)
[2018-10-10] MEDS: OLANZapine 10 MG RAPDIS TABLET PO SCH ×3 (08:20→17:05)
[2018-10-10] MEDS: MAGNESIUM SULFATE 454 GM BOX TP SCH ×2 (08:20→10:17)
[2018-10-10] MEDS: LORazepam 1 MG TABLET PO SCH ×2 (08:20→17:05)
[2018-10-10] MEDS: NICOTINE 14 MG/24 HOUR PATCH TD PRN (08:21)
[2018-10-10 16:30] VITALS: BP 141/68
[2018-10-10] MEDS: ZIPRASIDONE HCL 60 MG CAPSULE PO SCH (17:04)
[2018-10-10] MEDS: ZOLPIDEM TARTRATE 10 MG TABLET PO PRN (20:54)
[2018-10-10] MEDS: LORazepam 2 MG TABLET PO PRN (20:54)
[2018-10-11] MEDS: LORazepam 1 MG TABLET PO SCH ×2 (08:40→17:10)
[2018-10-11] MEDS: OLANZapine 10 MG RAPDIS TABLET PO SCH ×3 (08:40→17:10)
[2018-10-11] MEDS: QUEtiapine FUMARATE 200 MG TABLET PO SCH ×2 (08:41→17:10)
[2018-10-11] MEDS: AmLODIPine BESYLATE 5 MG TABLET PO SCH (08:41)
[2018-10-11] MEDS: MAGNESIUM SULFATE 454 GM BOX TP SCH (08:42)
[2018-10-11 08:47] VITALS: BP 129/59
[2018-10-11] MEDS: ZIPRASIDONE HCL 60 MG CAPSULE PO SCH (17:10)
[2018-10-12] MEDS: QUEtiapine FUMARATE 200 MG TABLET PO SCH ×2 (08:40→16:06)
[2018-10-12] MEDS: LORazepam 1 MG TABLET PO SCH ×2 (08:40→16:06)
[2018-10-12] MEDS: OLANZapine 10 MG RAPDIS TABLET PO SCH ×3 (08:40→16:06)
[2018-10-12] MEDS: MAGNESIUM SULFATE 454 GM BOX TP SCH (08:41)
[2018-10-12] MEDS: AmLODIPine BESYLATE 5 MG TABLET PO SCH (08:41)
[2018-10-12] MEDS: ZIPRASIDONE HCL 60 MG CAPSULE PO SCH (16:06)
[2018-10-12 16:52] VITALS: BP 124/81
[2018-10-13] MEDS: LORazepam 1 MG TABLET PO SCH ×2 (08:13→16:50)
[2018-10-13] MEDS: OLANZapine 10 MG RAPDIS TABLET PO SCH ×3 (08:13→16:50)
[2018-10-13] MEDS: QUEtiapine FUMARATE 200 MG TABLET PO SCH ×2 (08:13→16:51)
[2018-10-13] MEDS: AmLODIPine BESYLATE 5 MG TABLET PO SCH (08:14)
[2018-10-13] MEDS: MAGNESIUM SULFATE 454 GM BOX TP SCH (08:14)
[2018-10-13] MEDS: ZIPRASIDONE HCL 60 MG CAPSULE PO SCH (16:50)
[2018-10-13 17:00] VITALS: BP 111/77
[2018-10-13] MEDS: ZOLPIDEM TARTRATE 10 MG TABLET PO PRN (22:50)
[2018-10-13] MEDS: LORazepam 2 MG TABLET PO PRN (22:50)
[2018-10-14] MEDS: OLANZapine 10 MG RAPDIS TABLET PO SCH ×3 (08:33→16:35)
[2018-10-14] MEDS: LORazepam 1 MG TABLET PO SCH ×2 (08:33→16:34)
[2018-10-14] MEDS: QUEtiapine FUMARATE 200 MG TABLET PO SCH ×2 (08:33→16:33)
[2018-10-14] MEDS: AmLODIPine BESYLATE 5 MG TABLET PO SCH (08:37)
[2018-10-14] MEDS: MAGNESIUM SULFATE 454 GM BOX TP SCH (08:39)
[2018-10-14] MEDS: ZIPRASIDONE HCL 60 MG CAPSULE PO SCH (16:34)
[2018-10-14] MEDS: ZOLPIDEM TARTRATE 10 MG TABLET PO PRN (20:32)
[2018-10-14] MEDS: LORazepam 2 MG TABLET PO PRN (20:32)
[2018-10-15 08:00] VITALS: BP 132/82
[2018-10-15] MEDS: OLANZapine 10 MG RAPDIS TABLET PO SCH ×3 (08:04→17:30)
[2018-10-15] MEDS: QUEtiapine FUMARATE 200 MG TABLET PO SCH ×2 (08:04→17:30)
[2018-10-15] MEDS: AmLODIPine BESYLATE 5 MG TABLET PO SCH (08:04)
[2018-10-15] MEDS: LORazepam 1 MG TABLET PO SCH ×2 (08:04→17:29)
[2018-10-15] MEDS: MAGNESIUM SULFATE 454 GM BOX TP SCH (08:07)
[2018-10-15] MEDS: GuaiFENesin/D-METHORPHAN [SUGAR-FREE] 200-20MG/10 ML SYRUP UDCUP PO PRN (12:56)
[2018-10-15 17:05] VITALS: BP 108/66
[2018-10-15] MEDS: ZIPRASIDONE HCL 60 MG CAPSULE PO SCH (17:30)
[2018-10-16] MEDS: OLANZapine 10 MG RAPDIS TABLET PO SCH ×3 (08:00→16:29)
[2018-10-16] MEDS: QUEtiapine FUMARATE 200 MG TABLET PO SCH ×2 (08:00→16:29)
[2018-10-16] MEDS: LORazepam 1 MG TABLET PO SCH ×2 (08:00→16:29)
[2018-10-16] MEDS: AmLODIPine BESYLATE 5 MG TABLET PO SCH (08:01)
[2018-10-16] MEDS: MAGNESIUM SULFATE 454 GM BOX TP SCH (08:01)
[2018-10-16] MEDS: NICOTINE 14 MG/24 HOUR PATCH TD PRN (12:34)
[2018-10-16] MEDS: ZIPRASIDONE HCL 60 MG CAPSULE PO SCH (16:29)
[2018-10-16] MEDS: LORazepam 2 MG TABLET PO PRN (20:40)
[2018-10-16] MEDS: ZOLPIDEM TARTRATE 10 MG TABLET PO PRN (20:40)
[2018-10-17] MEDS: QUEtiapine FUMARATE 200 MG TABLET PO SCH ×2 (07:53→16:57)
[2018-10-17] MEDS: LORazepam 1 MG TABLET PO SCH ×2 (07:53→16:57)
[2018-10-17] MEDS: MAGNESIUM SULFATE 454 GM BOX TP SCH (07:53)
[2018-10-17] MEDS: AmLODIPine BESYLATE 5 MG TABLET PO SCH (07:53)
[2018-10-17] MEDS: OLANZapine 10 MG RAPDIS TABLET PO SCH ×3 (07:53→16:57)
[2018-10-17 10:03] VITALS: BP 129/84
[2018-10-17 16:15] VITALS: BP 133/75
[2018-10-17] MEDS: ZIPRASIDONE HCL 60 MG CAPSULE PO SCH (16:57)
[2018-10-17] MEDS: MAG HYDROX/AL HYDROX/SIMETH ES 30 ML SUSPENSION UDCUP PO PRN (18:04)
[2018-10-17] MEDS: LORazepam 2 MG TABLET PO PRN (21:46)
[2018-10-17] MEDS: ZOLPIDEM TARTRATE 10 MG TABLET PO PRN (21:46)
[2018-10-18] MEDS: OLANZapine 10 MG RAPDIS TABLET PO SCH ×3 (08:38→17:33)
[2018-10-18] MEDS: QUEtiapine FUMARATE 200 MG TABLET PO SCH ×2 (08:38→17:33)
[2018-10-18] MEDS: LORazepam 1 MG TABLET PO SCH ×2 (08:39→17:33)
[2018-10-18] MEDS: AmLODIPine BESYLATE 5 MG TABLET PO SCH (09:00)
[2018-10-18] MEDS: MAGNESIUM SULFATE 454 GM BOX TP SCH (09:00)
[2018-10-18] MEDS: NICOTINE 14 MG/24 HOUR PATCH TD PRN (10:04)
[2018-10-18 10:53] VITALS: BP 120/85
[2018-10-18] MEDS: ZIPRASIDONE HCL 60 MG CAPSULE PO SCH (17:33)
[2018-10-19] MEDS: ZOLPIDEM TARTRATE 10 MG TABLET PO PRN ×2 (01:43→20:45)
[2018-10-19] MEDS: LORazepam 2 MG TABLET PO PRN ×2 (01:43→20:45)
[2018-10-19] MEDS: AmLODIPine BESYLATE 5 MG TABLET PO SCH (08:14)
[2018-10-19] MEDS: LORazepam 1 MG TABLET PO SCH ×2 (08:15→18:00)
[2018-10-19] MEDS: QUEtiapine FUMARATE 200 MG TABLET PO SCH ×2 (08:15→18:00)
[2018-10-19] MEDS: OLANZapine 10 MG RAPDIS TABLET PO SCH ×3 (08:15→18:00)
[2018-10-19] MEDS: MAGNESIUM SULFATE 454 GM BOX TP SCH (08:16)
[2018-10-19 09:29] VITALS: BP 115/72
[2018-10-19] MEDS: ZIPRASIDONE HCL 60 MG CAPSULE PO SCH (18:03)
[2018-10-19 19:03] VITALS: BP 138/74
[2018-10-20] MEDS: LORazepam 1 MG TABLET PO SCH ×2 (08:45→16:40)
[2018-10-20] MEDS: OLANZapine 10 MG RAPDIS TABLET PO SCH ×3 (08:45→16:39)
[2018-10-20] MEDS: QUEtiapine FUMARATE 200 MG TABLET PO SCH ×2 (08:45→16:39)
[2018-10-20] MEDS: AmLODIPine BESYLATE 5 MG TABLET PO SCH (08:46)
[2018-10-20] MEDS: MAGNESIUM SULFATE 454 GM BOX TP SCH (08:46)
[2018-10-20 09:25] VITALS: BP 129/97
[2018-10-20] MEDS: ZIPRASIDONE HCL 60 MG CAPSULE PO SCH (16:40)
[2018-10-20] MEDS: MAG HYDROX/AL HYDROX/SIMETH ES 30 ML SUSPENSION UDCUP PO PRN (19:37)
[2018-10-20] MEDS: MAGNESIUM HYDROXIDE SUSPENSION 30 ML UDCUP PO PRN (20:25)
[2018-10-20] MEDS: ZOLPIDEM TARTRATE 10 MG TABLET PO PRN (20:35)
[2018-10-20] MEDS: LORazepam 2 MG TABLET PO PRN (20:35)
[2018-10-21] MEDS: AmLODIPine BESYLATE 5 MG TABLET PO SCH (09:00)
[2018-10-21] MEDS: LORazepam 1 MG TABLET PO SCH ×2 (09:14→17:41)
[2018-10-21] MEDS: QUEtiapine FUMARATE 200 MG TABLET PO SCH ×2 (09:14→17:41)
[2018-10-21] MEDS: OLANZapine 10 MG RAPDIS TABLET PO SCH ×3 (09:14→17:41)
[2018-10-21] MEDS: MAGNESIUM SULFATE 454 GM BOX TP SCH (09:47)
[2018-10-21] MEDS: ZIPRASIDONE HCL 60 MG CAPSULE PO SCH (17:41)
[2018-10-21] MEDS: LORazepam 2 MG TABLET PO PRN (21:22)
[2018-10-21] MEDS: ZOLPIDEM TARTRATE 10 MG TABLET PO PRN (21:22)
[2018-10-22] MEDS: QUEtiapine FUMARATE 200 MG TABLET PO SCH ×2 (08:11→17:36)
[2018-10-22] MEDS: AmLODIPine BESYLATE 5 MG TABLET PO SCH (08:11)
[2018-10-22] MEDS: OLANZapine 10 MG RAPDIS TABLET PO SCH ×3 (08:11→17:35)
[2018-10-22] MEDS: LORazepam 1 MG TABLET PO SCH ×2 (08:11→17:35)
[2018-10-22] MEDS: MAGNESIUM SULFATE 454 GM BOX TP SCH (08:12)
[2018-10-22] MEDS: ZIPRASIDONE HCL 60 MG CAPSULE PO SCH (17:35)
[2018-10-22] MEDS: ZOLPIDEM TARTRATE 10 MG TABLET PO PRN (21:23)
[2018-10-22] MEDS: LORazepam 2 MG TABLET PO PRN (21:23)
[2018-10-23] MEDS: QUEtiapine FUMARATE 200 MG TABLET PO SCH ×2 (08:56→16:05)
[2018-10-23] MEDS: OLANZapine 10 MG RAPDIS TABLET PO SCH ×3 (08:57→16:05)
[2018-10-23] MEDS: MAGNESIUM SULFATE 454 GM BOX TP SCH (08:57)
[2018-10-23] MEDS: LORazepam 1 MG TABLET PO SCH ×2 (08:57→16:05)
[2018-10-23] MEDS: AmLODIPine BESYLATE 5 MG TABLET PO SCH (08:57)
[2018-10-23] MEDS: ZIPRASIDONE HCL 60 MG CAPSULE PO SCH (16:05)
[2018-10-23] MEDS: LORazepam 2 MG TABLET PO PRN (20:23)
[2018-10-23] MEDS: ZOLPIDEM TARTRATE 10 MG TABLET PO PRN (20:24)
[2018-10-24] MEDS: LORazepam 1 MG TABLET PO SCH ×2 (08:13→16:36)
[2018-10-24] MEDS: QUEtiapine FUMARATE 200 MG TABLET PO SCH ×2 (08:13→16:37)
[2018-10-24] MEDS: OLANZapine 10 MG RAPDIS TABLET PO SCH ×3 (08:13→16:36)
[2018-10-24] MEDS: AmLODIPine BESYLATE 5 MG TABLET PO SCH (08:13)
[2018-10-24] MEDS: MAGNESIUM SULFATE 454 GM BOX TP SCH (08:14)
[2018-10-24 09:02] VITALS: BP 136/82
[2018-10-24] MEDS: ZIPRASIDONE HCL 60 MG CAPSULE PO SCH (16:36)
[2018-10-25] MEDS: QUEtiapine FUMARATE 200 MG TABLET PO SCH ×2 (08:22→16:35)
[2018-10-25] MEDS: MAGNESIUM SULFATE 454 GM BOX TP SCH (08:22)
[2018-10-25] MEDS: LORazepam 1 MG TABLET PO SCH ×2 (08:22→16:35)
[2018-10-25] MEDS: AmLODIPine BESYLATE 5 MG TABLET PO SCH (08:22)
[2018-10-25] MEDS: OLANZapine 10 MG RAPDIS TABLET PO SCH ×3 (08:22→16:35)
[2018-10-25] MEDS: ZIPRASIDONE HCL 60 MG CAPSULE PO SCH (16:35)
[2018-10-25] MEDS: MAG HYDROX/AL HYDROX/SIMETH ES 30 ML SUSPENSION UDCUP PO PRN (18:45)
[2018-10-26] MEDS: OLANZapine 10 MG RAPDIS TABLET PO SCH ×3 (08:04→16:31)
[2018-10-26] MEDS: LORazepam 1 MG TABLET PO SCH ×2 (08:04→16:31)
[2018-10-26] MEDS: QUEtiapine FUMARATE 200 MG TABLET PO SCH ×2 (08:04→16:31)
[2018-10-26] MEDS: AmLODIPine BESYLATE 5 MG TABLET PO SCH (08:06)
[2018-10-26] MEDS: MAGNESIUM SULFATE 454 GM BOX TP SCH (08:50)
[2018-10-26] MEDS: ZIPRASIDONE HCL 60 MG CAPSULE PO SCH (16:31)
[2018-10-27] MEDS: AmLODIPine BESYLATE 5 MG TABLET PO SCH (09:00)
[2018-10-27] MEDS: MAGNESIUM SULFATE 454 GM BOX TP SCH (09:00)
[2018-10-27] MEDS: LORazepam 1 MG TABLET PO SCH ×2 (09:08→16:26)
[2018-10-27] MEDS: OLANZapine 10 MG RAPDIS TABLET PO SCH ×3 (09:09→16:27)
[2018-10-27] MEDS: QUEtiapine FUMARATE 200 MG TABLET PO SCH ×2 (09:09→16:27)
[2018-10-27] MEDS: ZIPRASIDONE HCL 60 MG CAPSULE PO SCH (16:26)
[2018-10-28 01:15] VITALS: BP 127/81
[2018-10-28] MEDS: IBUPROFEN 400 MG TABLET PO PRN ×2 (01:17→09:21)
[2018-10-28] MEDS: LORazepam 2 MG TABLET PO PRN (02:21)
[2018-10-28] MEDS: ZOLPIDEM TARTRATE 10 MG TABLET PO PRN (02:24)
[2018-10-28] MEDS: LORazepam 1 MG TABLET PO SCH ×2 (08:05→16:32)
[2018-10-28] MEDS: QUEtiapine FUMARATE 200 MG TABLET PO SCH ×2 (08:06→16:31)
[2018-10-28] MEDS: OLANZapine 10 MG RAPDIS TABLET PO SCH ×3 (08:06→16:31)
[2018-10-28] MEDS: AmLODIPine BESYLATE 5 MG TABLET PO SCH (08:06)
[2018-10-28] MEDS: MAGNESIUM SULFATE 454 GM BOX TP SCH (08:09)
[2018-10-28 09:05] VITALS: BP 138/82
[2018-10-28 09:19] VITALS: BP 138/82
[2018-10-28] MEDS: CEPHALEXIN MONOHYDRATE 500 MG CAPSULE PO SCH ×2 (13:27→16:31)
[2018-10-28] MEDS: ZIPRASIDONE HCL 60 MG CAPSULE PO SCH (16:32)
[2018-10-28] MEDS: SULFAMETHOX/TRIMETH DS 800-160 MG/TABLET PO SCH (16:32)
[2018-10-29] MEDS: AmLODIPine BESYLATE 5 MG TABLET PO SCH (08:31)
[2018-10-29] MEDS: CEPHALEXIN MONOHYDRATE 500 MG CAPSULE PO SCH ×3 (08:31→17:05)
[2018-10-29] MEDS: OLANZapine 10 MG RAPDIS TABLET PO SCH ×3 (08:31→17:05)
[2018-10-29] MEDS: SULFAMETHOX/TRIMETH DS 800-160 MG/TABLET PO SCH ×2 (08:31→17:05)
[2018-10-29] MEDS: QUEtiapine FUMARATE 200 MG TABLET PO SCH ×2 (08:31→17:05)
[2018-10-29] MEDS: LORazepam 1 MG TABLET PO SCH ×2 (08:31→17:05)
[2018-10-29] MEDS: MAGNESIUM SULFATE 454 GM BOX TP SCH (08:32)
[2018-10-29 09:12] VITALS: BP 146/97
[2018-10-29] MEDS: ZIPRASIDONE HCL 60 MG CAPSULE PO SCH (17:05)
[2018-10-29] MEDS: LORazepam 2 MG TABLET PO PRN (20:43)
[2018-10-29] MEDS: ZOLPIDEM TARTRATE 10 MG TABLET PO PRN (20:43)
[2018-10-30] MEDS: QUEtiapine FUMARATE 200 MG TABLET PO SCH ×2 (08:21→17:48)
[2018-10-30] MEDS: AmLODIPine BESYLATE 5 MG TABLET PO SCH (08:21)
[2018-10-30] MEDS: OLANZapine 10 MG RAPDIS TABLET PO SCH ×3 (08:21→17:48)
[2018-10-30] MEDS: SULFAMETHOX/TRIMETH DS 800-160 MG/TABLET PO SCH ×2 (08:21→17:48)
[2018-10-30] MEDS: LORazepam 1 MG TABLET PO SCH ×2 (08:21→17:48)
[2018-10-30] MEDS: CEPHALEXIN MONOHYDRATE 500 MG CAPSULE PO SCH ×3 (08:21→17:48)
[2018-10-30] MEDS: MAGNESIUM SULFATE 454 GM BOX TP SCH (08:22)
[2018-10-30] MEDS: ZIPRASIDONE HCL 60 MG CAPSULE PO SCH (17:48)
[2018-10-30] MEDS: LORazepam 2 MG TABLET PO PRN (20:27)
[2018-10-30] MEDS: ZOLPIDEM TARTRATE 10 MG TABLET PO PRN (20:27)
[2018-10-31] MEDS: MAGNESIUM SULFATE 454 GM BOX TP SCH (09:00)
[2018-10-31] MEDS: AmLODIPine BESYLATE 5 MG TABLET PO SCH (09:00)
[2018-10-31] MEDS: LORazepam 1 MG TABLET PO SCH ×2 (09:32→16:18)
[2018-10-31] MEDS: QUEtiapine FUMARATE 200 MG TABLET PO SCH ×2 (09:32→16:18)
[2018-10-31] MEDS: SULFAMETHOX/TRIMETH DS 800-160 MG/TABLET PO SCH ×2 (09:33→16:18)
[2018-10-31] MEDS: CEPHALEXIN MONOHYDRATE 500 MG CAPSULE PO SCH ×3 (09:33→16:18)
[2018-10-31] MEDS: OLANZapine 10 MG RAPDIS TABLET PO SCH ×3 (09:34→16:18)
[2018-10-31] MEDS: ZIPRASIDONE HCL 60 MG CAPSULE PO SCH (16:18)
[2018-10-31 16:44] VITALS: BP 125/89
[2018-11-01] MEDS: OLANZapine 10 MG RAPDIS TABLET PO SCH ×3 (08:20→16:45)
[2018-11-01] MEDS: SULFAMETHOX/TRIMETH DS 800-160 MG/TABLET PO SCH ×2 (08:20→16:45)
[2018-11-01] MEDS: LORazepam 1 MG TABLET PO SCH ×2 (08:20→16:45)
[2018-11-01] MEDS: QUEtiapine FUMARATE 200 MG TABLET PO SCH ×2 (08:21→16:45)
[2018-11-01] MEDS: AmLODIPine BESYLATE 5 MG TABLET PO SCH (08:24)
[2018-11-01] MEDS: MAGNESIUM SULFATE 454 GM BOX TP SCH (08:24)
[2018-11-01] MEDS: CEPHALEXIN MONOHYDRATE 500 MG CAPSULE PO SCH ×3 (08:24→16:45)
[2018-11-01] MEDS: ZIPRASIDONE HCL 60 MG CAPSULE PO SCH (16:45)
[2018-11-02] MEDS: CEPHALEXIN MONOHYDRATE 500 MG CAPSULE PO SCH ×3 (07:39→18:49)
[2018-11-02] MEDS: QUEtiapine FUMARATE 200 MG TABLET PO SCH ×2 (07:39→18:50)
[2018-11-02] MEDS: LORazepam 1 MG TABLET PO SCH ×2 (07:39→18:49)
[2018-11-02] MEDS: OLANZapine 10 MG RAPDIS TABLET PO SCH ×3 (07:39→18:50)
[2018-11-02] MEDS: MAGNESIUM SULFATE 454 GM BOX TP SCH (07:39)
[2018-11-02] MEDS: AmLODIPine BESYLATE 5 MG TABLET PO SCH (07:39)
[2018-11-02] MEDS: SULFAMETHOX/TRIMETH DS 800-160 MG/TABLET PO SCH ×2 (07:39→18:49)
[2018-11-02] MEDS: ZIPRASIDONE HCL 60 MG CAPSULE PO SCH (18:50)
[2018-11-03] MEDS: LORazepam 1 MG TABLET PO SCH ×2 (07:56→16:36)
[2018-11-03] MEDS: SULFAMETHOX/TRIMETH DS 800-160 MG/TABLET PO SCH ×2 (07:56→16:36)
[2018-11-03] MEDS: AmLODIPine BESYLATE 5 MG TABLET PO SCH (07:57)
[2018-11-03] MEDS: CEPHALEXIN MONOHYDRATE 500 MG CAPSULE PO SCH ×3 (07:57→16:36)
[2018-11-03] MEDS: MAGNESIUM SULFATE 454 GM BOX TP SCH (07:57)
[2018-11-03] MEDS: OLANZapine 10 MG RAPDIS TABLET PO SCH ×3 (07:57→16:36)
[2018-11-03] MEDS: QUEtiapine FUMARATE 200 MG TABLET PO SCH ×2 (07:57→16:36)
[2018-11-03 08:00] VITALS: BP 131/76
[2018-11-03] MEDS: ZIPRASIDONE HCL 60 MG CAPSULE PO SCH (16:37)
[2018-11-04] MEDS: LORazepam 1 MG TABLET PO SCH ×2 (08:33→16:00)
[2018-11-04] MEDS: SULFAMETHOX/TRIMETH DS 800-160 MG/TABLET PO SCH ×2 (08:34→16:00)
[2018-11-04] MEDS: QUEtiapine FUMARATE 200 MG TABLET PO SCH ×2 (08:34→16:00)
[2018-11-04] MEDS: AmLODIPine BESYLATE 5 MG TABLET PO SCH (08:34)
[2018-11-04] MEDS: OLANZapine 10 MG RAPDIS TABLET PO SCH ×3 (08:34→16:00)
[2018-11-04] MEDS: CEPHALEXIN MONOHYDRATE 500 MG CAPSULE PO SCH ×3 (08:34→16:00)
[2018-11-04] MEDS: MAGNESIUM SULFATE 454 GM BOX TP SCH (08:34)
[2018-11-04 11:17] VITALS: BP 134/82
[2018-11-04] MEDS: ZIPRASIDONE HCL 60 MG CAPSULE PO SCH (16:00)
[2018-11-04] MEDS: ZOLPIDEM TARTRATE 10 MG TABLET PO PRN (23:54)
[2018-11-04] MEDS: LORazepam 1 MG TABLET PO PRN (23:55)
[2018-11-05] VITALS: BP 125/71
[2018-11-05] MEDS: LORazepam 2 MG TABLET PO PRN (00:01)
[2018-11-05] MEDS: MAG HYDROX/AL HYDROX/SIMETH ES 30 ML SUSPENSION UDCUP PO PRN (02:02)
[2018-11-05] MEDS: LORazepam 1 MG TABLET PO SCH ×2 (08:04→16:35)
[2018-11-05] MEDS: QUEtiapine FUMARATE 200 MG TABLET PO SCH ×2 (08:05→16:35)
[2018-11-05] MEDS: OLANZapine 10 MG RAPDIS TABLET PO SCH ×3 (08:05→16:36)
[2018-11-05] MEDS: CEPHALEXIN MONOHYDRATE 500 MG CAPSULE PO SCH ×3 (08:05→16:36)
[2018-11-05] MEDS: SULFAMETHOX/TRIMETH DS 800-160 MG/TABLET PO SCH ×2 (08:05→16:36)
[2018-11-05] MEDS: MAGNESIUM SULFATE 454 GM BOX TP SCH (08:06)
[2018-11-05] MEDS: AmLODIPine BESYLATE 5 MG TABLET PO SCH (08:06)
[2018-11-05] MEDS: ZIPRASIDONE HCL 60 MG CAPSULE PO SCH (16:35)
[2018-11-06 06:14] LABS: BASOPHILS % (AUTO) 0.5 % (0.0-2.0); EOSINOPHILS % (AUTO) 2.7 % (1.0-6.0); HEMATOCRIT 40.8 % (41-53); HEMOGLOBIN 13.1 g/dL (13.5-17.5); LYMPHOCYTES # (AUTO) 1.7 K/uL (1.0-4.8); LYMPHOCYTES % (AUTO) 24.2 % (22.0-44.0); MEAN CORPUSCULAR HEMOGLOBIN 27.2 pg (26.0-34.0); MEAN CORPUSCULAR VOLUME 85 fL (80-100); MONOCYTES # (AUTO) 0.7 K/uL (0.1-1.0); MONOCYTES % (AUTO) 9.2 % (2.0-9.0); NEUTROPHILS # (AUTO) 4.5 K/uL (1.8-7.7); NEUTROPHILS % (AUTO) 63.4 % (40.0-70.0); PLATELET COUNT (AUTO) 164 K/uL (150-450); RED CELL DISTRIBUTION WIDTH 13.6 % (11.5-14.5)
[2018-11-06 06:19] LABS: ANION GAP 5 mmol/L (8-16); CALCIUM, TOTAL 8.8 mg/dL (8.8-10.5); CARBON DIOXIDE 29 mmol/L (22-29); CHLORIDE 104 mmol/L (98-107); GLOMERULAR FILTR. RATE CALC > 60 mL/min (>60); GLUCOSE,RANDOM 99 mg/dL (70-110); POTASSIUM 4.6 mmol/L (3.5-5.1); SODIUM SERUM 138 mmol/L (136-145); UREA NITROGEN, BLOOD 10 mg/dL (7-18)
[2018-11-06] MEDS: QUEtiapine FUMARATE 200 MG TABLET PO SCH ×2 (08:26→16:09)
[2018-11-06] MEDS: LORazepam 1 MG TABLET PO SCH ×2 (08:26→16:09)
[2018-11-06] MEDS: SULFAMETHOX/TRIMETH DS 800-160 MG/TABLET PO SCH ×2 (08:26→16:09)
[2018-11-06] MEDS: CEPHALEXIN MONOHYDRATE 500 MG CAPSULE PO SCH ×3 (08:26→16:09)
[2018-11-06] MEDS: OLANZapine 10 MG RAPDIS TABLET PO SCH ×3 (08:26→16:09)
[2018-11-06] MEDS: MAGNESIUM SULFATE 454 GM BOX TP SCH (08:27)
[2018-11-06] MEDS: AmLODIPine BESYLATE 5 MG TABLET PO SCH (08:27)
[2018-11-06 16:45] VITALS: BP 138/78
[2018-11-06] MEDS: ZIPRASIDONE HCL 60 MG CAPSULE PO SCH (16:48)
[2018-11-06] MEDS: ZOLPIDEM TARTRATE 10 MG TABLET PO PRN (21:17)
[2018-11-06] MEDS: LORazepam 2 MG TABLET PO PRN (21:17)
[2018-11-07 08:40] VITALS: BP 121/85
[2018-11-07] MEDS: AmLODIPine BESYLATE 5 MG TABLET PO SCH ×2 (08:43→09:00)
[2018-11-07] MEDS: SULFAMETHOX/TRIMETH DS 800-160 MG/TABLET PO SCH ×2 (08:43→16:08)
[2018-11-07] MEDS: QUEtiapine FUMARATE 200 MG TABLET PO SCH ×2 (08:43→16:08)
[2018-11-07] MEDS: LORazepam 1 MG TABLET PO SCH ×2 (08:43→16:07)
[2018-11-07] MEDS: CEPHALEXIN MONOHYDRATE 500 MG CAPSULE PO SCH ×2 (08:43→12:30)
[2018-11-07] MEDS: OLANZapine 10 MG RAPDIS TABLET PO SCH ×3 (08:44→16:07)
[2018-11-07] MEDS: ZIPRASIDONE HCL 60 MG CAPSULE PO SCH (16:08)
[2018-11-08] MEDS: QUEtiapine FUMARATE 200 MG TABLET PO SCH ×2 (08:05→17:39)
[2018-11-08] MEDS: LORazepam 1 MG TABLET PO SCH ×2 (08:05→17:38)
[2018-11-08] MEDS: OLANZapine 10 MG RAPDIS TABLET PO SCH ×3 (08:05→17:39)
[2018-11-08] MEDS: AmLODIPine BESYLATE 5 MG TABLET PO SCH (09:00)
[2018-11-08 09:41] VITALS: BP 114/60
[2018-11-08] MEDS: ZIPRASIDONE HCL 60 MG CAPSULE PO SCH (17:40)
[2018-11-09] MEDS: ZOLPIDEM TARTRATE 10 MG TABLET PO PRN ×2 (00:21→20:24)
[2018-11-09] MEDS: LORazepam 2 MG TABLET PO PRN ×2 (00:21→20:24)
[2018-11-09] MEDS: LORazepam 1 MG TABLET PO SCH ×2 (08:50→16:16)
[2018-11-09] MEDS: QUEtiapine FUMARATE 200 MG TABLET PO SCH ×2 (08:51→16:15)
[2018-11-09] MEDS: OLANZapine 10 MG RAPDIS TABLET PO SCH ×3 (08:51→16:15)
[2018-11-09] MEDS: AmLODIPine BESYLATE 5 MG TABLET PO SCH (08:51)
[2018-11-09] MEDS: ZIPRASIDONE HCL 60 MG CAPSULE PO SCH (16:15)
[2018-11-10] MEDS: LORazepam 2 MG TABLET PO PRN ×2 (00:51→20:40)
[2018-11-10] MEDS: QUEtiapine FUMARATE 200 MG TABLET PO SCH ×2 (08:13→16:42)
[2018-11-10] MEDS: OLANZapine 10 MG RAPDIS TABLET PO SCH ×3 (08:14→16:42)
[2018-11-10] MEDS: LORazepam 1 MG TABLET PO SCH ×2 (08:14→16:42)
[2018-11-10] MEDS: AmLODIPine BESYLATE 5 MG TABLET PO SCH (08:16)
[2018-11-10] MEDS: ZIPRASIDONE HCL 60 MG CAPSULE PO SCH (16:42)
[2018-11-10] MEDS: ZOLPIDEM TARTRATE 10 MG TABLET PO PRN (20:40)
[2018-11-11] MEDS: QUEtiapine FUMARATE 200 MG TABLET PO SCH ×2 (08:34→16:39)
[2018-11-11] MEDS: AmLODIPine BESYLATE 5 MG TABLET PO SCH (08:34)
[2018-11-11] MEDS: OLANZapine 10 MG RAPDIS TABLET PO SCH ×3 (08:34→16:39)
[2018-11-11] MEDS: LORazepam 1 MG TABLET PO SCH ×2 (08:34→16:39)
[2018-11-11 10:17] VITALS: BP 127/88
[2018-11-11] MEDS: ZIPRASIDONE HCL 60 MG CAPSULE PO SCH (16:39)
[2018-11-11] MEDS: ZOLPIDEM TARTRATE 10 MG TABLET PO PRN (20:08)
[2018-11-11] MEDS: LORazepam 2 MG TABLET PO PRN (20:08)
[2018-11-12] MEDS: LORazepam 1 MG TABLET PO SCH ×2 (08:12→16:15)
[2018-11-12] MEDS: AmLODIPine BESYLATE 5 MG TABLET PO SCH (08:12)
[2018-11-12] MEDS: QUEtiapine FUMARATE 200 MG TABLET PO SCH ×2 (08:12→16:14)
[2018-11-12] MEDS: OLANZapine 10 MG RAPDIS TABLET PO SCH ×3 (08:12→16:14)
[2018-11-12] MEDS: ZIPRASIDONE HCL 60 MG CAPSULE PO SCH (16:17)
[2018-11-12] MEDS: LORazepam 2 MG TABLET PO PRN (20:53)
[2018-11-12] MEDS: ZOLPIDEM TARTRATE 10 MG TABLET PO PRN (20:53)
[2018-11-13] MEDS: LORazepam 2 MG TABLET PO PRN ×2 (01:54→20:26)
[2018-11-13] MEDS: AmLODIPine BESYLATE 5 MG TABLET PO SCH (07:34)
[2018-11-13] MEDS: LORazepam 1 MG TABLET PO SCH ×2 (07:34→17:43)
[2018-11-13] MEDS: QUEtiapine FUMARATE 200 MG TABLET PO SCH ×2 (07:34→17:43)
[2018-11-13] MEDS: OLANZapine 10 MG RAPDIS TABLET PO SCH ×3 (07:34→17:44)
[2018-11-13 09:42] VITALS: BP 149/94
[2018-11-13] MEDS: ZIPRASIDONE HCL 60 MG CAPSULE PO SCH (17:44)
[2018-11-13] MEDS: ZOLPIDEM TARTRATE 10 MG TABLET PO PRN (20:26)
[2018-11-14] MEDS ORDERED: RINGERS SOLUTION,LACTATED 1,000 ML IV ONE ×2 (05:15→05:17)
[2018-11-14 06:19] LABS: BASOPHILS % (AUTO) 0.3 % (0.0-2.0); EOSINOPHILS % (AUTO) 2.4 % (1.0-6.0); HEMATOCRIT 42.8 % (41-53); HEMOGLOBIN 13.9 g/dL (13.5-17.5); LYMPHOCYTES # (AUTO) 2.2 K/uL (1.0-4.8); LYMPHOCYTES % (AUTO) 29.6 % (22.0-44.0); MEAN CORPUSCULAR HEMOGLOBIN 27.8 pg (26.0-34.0); MEAN CORPUSCULAR HGB CONC 32.5 G/dL (31.0-37.0); MEAN CORPUSCULAR VOLUME 86 fL (80-100); MONOCYTES # (AUTO) 0.6 K/uL (0.1-1.0); MONOCYTES % (AUTO) 8.1 % (2.0-9.0); NEUTROPHILS # (AUTO) 4.5 K/uL (1.8-7.7); NEUTROPHILS % (AUTO) 59.6 % (40.0-70.0); PLATELET COUNT (AUTO) 159 K/uL (150-450)
[2018-11-14] MEDS ORDERED: BUPIVACAINE HCL/PF 0.5% 30 ML VIAL ONE (06:26)
[2018-11-14] MEDS ORDERED: BACITRACIN 50,000 UNITS/VIAL ONE (06:26)
[2018-11-14] MEDS ORDERED: LIDOCAINE/PF 1% 30 ML VIAL ONE (06:26)
[2018-11-14] MEDS ORDERED: SODIUM CHLORIDE 0.9% 0 ML ONE (06:26)
[2018-11-14 06:35] LABS: ANION GAP 5 mmol/L (8-16); CALCIUM, TOTAL 8.9 mg/dL (8.8-10.5); CARBON DIOXIDE 30 mmol/L (22-29); CHLORIDE 105 mmol/L (98-107); GLOMERULAR FILTR. RATE CALC > 60 mL/min (>60); GLUCOSE,RANDOM 121 mg/dL (70-110); POTASSIUM 4.3 mmol/L (3.5-5.1); SODIUM SERUM 140 mmol/L (136-145); UREA NITROGEN, BLOOD 12 mg/dL (7-18)
[2018-11-14] MEDS ORDERED: BACITRACIN 28.4 GM OINTMENT TP ONE (06:37)
[2018-11-14] MEDS: AmLODIPine BESYLATE 5 MG TABLET PO SCH (09:00)
[2018-11-14] MEDS: QUEtiapine FUMARATE 200 MG TABLET PO SCH ×2 (09:07→17:39)
[2018-11-14] MEDS: OLANZapine 10 MG RAPDIS TABLET PO SCH ×3 (09:07→17:39)
[2018-11-14] MEDS: LORazepam 1 MG TABLET PO SCH ×2 (09:08→17:40)
[2018-11-14 09:16] VITALS: BP 143/99
[2018-11-14] MEDS: ACETAMINOPHEN/CODEINE 300-30 MG TABLET PO PRN ×2 (09:18→15:46)
[2018-11-14] MEDS: NEOMYCIN/BACITRACIN/POLYMYXIN B 30 GM OINTMENT TP SCH (12:45)
[2018-11-14 16:01] VITALS: BP 142/92
[2018-11-14] MEDS: ZIPRASIDONE HCL 60 MG CAPSULE PO SCH (17:40)
[2018-11-15] MEDS ORDERED: MIDAZOLAM HCL 2 MG/2 ML VIAL IVP ONE (05:16)
[2018-11-15] MEDS ORDERED: PROPOFOL 1% 20 ML VIAL IVP ONE (05:16)
[2018-11-15] MEDS ORDERED: LIDOCAINE/PF 2% 5 ML VIAL IM ONE (05:16)
[2018-11-15] MEDS ORDERED: FentaNYL CITRATE-PF 100 MCG/2 ML VIAL IVP ONE (05:16)
[2018-11-15] MEDS: OLANZapine 10 MG RAPDIS TABLET PO SCH ×3 (07:40→16:13)
[2018-11-15] MEDS: QUEtiapine FUMARATE 200 MG TABLET PO SCH ×2 (07:40→16:14)
[2018-11-15] MEDS: ACETAMINOPHEN/CODEINE 300-30 MG TABLET PO PRN (07:40)
[2018-11-15] MEDS: LORazepam 1 MG TABLET PO SCH ×2 (07:40→16:13)
[2018-11-15] MEDS: AmLODIPine BESYLATE 5 MG TABLET PO SCH (09:00)
[2018-11-15] MEDS: NEOMYCIN/BACITRACIN/POLYMYXIN B 30 GM OINTMENT TP SCH (09:00)
[2018-11-15 16:00] VITALS: BP 145/93
[2018-11-15] MEDS: ZIPRASIDONE HCL 60 MG CAPSULE PO SCH (16:13)
[2018-11-15] MEDS: ZOLPIDEM TARTRATE 10 MG TABLET PO PRN (20:57)
[2018-11-15] MEDS: LORazepam 2 MG TABLET PO PRN (20:57)
[2018-11-16] MEDS: ACETAMINOPHEN/CODEINE 300-30 MG TABLET PO PRN ×3 (00:59→17:57)
[2018-11-16] MEDS: OLANZapine 10 MG RAPDIS TABLET PO SCH ×3 (07:59→17:56)
[2018-11-16] MEDS: LORazepam 1 MG TABLET PO SCH ×2 (07:59→17:56)
[2018-11-16] MEDS: ACETAMINOPHEN 325 MG TABLET PO PRN (07:59)
[2018-11-16] MEDS: QUEtiapine FUMARATE 200 MG TABLET PO SCH ×2 (07:59→17:56)
[2018-11-16] MEDS: AmLODIPine BESYLATE 5 MG TABLET PO SCH (08:00)
[2018-11-16] MEDS: NEOMYCIN/BACITRACIN/POLYMYXIN B 30 GM OINTMENT TP SCH (08:00)
[2018-11-16 08:59] VITALS: BP 143/80
[2018-11-16] MEDS: ZIPRASIDONE HCL 60 MG CAPSULE PO SCH (17:56)
[2018-11-16 17:57] VITALS: BP 139/88
[2018-11-16] MEDS: LORazepam 2 MG TABLET PO PRN (21:30)
[2018-11-16] MEDS: ZOLPIDEM TARTRATE 10 MG TABLET PO PRN (21:30)
[2018-11-17] MEDS: NEOMYCIN/BACITRACIN/POLYMYXIN B 30 GM OINTMENT TP SCH (08:59)
[2018-11-17] MEDS: AmLODIPine BESYLATE 5 MG TABLET PO SCH (09:00)
[2018-11-17] MEDS: OLANZapine 10 MG RAPDIS TABLET PO SCH ×3 (09:07→16:32)
[2018-11-17] MEDS: QUEtiapine FUMARATE 200 MG TABLET PO SCH ×2 (09:07→16:33)
[2018-11-17] MEDS: LORazepam 1 MG TABLET PO SCH ×2 (09:07→16:32)
[2018-11-17] MEDS: ACETAMINOPHEN/CODEINE 300-30 MG TABLET PO PRN (09:08)
[2018-11-17] MEDS: ZIPRASIDONE HCL 60 MG CAPSULE PO SCH (16:32)
[2018-11-17] MEDS: LORazepam 2 MG TABLET PO PRN (21:28)
[2018-11-17] MEDS: ZOLPIDEM TARTRATE 10 MG TABLET PO PRN (21:28)
[2018-11-18] MEDS: OLANZapine 10 MG RAPDIS TABLET PO SCH ×3 (07:56→16:04)
[2018-11-18] MEDS: LORazepam 1 MG TABLET PO SCH ×2 (07:56→16:04)
[2018-11-18] MEDS: AmLODIPine BESYLATE 5 MG TABLET PO SCH (07:57)
[2018-11-18] MEDS: QUEtiapine FUMARATE 200 MG TABLET PO SCH ×2 (07:57→16:05)
[2018-11-18] MEDS: NEOMYCIN/BACITRACIN/POLYMYXIN B 30 GM OINTMENT TP SCH (07:58)
[2018-11-18 09:36] VITALS: BP 114/80
[2018-11-18] MEDS: ZIPRASIDONE HCL 60 MG CAPSULE PO SCH (16:04)
[2018-11-18] MEDS: ZOLPIDEM TARTRATE 10 MG TABLET PO PRN (20:26)
[2018-11-18] MEDS: LORazepam 2 MG TABLET PO PRN (20:26)
[2018-11-19] MEDS: AmLODIPine BESYLATE 5 MG TABLET PO SCH (08:35)
[2018-11-19] MEDS: QUEtiapine FUMARATE 200 MG TABLET PO SCH ×2 (08:36→16:09)
[2018-11-19] MEDS: OLANZapine 10 MG RAPDIS TABLET PO SCH ×3 (08:36→16:09)
[2018-11-19] MEDS: LORazepam 1 MG TABLET PO SCH ×2 (08:36→16:09)
[2018-11-19] MEDS: NEOMYCIN/BACITRACIN/POLYMYXIN B 30 GM OINTMENT TP SCH (08:37)
[2018-11-19 16:00] VITALS: BP 125/89
[2018-11-19] MEDS: ZIPRASIDONE HCL 60 MG CAPSULE PO SCH (16:09)
[2018-11-20] MEDS: LORazepam 2 MG TABLET PO PRN ×2 (04:06→20:08)
[2018-11-20 04:09] VITALS: BP 132/79
[2018-11-20] MEDS: ACETAMINOPHEN/CODEINE 300-30 MG TABLET PO PRN (04:17)
[2018-11-20] MEDS: OLANZapine 10 MG RAPDIS TABLET PO SCH ×3 (07:56→16:12)
[2018-11-20] MEDS: QUEtiapine FUMARATE 200 MG TABLET PO SCH ×2 (07:56→16:12)
[2018-11-20] MEDS: LORazepam 1 MG TABLET PO SCH ×2 (07:56→16:13)
[2018-11-20] MEDS: AmLODIPine BESYLATE 5 MG TABLET PO SCH (09:00)
[2018-11-20 09:29] VITALS: BP 125/52
[2018-11-20] MEDS: NEOMYCIN/BACITRACIN/POLYMYXIN B 30 GM OINTMENT TP SCH (11:29)
[2018-11-20] MEDS: ZIPRASIDONE HCL 60 MG CAPSULE PO SCH (16:13)
[2018-11-20] MEDS: ZOLPIDEM TARTRATE 10 MG TABLET PO PRN (20:08)
[2018-11-21] MEDS: ACETAMINOPHEN/CODEINE 300-30 MG TABLET PO PRN (01:05)
[2018-11-21] MEDS: LORazepam 2 MG TABLET PO PRN ×2 (01:05→23:30)
[2018-11-21] MEDS: LORazepam 1 MG TABLET PO SCH ×2 (08:30→16:13)
[2018-11-21] MEDS: NEOMYCIN/BACITRACIN/POLYMYXIN B 30 GM OINTMENT TP SCH (08:31)
[2018-11-21] MEDS: QUEtiapine FUMARATE 200 MG TABLET PO SCH ×2 (08:31→16:13)
[2018-11-21] MEDS: OLANZapine 10 MG RAPDIS TABLET PO SCH ×3 (08:31→16:13)
[2018-11-21] MEDS: AmLODIPine BESYLATE 5 MG TABLET PO SCH (08:31)
[2018-11-21] MEDS: ZIPRASIDONE HCL 60 MG CAPSULE PO SCH (16:13)
[2018-11-21] MEDS: MAG HYDROX/AL HYDROX/SIMETH ES 30 ML SUSPENSION UDCUP PO PRN (23:30)
[2018-11-21] MEDS: ZOLPIDEM TARTRATE 10 MG TABLET PO PRN (23:30)
[2018-11-22] MEDS: QUEtiapine FUMARATE 200 MG TABLET PO SCH ×2 (08:07→16:30)
[2018-11-22] MEDS: OLANZapine 10 MG RAPDIS TABLET PO SCH ×3 (08:07→16:30)
[2018-11-22] MEDS: NEOMYCIN/BACITRACIN/POLYMYXIN B 30 GM OINTMENT TP SCH (08:08)
[2018-11-22] MEDS: LORazepam 1 MG TABLET PO SCH ×2 (08:08→16:30)
[2018-11-22] MEDS: AmLODIPine BESYLATE 5 MG TABLET PO SCH (08:08)
[2018-11-22] MEDS: ZIPRASIDONE HCL 60 MG CAPSULE PO SCH (16:30)
[2018-11-22 16:47] VITALS: BP 121/71
[2018-11-22 20:06] VITALS: BP 128/74
[2018-11-22] MEDS: IBUPROFEN 400 MG TABLET PO PRN (20:06)
[2018-11-22] MEDS: LORazepam 2 MG TABLET PO PRN (20:06)
[2018-11-22] MEDS: ZOLPIDEM TARTRATE 10 MG TABLET PO PRN (20:06)
[2018-11-23] MEDS: MAG HYDROX/AL HYDROX/SIMETH ES 30 ML SUSPENSION UDCUP PO PRN (01:53)
[2018-11-23] MEDS: LORazepam 2 MG TABLET PO PRN (01:53)
[2018-11-23] MEDS: OLANZapine 10 MG RAPDIS TABLET PO SCH ×3 (08:29→16:19)
[2018-11-23] MEDS: LORazepam 1 MG TABLET PO SCH ×2 (08:29→16:18)
[2018-11-23] MEDS: QUEtiapine FUMARATE 200 MG TABLET PO SCH ×2 (08:29→16:19)
[2018-11-23] MEDS: AmLODIPine BESYLATE 5 MG TABLET PO SCH (08:31)
[2018-11-23] MEDS: NEOMYCIN/BACITRACIN/POLYMYXIN B 30 GM OINTMENT TP SCH (08:31)
[2018-11-23] MEDS: ZIPRASIDONE HCL 60 MG CAPSULE PO SCH (16:18)
[2018-11-24] MEDS: LORazepam 2 MG TABLET PO PRN ×3 (02:59→18:49)
[2018-11-24] MEDS: ZOLPIDEM TARTRATE 10 MG TABLET PO PRN ×2 (03:00→20:21)
[2018-11-24] MEDS: OLANZapine 10 MG RAPDIS TABLET PO SCH ×3 (08:44→16:21)
[2018-11-24] MEDS: LORazepam 1 MG TABLET PO SCH ×2 (08:44→16:21)
[2018-11-24] MEDS: QUEtiapine FUMARATE 200 MG TABLET PO SCH ×2 (08:45→16:21)
[2018-11-24] MEDS: AmLODIPine BESYLATE 5 MG TABLET PO SCH (08:45)
[2018-11-24] MEDS: NEOMYCIN/BACITRACIN/POLYMYXIN B 30 GM OINTMENT TP SCH (08:46)
[2018-11-24] MEDS: ZIPRASIDONE HCL 60 MG CAPSULE PO SCH (16:21)
[2018-11-24] MEDS: IBUPROFEN 400 MG TABLET PO PRN (19:33)
[2018-11-25] MEDS: LORazepam 2 MG TABLET PO PRN ×2 (02:16→20:21)
[2018-11-25] MEDS: LORazepam 1 MG TABLET PO SCH ×2 (08:09→16:33)
[2018-11-25] MEDS: OLANZapine 10 MG RAPDIS TABLET PO SCH ×3 (08:10→16:33)
[2018-11-25] MEDS: AmLODIPine BESYLATE 5 MG TABLET PO SCH (08:10)
[2018-11-25] MEDS: NEOMYCIN/BACITRACIN/POLYMYXIN B 30 GM OINTMENT TP SCH (08:10)
[2018-11-25] MEDS: QUEtiapine FUMARATE 200 MG TABLET PO SCH ×2 (08:10→16:33)
[2018-11-25] MEDS: ZIPRASIDONE HCL 60 MG CAPSULE PO SCH (16:33)
[2018-11-26] MEDS: QUEtiapine FUMARATE 200 MG TABLET PO SCH ×2 (08:24→17:42)
[2018-11-26] MEDS: AmLODIPine BESYLATE 5 MG TABLET PO SCH (08:24)
[2018-11-26] MEDS: OLANZapine 10 MG RAPDIS TABLET PO SCH ×3 (08:24→17:42)
[2018-11-26] MEDS: LORazepam 1 MG TABLET PO SCH ×2 (08:24→17:42)
[2018-11-26] MEDS: NEOMYCIN/BACITRACIN/POLYMYXIN B 30 GM OINTMENT TP SCH (08:25)
[2018-11-26] MEDS: ZIPRASIDONE HCL 60 MG CAPSULE PO SCH (17:41)
[2018-11-27 08:00] VITALS: BP 128/85
[2018-11-27] MEDS: OLANZapine 10 MG RAPDIS TABLET PO SCH ×3 (08:03→16:00)
[2018-11-27] MEDS: LORazepam 1 MG TABLET PO SCH ×2 (08:03→16:00)
[2018-11-27] MEDS: QUEtiapine FUMARATE 200 MG TABLET PO SCH ×2 (08:03→16:00)
[2018-11-27] MEDS: NEOMYCIN/BACITRACIN/POLYMYXIN B 30 GM OINTMENT TP SCH (08:04)
[2018-11-27] MEDS: AmLODIPine BESYLATE 5 MG TABLET PO SCH (08:04)
[2018-11-27] MEDS: ZIPRASIDONE HCL 60 MG CAPSULE PO SCH (16:00)
[2018-11-27 17:39] VITALS: BP 139/89
[2018-11-28] MEDS: LORazepam 2 MG TABLET PO PRN (00:29)
[2018-11-28 08:00] VITALS: BP 116/67
[2018-11-28] MEDS: LORazepam 1 MG TABLET PO SCH ×2 (08:21→16:54)
[2018-11-28] MEDS: QUEtiapine FUMARATE 200 MG TABLET PO SCH ×2 (08:21→16:54)
[2018-11-28] MEDS: OLANZapine 10 MG RAPDIS TABLET PO SCH ×3 (08:22→16:54)
[2018-11-28] MEDS: AmLODIPine BESYLATE 5 MG TABLET PO SCH (08:25)
[2018-11-28] MEDS: NEOMYCIN/BACITRACIN/POLYMYXIN B 30 GM OINTMENT TP SCH (09:00)
[2018-11-28] MEDS: ZIPRASIDONE HCL 60 MG CAPSULE PO SCH (16:54)
[2018-11-29] MEDS: LORazepam 2 MG TABLET PO PRN ×2 (00:39→22:49)
[2018-11-29] MEDS: MAG HYDROX/AL HYDROX/SIMETH ES 30 ML SUSPENSION UDCUP PO PRN ×2 (00:39→22:49)
[2018-11-29] MEDS: QUEtiapine FUMARATE 200 MG TABLET PO SCH ×2 (07:51→16:32)
[2018-11-29] MEDS: AmLODIPine BESYLATE 5 MG TABLET PO SCH (07:52)
[2018-11-29] MEDS: LORazepam 1 MG TABLET PO SCH ×2 (07:52→16:31)
[2018-11-29] MEDS: OLANZapine 10 MG RAPDIS TABLET PO SCH ×3 (07:52→16:31)
[2018-11-29] MEDS: NEOMYCIN/BACITRACIN/POLYMYXIN B 30 GM OINTMENT TP SCH (07:52)
[2018-11-29 08:11] VITALS: BP 110/75
[2018-11-29 16:30] VITALS: BP 144/92
[2018-11-29] MEDS: ZIPRASIDONE HCL 60 MG CAPSULE PO SCH (16:32)
[2018-11-30] MEDS: QUEtiapine FUMARATE 200 MG TABLET PO SCH ×2 (08:01→17:07)
[2018-11-30] MEDS: LORazepam 1 MG TABLET PO SCH ×2 (08:01→17:07)
[2018-11-30] MEDS: OLANZapine 10 MG RAPDIS TABLET PO SCH ×3 (08:01→17:08)
[2018-11-30] MEDS: AmLODIPine BESYLATE 5 MG TABLET PO SCH (08:01)
[2018-11-30] MEDS: NEOMYCIN/BACITRACIN/POLYMYXIN B 30 GM OINTMENT TP SCH (09:00)
[2018-11-30 12:20] VITALS: BP 130/89
[2018-11-30] MEDS: LORazepam 2 MG TABLET PO PRN ×2 (12:30→19:22)
[2018-11-30] MEDS: DOCUSATE SODIUM 100 MG CAPSULE PO PRN (12:30)
[2018-11-30 16:32] VITALS: BP 127/74
[2018-11-30] MEDS: ZIPRASIDONE HCL 60 MG CAPSULE PO SCH (17:07)
[2018-12-01 09:20] VITALS: BP 153/107
[2018-12-01] MEDS: QUEtiapine FUMARATE 200 MG TABLET PO SCH ×2 (09:23→16:31)
[2018-12-01] MEDS: LORazepam 1 MG TABLET PO SCH ×2 (09:23→16:31)
[2018-12-01] MEDS: OLANZapine 10 MG RAPDIS TABLET PO SCH ×3 (09:24→16:31)
[2018-12-01] MEDS: AmLODIPine BESYLATE 5 MG TABLET PO SCH (09:24)
[2018-12-01] MEDS: NEOMYCIN/BACITRACIN/POLYMYXIN B 30 GM OINTMENT TP SCH (12:10)
[2018-12-01] MEDS: ZIPRASIDONE HCL 60 MG CAPSULE PO SCH (16:31)
[2018-12-01] MEDS: LORazepam 2 MG TABLET PO PRN (20:51)
[2018-12-01 21:13] VITALS: BP 138/90
[2018-12-01] MEDS: ACETAMINOPHEN/CODEINE 300-30 MG TABLET PO PRN (21:13)
[2018-12-02] MEDS: LORazepam 1 MG TABLET PO SCH ×2 (08:18→16:25)
[2018-12-02] MEDS: AmLODIPine BESYLATE 5 MG TABLET PO SCH (08:19)
[2018-12-02] MEDS: QUEtiapine FUMARATE 200 MG TABLET PO SCH ×2 (08:19→16:26)
[2018-12-02] MEDS: OLANZapine 10 MG RAPDIS TABLET PO SCH ×3 (08:19→16:26)
[2018-12-02] MEDS: NEOMYCIN/BACITRACIN/POLYMYXIN B 30 GM OINTMENT TP SCH (09:00)
[2018-12-02 09:22] VITALS: BP 141/95
[2018-12-02] MEDS: ZIPRASIDONE HCL 60 MG CAPSULE PO SCH (16:26)
[2018-12-03] MEDS: LORazepam 2 MG TABLET PO PRN (01:41)
[2018-12-03] MEDS: AmLODIPine BESYLATE 5 MG TABLET PO SCH (08:03)
[2018-12-03] MEDS: OLANZapine 10 MG RAPDIS TABLET PO SCH ×3 (08:04→16:37)
[2018-12-03] MEDS: LORazepam 1 MG TABLET PO SCH ×2 (08:04→16:36)
[2018-12-03] MEDS: QUEtiapine FUMARATE 200 MG TABLET PO SCH ×2 (08:04→16:37)
[2018-12-03] MEDS: NEOMYCIN/BACITRACIN/POLYMYXIN B 30 GM OINTMENT TP SCH (09:00)
[2018-12-03 09:48] VITALS: BP 140/94
[2018-12-03] MEDS: ZIPRASIDONE HCL 60 MG CAPSULE PO SCH (16:37)
[2018-12-03] MEDS: ACETAMINOPHEN/CODEINE 300-30 MG TABLET PO PRN (23:47)
[2018-12-04] MEDS: AmLODIPine BESYLATE 5 MG TABLET PO SCH (08:14)
[2018-12-04] MEDS: LORazepam 1 MG TABLET PO SCH ×2 (08:14→16:06)
[2018-12-04] MEDS: OLANZapine 10 MG RAPDIS TABLET PO SCH ×3 (08:14→16:06)
[2018-12-04] MEDS: QUEtiapine FUMARATE 200 MG TABLET PO SCH ×2 (08:14→16:07)
[2018-12-04] MEDS: NEOMYCIN/BACITRACIN/POLYMYXIN B 30 GM OINTMENT TP SCH (09:00)
[2018-12-04 10:50] VITALS: BP 133/99
[2018-12-04] MEDS: ZIPRASIDONE HCL 60 MG CAPSULE PO SCH (16:06)
[2018-12-04 18:00] VITALS: BP 138/91
[2018-12-05 08:10] VITALS: BP 139/97
[2018-12-05] MEDS: LORazepam 1 MG TABLET PO SCH ×2 (08:12→16:40)
[2018-12-05] MEDS: AmLODIPine BESYLATE 5 MG TABLET PO SCH (08:13)
[2018-12-05] MEDS: OLANZapine 10 MG RAPDIS TABLET PO SCH ×3 (08:13→16:40)
[2018-12-05] MEDS: QUEtiapine FUMARATE 200 MG TABLET PO SCH ×2 (08:13→16:39)
[2018-12-05] MEDS: NEOMYCIN/BACITRACIN/POLYMYXIN B 30 GM OINTMENT TP SCH (08:14)
[2018-12-05] MEDS: HYDROCORTISONE 1% 30 GM OINTMENT TP SCH ×2 (11:48→16:40)
[2018-12-05] MEDS: ZIPRASIDONE HCL 60 MG CAPSULE PO SCH (16:40)
[2018-12-05] MEDS: MAG HYDROX/AL HYDROX/SIMETH ES 30 ML SUSPENSION UDCUP PO PRN (19:00)
[2018-12-05] MEDS: ZOLPIDEM TARTRATE 10 MG TABLET PO PRN (20:27)
[2018-12-05] MEDS: LORazepam 2 MG TABLET PO PRN (20:27)
[2018-12-05] MEDS: ACETAMINOPHEN/CODEINE 300-30 MG TABLET PO PRN (21:34)
[2018-12-06 08:02] VITALS: BP 131/88
[2018-12-06] MEDS: QUEtiapine FUMARATE 200 MG TABLET PO SCH ×2 (08:08→16:38)
[2018-12-06] MEDS: AmLODIPine BESYLATE 5 MG TABLET PO SCH (08:08)
[2018-12-06] MEDS: OLANZapine 10 MG RAPDIS TABLET PO SCH ×3 (08:08→16:37)
[2018-12-06] MEDS: LORazepam 1 MG TABLET PO SCH ×2 (08:09→16:37)
[2018-12-06] MEDS: NEOMYCIN/BACITRACIN/POLYMYXIN B 30 GM OINTMENT TP SCH (08:11)
[2018-12-06] MEDS: HYDROCORTISONE 1% 30 GM OINTMENT TP SCH ×2 (08:12→16:38)
[2018-12-06] MEDS: ZIPRASIDONE HCL 60 MG CAPSULE PO SCH (16:37)
[2018-12-06] MEDS: MAG HYDROX/AL HYDROX/SIMETH ES 30 ML SUSPENSION UDCUP PO PRN (21:28)
[2018-12-06] MEDS: LORazepam 2 MG TABLET PO PRN (21:28)
[2018-12-07] MEDS: AmLODIPine BESYLATE 5 MG TABLET PO SCH (07:41)
[2018-12-07] MEDS: QUEtiapine FUMARATE 200 MG TABLET PO SCH ×2 (07:41→16:06)
[2018-12-07] MEDS: LORazepam 1 MG TABLET PO SCH ×2 (07:42→16:06)
[2018-12-07] MEDS: OLANZapine 10 MG RAPDIS TABLET PO SCH ×3 (07:42→16:06)
[2018-12-07] MEDS: HYDROCORTISONE 1% 30 GM OINTMENT TP SCH ×2 (07:44→16:09)
[2018-12-07] MEDS: NEOMYCIN/BACITRACIN/POLYMYXIN B 30 GM OINTMENT TP SCH (07:44)
[2018-12-07] MEDS: ZIPRASIDONE HCL 60 MG CAPSULE PO SCH (16:06)
[2018-12-08 00:39] VITALS: BP 138/78
[2018-12-08] MEDS: AmLODIPine BESYLATE 5 MG TABLET PO SCH (07:42)
[2018-12-08] MEDS: LORazepam 1 MG TABLET PO SCH ×2 (07:42→17:33)
[2018-12-08] MEDS: QUEtiapine FUMARATE 200 MG TABLET PO SCH ×2 (07:42→17:34)
[2018-12-08] MEDS: OLANZapine 10 MG RAPDIS TABLET PO SCH ×3 (07:43→17:34)
[2018-12-08] MEDS: HYDROCORTISONE 1% 30 GM OINTMENT TP SCH ×2 (07:45→17:34)
[2018-12-08] MEDS: NEOMYCIN/BACITRACIN/POLYMYXIN B 30 GM OINTMENT TP SCH (07:45)
[2018-12-08 08:32] VITALS: BP 145/94
[2018-12-08] MEDS: MAG HYDROX/AL HYDROX/SIMETH ES 30 ML SUSPENSION UDCUP PO PRN (14:06)
[2018-12-08] MEDS: ZIPRASIDONE HCL 60 MG CAPSULE PO SCH (17:34)
[2018-12-08] MEDS: LORazepam 2 MG TABLET PO PRN (20:09)
[2018-12-09] MEDS: QUEtiapine FUMARATE 200 MG TABLET PO SCH ×2 (08:06→16:22)
[2018-12-09] MEDS: AmLODIPine BESYLATE 5 MG TABLET PO SCH (08:06)
[2018-12-09] MEDS: LORazepam 1 MG TABLET PO SCH ×2 (08:06→16:22)
[2018-12-09] MEDS: NEOMYCIN/BACITRACIN/POLYMYXIN B 30 GM OINTMENT TP SCH (08:07)
[2018-12-09] MEDS: OLANZapine 10 MG RAPDIS TABLET PO SCH ×3 (08:07→16:23)
[2018-12-09] MEDS: HYDROCORTISONE 1% 30 GM OINTMENT TP SCH ×2 (08:11→16:23)
[2018-12-09] MEDS: DOCUSATE SODIUM 100 MG CAPSULE PO PRN (09:00)
[2018-12-09 16:20] VITALS: BP 147/92
[2018-12-09] MEDS: ZIPRASIDONE HCL 60 MG CAPSULE PO SCH (16:22)
[2018-12-10] MEDS: LORazepam 2 MG TABLET PO PRN (00:08)
[2018-12-10] MEDS: LORazepam 1 MG TABLET PO SCH ×2 (07:38→16:10)
[2018-12-10] MEDS: QUEtiapine FUMARATE 200 MG TABLET PO SCH ×2 (07:38→16:10)
[2018-12-10] MEDS: AmLODIPine BESYLATE 5 MG TABLET PO SCH (07:38)
[2018-12-10] MEDS: OLANZapine 10 MG RAPDIS TABLET PO SCH ×3 (07:38→16:10)
[2018-12-10] MEDS: HYDROCORTISONE 1% 30 GM OINTMENT TP SCH ×2 (07:39→16:10)
[2018-12-10] MEDS: NEOMYCIN/BACITRACIN/POLYMYXIN B 30 GM OINTMENT TP SCH (07:39)
[2018-12-10 08:17] VITALS: BP 148/97
[2018-12-10] MEDS: ZIPRASIDONE HCL 60 MG CAPSULE PO SCH (16:10)
[2018-12-10 18:30] VITALS: BP 139/84
[2018-12-11] MEDS: AmLODIPine BESYLATE 5 MG TABLET PO SCH (07:45)
[2018-12-11] MEDS: QUEtiapine FUMARATE 200 MG TABLET PO SCH ×2 (07:45→16:41)
[2018-12-11] MEDS: HYDROCORTISONE 1% 30 GM OINTMENT TP SCH ×2 (07:45→16:42)
[2018-12-11] MEDS: NEOMYCIN/BACITRACIN/POLYMYXIN B 30 GM OINTMENT TP SCH (07:45)
[2018-12-11] MEDS: OLANZapine 10 MG RAPDIS TABLET PO SCH ×3 (07:45→16:41)
[2018-12-11] MEDS: LORazepam 1 MG TABLET PO SCH ×2 (07:45→16:41)
[2018-12-11 08:00] VITALS: BP 152/97
[2018-12-11 16:00] VITALS: BP 142/91
[2018-12-11] MEDS: ZIPRASIDONE HCL 60 MG CAPSULE PO SCH (16:41)
[2018-12-12 08:00] VITALS: BP 140/77
[2018-12-12] MEDS: QUEtiapine FUMARATE 200 MG TABLET PO SCH ×2 (08:07→17:27)
[2018-12-12] MEDS: AmLODIPine BESYLATE 5 MG TABLET PO SCH (08:07)
[2018-12-12] MEDS: LORazepam 1 MG TABLET PO SCH ×2 (08:07→17:27)
[2018-12-12] MEDS: OLANZapine 10 MG RAPDIS TABLET PO SCH ×3 (08:08→17:27)
[2018-12-12] MEDS: HYDROCORTISONE 1% 30 GM OINTMENT TP SCH ×2 (08:10→17:27)
[2018-12-12] MEDS: NEOMYCIN/BACITRACIN/POLYMYXIN B 30 GM OINTMENT TP SCH (08:10)
[2018-12-12] MEDS: ZIPRASIDONE HCL 60 MG CAPSULE PO SCH (17:27)
[2018-12-13] MEDS: AmLODIPine BESYLATE 5 MG TABLET PO SCH (07:47)
[2018-12-13] MEDS: HYDROCORTISONE 1% 30 GM OINTMENT TP SCH ×2 (07:47→16:26)
[2018-12-13] MEDS: QUEtiapine FUMARATE 200 MG TABLET PO SCH ×2 (07:47→16:20)
[2018-12-13] MEDS: OLANZapine 10 MG RAPDIS TABLET PO SCH ×3 (07:47→16:20)
[2018-12-13] MEDS: LORazepam 1 MG TABLET PO SCH ×2 (07:47→16:20)
[2018-12-13] MEDS: NEOMYCIN/BACITRACIN/POLYMYXIN B 30 GM OINTMENT TP SCH (07:48)
[2018-12-13 08:42] VITALS: BP 108/79
[2018-12-13 16:00] VITALS: BP 146/83
[2018-12-13] MEDS: ZIPRASIDONE HCL 60 MG CAPSULE PO SCH (16:20)
[2018-12-14] MEDS: LORazepam 1 MG TABLET PO SCH ×2 (08:36→16:23)
[2018-12-14] MEDS: OLANZapine 10 MG RAPDIS TABLET PO SCH ×3 (08:36→16:24)
[2018-12-14] MEDS: QUEtiapine FUMARATE 200 MG TABLET PO SCH ×2 (08:36→16:24)
[2018-12-14] MEDS: AmLODIPine BESYLATE 5 MG TABLET PO SCH (08:36)
[2018-12-14] MEDS: HYDROCORTISONE 1% 30 GM OINTMENT TP SCH ×2 (08:37→16:28)
[2018-12-14] MEDS: NEOMYCIN/BACITRACIN/POLYMYXIN B 30 GM OINTMENT TP SCH (08:37)
[2018-12-14] MEDS: ZIPRASIDONE HCL 60 MG CAPSULE PO SCH (16:23)
[2018-12-14 16:29] VITALS: BP 150/90
[2018-12-15] MEDS: NEOMYCIN/BACITRACIN/POLYMYXIN B 30 GM OINTMENT TP SCH (09:00)
[2018-12-15] MEDS: HYDROCORTISONE 1% 30 GM OINTMENT TP SCH ×2 (09:00→17:00)
[2018-12-15] MEDS: AmLODIPine BESYLATE 5 MG TABLET PO SCH (09:12)
[2018-12-15] MEDS: QUEtiapine FUMARATE 200 MG TABLET PO SCH ×2 (09:12→16:49)
[2018-12-15] MEDS: LORazepam 1 MG TABLET PO SCH ×2 (09:12→16:48)
[2018-12-15] MEDS: OLANZapine 10 MG RAPDIS TABLET PO SCH ×3 (09:12→16:48)
[2018-12-15] MEDS: ZIPRASIDONE HCL 60 MG CAPSULE PO SCH (16:48)
[2018-12-15] MEDS: NICOTINE 14 MG/24 HOUR PATCH TD PRN (17:08)
[2018-12-15] MEDS: LORazepam 2 MG TABLET PO PRN (22:39)
[2018-12-15] MEDS: ZOLPIDEM TARTRATE 10 MG TABLET PO PRN (23:00)
[2018-12-16] MEDS: DOCUSATE SODIUM 100 MG CAPSULE PO PRN (05:47)
[2018-12-16 08:00] VITALS: BP 143/80
[2018-12-16] MEDS: OLANZapine 10 MG RAPDIS TABLET PO SCH ×3 (08:10→16:29)
[2018-12-16] MEDS: AmLODIPine BESYLATE 5 MG TABLET PO SCH (08:10)
[2018-12-16] MEDS: QUEtiapine FUMARATE 200 MG TABLET PO SCH ×2 (08:10→16:29)
[2018-12-16] MEDS: LORazepam 1 MG TABLET PO SCH ×2 (08:12→16:28)
[2018-12-16] MEDS: HYDROCORTISONE 1% 30 GM OINTMENT TP SCH ×2 (09:00→16:32)
[2018-12-16] MEDS: NEOMYCIN/BACITRACIN/POLYMYXIN B 30 GM OINTMENT TP SCH (09:00)
[2018-12-16] MEDS: ZIPRASIDONE HCL 60 MG CAPSULE PO SCH (16:30)
[2018-12-16] MEDS: NICOTINE 14 MG/24 HOUR PATCH TD PRN (18:18)
[2018-12-17] MEDS: NEOMYCIN/BACITRACIN/POLYMYXIN B 30 GM OINTMENT TP SCH (09:00)
[2018-12-17] MEDS: HYDROCORTISONE 1% 30 GM OINTMENT TP SCH ×2 (09:00→16:02)
[2018-12-17] MEDS: QUEtiapine FUMARATE 200 MG TABLET PO SCH ×2 (09:16→16:02)
[2018-12-17] MEDS: LORazepam 1 MG TABLET PO SCH ×2 (09:16→16:02)
[2018-12-17] MEDS: AmLODIPine BESYLATE 5 MG TABLET PO SCH (09:16)
[2018-12-17] MEDS: OLANZapine 10 MG RAPDIS TABLET PO SCH ×3 (09:17→16:02)
[2018-12-17 16:00] VITALS: BP 143/96
[2018-12-17] MEDS: ZIPRASIDONE HCL 60 MG CAPSULE PO SCH (16:02)
[2018-12-17] MEDS: MAGNESIUM HYDROXIDE SUSPENSION 30 ML UDCUP PO PRN (18:59)
[2018-12-17] MEDS: MAG HYDROX/AL HYDROX/SIMETH ES 30 ML SUSPENSION UDCUP PO PRN (18:59)
[2018-12-18] MEDS: OLANZapine 10 MG RAPDIS TABLET PO SCH ×3 (08:52→17:09)
[2018-12-18] MEDS: QUEtiapine FUMARATE 200 MG TABLET PO SCH ×2 (08:52→17:08)
[2018-12-18] MEDS: AmLODIPine BESYLATE 5 MG TABLET PO SCH (08:52)
[2018-12-18] MEDS: LORazepam 1 MG TABLET PO SCH ×2 (08:52→17:08)
[2018-12-18] MEDS: HYDROCORTISONE 1% 30 GM OINTMENT TP SCH ×2 (09:00→17:00)
[2018-12-18] MEDS: NEOMYCIN/BACITRACIN/POLYMYXIN B 30 GM OINTMENT TP SCH (09:00)
[2018-12-18] MEDS: ZIPRASIDONE HCL 60 MG CAPSULE PO SCH (17:08)
[2018-12-19] MEDS: HYDROCORTISONE 1% 30 GM OINTMENT TP SCH ×2 (09:00→17:04)
[2018-12-19] MEDS: NEOMYCIN/BACITRACIN/POLYMYXIN B 30 GM OINTMENT TP SCH (09:00)
[2018-12-19] MEDS: QUEtiapine FUMARATE 200 MG TABLET PO SCH ×2 (09:02→17:03)
[2018-12-19] MEDS: OLANZapine 10 MG RAPDIS TABLET PO SCH ×3 (09:02→17:04)
[2018-12-19] MEDS: LORazepam 1 MG TABLET PO SCH ×2 (09:02→17:03)
[2018-12-19] MEDS: AmLODIPine BESYLATE 5 MG TABLET PO SCH (09:03)
[2018-12-19] MEDS: ZIPRASIDONE HCL 60 MG CAPSULE PO SCH (17:03)
[2018-12-19 17:07] VITALS: BP 104/69
[2018-12-20] MEDS: LORazepam 1 MG TABLET PO SCH ×2 (07:50→16:41)
[2018-12-20] MEDS: OLANZapine 10 MG RAPDIS TABLET PO SCH ×3 (07:50→16:41)
[2018-12-20] MEDS: AmLODIPine BESYLATE 5 MG TABLET PO SCH (07:51)
[2018-12-20] MEDS: NEOMYCIN/BACITRACIN/POLYMYXIN B 30 GM OINTMENT TP SCH (07:51)
[2018-12-20] MEDS: QUEtiapine FUMARATE 200 MG TABLET PO SCH ×2 (07:51→16:42)
[2018-12-20] MEDS: HYDROCORTISONE 1% 30 GM OINTMENT TP SCH ×2 (07:51→16:42)
[2018-12-20 08:03] VITALS: BP 141/89
[2018-12-20] MEDS: ZIPRASIDONE HCL 60 MG CAPSULE PO SCH (16:42)
[2018-12-21] MEDS: OLANZapine 10 MG RAPDIS TABLET PO SCH ×3 (08:27→16:47)
[2018-12-21] MEDS: LORazepam 1 MG TABLET PO SCH ×2 (08:27→16:46)
[2018-12-21] MEDS: QUEtiapine FUMARATE 200 MG TABLET PO SCH ×2 (08:27→16:47)
[2018-12-21] MEDS: AmLODIPine BESYLATE 5 MG TABLET PO SCH (08:27)
[2018-12-21] MEDS: NEOMYCIN/BACITRACIN/POLYMYXIN B 30 GM OINTMENT TP SCH (08:29)
[2018-12-21] MEDS: HYDROCORTISONE 1% 30 GM OINTMENT TP SCH ×2 (08:29→16:48)
[2018-12-21] MEDS: ZIPRASIDONE HCL 60 MG CAPSULE PO SCH (16:48)
[2018-12-21] MEDS: LORazepam 2 MG TABLET PO PRN (21:44)
[2018-12-22] MEDS: OLANZapine 10 MG RAPDIS TABLET PO SCH ×3 (08:42→16:41)
[2018-12-22] MEDS: LORazepam 1 MG TABLET PO SCH ×2 (08:43→16:41)
[2018-12-22] MEDS: AmLODIPine BESYLATE 5 MG TABLET PO SCH (08:43)
[2018-12-22] MEDS: HYDROCORTISONE 1% 30 GM OINTMENT TP SCH ×2 (08:44→16:42)
[2018-12-22] MEDS: NEOMYCIN/BACITRACIN/POLYMYXIN B 30 GM OINTMENT TP SCH (08:44)
[2018-12-22] MEDS: QUEtiapine FUMARATE 200 MG TABLET PO SCH ×2 (08:44→16:41)
[2018-12-22] MEDS: LORazepam 2 MG TABLET PO PRN (14:37)
[2018-12-22] MEDS: ZIPRASIDONE HCL 60 MG CAPSULE PO SCH (16:41)
[2018-12-23] MEDS: QUEtiapine FUMARATE 200 MG TABLET PO SCH ×2 (08:43→16:42)
[2018-12-23] MEDS: AmLODIPine BESYLATE 5 MG TABLET PO SCH (08:43)
[2018-12-23] MEDS: LORazepam 1 MG TABLET PO SCH ×2 (08:44→16:41)
[2018-12-23] MEDS: HYDROCORTISONE 1% 30 GM OINTMENT TP SCH ×2 (08:44→16:43)
[2018-12-23] MEDS: OLANZapine 10 MG RAPDIS TABLET PO SCH ×3 (08:44→16:42)
[2018-12-23] MEDS: NEOMYCIN/BACITRACIN/POLYMYXIN B 30 GM OINTMENT TP SCH (08:44)
[2018-12-23] MEDS: ZIPRASIDONE HCL 60 MG CAPSULE PO SCH (16:42)
[2018-12-23] MEDS: LORazepam 2 MG TABLET PO PRN (21:16)
[2018-12-24] MEDS: LORazepam 2 MG TABLET PO PRN (02:28)
[2018-12-24 02:39] VITALS: BP 151/79
[2018-12-24] MEDS: NEOMYCIN/BACITRACIN/POLYMYXIN B 30 GM OINTMENT TP SCH (09:00)
[2018-12-24] MEDS: HYDROCORTISONE 1% 30 GM OINTMENT TP SCH ×2 (09:00→16:20)
[2018-12-24] MEDS: AmLODIPine BESYLATE 5 MG TABLET PO SCH (10:05)
[2018-12-24] MEDS: LORazepam 1 MG TABLET PO SCH ×2 (10:05→16:19)
[2018-12-24] MEDS: OLANZapine 10 MG RAPDIS TABLET PO SCH ×3 (10:06→16:19)
[2018-12-24] MEDS: QUEtiapine FUMARATE 200 MG TABLET PO SCH ×2 (10:06→16:19)
[2018-12-24 10:09] VITALS: BP 130/97
[2018-12-24] MEDS: ZIPRASIDONE HCL 60 MG CAPSULE PO SCH (16:19)
[2018-12-24 16:45] VITALS: BP 138/89
[2018-12-25] MEDS: LORazepam 2 MG TABLET PO PRN (00:04)
[2018-12-25] MEDS: HYDROCORTISONE 1% 30 GM OINTMENT TP SCH ×2 (08:15→16:39)
[2018-12-25] MEDS: NEOMYCIN/BACITRACIN/POLYMYXIN B 30 GM OINTMENT TP SCH (08:15)
[2018-12-25] MEDS: LORazepam 1 MG TABLET PO SCH ×2 (08:17→16:39)
[2018-12-25] MEDS: OLANZapine 10 MG RAPDIS TABLET PO SCH ×3 (08:17→16:39)
[2018-12-25] MEDS: QUEtiapine FUMARATE 200 MG TABLET PO SCH ×2 (08:17→16:39)
[2018-12-25] MEDS: AmLODIPine BESYLATE 5 MG TABLET PO SCH (08:17)
[2018-12-25 08:30] VITALS: BP 138/83
[2018-12-25 16:30] VITALS: BP 129/73
[2018-12-25] MEDS: ZIPRASIDONE HCL 60 MG CAPSULE PO SCH (16:40)
[2018-12-26 09:00] VITALS: BP 124/80
[2018-12-26] MEDS: NEOMYCIN/BACITRACIN/POLYMYXIN B 30 GM OINTMENT TP SCH (09:00)
[2018-12-26] MEDS: AmLODIPine BESYLATE 5 MG TABLET PO SCH (09:03)
[2018-12-26] MEDS: LORazepam 1 MG TABLET PO SCH ×2 (09:03→16:45)
[2018-12-26] MEDS: HYDROCORTISONE 1% 30 GM OINTMENT TP SCH ×2 (09:03→16:46)
[2018-12-26] MEDS: QUEtiapine FUMARATE 200 MG TABLET PO SCH ×2 (09:03→16:44)
[2018-12-26] MEDS: OLANZapine 10 MG RAPDIS TABLET PO SCH ×3 (09:03→16:45)
[2018-12-26] MEDS: ZIPRASIDONE HCL 60 MG CAPSULE PO SCH (19:36)
[2018-12-26] MEDS: LORazepam 2 MG TABLET PO PRN (23:04)
[2018-12-27] MEDS: ZOLPIDEM TARTRATE 10 MG TABLET PO PRN (02:20)
[2018-12-27 02:23] VITALS: BP 139/87
[2018-12-27] MEDS: HYDROCORTISONE 1% 30 GM OINTMENT TP SCH ×2 (09:00→17:00)
[2018-12-27] MEDS: NEOMYCIN/BACITRACIN/POLYMYXIN B 30 GM OINTMENT TP SCH (09:00)
[2018-12-27 09:17] VITALS: BP 144/98
[2018-12-27] MEDS: AmLODIPine BESYLATE 5 MG TABLET PO SCH (09:45)
[2018-12-27] MEDS: LORazepam 1 MG TABLET PO SCH ×2 (09:45→17:16)
[2018-12-27] MEDS: OLANZapine 10 MG RAPDIS TABLET PO SCH ×3 (09:45→17:16)
[2018-12-27] MEDS: QUEtiapine FUMARATE 200 MG TABLET PO SCH ×2 (09:45→17:16)
[2018-12-27 16:30] VITALS: BP 141/76
[2018-12-27] MEDS: ZIPRASIDONE HCL 60 MG CAPSULE PO SCH (17:16)
[2018-12-28] MEDS: NEOMYCIN/BACITRACIN/POLYMYXIN B 30 GM OINTMENT TP SCH (09:00)
[2018-12-28] MEDS: HYDROCORTISONE 1% 30 GM OINTMENT TP SCH ×2 (09:00→16:55)
[2018-12-28] MEDS: LORazepam 1 MG TABLET PO SCH ×2 (09:21→16:53)
[2018-12-28] MEDS: QUEtiapine FUMARATE 200 MG TABLET PO SCH ×2 (09:22→16:54)
[2018-12-28] MEDS: AmLODIPine BESYLATE 5 MG TABLET PO SCH (09:22)
[2018-12-28] MEDS: OLANZapine 10 MG RAPDIS TABLET PO SCH ×3 (09:23→16:54)
[2018-12-28 12:55] VITALS: BP 132/85
[2018-12-28 16:45] VITALS: BP 139/80
[2018-12-28] MEDS: ZIPRASIDONE HCL 60 MG CAPSULE PO SCH (16:55)
[2018-12-28] MEDS: ZOLPIDEM TARTRATE 10 MG TABLET PO PRN (20:33)
[2018-12-28] MEDS: LORazepam 2 MG TABLET PO PRN (20:33)
[2018-12-29] MEDS: LORazepam 1 MG TABLET PO SCH ×2 (09:04→16:13)
[2018-12-29] MEDS: QUEtiapine FUMARATE 200 MG TABLET PO SCH ×2 (09:04→16:13)
[2018-12-29] MEDS: OLANZapine 10 MG RAPDIS TABLET PO SCH ×3 (09:05→16:13)
[2018-12-29] MEDS: AmLODIPine BESYLATE 5 MG TABLET PO SCH (09:06)
[2018-12-29] MEDS: HYDROCORTISONE 1% 30 GM OINTMENT TP SCH ×2 (09:07→16:16)
[2018-12-29] MEDS: NEOMYCIN/BACITRACIN/POLYMYXIN B 30 GM OINTMENT TP SCH (09:07)
[2018-12-29] MEDS: ZIPRASIDONE HCL 60 MG CAPSULE PO SCH (16:16)
[2018-12-29 20:00] VITALS: BP 133/97
[2018-12-30] MEDS: NEOMYCIN/BACITRACIN/POLYMYXIN B 30 GM OINTMENT TP SCH (09:00)
[2018-12-30] MEDS: AmLODIPine BESYLATE 5 MG TABLET PO SCH (09:09)
[2018-12-30] MEDS: QUEtiapine FUMARATE 200 MG TABLET PO SCH ×2 (09:09→16:28)
[2018-12-30] MEDS: OLANZapine 10 MG RAPDIS TABLET PO SCH ×3 (09:09→16:28)
[2018-12-30] MEDS: LORazepam 1 MG TABLET PO SCH ×2 (09:09→16:29)
[2018-12-30] MEDS: HYDROCORTISONE 1% 30 GM OINTMENT TP SCH ×2 (09:10→16:31)
[2018-12-30 10:03] VITALS: BP 142/100
[2018-12-30] MEDS: ZIPRASIDONE HCL 60 MG CAPSULE PO SCH (16:28)
[2018-12-30 17:50] VITALS: BP 148/95
[2018-12-30] MEDS: ZOLPIDEM TARTRATE 10 MG TABLET PO PRN (21:10)
[2018-12-30] MEDS: LORazepam 2 MG TABLET PO PRN (21:10)
[2018-12-31] MEDS: QUEtiapine FUMARATE 200 MG TABLET PO SCH ×2 (09:00→16:09)
[2018-12-31] MEDS: AmLODIPine BESYLATE 5 MG TABLET PO SCH (09:00)
[2018-12-31] MEDS: NEOMYCIN/BACITRACIN/POLYMYXIN B 30 GM OINTMENT TP SCH (09:00)
[2018-12-31] MEDS: HYDROCORTISONE 1% 30 GM OINTMENT TP SCH ×2 (09:00→16:10)
[2018-12-31] MEDS: OLANZapine 10 MG RAPDIS TABLET PO SCH ×3 (09:00→16:10)
[2018-12-31] MEDS: LORazepam 1 MG TABLET PO SCH ×2 (09:00→16:09)
[2018-12-31 10:11] VITALS: BP 127/93
[2018-12-31] MEDS: ZIPRASIDONE HCL 60 MG CAPSULE PO SCH (16:10)
[2018-12-31 16:30] VITALS: BP 127/70
[2019-01-01] MEDS: LORazepam 2 MG TABLET PO PRN ×2 (00:02→20:48)
[2019-01-01] MEDS: AmLODIPine BESYLATE 5 MG TABLET PO SCH (08:22)
[2019-01-01] MEDS: HYDROCORTISONE 1% 30 GM OINTMENT TP SCH ×2 (08:22→16:23)
[2019-01-01] MEDS: OLANZapine 10 MG RAPDIS TABLET PO SCH ×3 (08:22→16:23)
[2019-01-01] MEDS: LORazepam 1 MG TABLET PO SCH ×2 (08:22→16:22)
[2019-01-01] MEDS: QUEtiapine FUMARATE 200 MG TABLET PO SCH ×2 (08:22→16:22)
[2019-01-01] MEDS: NEOMYCIN/BACITRACIN/POLYMYXIN B 30 GM OINTMENT TP SCH (08:23)
[2019-01-01] MEDS: ZIPRASIDONE HCL 60 MG CAPSULE PO SCH (17:37)
[2019-01-01] MEDS: ZOLPIDEM TARTRATE 10 MG TABLET PO PRN (20:48)
[2019-01-01 21:48] VITALS: BP 151/92
[2019-01-02] MEDS: LORazepam 2 MG TABLET PO PRN (02:57)
[2019-01-02 03:04] VITALS: BP 132/99
[2019-01-02] MEDS: MAG HYDROX/AL HYDROX/SIMETH ES 30 ML SUSPENSION UDCUP PO PRN (04:18)
[2019-01-02] MEDS: OLANZapine 10 MG RAPDIS TABLET PO SCH ×3 (08:44→16:47)
[2019-01-02] MEDS: LORazepam 1 MG TABLET PO SCH ×2 (08:44→16:47)
[2019-01-02] MEDS: AmLODIPine BESYLATE 5 MG TABLET PO SCH (08:44)
[2019-01-02] MEDS: HYDROCORTISONE 1% 30 GM OINTMENT TP SCH ×2 (08:44→16:47)
[2019-01-02] MEDS: QUEtiapine FUMARATE 200 MG TABLET PO SCH ×2 (08:44→16:47)
[2019-01-02] MEDS: NEOMYCIN/BACITRACIN/POLYMYXIN B 30 GM OINTMENT TP SCH (08:45)
[2019-01-02 09:49] VITALS: BP 127/90
[2019-01-02] MEDS: ZIPRASIDONE HCL 60 MG CAPSULE PO SCH (16:47)
[2019-01-02 16:57] VITALS: BP 122/67
[2019-01-03] MEDS: OLANZapine 10 MG RAPDIS TABLET PO SCH ×3 (08:00→16:38)
[2019-01-03] MEDS: HYDROCORTISONE 1% 30 GM OINTMENT TP SCH ×2 (08:00→16:39)
[2019-01-03] MEDS: AmLODIPine BESYLATE 5 MG TABLET PO SCH (08:00)
[2019-01-03] MEDS: LORazepam 1 MG TABLET PO SCH ×2 (08:00→16:38)
[2019-01-03] MEDS: QUEtiapine FUMARATE 200 MG TABLET PO SCH ×2 (08:00→16:38)
[2019-01-03] MEDS: NEOMYCIN/BACITRACIN/POLYMYXIN B 30 GM OINTMENT TP SCH (08:01)
[2019-01-03 09:23] VITALS: BP 114/64
[2019-01-03] MEDS: ACETAMINOPHEN/CODEINE 300-30 MG TABLET PO PRN (14:30)
[2019-01-03 16:29] VITALS: BP 120/70
[2019-01-03] MEDS: ZIPRASIDONE HCL 60 MG CAPSULE PO SCH (16:38)
[2019-01-04] MEDS: ACETAMINOPHEN/CODEINE 300-30 MG TABLET PO PRN (02:50)
[2019-01-04] MEDS: HYDROCORTISONE 1% 30 GM OINTMENT TP SCH ×2 (09:00→16:27)
[2019-01-04] MEDS: AmLODIPine BESYLATE 5 MG TABLET PO SCH (09:00)
[2019-01-04] MEDS: QUEtiapine FUMARATE 200 MG TABLET PO SCH ×2 (09:00→16:02)
[2019-01-04] MEDS: NEOMYCIN/BACITRACIN/POLYMYXIN B 30 GM OINTMENT TP SCH (09:00)
[2019-01-04] MEDS: OLANZapine 10 MG RAPDIS TABLET PO SCH ×3 (09:00→16:02)
[2019-01-04] MEDS: LORazepam 1 MG TABLET PO SCH ×2 (09:01→16:02)
[2019-01-04] MEDS: IBUPROFEN 400 MG TABLET PO PRN (09:03)
[2019-01-04] MEDS: ZIPRASIDONE HCL 60 MG CAPSULE PO SCH (16:57)
[2019-01-04] MEDS: LORazepam 2 MG TABLET PO PRN (20:32)
[2019-01-04] MEDS: ZOLPIDEM TARTRATE 10 MG TABLET PO PRN (21:09)
[2019-01-05] MEDS: LORazepam 2 MG TABLET PO PRN (01:06)
[2019-01-05] MEDS: LORazepam 1 MG TABLET PO SCH ×2 (09:03→16:22)
[2019-01-05] MEDS: AmLODIPine BESYLATE 5 MG TABLET PO SCH (09:03)
[2019-01-05] MEDS: OLANZapine 10 MG RAPDIS TABLET PO SCH ×3 (09:04→16:22)
[2019-01-05] MEDS: QUEtiapine FUMARATE 200 MG TABLET PO SCH ×2 (09:04→16:22)
[2019-01-05 10:04] VITALS: BP 139/50
[2019-01-05] MEDS: ZIPRASIDONE HCL 60 MG CAPSULE PO SCH (16:22)
[2019-01-05 18:16] VITALS: BP 134/84
[2019-01-06] MEDS: LORazepam 1 MG TABLET PO SCH ×2 (09:12→16:14)
[2019-01-06] MEDS: AmLODIPine BESYLATE 5 MG TABLET PO SCH (09:12)
[2019-01-06] MEDS: OLANZapine 10 MG RAPDIS TABLET PO SCH ×3 (09:13→16:14)
[2019-01-06] MEDS: QUEtiapine FUMARATE 200 MG TABLET PO SCH ×2 (09:13→16:14)
[2019-01-06 17:58] VITALS: BP 140/87
[2019-01-06] MEDS: ZIPRASIDONE HCL 60 MG CAPSULE PO SCH (18:03)
[2019-01-07] MEDS: LORazepam 1 MG TABLET PO SCH ×2 (08:43→16:51)
[2019-01-07] MEDS: AmLODIPine BESYLATE 5 MG TABLET PO SCH (08:44)
[2019-01-07] MEDS: OLANZapine 10 MG RAPDIS TABLET PO SCH ×3 (08:44→16:51)
[2019-01-07] MEDS: QUEtiapine FUMARATE 200 MG TABLET PO SCH ×2 (08:44→16:51)
[2019-01-07 09:21] VITALS: BP 127/88
[2019-01-07] MEDS: ZIPRASIDONE HCL 60 MG CAPSULE PO SCH (16:51)
[2019-01-07] MEDS: ZOLPIDEM TARTRATE 10 MG TABLET PO PRN (20:13)
[2019-01-07] MEDS: LORazepam 2 MG TABLET PO PRN (20:13)
[2019-01-08] MEDS: LORazepam 2 MG TABLET PO PRN (02:00)
[2019-01-08 03:47] VITALS: BP 160/98
[2019-01-08] MEDS: LORazepam 1 MG TABLET PO SCH ×2 (08:30→16:34)
[2019-01-08] MEDS: AmLODIPine BESYLATE 5 MG TABLET PO SCH (08:31)
[2019-01-08] MEDS: OLANZapine 10 MG RAPDIS TABLET PO SCH ×3 (08:31→16:35)
[2019-01-08] MEDS: QUEtiapine FUMARATE 200 MG TABLET PO SCH ×2 (08:33→16:34)
[2019-01-08 10:46] VITALS: BP 140/86
[2019-01-08] MEDS: ZIPRASIDONE HCL 60 MG CAPSULE PO SCH (16:34)
[2019-01-08 16:38] VITALS: BP 145/80
[2019-01-09] MEDS: QUEtiapine FUMARATE 200 MG TABLET PO SCH ×2 (09:11→17:37)
[2019-01-09] MEDS: AmLODIPine BESYLATE 5 MG TABLET PO SCH (09:11)
[2019-01-09] MEDS: LORazepam 1 MG TABLET PO SCH ×2 (09:11→17:37)
[2019-01-09] MEDS: OLANZapine 10 MG RAPDIS TABLET PO SCH ×3 (09:11→17:37)
[2019-01-09 11:07] VITALS: BP 136/78
[2019-01-09] MEDS: ZIPRASIDONE HCL 60 MG CAPSULE PO SCH (17:36)
[2019-01-10] MEDS: AmLODIPine BESYLATE 5 MG TABLET PO SCH (09:18)
[2019-01-10] MEDS: LORazepam 1 MG TABLET PO SCH ×2 (09:18→16:32)
[2019-01-10] MEDS: QUEtiapine FUMARATE 200 MG TABLET PO SCH ×2 (09:19→16:32)
[2019-01-10] MEDS: OLANZapine 10 MG RAPDIS TABLET PO SCH ×3 (09:19→16:33)
[2019-01-10 09:47] VITALS: BP 156/93
[2019-01-10] MEDS: ZIPRASIDONE HCL 60 MG CAPSULE PO SCH (16:33)
[2019-01-11] MEDS: QUEtiapine FUMARATE 200 MG TABLET PO SCH ×2 (08:24→17:38)
[2019-01-11] MEDS: LORazepam 1 MG TABLET PO SCH ×2 (08:24→17:38)
[2019-01-11] MEDS: OLANZapine 10 MG RAPDIS TABLET PO SCH ×3 (08:24→17:38)
[2019-01-11] MEDS: AmLODIPine BESYLATE 5 MG TABLET PO SCH (08:24)
[2019-01-11] MEDS: NICOTINE 14 MG/24 HOUR PATCH TD PRN (10:31)
[2019-01-11 13:55] VITALS: BP 141/87
[2019-01-11] MEDS: ZIPRASIDONE HCL 60 MG CAPSULE PO SCH (17:38)
[2019-01-12] MEDS: AmLODIPine BESYLATE 5 MG TABLET PO SCH (09:51)
[2019-01-12] MEDS: LORazepam 1 MG TABLET PO SCH ×2 (09:51→17:12)
[2019-01-12] MEDS: QUEtiapine FUMARATE 200 MG TABLET PO SCH ×2 (09:51→17:12)
[2019-01-12] MEDS: OLANZapine 10 MG RAPDIS TABLET PO SCH ×3 (09:51→17:12)
[2019-01-12] MEDS: ZIPRASIDONE HCL 60 MG CAPSULE PO SCH (18:30)
[2019-01-13] MEDS: LORazepam 1 MG TABLET PO SCH (08:06)
[2019-01-13] MEDS: OLANZapine 10 MG RAPDIS TABLET PO SCH (08:08)
[2019-01-13] MEDS: QUEtiapine FUMARATE 200 MG TABLET PO SCH (08:08)
[2019-01-13] MEDS: AmLODIPine BESYLATE 5 MG TABLET PO SCH (08:08)
[2019-01-13] MEDS ORDERED: ZIPR60CA2 PO (09:28)
[2019-01-13 13:14] VITALS: BP 133/86
== END 2019-01-13 13:15 | DRG 750 ==
LOC: EMS 21:04 → 3EC 02-28 10:51 → 3EI 03-19 11:00 → 3EC 04-02 11:08 → B3A 08-30 19:00 → 3EC 09-19 16:00 → 3EI 12-23 14:48
PROVIDERS: ADMIT Psychiatry & Neurology Child & Adolescent Psychiatry; ATTEND Psychiatry & Neurology Child & Adolescent Psychiatry
PROC: 0HBRXZX Excision of Toe Nail, External Approach, Diagnostic (ICD-10-PCS; principal; 2018-12-19)
PROC: 0JBR0ZX Excision of Left Foot Subcutaneous Tissue and Fascia, Open Approach, Diagnostic (ICD-10-PCS; 2018-12-19)
DX: F25.0 Schizoaffective disorder, bipolar type (principal); Z68.41 Body mass index [BMI] 40.0-44.9, adult; E86.0 Dehydration; E66.9 Obesity, unspecified; I10 Essential (primary) hypertension; F10.10 Alcohol abuse, uncomplicated; L60.0 Ingrowing nail; L03.032 Cellulitis of left toe; Z91.19 Patient's noncompliance with other medical treatment and regimen
CPT/HCPCS: 83036; 84443; 87081; 88304; 88311; 88312; 96372; G0480; J1200; J1630; J2060; J2250; J2704; J3010; J3230; J3486; J3490; J7120; Q0162

== ENCOUNTER 2023-03-14 21:42 | Emergency (ER) | payer MEDICARE, OTHER ==
[~2023-03-14 21:42] MED LIST changes: +AMLO-257 PO; -AMLO5TAB9 PO; -OLAN5TAB40 PO; +OLAN5TAB94 PO; +ZIPR60CA29 PO
== END 2023-03-14 21:43 | disposition home or self-care (01) ==
LOC: EMS 21:43
DX: Z53.21 Procedure and treatment not carried out due to patient leaving prior to being seen by health care provider (principal)

== ENCOUNTER 2025-01-07 22:56 | Inpatient (IN) | payer MEDICARE, MEDICAID ==
[~2025-01-07] VITALS: Ht 185.4 cm; Wt 145.1 kg
[~2025-01-07 22:56] MED LIST changes: +BENZ2TAB84 PO; +CLOZ100T61 PO; +DICL100G60 TP; +DIVA-112 PO
[2025-01-08 03:25] VITALS: BP 147/85; PULSE 99; RESP 16; TEMP 98.6; O2SAT 99
[2025-01-08] MEDS ORDERED: LOPERAMIDE HCL 2 MG CAPSULE PO PRN (09:00)
[2025-01-08] MEDS ORDERED: ALBUTEROL SULFATE HFA 90 MCG/PUFF 8 GM INHALER IH PRN (09:00)
[2025-01-08] MEDS ORDERED: PETROLATUM,WHITE 28 GM JELLY TP PRN (09:00)
[2025-01-08] MEDS ORDERED: OMEPRAZOLE 20 MG CAPSULE PO PRN (09:00)
[2025-01-08] MEDS ORDERED: MAGNESIUM HYDROXIDE SUSPENSION 30 ML UDCUP PO PRN (09:00)
[2025-01-08] MEDS ORDERED: GLUCAGON,HUMAN RECOMBINANT 1 MG VIAL IM PRN (09:00)
[2025-01-08] MEDS ORDERED: BACITRACIN 28 GM OINTMENT TP PRN (09:00)
[2025-01-08] MEDS ORDERED: ONDANSETRON 4 MG TABLET PO PRN (09:00)
[2025-01-08 10:52] VITALS: RESP 18
[2025-01-08] MEDS: LITHIUM CARBONATE 300 MG CAPSULE PO SCH (16:08)
[2025-01-08] MEDS: DIVALPROEX SODIUM 500 MG DR TABLET PO SCH (16:08)
[2025-01-08 17:00] LABS: GLUCOMETER DEV NAME(LOC) BV2X.3; GLUCOSE,POINT OF CARE 134 MG/DL (70-110)
[2025-01-08 20:03] VITALS: BP 144/83; PULSE 98; RESP 17; TEMP 97.5; O2SAT 98
[2025-01-09 02:07] LABS: HEPATITIS C AB (EIA) Non Reactive (Non Reactive)
[2025-01-09 08:25] VITALS: BP 139/92; PULSE 98; RESP 17; TEMP 98.3; O2SAT 99
[2025-01-09 09:01] LABS: PLATELET COUNT (AUTO) 166 K/uL (150-450); RED BLOOD CELL COUNT(AUTO) 4.87 MIL/uL (4.50-5.90); RED CELL DISTRIBUTION WIDTH 16.0 % (11.5-14.5); WHITE BLOOD COUNT (AUTO) 11.3 K/uL (4.5-11.0)
[2025-01-09 09:25] LABS: ASPARTATE AMINOTRANSFERASE 49 U/L (15-37); CALCIUM, TOTAL 9.1 mg/dL (8.8-10.5); CHOL/HDL RATIO 3.8 (4.2-7.3); CREATININE 1.02 mg/dL (0.60-1.30); GLOMERULAR FILTR. RATE CALC > 60 mL/min (>60); GLUCOSE,RANDOM 103 mg/dL (70-110); LDL CHOL (CALC.) 74 mg/dL (0-130); SODIUM SERUM 137 mmol/L (136-145); TOTAL PROTEIN, SERUM 7.6 g/dL (6.4-8.2); UREA NITROGEN, BLOOD 8 mg/dL (7-18)
[2025-01-09 23:13] VITALS: RESP 18
[2025-01-10 04:51] VITALS: BP 138/90; PULSE 100; RESP 18
[2025-01-10] MEDS: ACETAMINOPHEN 325 MG TABLET PO PRN (04:54)
[2025-01-10 05:54] VITALS: RESP 16
[2025-01-10] MEDS: LEVOTHYROXINE SODIUM 25 MCG TABLET PO SCH (07:00)
[2025-01-10 20:10] VITALS: BP 142/91; PULSE 65; RESP 17; TEMP 98.5; O2SAT 99
[2025-01-10] MEDS: ZOLPIDEM TARTRATE 10 MG TABLET PO PRN (20:45)
[2025-01-11 07:54] VITALS: BP 130/80; PULSE 80; RESP 18; TEMP 97.4; O2SAT 100
[2025-01-11 10:29] VITALS: BP 133/85; PULSE 80; RESP 18; TEMP 97.4; O2SAT 100
[2025-01-11 20:05] VITALS: BP 125/77; PULSE 96; RESP 19; TEMP 98; O2SAT 96
[2025-01-12 01:55] VITALS: RESP 18
[2025-01-12 08:38] VITALS: BP 147/93; PULSE 98; RESP 18; TEMP 98.1; O2SAT 97
[2025-01-12] MEDS: ARIPiprazole ER SUSPENSION 400 MG PRE-FILLED DUAL CHAMBER SYRINGE IM SCH (09:03)
[2025-01-12 20:10] VITALS: BP 143/80; PULSE 86; RESP 18; TEMP 98.1; O2SAT 98
[2025-01-13 00:07] VITALS: BP 134/87; PULSE 96; RESP 18; TEMP 97.8; O2SAT 99
[2025-01-13] MEDS: IBUPROFEN 600 MG TABLET PO PRN (00:07)
[2025-01-13] MEDS: BENZOCAINE/MENTHOL [CEPACOL] LOZENGE PO PRN (00:12)
[2025-01-13] MEDS: INSULIN LISPRO 100 UNITS/ML SQ PRN (06:26)
[2025-01-13 06:31] LABS: GLUCOMETER DEV NAME(LOC) BV2X.3; GLUCOSE,POINT OF CARE 169 MG/DL (70-110)
[2025-01-13 08:18] VITALS: BP 137/87; PULSE 86; RESP 17; TEMP 98.2; O2SAT 98
[2025-01-13] MEDS: TUBERCULIN, PURIFIED PROTEIN DERIVATIVE 5 TU/0.1 ML SYRINGE ID ONE (14:47)
[2025-01-13 16:06] LABS: GLUCOMETER DEV NAME(LOC) BV2X.3; GLUCOSE,POINT OF CARE 137 MG/DL (70-110)
[2025-01-13 20:13] VITALS: BP 131/78; PULSE 90; RESP 17; TEMP 98; O2SAT 96
[2025-01-13] MEDS: DOCUSATE SODIUM 100 MG CAPSULE PO PRN (20:30)
[2025-01-14 06:26] LABS: GLUCOMETER DEV NAME(LOC) BV2X.3; GLUCOSE,POINT OF CARE 99 MG/DL (70-110)
[2025-01-14 08:15] VITALS: BP 129/66; PULSE 100; RESP 17; TEMP 98.8; O2SAT 99
[2025-01-14 08:58] LABS: APPEARANCE,URINE CLEAR (CLEAR); GLUCOSE, URINE (UA) NEGATIVE (NEGATIVE); LEUKOCYTE ESTERASE ,URINE NEGATIVE (NEGATIVE); NITRATE,URINE NEGATIVE (NEGATIVE); OCCULT BLOOD,URINE NEGATIVE (NEGATIVE); PH,URINE DRUG SCREEN 5.5 (5.0-8.0); SPECIFIC GRAVITIY, URINE 1.032 (1.003-1.030)
[2025-01-14 09:08] LABS: ALCOHOL, URINE DRUG SCREEN NEGATIVE (NEGATIVE); AMPHET/METH SCREEN,URINE NEGATIVE (NEGATIVE); BARBITURATE SCREEN, URINE NEGATIVE (NEGATIVE); CANNABINOID SCREEN,URINE NEGATIVE (NEGATIVE); COCAINE SCREEN,URINE NEGATIVE (NEGATIVE); METHADONE SCREEN, URINE NEGATIVE (NEGATIVE)
[2025-01-14] MEDS: MAG HYDROX/ALUMINUM HYD/SIMETH ES 30 ML SUSPENSION UDCUP PO PRN (14:05)
[2025-01-14 16:21] LABS: GLUCOMETER DEV NAME(LOC) BV2X.3; GLUCOSE,POINT OF CARE 119 MG/DL (70-110)
[2025-01-14 17:28] VITALS: RESP 18
[2025-01-14 18:28] VITALS: RESP 18
[2025-01-14 20:12] VITALS: BP 124/78; PULSE 104; RESP 18; TEMP 97.5; O2SAT 97
[2025-01-15 06:51] LABS: GLUCOMETER DEV NAME(LOC) BV2X.3; GLUCOSE,POINT OF CARE 125 MG/DL (70-110)
[2025-01-15 08:15] VITALS: BP 116/68; PULSE 100; RESP 17; TEMP 97.9; O2SAT 97
[2025-01-15] MEDS: NICOTINE 21 MG/24 HOUR PATCH TD SCH (08:48)
[2025-01-15] MEDS: GuaiFENesin/D-METHORPHAN/PHENYLEPH 5 ML LIQUID ORAL.SYG PO PRN (10:02)
[2025-01-15 12:00] LABS: GLUCOMETER DEV NAME(LOC) BV2X.3; GLUCOSE,POINT OF CARE 107 MG/DL (70-110)
[2025-01-15 16:40] LABS: GLUCOMETER DEV NAME(LOC) BV2X.3; GLUCOSE,POINT OF CARE 125 MG/DL (70-110)
[2025-01-15 20:06] VITALS: BP 135/77; PULSE 101; RESP 17; TEMP 97.8; O2SAT 98
[2025-01-16 08:19] VITALS: BP 140/69; PULSE 102; RESP 17; TEMP 97.9; O2SAT 98
[2025-01-16 12:38] VITALS: BP 138/72; PULSE 90; RESP 18; TEMP 97.6; O2SAT 99
[2025-01-16 13:40] VITALS: RESP 18; O2SAT 99
[2025-01-16 20:25] VITALS: BP 140/85; PULSE 88; RESP 17; TEMP 98; O2SAT 99
[2025-01-16 21:58] VITALS: RESP 18
[2025-01-17 00:35] VITALS: BP 136/94; PULSE 98; RESP 18; O2SAT 96
[2025-01-17 08:30] VITALS: BP 136/100; PULSE 92; RESP 18; TEMP 98.3; O2SAT 96
[2025-01-17 12:43] VITALS: BP 134/69; RESP 17; O2SAT 98
[2025-01-17 20:07] VITALS: RESP 18
[2025-01-18] VITALS (7 sets, daily range): BP systolic 130–138; BP diastolic 62–99; PULSE 102–106; RESP 16–19; TEMP 98–98.3; O2SAT 98–100
[2025-01-19 08:19] VITALS: BP 120/60; PULSE 102; RESP 17; TEMP 98.4; O2SAT 98
[2025-01-19 20:04] VITALS: BP 114/74; PULSE 96; RESP 16; TEMP 98.2; O2SAT 100
[2025-01-20 09:50] VITALS: BP 123/86; PULSE 68; RESP 18; TEMP 98; O2SAT 90
[2025-01-20 12:37] VITALS: TEMP 98
[2025-01-20 20:16] VITALS: RESP 18
[2025-01-20 21:15] VITALS: BP 142/98; PULSE 112; RESP 18; TEMP 98.2; O2SAT 98
[2025-01-20 22:15] VITALS: RESP 18
[2025-01-21 03:45] VITALS: BP 114/80; PULSE 103; RESP 18
[2025-01-21 04:35] VITALS: RESP 18
[2025-01-21 20:08] VITALS: RESP 18
[2025-01-22 04:02] VITALS: BP 130/90; PULSE 102; RESP 18
[2025-01-22 08:58] VITALS: BP 133/84; PULSE 102; RESP 17; TEMP 98.1; O2SAT 98
[2025-01-22 19:33] VITALS: RESP 17
[2025-01-22 20:16] VITALS: RESP 17
[2025-01-22 20:33] VITALS: RESP 16
[2025-01-23 08:01] VITALS: BP 118/65; PULSE 90; RESP 18; TEMP 98; O2SAT 98
[2025-01-23 12:36] VITALS: RESP 17
[2025-01-23 13:36] VITALS: RESP 16
[2025-01-23 20:09] VITALS: RESP 17
[2025-01-23] MEDS: MELATONIN 3 MG TABLET PO SCH (20:15)
[2025-01-24 08:12] VITALS: BP 127/73; PULSE 100; RESP 17; TEMP 98.6; O2SAT 98
[2025-01-24 20:15] VITALS: BP_SYST 138; BP_SYST 183; BP_DIAS 89; PULSE 102; RESP 17; TEMP 98.1; O2SAT 97
[2025-01-25 08:07] VITALS: BP 128/81; PULSE 91; RESP 17; TEMP 97.2; O2SAT 100
[2025-01-26 08:07] VITALS: BP 157/82; PULSE 98; RESP 17; TEMP 97.9; O2SAT 98
[2025-01-26 20:17] VITALS: BP 124/78; PULSE 93; RESP 18; TEMP 98.5; O2SAT 98
[2025-01-27 11:31] LABS: GLUCOMETER DEV NAME(LOC) BV2X.3; GLUCOSE,POINT OF CARE 100 MG/DL (70-110)
[2025-01-28 00:18] VITALS: BP 127/85; PULSE 90; RESP 18; TEMP 98.1; O2SAT 99
[2025-01-28 01:18] VITALS: RESP 17
[2025-01-28 08:13] VITALS: BP 130/81; PULSE 100; RESP 18; TEMP 97.6; O2SAT 96
[2025-01-28 08:45] LABS: VALPROIC ACID 21.0 mcg/mL (50-100)
[2025-01-28] MEDS: LITHIUM CITRATE SOLUTION 8 MEQ/5 ML [8 MEQ = 300 MG] UDCUP PO ONE (13:40)
[2025-01-28] MEDS: VALPROIC ACID 250 MG/5 ML SOLUTION UDCUP PO ONE (13:40)
[2025-01-28] MEDS: LITHIUM CITRATE SOLUTION 8 MEQ/5 ML [8 MEQ = 300 MG] UDCUP PO SCH (15:57)
[2025-01-28] MEDS: VALPROIC ACID 250 MG/5 ML SOLUTION UDCUP PO SCH (15:57)
[2025-01-28 20:13] VITALS: BP 151/86; PULSE 91; RESP 17; TEMP 98.1; O2SAT 97
[2025-01-29 08:14] VITALS: BP 123/88; PULSE 100; RESP 17; TEMP 98.1; O2SAT 98
[2025-01-29 20:13] VITALS: RESP 18
[2025-01-30 08:10] VITALS: BP 130/60; PULSE 99; RESP 16; TEMP 97.4; O2SAT 97
[2025-01-30 20:11] VITALS: BP 134/86; PULSE 110; RESP 17; TEMP 98.2; O2SAT 97
[2025-01-31 08:24] VITALS: BP 127/84; PULSE 98; RESP 19; TEMP 97.5; O2SAT 100
[2025-01-31 20:04] VITALS: RESP 18
[2025-02-01 02:31] VITALS: RESP 17
[2025-02-01 08:14] VITALS: BP 130/89; PULSE 94; RESP 18; TEMP 97.7; O2SAT 98
[2025-02-01 20:08] VITALS: BP 128/86; PULSE 101; RESP 18; TEMP 98.7; O2SAT 98
[2025-02-02 08:09] VITALS: BP 145/90; PULSE 104; RESP 18; TEMP 98.4; O2SAT 99
[2025-02-02 20:16] VITALS: BP 113/83; PULSE 107; RESP 19; TEMP 98.1; O2SAT 98
[2025-02-03 04:56] VITALS: RESP 18
[2025-02-03 08:30] VITALS: RESP 18
[2025-02-04 08:09] VITALS: BP 107/59; PULSE 97; RESP 18; TEMP 98.3; O2SAT 97
[2025-02-04 09:36] LABS: PLATELET COUNT (AUTO) 179 K/uL (150-450); RED BLOOD CELL COUNT(AUTO) 4.94 MIL/uL (4.50-5.90); RED CELL DISTRIBUTION WIDTH 16.2 % (11.5-14.5); WHITE BLOOD COUNT (AUTO) 9.0 K/uL (4.5-11.0)
[2025-02-04 12:33] LABS: ASPARTATE AMINOTRANSFERASE 28 U/L (15-37); CALCIUM, TOTAL 8.9 mg/dL (8.8-10.5); CHOL/HDL RATIO 4.6 (4.2-7.3); CREATININE 0.95 mg/dL (0.60-1.30); GLOMERULAR FILTR. RATE CALC > 60 mL/min (>60); GLUCOSE,RANDOM 161 mg/dL (70-110); LDL CHOL (CALC.) 87 mg/dL (0-130); PHOSPHORUS 3.2 mg/dL (2.5-4.9); SODIUM SERUM 138 mmol/L (136-145); TOTAL PROTEIN, SERUM 7.1 g/dL (6.4-8.2); UREA NITROGEN, BLOOD 9 mg/dL (7-18)
[2025-02-05 09:14] VITALS: BP 152/80; PULSE 98; RESP 18; O2SAT 97
[2025-02-05 09:44] LABS: PLATELET COUNT (AUTO) 185 K/uL (150-450); RED BLOOD CELL COUNT(AUTO) 5.17 MIL/uL (4.50-5.90); RED CELL DISTRIBUTION WIDTH 16.5 % (11.5-14.5); WHITE BLOOD COUNT (AUTO) 10.4 K/uL (4.5-11.0)
[2025-02-05 10:28] LABS: ASPARTATE AMINOTRANSFERASE 32 U/L (15-37); CALCIUM, TOTAL 9.0 mg/dL (8.8-10.5); CHOL/HDL RATIO 4.9 (4.2-7.3); CREATININE 1.01 mg/dL (0.60-1.30); GLOMERULAR FILTR. RATE CALC > 60 mL/min (>60); GLUCOSE,RANDOM 131 mg/dL (70-110); LDL CHOL (CALC.) 94 mg/dL (0-130); PHOSPHORUS 4.9 mg/dL (2.5-4.9); SODIUM SERUM 139 mmol/L (136-145); TOTAL PROTEIN, SERUM 7.5 g/dL (6.4-8.2); UREA NITROGEN, BLOOD 8 mg/dL (7-18)
[2025-02-05 16:45] LABS: GLUCOMETER DEV NAME(LOC) BV2X.3; GLUCOSE,POINT OF CARE 146 MG/DL (70-110)
[2025-02-06 07:31] LABS: GLUCOMETER DEV NAME(LOC) BV2X.3; GLUCOSE,POINT OF CARE 104 MG/DL (70-110)
[2025-02-06 09:14] VITALS: BP 141/76; PULSE 108; RESP 18; TEMP 97.6; O2SAT 96
[2025-02-06] MEDS: LORazepam 2 MG/ML VIAL IM ONE (13:05)
[2025-02-06 16:55] LABS: GLUCOMETER DEV NAME(LOC) BV2X.3; GLUCOSE,POINT OF CARE 167 MG/DL (70-110)
[2025-02-07 07:00] LABS: GLUCOMETER DEV NAME(LOC) BV2X.3; GLUCOSE,POINT OF CARE 123 MG/DL (70-110)
[2025-02-07 10:25] VITALS: RESP 16
[2025-02-07 16:46] LABS: GLUCOMETER DEV NAME(LOC) BV2X.3; GLUCOSE,POINT OF CARE 119 MG/DL (70-110)
[2025-02-08 06:50] LABS: GLUCOMETER DEV NAME(LOC) BV2X.3; GLUCOSE,POINT OF CARE 230 MG/DL (70-110)
[2025-02-08 08:20] VITALS: RESP 17
[2025-02-08 16:45] LABS: GLUCOMETER DEV NAME(LOC) BV2X.3; GLUCOSE,POINT OF CARE 169 MG/DL (70-110)
[2025-02-08 22:32] VITALS: RESP 18
[2025-02-08 23:31] VITALS: RESP 18
[2025-02-09 06:30] LABS: GLUCOMETER DEV NAME(LOC) BV2X.3; GLUCOSE,POINT OF CARE 246 MG/DL (70-110)
[2025-02-09 16:46] LABS: GLUCOMETER DEV NAME(LOC) BV2X.3; GLUCOSE,POINT OF CARE 137 MG/DL (70-110)
[2025-02-09 19:01] VITALS: RESP 18
[2025-02-10 08:30] VITALS: RESP 18
[2025-02-11 07:21] LABS: GLUCOMETER DEV NAME(LOC) BV2X.3; GLUCOSE,POINT OF CARE 196 MG/DL (70-110)
[2025-02-11 20:07] VITALS: BP 143/61; RESP 20
[2025-02-11 23:39] VITALS: RESP 18
[2025-02-12 07:29] LABS: GLUCOMETER DEV NAME(LOC) BV2X.3; GLUCOSE,POINT OF CARE 121 MG/DL (70-110)
[2025-02-12 08:10] VITALS: RESP 17
[2025-02-12] MEDS ORDERED: LORazepam 2 MG/ML VIAL ONE (12:56)
[2025-02-12 13:00] VITALS: BP 144/79; PULSE 118; RESP 17; O2SAT 97
[2025-02-12] MEDS: LORazepam 2 MG/ML VIAL IM ONE ×2 (13:08→13:22)
[2025-02-13 04:06] VITALS: BP 146/100; PULSE 88; RESP 16; TEMP 97.8; O2SAT 100
[2025-02-13 05:06] VITALS: RESP 15
[2025-02-13 08:30] VITALS: RESP 18
[2025-02-14 07:51] LABS: GLUCOMETER DEV NAME(LOC) BV2X.3; GLUCOSE,POINT OF CARE 211 MG/DL (70-110)
[2025-02-14 08:20] VITALS: BP 124/72; PULSE 105; RESP 18; TEMP 98.1; O2SAT 95
[2025-02-14 17:21] LABS: GLUCOMETER DEV NAME(LOC) BV2X.3; GLUCOSE,POINT OF CARE 95 MG/DL (70-110)
[2025-02-14 20:10] VITALS: RESP 18
[2025-02-15 09:00] VITALS: BP 122/62; PULSE 87; RESP 16; O2SAT 98
[2025-02-15 17:15] LABS: GLUCOMETER DEV NAME(LOC) BV2X.3; GLUCOSE,POINT OF CARE 110 MG/DL (70-110)
[2025-02-15 21:10] VITALS: RESP 16
[2025-02-16 09:15] VITALS: BP 143/68; PULSE 108; RESP 18; TEMP 97.4; O2SAT 97
[2025-02-16 20:03] VITALS: RESP 19
[2025-02-17 09:42] VITALS: BP 116/72; RESP 18
[2025-02-17 20:08] VITALS: RESP 18
[2025-02-18 00:11] VITALS: BP 125/84; PULSE 104; RESP 19; TEMP 98
[2025-02-18 01:12] VITALS: RESP 18
[2025-02-18 06:45] LABS: GLUCOMETER DEV NAME(LOC) BV2X.3; GLUCOSE,POINT OF CARE 83 MG/DL (70-110)
[2025-02-18 08:19] VITALS: RESP 17
[2025-02-18 11:50] LABS: GLUCOMETER DEV NAME(LOC) BV2X.3; GLUCOSE,POINT OF CARE 100 MG/DL (70-110)
[2025-02-19 06:36] LABS: GLUCOMETER DEV NAME(LOC) BV2X.3; GLUCOSE,POINT OF CARE 101 MG/DL (70-110)
[2025-02-19 08:09] VITALS: BP 149/59; PULSE 69; RESP 17; TEMP 98.2; O2SAT 95
[2025-02-19 16:31] LABS: GLUCOMETER DEV NAME(LOC) BV2X.3; GLUCOSE,POINT OF CARE 181 MG/DL (70-110)
[2025-02-19 20:09] VITALS: RESP 17
[2025-02-20 07:10] LABS: GLUCOMETER DEV NAME(LOC) BV2X.3; GLUCOSE,POINT OF CARE 160 MG/DL (70-110)
[2025-02-20 09:14] VITALS: BP 132/80; PULSE 90; RESP 16; O2SAT 100
[2025-02-20 17:05] LABS: GLUCOMETER DEV NAME(LOC) BV2X.3; GLUCOSE,POINT OF CARE 119 MG/DL (70-110)
[2025-02-20 20:29] VITALS: RESP 18
[2025-02-21 07:00] LABS: GLUCOMETER DEV NAME(LOC) BV2X.3; GLUCOSE,POINT OF CARE 110 MG/DL (70-110)
[2025-02-21 08:25] VITALS: BP 129/69; PULSE 102; RESP 17; TEMP 96.8; O2SAT 99
[2025-02-21 11:45] LABS: GLUCOMETER DEV NAME(LOC) BV2X.3; GLUCOSE,POINT OF CARE 96 MG/DL (70-110)
[2025-02-21 16:50] LABS: GLUCOMETER DEV NAME(LOC) BV2X.3; GLUCOSE,POINT OF CARE 101 MG/DL (70-110)
[2025-02-21 21:44] VITALS: BP 130/76; PULSE 109; RESP 18; TEMP 98.2; O2SAT 97
[2025-02-22 07:31] LABS: GLUCOMETER DEV NAME(LOC) BV2X.3; GLUCOSE,POINT OF CARE 125 MG/DL (70-110)
[2025-02-22 16:36] LABS: GLUCOMETER DEV NAME(LOC) BV2X.3; GLUCOSE,POINT OF CARE 119 MG/DL (70-110)
[2025-02-22] MEDS ORDERED: LORazepam 2 MG/ML VIAL ONE (17:08)
[2025-02-22] MEDS: LORazepam 2 MG/ML VIAL IM ONE (17:30)
[2025-02-23 07:05] LABS: GLUCOMETER DEV NAME(LOC) BV2X.3; GLUCOSE,POINT OF CARE 105 MG/DL (70-110)
[2025-02-23] MEDS ORDERED: LORazepam 2 MG/ML VIAL ONE (12:47)
[2025-02-23] MEDS: LORazepam 2 MG/ML VIAL IM ONE (13:01)
[2025-02-23 16:40] LABS: GLUCOMETER DEV NAME(LOC) BV2X.3; GLUCOSE,POINT OF CARE 94 MG/DL (70-110)
[2025-02-23 20:54] VITALS: RESP 18
[2025-02-24 16:41] LABS: GLUCOMETER DEV NAME(LOC) BV2X.3; GLUCOSE,POINT OF CARE 87 MG/DL (70-110)
[2025-02-25 06:00] LABS: GLUCOMETER DEV NAME(LOC) BV2X.3; GLUCOSE,POINT OF CARE 96 MG/DL (70-110)
[2025-02-25] MEDS ORDERED: LORazepam 2 MG/ML VIAL ONE (09:13)
[2025-02-25] MEDS: LORazepam 2 MG/ML VIAL IM ONE (10:11)
[2025-02-25 10:30] LABS: VALPROIC ACID 33.0 mcg/mL (50-100)
[2025-02-25] MEDS ORDERED: LITHIUM CITRATE SOLUTION 8 MEQ/5 ML [8 MEQ = 300 MG] UDCUP PO SCH (17:00)
[2025-02-25] MEDS ORDERED: VALPROIC ACID 250 MG CAPSULE PO SCH (17:00)
== END 2025-02-25 16:17 | DRG 885 ==
LOC: B2X 01-08 01:58
PROVIDERS: ADMIT Psychiatry & Neurology Psychiatry; ATTEND Psychiatry & Neurology Psychiatry
DX: F20.9 Schizophrenia, unspecified (principal); E66.9 Obesity, unspecified; I10 Essential (primary) hypertension; E11.9 Type 2 diabetes mellitus without complications; F41.9 Anxiety disorder, unspecified; G47.00 Insomnia, unspecified; K59.00 Constipation, unspecified; E55.9 Vitamin D deficiency, unspecified; F12.90 Cannabis use, unspecified, uncomplicated; Z20.822 Contact with and (suspected) exposure to COVID-19; Z68.33 Body mass index [BMI] 33.0-33.9, adult
CPT/HCPCS: 80053; 80061; 80164; 80178; 80307; 81003; 82962; 83036; 83735; 84100; 84436; 84443; 85025; 86592; 86803; 87340; 87491; 87591; J0401; J1200; J1630; J2060